=== PATIENT | male | born 1930 | race Caucasian/White ===

== ENCOUNTER 2018-07-05 18:21 | Inpatient (IN) ==
--- NOTE | 2018-07-05 18:52 | ED ---
HPI General Chief Complaint: Neuro Symptoms/Deficit Stated Complaint: Dizziness/Confusion/Weakness/Headache x 2 days Time Seen by Provider: 07/05/18 18:31 History of Present Illness HPI Narrative: By EMS after being called by a patient who found him confused at home, where he had been in such a state apparently for 5-6 hours, where last known normal state was between 1030 and 11:00 this morning, 7 hours prior to arrival, with history of having developed a generalized weakness while outside in the yard, clearing hedges, when he had sudden onset of weakness, with difficulty walking, and stumbling, the patient was ultimately able to make it into the house, where he rested for the remainder of the afternoon, without seeking medical help. found him when she came home in such a condition, felt that he was confused, stumbling over words, speaking sometimes nonsensically, and she was concerned about stroke because he had a similar episode of confusion and speech difficulty approximately 5 months ago, for which he refused to seek medical care, but which subsided on its own spontaneously. 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 He had been in good general health, had not felt ill easily, had been eating and drinking normally, with good hydration, and good nourishment prior to starting his activities. Related Data Home Medications Medication Instructions Recorded Confirmed aspirin 325 mg PO QID 07/05/18 07/05/18 Allergies Allergy/AdvReac Type Severity Reaction Status Date / Time No Known Allergies Allergy none Uncoded 07/05/18 19:19 Review of Systems ROS: all other systems reviewed are negative Constitutional Denies chills, Denies fever(s), Denies headache(s), Denies lethargy, Denies malaise and Reports weakness (generalized) Eyes Reports as per HPI, Reports system reviewed and no additional complaints, except as docu, Denies blurry vision, Denies change in vision, Denies loss of vision, Denies other visual disturbances, Reports requires corrective lenses and Reports other (chronic visual deterioration, corrective and macular degeneration) ENT Denies sore throat Cardiovascular Denies chest pain, Denies diaphoresis and Denies dyspnea Respiratory Denies chest congestion, Denies cough, Denies dyspnea and Denies wheezing Gastrointestinal Denies abdominal pain, Denies nausea and Denies vomiting Musculoskeletal Denies back pain, Denies myalgias, Denies arthralgias, Denies joint swelling, Denies muscle cramps, Reports muscle weakness (generalized), Denies numbness and Denies tingling Neurologic Reports as per HPI, Denies abnormal movements, Reports confusion, Denies vertigo , Denies syncope, Reports frequent falls (from onset of generalized weakness today), Denies headache(s), Denies focal weakness, Denies memory loss, Denies numbness, Denies convulsions and Denies sensory deficit [facility] Medical History Medical History Diabetes (Acute) HTN (hypertension) (Acute) Surgical History Surgical History Aortic valve replaced (Acute) History of open heart surgery (Acute) Social History Social History Substance History: No History of Abuse Smoking Status: Former smoker How Often Do You Have a Drink Containing Alcohol: 4 or more times a week Recent Travel in [facility] within the Last 8 Weeks: No Recent Out of Country Travel within the Last 8 Weeks: No Exam Narrative Exam Narrative: GENERAL: Elderly male, awake and oriented, cognition and judgment are good, vital signs are stable, mildly anxious, but no acute distress SKIN: Focused skin assessment warm/dry. HEAD: Atraumatic. Normocephalic. EYES: Pupils equal and round. No scleral icterus. No injection or drainage. ENT: No nasal bleeding or discharge. Mucous membranes pink and moist. NECK: Trachea midline. No JVD. CARDIOVASCULAR: Regular rate and rhythm. No murmur appreciated. RESPIRATORY: No accessory muscle use. Clear to auscultation. Breath sounds equal bilaterally. GASTROINTESTINAL: Abdomen soft, non-tender, nondistended. Hepatic and splenic margins not palpable. MUSCULOSKELETAL: No obvious deformities. No clubbing. No cyanosis. No edema. NEUROLOGICAL: Awake and alert. No obvious cranial nerve deficits. Motor grossly within normal limits. Normal speech. PSYCHIATRIC: Appropriate mood and affect; insight and judgment normal. Course Initial Documented Vital Signs Pulse Oximetry 96 07/05/18 18:43 Last Documented Vital Signs Temperature 98.3 F 07/05/18 19:00 Pulse Rate 76 07/05/18 19:36 Respiratory Rate 18 07/05/18 19:36 Blood Pressure 179/86 H 07/05/18 19:36 Pulse Oximetry 93 L 07/05/18 19:36 NIH Stroke Scale NIHSS Time Completed NIHSS Time Completed: 18:51 NIH Stroke Scale Level of Consciousness: 0-Alert Orientation Questions: 0-Answers both correct Responds to Commands: 0-Both tasks correct Gaze Eye Movement: 0-Horizontal movement WNL Visual Camara: 0-No visual field defect Facial Movement: 0-Normal Motor Functions Arm LEFT: 0-No drift Motor Functions Arm RIGHT: 0-No drift Motor Functions Leg LEFT: 0-No drift Motor Functions Leg RIGHT: 0-No drift Limb Ataxia: 0-No ataxia Sensory Loss: 0-No sensory loss Best Language: 0-Normal Articulation: 0-Normal Extinction or Inattention Sensory: 0-Absent Total: 0 Medical Decision Making MDM Narrative Medical Screen Exam Complete: Yes Emergency Medical Condition: Yes Differential Diagnosis Differential Diagnosis: exertional weakness, metabolic abnormality,CVA, TIA, dehydration, pneumonia, urinary tract infection, sepsis Lab Data Result diagrams: 07/05/18 19:05 07/05/18 19:05 Lab Results 07/05/18 07/05/18 07/05/18 Range/Units 18:35 19:05 19:05 CBC w Diff Auto diff final WBC 6.8 (4.0-11.0) th/mm3 RBC 4.49 L (4.50-5.90) mil/mm3 Hgb 14.9 (13.0-17.0) gm/dL Hct 43.3 (39.0-51.0) % MCV 96.5 (80.0-100.0) fL MCH 33.2 (27.0-34.0) pg MCHC 34.5 (32.0-36.0) % RDW 13.2 (11.6-17.2) % Plt Count 178 (150-450) th/mm3 MPV 8.0 (7.0-11.0) fL Neut % (Auto) 60.5 (16.0-70.0) % Lymph % (Auto) 24.6 (9.0-44.0) % Independence % (Auto) 11.2 H (0.0-8.0) % Eos % (Auto) 3.0 (0.0-4.0) % Baso % (Auto) 0.7 (0.0-2.0) % Neut # (Auto) 4.1 (1.8-7.7) th/mm3 Lymph # (Auto) 1.7 (1.0-4.8) th/mm3 Independence # (Auto) 0.8 (0.0-0.9) th/mm3 Eos # (Auto) 0.2 (0.0-0.4) th/mm3 Baso # (Auto) 0.0 (0.0-0.2) th/mm3 WBC Differential . Differential Comment . PT 10.3 (9.8-11.6) sec INR 1.0 Ratio APTT 33.9 H (23.4-31.7) sec Sodium (136-145) meq/L Potassium (3.5-5.1) meq/L Chloride (98-107) meq/L Carbon Dioxide (21.0-32.0) meq/L Anion Gap (5-15) meq/L BUN (7-18) mg/dL Creatinine (0.60-1.30) mg/dL Estimated GFR (>89) mL/min POC Glucose 134 H (68-110) mg/dl Random Glucose (74-106) mg/dL Lactic Acid (0.4-2.0) mmol/L Calcium (8.5-10.1) mg/dL Total Creatine Kinase (39-308) U/L CK-MB (CK-2) (0.5-3.6) ng/mL Troponin I (0.02-0.05) ng/mL 07/05/18 07/05/18 07/05/18 Range/Units 19:05 19:05 20:00 CBC w Diff WBC (4.0-11.0) th/mm3 RBC (4.50-5.90) mil/mm3 Hgb (13.0-17.0) gm/dL Hct (39.0-51.0) % MCV (80.0-100.0) fL MCH (27.0-34.0) pg MCHC (32.0-36.0) % RDW (11.6-17.2) % Plt Count (150-450) th/mm3 MPV (7.0-11.0) fL Neut % (Auto) (16.0-70.0) % Lymph % (Auto) (9.0-44.0) % Independence % (Auto) (0.0-8.0) % Eos % (Auto) (0.0-4.0) % Baso % (Auto) (0.0-2.0) % Neut # (Auto) (1.8-7.7) th/mm3 Lymph # (Auto) (1.0-4.8) th/mm3 Independence # (Auto) (0.0-0.9) th/mm3 Eos # (Auto) (0.0-0.4) th/mm3 Baso # (Auto) (0.0-0.2) th/mm3 WBC Differential Differential Comment PT (9.8-11.6) sec INR Ratio APTT (23.4-31.7) sec Sodium 141 (136-145) meq/L Potassium 3.7 (3.5-5.1) meq/L Chloride 106 (98-107) meq/L Carbon Dioxide 27.5 (21.0-32.0) meq/L Anion Gap 8 (5-15) meq/L BUN 24 H (7-18) mg/dL Creatinine 0.95 (0.60-1.30) mg/dL Estimated GFR 75 L (>89) mL/min POC Glucose (68-110) mg/dl Random Glucose 140 H (74-106) mg/dL Lactic Acid 0.8 (0.4-2.0) mmol/L Calcium 8.4 L (8.5-10.1) mg/dL Total Creatine Kinase 103 106 (39-308) U/L CK-MB (CK-2) 2.0 (0.5-3.6) ng/mL Troponin I Less than 0.02 L (0.02-0.05) ng/mL Imaging Data Radiologist's impression: Head CT 07/05/18 18:43 CONCLUSION: 1. No acute intracranial abnormality. 2. Mild chronic white matter changes. 3. Left maxillary sinusitis. . ECG Data Attestation: I personally reviewed and interpreted this ECG as follows: (EKG done at 0 7:00 shows a sinus bradycardia with a heart rate of 57 and a first- degree AV block with a MO interval at 312 ms there is nonspecific ST changes.) Discharge Plan Discharge Disposition Patient Disposition: ED Admit(ED Internal Use Only) Discharge Condition Condition: Fair Discharge Order Discharge Orders: ED Use Only Admit Order (Routine); Ordered 07/05/18 Ordered By: Krzysztof Jewell Discharge Details Discharge Comment: Patient's case was discussed and admitted to the hospitalist Dr. Bui Diagnosis: Transient cerebral ischemia, Accelerated hypertension Physicians Team ED Provider: Krzysztof Jewell Primary Care Provider: Do Gallito Henson Rxs /Orders / Referrals /Forms Prescriptions: No Action aspirin 325 mg Tablet 650 mg PO BID RF: 0 Discharge Interventions Interventions: Vital Signs Last Done: 07/05/18 19:36 Status ED Status: With Doctor
[2018-07-05 19:20] LABS: Baso % (Auto) 0.7 % (0.0-2.0); Eos # (Auto) 0.2 th/mm3 (0.0-0.4); Hematocrit 43.3 % (39.0-51.0); Hemoglobin 14.9 gm/dL (13.0-17.0); Lymph # (Auto) 1.7 th/mm3 (1.0-4.8); Lymph % (Auto) 24.6 % (9.0-44.0); Mean Corpuscular HGB Conc 34.5 % (32.0-36.0); Mean Corpuscular Hemoglobin 33.2 pg (27.0-34.0); Mean Corpuscular Volume 96.5 fL (80.0-100.0); Mono # (Auto) 0.8 th/mm3 (0.0-0.9); Mono % (Auto) 11.2 % (0.0-8.0); Neut # (Auto) 4.1 th/mm3 (1.8-7.7); Neut % (Auto) 60.5 % (16.0-70.0); Platelet Count 178 th/mm3 (150-450); Red Blood Count 4.49 mil/mm3 (4.50-5.90); Red Cell Distribution Width 13.2 % (11.6-17.2); White Blood Count 6.8 th/mm3 (4.0-11.0)
[2018-07-05 19:24] LABS: Chloride 106 meq/L (98-107); Potassium 3.7 meq/L (3.5-5.1); Sodium 141 meq/L (136-145)
[2018-07-05 19:27] LABS: Calcium 8.4 mg/dL (8.5-10.1)
[2018-07-05 19:28] LABS: Anion Gap 8 meq/L (5-15); Blood Urea Nitrogen 24 mg/dL (7-18); Carbon Dioxide 27.5 meq/L (21.0-32.0); Glucose,Random 140 mg/dL (74-106)
[2018-07-05 19:30] LABS: Activated Partial Thrombo Time 33.9 sec (23.4-31.7); Prothrombin Time 10.3 sec (9.8-11.6)
[2018-07-05 19:31] LABS: Glomerular Filtration Rate 75 mL/min (>89)
[2018-07-05 19:34] LABS: Creatine Kinase 103 U/L (39-308)
--- NOTE | 2018-07-05 19:59 | CT ---
EXAM DATE: 07/05/2018 7:55 PM EST AGE/SEX: 87 years / Male INDICATIONS: Bilateral lower extremity weakness, dizziness, and confusion today. CLINICAL DATA: This is the patient's initial encounter. Patient reports that signs and symptoms have been present for 1 day and indicates a pain score of 0/10. MEDICAL/SURGICAL HISTORY: Diabetes. Hypertension. Cardiovascular disease. . Open heart surgery. V alve replaced. RADIATION DOSE: 55.40 CTDI (mGy) COMPARISON: No prior exams available for comparison. TECHNIQUE: CT of the head without contrast. Using automated exposure control and adjustment of the mA and/or kV according to patient size, radiation dose was kept as low as reasonably achievable to ob tain optimal diagnostic quality images. DICOM format image data is available electronically for revi ew and comparison. FINDINGS: Cerebrum: The ventricles are normal for age. No evidence of midline shift, mass lesion, hemorrhage or acute infarction. No extraaxial fluid collections are seen. Mild, chronic low-attenuation seen in the periventricular white matter. Posterior Fossa: The cerebellum and brainstem are intact. The 4th ventricle is midline. The cerebe llopontine angle is unremarkable. Extracranial: Mild mucoperiosteal thickening and debris seen in the visualized left maxillary sinus. Skull: The calvaria is intact. No evidence of skull fracture. CONCLUSION: 1. No acute intracranial abnormality. 2. Mild chronic white matter changes. 3. Left maxillary sinusitis. . Electronically signed by: Nikita Finn MD 07/05/2018 7:57 PM EST
[2018-07-05] MEDS ORDERED: Bisacodyl 10 MG Supp RECTAL PRN (20:53)
[2018-07-05] MEDS ORDERED: Acetaminophen 325 MG Tablet PO PRN (20:53)
[2018-07-05] MEDS: Sod Chloride 0.9% Inj 1,000 ML IV.CONT SCH (20:56)
--- NOTE | 2018-07-05 21:39 | ECG ---
Date Performed: 07/05/2018 Time Performed: 20:57:05 PTAGE: 87 years EKG: SINUS BRADYCARDIA WITH FIRST DEGREE AV BLOCK ABNORMAL ECG PREVIOUS TRACING : 12/18/2010 08.40 Compared to previous tracing, rate slower DOCTOR: Ryland Cheema Interpretating Date/Time 07/05/2018 21:38:35
[2018-07-05] MEDS: Senna/Docusate Sodium 8.6/50 MG Tablet PO SCH (22:03)
[2018-07-05] MEDS: Heparin - SQ 10,000 UNITS/ML Vial SQ SCH (22:04)
[2018-07-05 23:39] LABS: Bilirubin,Urine Negative (Negative); Clarity,Urine Clear (Clear); Color,Urine Yellow (Yellw/Straw); Glucose,Urine (UA) Negative (Negative); Leukocyte Esterase,Urine Negative (Negative); Nitrite,Urine Negative (Negative); Specific Gravity,Urine 1.025 (1.002-1.035); Urobilinogen,Urine 0.2 mg/dL (Less than 2)
[2018-07-05 23:44] LABS: RBC,Urine 0-3 /hpf (0-3); Squamous Epithelial Cell,Urine 0-5 /hpf (0-5); WBC,Urine 0-5 /hpf (0-5)
[2018-07-06 06:56] LABS: Baso % (Auto) 0.6 % (0.0-2.0); Eos # (Auto) 0.3 th/mm3 (0.0-0.4); Eos % (Auto) 4.9 % (0.0-4.0); Hematocrit 41.3 % (39.0-51.0); Hemoglobin 14.1 gm/dL (13.0-17.0); Lymph # (Auto) 1.8 th/mm3 (1.0-4.8); Lymph % (Auto) 30.8 % (9.0-44.0); Mean Corpuscular HGB Conc 34.3 % (32.0-36.0); Mean Corpuscular Hemoglobin 33.5 pg (27.0-34.0); Mean Corpuscular Volume 97.8 fL (80.0-100.0); Mean Platelet Volume 8.3 fL (7.0-11.0); Mono # (Auto) 0.7 th/mm3 (0.0-0.9); Mono % (Auto) 11.2 % (0.0-8.0); Neut # (Auto) 3.1 th/mm3 (1.8-7.7); Neut % (Auto) 52.5 % (16.0-70.0); Platelet Count 173 th/mm3 (150-450); Red Blood Count 4.22 mil/mm3 (4.50-5.90); Red Cell Distribution Width 13.3 % (11.6-17.2); White Blood Count 5.9 th/mm3 (4.0-11.0)
[2018-07-06 07:02] LABS: Potassium 3.7 meq/L (3.5-5.1)
[2018-07-06 07:05] LABS: Calcium 8.3 mg/dL (8.5-10.1)
[2018-07-06 07:06] LABS: Carbon Dioxide 27.4 meq/L (21.0-32.0)
--- NOTE | 2018-07-06 08:58 | US ---
EXAM DATE: 07/06/2018 8:51 AM EST AGE/SEX: 87 years / Male INDICATIONS: Altered mental status changes with weakness. CLINICAL DATA: This is the patient's initial encounter. Patient reports that signs and symptoms have been present for 1 day and indicates a pain score of 0/10. MEDICAL/SURGICAL HISTORY: Hypertension. Myocardial infarction. Transient ischemic attack. Di abetes. Coronary artery stent. Aortic valve replacement. Open heart surgery. COMPARISON: No prior exams available for comparison. VELOCITY PARAMETERS: ICA/CCA Ratio: Right 1.9 , Left 5.5 ICA: Right 130 cm/sec, Left 344 cm/sec CCA: Right 69 cm/sec, Left 62 cm/sec ECA: Right 57 cm/sec, Left 89 cm/sec Vertebral: Right 11 cm/sec antegrade, Left 59 cm/sec antegrade FINDINGS: Right Carotid: There is a small calcified nodule in the mid common carotid artery and the area is mi ld calcified and noncalcified plaque in the carotid bulb and distal common carotid artery.The wavefor ms are within normal limits. Left Carotid: There are small focal areas of calcified and noncalcified plaque in the proximal, mid, and distal common carotid artery and there is a shadowing calcified plaque in the carotid bulb and p roximal internal carotid artery. There is spectral broadening. Other: None. CONCLUSION: 1. 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 2. Left Internal Carotid Artery: Findings indicate >70% stenosis, but less than near occlusion. 3. Consider confirmation of these findings with carotid CTA prior to any planned intervention. Electronically signed by: Nikita Duarte MD 07/06/2018 8:57 AM EST
[2018-07-06] MEDS: Aspirin 325 MG Tablet PO SCH (09:34)
[2018-07-06] MEDS: Senna/Docusate Sodium 8.6/50 MG Tablet PO SCH ×2 (09:36→22:19)
[2018-07-06] MEDS: Heparin - SQ 10,000 UNITS/ML Vial SQ SCH ×2 (09:36→22:18)
[2018-07-06 10:08] LABS: Chol/HDL Ratio 2.17 Ratio; HDL Cholesterol 65.8 mg/dL (40.0-60.0)
[2018-07-06] MEDS: Sod Chloride 0.9% Inj 1,000 ML IV.CONT SCH (10:49)
[2018-07-06 12:23] LABS: Thyroid Stimulating Hormone 0.927 uIU/mL (0.358-3.740)
--- NOTE | 2018-07-06 13:45 | P.HP ---
History of Present Illness Primary Care Physician: Do Gallito Henson Chief Complaint: weakness, confusion, difficult ambulating History of Present Illness: 87-year-old male with known history of hypertension, hyperlipidemia, diabetes, coronary artery disease, aortic valve replacement who presented the hospital because of acute neurological symptoms. Patient states that his normal state of health until approximately 10 AM yesterday morning when he was out trimming the hedges. Patient states that he got about a third of the way down he started developing weakness in his lower extremities. Patient states that he had a difficult time of stepping up over a 1 foot fence. He tried multiple times and then he fell. He denies any head trauma or any loss of consciousness. The patient got up and finished trimming a hedge, he put everything away and then went into the house. After that he started having problems with coordination, ambulating. He states that he went into the kitchen to get utensils but could not differentiate between a knife and a fork. When the patient's came home she was concerned because he appeared to be very confused and he had the TV volume up very high. He does wear hearing aids and they usually listen to the TV at a 1920, however when she came in it was on 38 in order for him to hear. They came to the emergency department for evaluation. Original workup did not indicate any acute abnormality. It was recommended by the ER physician of the patient be observed in the hospital for further evaluation and management. The patient and indicate that this has happened approximately 6 months ago and he did not seek medical attention at that time. - Diagnosis (1) Coronary artery disease (2) History of cardiac catheterization (3) History of heart artery stent (4) Transient cerebral ischemia Review of Systems All other systems reviewed negative except as stated in HPI Ears, Nose, Mouth, and Throat: Reports hearing loss Neurologic: Reports abnormal hearing, Reports abnormal speech, Reports abnormal walking, Reports behavioral changes, Reports confusion, Reports lack of coordination, Reports unsteadiness PMF - History History Provided By: Patient - Medical History Medical History: Medical History (Last Updated 07/06/18 @ 13:44 by KELSEA Melton) Coronary artery disease Diabetes HTN (hypertension) Hyperlipidemia - Surgical History Surgical History: Surgical History (Last Updated 07/06/18 @ 13:44 by KELSEA Melton) Aortic valve replaced History of cardiac catheterization History of cataract extraction with lens replacement History of heart artery stent History of open heart surgery - Family History Family History: Family History (Last Updated 07/06/18 @ 13:44 by KELSEA Melton) Mother History of heart disease Father History of prostate cancer - Tobacco History Second Hand Smoke Exposure: No Tobacco Use In Past 30 Days: No Smoking Status: Former smoker - Alcohol History How Often Do You Have a Drink Containing Alcohol: 4 or more times a week - Substance Use History Substance History: No History of Abuse - Travel History Recent Travel in the [place] Within the Last 8 Weeks: No Recent Travel Out of the Country Within the Last 8 Weeks: No - Immunization History Tetanus Immunization: <5 Years Medications and Allergies Active Medications: Active Medications Acetaminophen (Tylenol) 650 mg PO Q4H PRN PRN Reason: headache/fever/pain1-5 Al Hydroxide/Mg Hydroxide (Milk Of Magnesia Liq) 30 ml PO Q12H PRN PRN Reason: Mild Constipation Aspirin (Aspirin) 325 mg PO DAILY [facility] Last Admin: 07/06/18 09:34 Dose: 325 mg Bisacodyl (Dulcolax Supp) 10 mg RECTAL DAILY PRN PRN Reason: SEVERE CONSITIPATION Heparin Sodium (Porcine) (Heparin Inj) 5,000 units SQ Q12H [facility] Last Admin: 07/06/18 09:36 Dose: 5,000 units Sodium Chloride (Ns Inj) 1,000 mls @ 70 mls/hr IV.CONT .[id number] [facility] Last Admin: 07/06/18 10:49 Dose: 70 mls/hr Lactulose (Lactulose Liq) 30 ml PO DAILY PRN PRN Reason: SEVERE CONSITIPATION Ondansetron HCl (Zofran Inj) 4 mg IV.PUSH Q6H PRN PRN Reason: NAUSEA OR VOMITING Senna/Docusate Sodium (Karen-Colace) 1 tab PO BID [facility] Last Admin: 07/06/18 09:36 Dose: 1 tab Sennosides (Senokot) 17.2 mg PO Q12H PRN PRN Reason: Moderate Constipation Sodium Chloride (Ns Flush) 2 ml IV.FLUSH BID [facility] Last Admin: 07/06/18 09:37 Dose: 2 ml Sodium Chloride (Ns Flush) 2 ml IV.FLUSH PRN PRN PRN Reason: FLUSH AFTER USING IV ACCESS Allergies Allergy/AdvReac Type Severity Reaction Status Date / Time No Known Allergies Allergy none Uncoded 07/05/18 19:19 Home Medications Medication Instructions Recorded Confirmed Type aspirin 650 mg PO BID 07/05/18 07/05/18 History Exam Vital signs: Vital Signs 07/05/18 18:43 07/05/18 19:00 07/05/18 19:36 Temperature 98.3 F Pulse Rate 82 76 Respiratory Rate 18 18 Blood Pressure 223/90 H 179/86 H Pulse Oximetry 96 96 93 L 07/05/18 21:03 07/05/18 21:04 07/05/18 21:48 Temperature Pulse Rate 61 61 61 Respiratory Rate 16 Blood Pressure 188/79 H Pulse Oximetry 95 07/05/18 21:55 07/06/18 00:00 07/06/18 00:04 Temperature 96.0 F L 96.6 F L Pulse Rate 57 L 60 57 L Respiratory Rate 18 18 Blood Pressure 175/80 H 170/85 H Pulse Oximetry 96 94 L 07/06/18 04:00 07/06/18 04:02 07/06/18 08:00 Temperature 96.5 F L 96.2 F L Pulse Rate 65 78 64 Respiratory Rate 19 20 Blood Pressure 168/82 H 206/95 H Pulse Oximetry 95 95 07/06/18 08:10 07/06/18 12:00 Temperature 97 F L Pulse Rate 62 63 Respiratory Rate 20 Blood Pressure 197/90 H 177/95 H Pulse Oximetry Intake & Output 07/05/18 07/06/18 07/06/18 18:59 06:59 18:59 Intake Total 625 / 625 375 / 375 Output Total 75 / 75 Balance 550 / 550 375 / 375 Weight 77.8 kg Intake: IV 625 / 625 375 / 375 NS Inj 1,000 ML @ 70 mls/hr IV. 625 / 625 375 / 375 CONT .[id number] [facility] Rx#: [id number] Output: Urine 75 / 75 Other: Date of Last Bowel Movement 07/04/18 Weight On Admission 77.8 kg Narrative: GENERAL: Well-developed, well-nourished, in no acute distress. alert and orientated HEENT: Head is normocephalic without any lesions or masses noted. Facial features are symmetric. Eyes: Pupils equal round reactive to light. Extraocular muscles are intact. Conjunctivae were clear. Oropharyngeal: Pharynx without any erythema edema. Tongue is midline without deviation. Buccal mucosa is moist without any masses or lesions NECK: Supple without any masses. Trachea midline no deviation. No JVD, no bruits are appreciated CARDIAC: Regular rhythm, regular rate. S1/S2 are heard. 2/6 ejection murmur, no gallops or rubs. LUNGS: Clear to auscultation bilaterally. No wheeze, rhonchi or rales. No use of accessory muscles on inspiration or expiration. ABDOMEN: Soft, nontender. Nondistended. Bowel sounds heard in all 4 quadrants. No organomegaly or masses. Negative rebound, negative guarding EXTREMITIES: No edema, pulses are equal bilaterally. No cyanosis or clubbing NEUROLOGY: Mood and affect appear appropriate. Cranial nerves II through XII grossly intact. Muscle strength 5/5 in upper and lower extremities bilaterally. Deep tendon reflexes are 2+ in upper and lower extremities bilaterally. Results - Labs CBC & Chem 7: 07/06/18 05:30 07/06/18 05:30 Labs: Laboratory Results - last 24 hr 07/05/18 07/05/18 07/05/18 18:35 19:05 19:05 CBC w Diff Auto diff final WBC 6.8 RBC 4.49 L Hgb 14.9 Hct 43.3 MCV 96.5 MCH 33.2 MCHC 34.5 RDW 13.2 Plt Count 178 MPV 8.0 Neut % (Auto) 60.5 Lymph % (Auto) 24.6 [place] % (Auto) 11.2 H Eos % (Auto) 3.0 Baso % (Auto) 0.7 Neut # (Auto) 4.1 Lymph # (Auto) 1.7 [place] # (Auto) 0.8 Eos # (Auto) 0.2 Baso # (Auto) 0.0 WBC Differential . Differential Comment . ESR PT 10.3 INR 1.0 APTT 33.9 H Sodium Potassium Chloride Carbon Dioxide Anion Gap BUN Creatinine Estimated GFR POC Glucose 134 H Random Glucose Lactic Acid Calcium Ammonia Total Creatine Kinase CK-MB (CK-2) Troponin I Triglycerides Cholesterol LDL Cholesterol, Calc HDL Cholesterol Cholesterol/HDL Ratio TSH Urine Color Urine Clarity Urine pH Ur Specific [place] Urine Protein Urine Glucose (UA) Urine Ketones Urine Occult Blood Urine Nitrate Urine Bilirubin Urine Urobilinogen Ur Leukocyte Esterase Urine RBC Urine WBC Ur Squamous Epith Cells Micro UA Comment Ur Microscopic Review Urine Culture Comments 07/05/18 07/05/18 07/05/18 19:05 19:05 20:00 CBC w Diff WBC RBC Hgb Hct MCV MCH MCHC RDW Plt Count MPV Neut % (Auto) Lymph % (Auto) [place] % (Auto) Eos % (Auto) Baso % (Auto) Neut # (Auto) Lymph # (Auto) [place] # (Auto) Eos # (Auto) Baso # (Auto) WBC Differential Differential Comment ESR PT INR APTT Sodium 141 Potassium 3.7 Chloride 106 Carbon Dioxide 27.5 Anion Gap 8 BUN 24 H Creatinine 0.95 Estimated GFR 75 L POC Glucose Random Glucose 140 H Lactic Acid 0.8 Calcium 8.4 L Ammonia Total Creatine Kinase 103 106 CK-MB (CK-2) 2.0 Troponin I Less than 0.02 L Triglycerides Cholesterol LDL Cholesterol, Calc HDL Cholesterol Cholesterol/HDL Ratio TSH Urine Color Urine Clarity Urine pH Ur Specific [place] Urine Protein Urine Glucose (UA) Urine Ketones Urine Occult Blood Urine Nitrate Urine Bilirubin Urine Urobilinogen Ur Leukocyte Esterase Urine RBC Urine WBC Ur Squamous Epith Cells Micro UA Comment Ur Microscopic Review Urine Culture Comments 07/05/18 07/05/18 07/06/18 22:04 23:10 05:30 CBC w Diff WBC RBC Hgb Hct MCV MCH MCHC RDW Plt Count MPV Neut % (Auto) Lymph % (Auto) [place] % (Auto) Eos % (Auto) Baso % (Auto) Neut # (Auto) Lymph # (Auto) [place] # (Auto) Eos # (Auto) Baso # (Auto) WBC Differential Differential Comment ESR PT INR APTT Sodium 142 Potassium 3.7 Chloride 108 H Carbon Dioxide 27.4 Anion Gap 7 BUN 22 H Creatinine 0.83 Estimated GFR 88 L POC Glucose 133 H Random Glucose 95 Lactic Acid Calcium 8.3 L Ammonia Total Creatine Kinase CK-MB (CK-2) Troponin I Triglycerides 81 Cholesterol 143 LDL Cholesterol, Calc 61 HDL Cholesterol 65.8 H Cholesterol/HDL Ratio 2.17 TSH Urine Color Yellow Urine Clarity Clear Urine pH 6.0 Ur Specific [place] 1.025 Urine Protein Negative Urine Glucose (UA) Negative Urine Ketones Trace H Urine Occult Blood Negative Urine Nitrate Negative Urine Bilirubin Negative Urine Urobilinogen 0.2 Ur Leukocyte Esterase Negative Urine RBC 0-3 Urine WBC 0-5 Ur Squamous Epith Cells 0-5 Micro UA Comment Culture not ind Ur Microscopic Review Microscopic reviewed Urine Culture Comments Culture not ind 07/06/18 07/06/18 07/06/18 05:30 05:30 05:30 CBC w Diff Auto diff final WBC 5.9 RBC 4.22 L Hgb 14.1 Hct 41.3 MCV 97.8 MCH 33.5 MCHC 34.3 RDW 13.3 Plt Count 173 MPV 8.3 Neut % (Auto) 52.5 Lymph % (Auto) 30.8 [place] % (Auto) 11.2 H Eos % (Auto) 4.9 H Baso % (Auto) 0.6 Neut # (Auto) 3.1 Lymph # (Auto) 1.8 [place] # (Auto) 0.7 Eos # (Auto) 0.3 Baso # (Auto) 0.0 WBC Differential . Differential Comment . ESR 2 PT INR APTT Sodium Potassium Chloride Carbon Dioxide Anion Gap BUN Creatinine Estimated GFR POC Glucose Random Glucose Lactic Acid Calcium Ammonia Total Creatine Kinase CK-MB (CK-2) Troponin I Triglycerides Cholesterol LDL Cholesterol, Calc HDL Cholesterol Cholesterol/HDL Ratio TSH 0.927 Urine Color Urine Clarity Urine pH Ur Specific [place] Urine Protein Urine Glucose (UA) Urine Ketones Urine Occult Blood Urine Nitrate Urine Bilirubin Urine Urobilinogen Ur Leukocyte Esterase Urine RBC Urine WBC Ur Squamous Epith Cells Micro UA Comment Ur Microscopic Review Urine Culture Comments 07/06/18 10:20 CBC w Diff WBC RBC Hgb Hct MCV MCH MCHC RDW Plt Count MPV Neut % (Auto) Lymph % (Auto) [place] % (Auto) Eos % (Auto) Baso % (Auto) Neut # (Auto) Lymph # (Auto) [place] # (Auto) Eos # (Auto) Baso # (Auto) WBC Differential Differential Comment ESR PT INR APTT Sodium Potassium Chloride Carbon Dioxide Anion Gap BUN Creatinine Estimated GFR POC Glucose Random Glucose Lactic Acid Calcium Ammonia 44 H Total Creatine Kinase CK-MB (CK-2) Troponin I Triglycerides Cholesterol LDL Cholesterol, Calc HDL Cholesterol Cholesterol/HDL Ratio TSH Urine Color Urine Clarity Urine pH Ur Specific [place] Urine Protein Urine Glucose (UA) Urine Ketones Urine Occult Blood Urine Nitrate Urine Bilirubin Urine Urobilinogen Ur Leukocyte Esterase Urine RBC Urine WBC Ur Squamous Epith Cells Micro UA Comment Ur Microscopic Review Urine Culture Comments - Imaging Impressions Head CT 07/05/18 18:43 CONCLUSION: 1. No acute intracranial abnormality. 2. Mild chronic white matter changes. 3. Left maxillary sinusitis. . Carotid Doppler Study 07/06/18 00:00 CONCLUSION: 1. 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 2. Left Internal Carotid Artery: Findings indicate >70% stenosis, but less than near occlusion. 3. Consider confirmation of these findings with carotid CTA prior to any planned intervention. Caprini VTE Risk Assessment Caprini VTE Risk Assessment: Moderate/High Risk (score >= 2) Caprini Risk Assessment Model: Point Value = 1 Point Value = 2 Point Value = 3 Point Value = 5 Age 41-60 Minor surgery BMI > 25 kg/m2 Swollen legs Varicose veins or History of unexplained or recurrent spontaneous Oral contraceptives or hormone replacement Sepsis (< 1 month) Serious lung disease, including pneumonia (< 1 month) Abnormal pulmonary function Acute myocardial infarction Congestive heart failure (< 1 month) History of inflammatory bowel disease Medical patient at bed rest Age 61-74 Arthroscopic surgery Major open surgery (> 45 min) Laparoscopic surgery (> 45 min) Malignancy Confined to bed (> 72 hours) Immobilizing plaster cast Central venous access Age >= 75 History of VTE Family history of VTE Factor V Leiden Prothrombin [id number] Lupus anticoagulant Anticardiolipin antibodies Elevated serum homocysteine Heparin-induced thrombocytopenia Other congenital or acquired thrombophilia Stroke (< 1 month) Elective arthroplasty Hip, pelvis, or leg fracture Acute spinal cord injury (< 1 month) Prophylaxis Regimen: Total Risk Factor Score Risk Level Prophylaxis Regimen 0-1 Low Early ambulation 2 Moderate Order ONE of the following: *Sequential Compression Device (SCD) *Heparin 5000 units SQ BID 3-4 Higher Order ONE of the following medications: *Heparin 5000 units SQ TID *Enoxaparin/Lovenox 40 mg SQ daily (WT < 150 kg, CrCl > 30 mL/min) *Enoxaparin/Lovenox 30 mg SQ daily (WT < 150 kg, CrCl > 10-29 mL/min) *Enoxaparin/Lovenox 30 mg SQ BID (WT < 150 kg, CrCl > 30 mL/min) AND/OR *Sequential Compression Device (SCD) 5 or more Highest Order ONE of the following medications: *Heparin 5000 units SQ TID (Preferred with Epidurals) *Enoxaparin/Lovenox 40 mg SQ daily (WT < 150 kg, CrCl > 30 mL/min) *Enoxaparin/Lovenox 30 mg SQ daily (WT < 150 kg, CrCl > 10-29 mL/min) *Enoxaparin/Lovenox 30 mg SQ BID (WT < 150 kg, CrCl > 30 mL/min) AND *Sequential Compression Device (SCD) Assessment and Plan - Assessment (1) Coronary artery disease Code(s): I25.10 - Atherosclerotic heart disease of [place] coronary artery without angina pectoris Status: Acute (2) History of cardiac catheterization Code(s): Z98.890 - Other specified postprocedural states Status: Acute (3) History of heart artery stent Code(s): Z95.5 - Presence of coronary angioplasty implant and graft Status: Acute (4) Transient cerebral ischemia Code(s): G45.9 - Transient cerebral ischemic attack, unspecified Status: Acute - Plan Acute neurological changes, rule out CVA -Patient presented with lower extremity weakness, fall, confusion, difficulty speaking, acute hearing loss, disequilibrium -Initial CT did not indicate any acute abnormality -Carotid ultrasound was performed and does indicate greater than 70% stenosis of the left carotid. Recommending CTA -Awaiting MRI/MRA of the brain, -Awaiting MRA of the neck -Awaiting echocardiogram -Additional laboratory studies with lipid panel shows LDL 61, TSH, sed rate are normal -B12, folate, glycohemoglobin are pending -Patient does have elevated ammonia level will obtain liver enzymes -Physical therapy evaluated patient and recommended home with no PT recommendations -Speech therapy evaluated patient and recommended full diet -Awaiting occupational therapy -Start Plavix 75 mg daily, if MRA of the neck does not indicate need for surgical intervention -Continue aspirin Hypertensive urgency -Given the patient presenting with acute neurological changes and symptoms. Permissive hypertension was allowed -Can start controlling blood pressure at this time -Start lisinopril 10 mg daily -Clonidine as needed Diabetes -Continue monitor glucose, await hemoglobin A1c and start insulin with sliding scale if needed DVT prevention -Subcutaneous heparin
[2018-07-06 14:14] LABS: Folate 9.8 ng/mL (3.1-17.5)
--- NOTE | 2018-07-06 14:21 | MR ---
EXAM DATE: 07/06/2018 2:09 PM EST AGE/SEX: 87 years / Male INDICATIONS: TIA. Leg weakness and some confusion. CLINICAL DATA: This is the patient's subsequent encounter. Patient reports that signs and symptoms h ave been present for 2 days and indicates a pain score of 0/10. MEDICAL/SURGICAL HISTORY: Cardiovascular disease. Hypertension. Coronary artery stent. CABG. COMPARISON: [facility], CT HEAD W/O CONTRAST, 07/05/2018. . TECHNIQUE: Multiplanar, multisequence examination of the brain was performed without contrast. FINDINGS: Cerebrum: There is mild generalized atrophy with ventricular size within normal limits given the degr ee of atrophy. No midline shift, mass lesion, hemorrhage or acute infarction. No extraaxial fluid c ollections are seen. The pituitary gland and suprasellar cistern are normal in configuration. White Matter: There is moderate periventricular and subcortical white matter signal change bilateral ly. Posterior Fossa: The cerebellum and brainstem demonstrate no acute abnormality. The 4th ventricle is midline. The cerebellopontine angle is within normal limits. The cerebellar tonsils are normal in p osition. Diffusion Imaging: No areas of restricted diffusion are seen. Extracranial: There is severe mucoperiosteal thickening within the left maxillary sinus. CONCLUSION: 1. No acute intracranial abnormality is identified. There are no findings to indicate recent ischemi a. 2. Chronic changes include generalized atrophy and moderate severity periventricular white matter si gnal change characteristic of chronic microvascular ischemic change. 3. Severe left maxillary mucoperiosteal thickening. Electronically signed by: Nikita Duarte MD 07/06/2018 2:19 PM EST
[2018-07-06] MEDS ORDERED: Gadobutrol PF 10 MMOL/10 ML Vial (for RAD) IV.SIG ONE (14:30)
--- NOTE | 2018-07-06 14:32 | MR ---
EXAM DATE: 07/06/2018 2:26 PM EST AGE/SEX: 87 years / Male INDICATIONS: TIA. Leg weakness with some confusion. CLINICAL DATA: This is the patient's subsequent encounter. Patient reports that signs and symptoms h ave been present for 2 days and indicates a pain score of 0/10. MEDICAL/SURGICAL HISTORY: Hypertension. Cardiovascular disease. CABG. Coronary artery stent. COMPARISON: [facility], MR HEAD W/O CONTRAST, 07/06/2018. . TECHNIQUE: 3D [id number] MRA was performed. Source images, multiplanar STS MIP, and 3D volum e MIP reconstructions were reviewed. FINDINGS: Extensive atherosclerotic intracranial vascular disease with stenosis is identified in the mid A1 seg ment of the left anterior cerebral artery and the mid M1 segment of the left middle cerebral artery. Distal middle cerebral artery branches on the left are poorly visualized. Focal stenosis origin of the left posterior cerebral artery from the basilar. Basilar is patent Both carotids are patent. CONCLUSION: 1. Significant intracranial atherosclerotic vascular disease as described above. Electronically signed by: Andrea Villaseñor MD 07/06/2018 2:30 PM EST
--- NOTE | 2018-07-06 14:32 | ECHRPT ---
Indication: CVA/TIA CONCLUSIONS Normal left ventricular size. The left ventricular systolic function is normal with an estimated ejection fraction in the range of 55-60%. The left atrial size is mildly dilated. Calcification of the posterior mitral valve leaflet. Mild mitral valve regurgitation. Mitral annular calcification is present. The aortic valve prosthesis is normal to two-dimensional, color flow and Doppler interrogation. There is trace tricuspid valve regurgitation. The estimated pulmonary arterial pressure is 47 mmHg. BP: / HR: Rhythm: MEASUREMENTS (Male / Female) Normal Values Technical Quality:Good 2D ECHO LV Diastolic Diameter PLAX 5.1 cm 4.2 - 5.9 / 3.9 - 5.3 cm LV Systolic Diameter PLAX 3.8 cm IVS Diastolic Thickness 1.1 cm 0.6 - 1.0 / 0.6 - 0.9 cm LVPW Diastolic Thickness 1.1 cm 0.6 - 1.0 / 0.6 - 0.9 cm LV Relative Wall Thickness 0.4 RV Internal Dim ED PLAX 3.3 cm LVOT Diameter 1.8 cm Aortic Root Diameter 2.7 cm LA Systolic Diameter LX 4.4 cm 3.0 - 4.0 / 2.7 - 3.8 cm DOPPLER AV Peak Velocity 240.5 cm/s AV Peak Gradient 23.1 mmHg AV Mean Gradient 11.0 mmHg AV Velocity Time Integral 55.1 cm LVOT Peak Velocity 183.0 cm/s LVOT Peak Gradient 13.4 mmHg LVOT Velocity Time Integral 41.7 cm AV Area Cont Eq vti 1.9 cm AV Area Cont Eq pk 1.9 cm Mitral E Point Velocity 97.2 cm/s Mitral A Point Velocity 93.8 cm/s Mitral E to A Ratio 1.0 LV E' Lateral Velocity 10.4 cm/s Mitral E to LV E' Lateral Ratio 9.3 LV E' Septal Velocity 5.2 cm/s Mitral E to LV E' Septal Ratio 18.8 TR Peak Velocity 304.0 cm/s TR Peak Gradient 37.0 mmHg Right Atrial Pressure 10.0 mmHg Pulmonary Artery Systolic Pressu 47.0 mmHg Right Ventricular Systolic Press 47.0 mmHg PV Peak Velocity 103.0 cm/s PV Peak Gradient 4.2 mmHg FINDINGS LEFT VENTRICLE Normal left ventricular size. Wall thickness is measured at the upper limits of normal. The left ventricular systolic function is normal with an estimated ejection fraction in the range of 55-60%. RIGHT VENTRICLE Normal right ventricular size and systolic function. LEFT ATRIUM The left atrial size is mildly dilated. RIGHT ATRIUM The right atrial size is normal. ATRIAL SEPTUM Normal atrial septal thickness without atrial level shunting by limited color doppler interrogation. AORTA The aortic root and proximal ascending aorta are normal in size on limited imaging. MITRAL VALVE Calcification of the posterior mitral valve leaflet. Mild mitral valve regurgitation. Mitral annular calcification is present. AORTIC VALVE The aortic valve prosthesis is normal to two-dimensional, color flow and Doppler interrogation. TRICUSPID VALVE There is trace tricuspid valve regurgitation. The estimated pulmonary arterial pressure is 47 mmHg. PULMONARY VALVE No pulmonary valve regurgitation or stenosis. VESSELS The inferior vena cava is normal in size. PERICARDIUM No pericardial effusion. Ryland Cheema MD, FACC (Electronically Signed) Final Date:06 July 2018 14:31
[2018-07-06 14:52] LABS: Albumin 3.5 g/dL (3.4-5.0)
[2018-07-06 14:57] LABS: Total Protein 6.2 g/dL (6.4-8.2)
--- NOTE | 2018-07-06 15:02 | MR ---
EXAM DATE: 07/06/2018 2:46 PM EST AGE/SEX: 87 years / Male INDICATIONS: Stenosis. Abnormal US. CLINICAL DATA: This is the patient's subsequent encounter. Patient reports that signs and symptoms h ave been present for 2 days and indicates a pain score of 0/10. MEDICAL/SURGICAL HISTORY: Cardiovascular disease. Hypertension. Coronary artery stent. CABG. COMPARISON: [facility], US CAROTID DOPPLER BI, 07/06/2018. . TECHNIQUE: 10 ml Gadavist (gadobutrol) contrast infused MRA (single exam dose) of the extracranial circulation was performed using a neurovascular coil. Postprocessing was performed, including rotati ng sub-volume maximum intensity projections of each carotid artery, rotating full-volume maximum inte nsity projections of both carotid arteries, sagittal and coronal sliding thin-slab reformations of ea ch carotid artery, and left oblique sliding thin-slab reformation through the aortic arch to include the origin of the arch branch vessels. FINDINGS: Aortic Arch : There is a three-vessel origin of the great vessels from the aorta. There is no ostia l stenosis but there is a focal waist-like narrowing in the proximal left common carotid artery and p roximal left subclavian artery. The appearance is likely related to artifact since it is only definit ively seen on the mid reconstructions and not on the source data set.. Right Carotid : The right common carotid artery demonstrates no significant luminal irregularity or luminal stenosis. There is a short 5 mm segment of narrowing involving the proximal left internal car otid artery with approximately 50% stenosis. The more distal internal carotid artery demonstrates no luminal irregularity or stenosis. External carotid artery demonstrates no definite abnormality. Left Carotid : Common carotid artery demonstrates no luminal irregularity or significant stenosis. I n the carotid bulb and proximal internal carotid artery there is a short focal high-grade stenosis me asuring approximately 3 mm in length. There is estimated to be at least 80% stenosis if not greater. There is only minimal lumen visualized. The more distal internal carotid artery demonstrates no signi ficant stenosis. External carotid artery demonstrates no significant abnormality. Vertebrals : The origins of the vertebral arteries are not well visualized. Left vertebral artery is dominant. No high-grade stenosis is identified within the vertebral arteries. Other: There is a nonspecific high signal intensity bulbous structure in the left supraclavicular reg ion adjacent to the proximal common carotid artery. It does not clearly connect with any vessel but a ppears to represent some type of vascular structure. CONCLUSION: 1. There is a short segment focal high-grade stenosis in the proximal left internal carotid artery w ith at least 80% stenosis not greater. 2. There is a short segment of stenosis of the proximal right internal carotid artery with approxima tely 50% stenosis. 3. There is a nonspecific lobular presumed vascular structure in the left supraclavicular region sp suring at least 1.5 cm. It does not appear to represent any definite artery but should exclude that i t represents an aneurysm or arteriovenous fistula. Therefore, consider correlating with CTA examinati on with contrast injection in the right upper extremity during imaging. Percent stenosis is calculated using the diameter of the stenotic region over the diameter of the nor mal distal internal carotid artery Electronically signed by: Nikita Duarte MD 07/06/2018 3:01 PM EST
[2018-07-06] MEDS: Lisinopril 10 MG Tablet PO SCH (15:27)
[2018-07-06 15:44] LABS: Hemoglobin A1c 6.2 % (4.3-6.0)
--- NOTE | 2018-07-06 18:59 | CT ---
EXAM DATE: 07/06/2018 6:01 PM EST AGE/SEX: 87 years / Male INDICATIONS: Abnormal ultrasound of carotids. CLINICAL DATA: This is the patient's subsequent encounter. Patient reports that signs and symptoms h ave been present for 2 days and indicates a pain score of 0/10. MEDICAL/SURGICAL HISTORY: Diabetes. Cardiovascular disease. Coronary artery stent. CABG. RADIATION DOSE: 42.13 CTDI (mGy) COMPARISON: No prior exams available for comparison. TECHNIQUE: Volumetric scanning was performed using a multirow detector CT scanner during bolus infus ion of 100 ml Omnipaque 350 (iohexol) nonionic water-soluble contrast as a single exam dose. The d robbie was postprocessed with a variety of visualization algorithms including full-volume maximum intens ity projection, multiplanar sliding thin-slab reformation, curved-planar reformation, and surface-odette dering techniques. Using automated exposure control and adjustment of the mA and/or kV according to patient size, radiation dose was kept as low as reasonably achievable to obtain optimal diagnostic qu ality images. DICOM format image data is available electronically for review and comparison. Percent stenosis is calculated using the diameter of the stenotic region over the diameter of the nor mal distal internal carotid artery. FINDINGS: There is atherosclerosis of the arch and arch vessels without associated stenosis. Common carotid arteries are within normal limits. There is left greater than right bulky but short segment atherosclerotic plaque of the bilateral prox imal internal carotid arteries. There is an estimated 50-70% stenosis of the right proximal internal carotid artery and a greater than 70% stenosis of the proximal left internal carotid artery. Both ves sels reconstitute normally above the stenosis. Vertebral arteries are patent. The left vertebral artery is dominant. CONCLUSION: 1. Bilateral bifurcation atherosclerosis as described. 2. Short segment 50-70% stenosis of the proximal right internal carotid artery. 3. Short segment greater than 70% stenosis of the proximal left internal carotid artery. Electronically signed by: Nikita Finn MD 07/06/2018 6:58 PM EST
--- NOTE | 2018-07-06 19:57 | P.PNVS ---
Subjective Subjective/Hospital Course: Referral received Full consult TF in [facility] Objective Vital Signs / I&O: Vital Signs 07/05/18 21:03 07/05/18 21:04 07/05/18 21:48 Temperature Pulse Rate 61 61 61 Respiratory Rate 16 Blood Pressure 188/79 H Pulse Oximetry 95 07/05/18 21:55 07/06/18 00:00 07/06/18 00:04 Temperature 96.0 F L 96.6 F L Pulse Rate 57 L 60 57 L Respiratory Rate 18 18 Blood Pressure 175/80 H 170/85 H Pulse Oximetry 96 94 L 07/06/18 04:00 07/06/18 04:02 07/06/18 08:00 Temperature 96.5 F L 96.2 F L Pulse Rate 65 78 64 Respiratory Rate 19 20 Blood Pressure 168/82 H 206/95 H Pulse Oximetry 95 95 07/06/18 08:10 07/06/18 12:00 07/06/18 15:30 Temperature 97 F L Pulse Rate 62 63 58 L Respiratory Rate 20 Blood Pressure 197/90 H 177/95 H 189/91 H Pulse Oximetry 07/06/18 16:00 Temperature 96 F L Pulse Rate 58 L Respiratory Rate 20 Blood Pressure 180/82 H Pulse Oximetry 94 L Intake & Output 07/06/18 07/06/18 07/07/18 06:59 18:59 06:59 Intake Total 625 / 625 1615 / 1615 Output Total 75 / 75 450 / 450 Balance 550 / 550 1165 / 1165 Weight 77.8 kg Intake: IV 625 / 625 1375 / 1375 NS Inj 1,000 ML @ 70 mls/hr IV. 625 / 625 1375 / 1375 CONT .[id number] [facility] Rx#: [id number] Oral 240 / 240 Output: Urine 75 / 75 450 / 450 Other: # Voids 1 Date of Last Bowel Movement 07/04/18 07/04/18 07/06/18 Weight On Admission 77.8 kg Laboratory Results - last 24 hr 07/05/18 07/05/18 07/05/18 20:00 22:04 23:10 CBC w Diff WBC RBC Hgb Hct MCV MCH MCHC RDW Plt Count MPV Neut % (Auto) Lymph % (Auto) [place] % (Auto) Eos % (Auto) Baso % (Auto) Neut # (Auto) Lymph # (Auto) [place] # (Auto) Eos # (Auto) Baso # (Auto) WBC Differential Differential Comment ESR Sodium Potassium Chloride Carbon Dioxide Anion Gap BUN Creatinine Estimated GFR POC Glucose 133 H Random Glucose Hemoglobin A1c Calcium Total Bilirubin Direct Bilirubin Indirect Bilirubin AST ALT Alkaline Phosphatase Ammonia Total Creatine Kinase 106 Total Protein Albumin Triglycerides Cholesterol LDL Cholesterol, Calc HDL Cholesterol Cholesterol/HDL Ratio Vitamin B12 Folate TSH Urine Color Yellow Urine Clarity Clear Urine pH 6.0 Ur Specific [place] 1.025 Urine Protein Negative Urine Glucose (UA) Negative Urine Ketones Trace H Urine Occult Blood Negative Urine Nitrate Negative Urine Bilirubin Negative Urine Urobilinogen 0.2 Ur Leukocyte Esterase Negative Urine RBC 0-3 Urine WBC 0-5 Ur Squamous Epith Cells 0-5 Micro UA Comment Culture not ind Ur Microscopic Review Microscopic reviewed Urine Culture Comments Culture not ind 07/06/18 07/06/18 07/06/18 05:30 05:30 05:30 CBC w Diff Auto diff final WBC 5.9 RBC 4.22 L Hgb 14.1 Hct 41.3 MCV 97.8 MCH 33.5 MCHC 34.3 RDW 13.3 Plt Count 173 MPV 8.3 Neut % (Auto) 52.5 Lymph % (Auto) 30.8 [place] % (Auto) 11.2 H Eos % (Auto) 4.9 H Baso % (Auto) 0.6 Neut # (Auto) 3.1 Lymph # (Auto) 1.8 [place] # (Auto) 0.7 Eos # (Auto) 0.3 Baso # (Auto) 0.0 WBC Differential . Differential Comment . ESR Sodium 142 Potassium 3.7 Chloride 108 H Carbon Dioxide 27.4 Anion Gap 7 BUN 22 H Creatinine 0.83 Estimated GFR 88 L POC Glucose Random Glucose 95 Hemoglobin A1c 6.2 H Calcium 8.3 L Total Bilirubin Direct Bilirubin Indirect Bilirubin AST ALT Alkaline Phosphatase Ammonia Total Creatine Kinase Total Protein Albumin Triglycerides 81 Cholesterol 143 LDL Cholesterol, Calc 61 HDL Cholesterol 65.8 H Cholesterol/HDL Ratio 2.17 Vitamin B12 Folate TSH Urine Color Urine Clarity Urine pH Ur Specific [place] Urine Protein Urine Glucose (UA) Urine Ketones Urine Occult Blood Urine Nitrate Urine Bilirubin Urine Urobilinogen Ur Leukocyte Esterase Urine RBC Urine WBC Ur Squamous Epith Cells Micro UA Comment Ur Microscopic Review Urine Culture Comments 07/06/18 07/06/18 07/06/18 05:30 05:30 05:30 CBC w Diff WBC RBC Hgb Hct MCV MCH MCHC RDW Plt Count MPV Neut % (Auto) Lymph % (Auto) [place] % (Auto) Eos % (Auto) Baso % (Auto) Neut # (Auto) Lymph # (Auto) [place] # (Auto) Eos # (Auto) Baso # (Auto) WBC Differential Differential Comment ESR 2 Sodium Potassium Chloride Carbon Dioxide Anion Gap BUN Creatinine Estimated GFR POC Glucose Random Glucose Hemoglobin A1c Calcium Total Bilirubin 0.7 Direct Bilirubin 0.2 Indirect Bilirubin 0.5 AST 22 ALT 18 Alkaline Phosphatase 72 Ammonia Total Creatine Kinase Total Protein 6.2 L Albumin 3.5 Triglycerides Cholesterol LDL Cholesterol, Calc HDL Cholesterol Cholesterol/HDL Ratio Vitamin B12 1678 H Folate 9.8 TSH 0.927 Urine Color Urine Clarity Urine pH Ur Specific [place] Urine Protein Urine Glucose (UA) Urine Ketones Urine Occult Blood Urine Nitrate Urine Bilirubin Urine Urobilinogen Ur Leukocyte Esterase Urine RBC Urine WBC Ur Squamous Epith Cells Micro UA Comment Ur Microscopic Review Urine Culture Comments 07/06/18 10:20 CBC w Diff WBC RBC Hgb Hct MCV MCH MCHC RDW Plt Count MPV Neut % (Auto) Lymph % (Auto) [place] % (Auto) Eos % (Auto) Baso % (Auto) Neut # (Auto) Lymph # (Auto) [place] # (Auto) Eos # (Auto) Baso # (Auto) WBC Differential Differential Comment ESR Sodium Potassium Chloride Carbon Dioxide Anion Gap BUN Creatinine Estimated GFR POC Glucose Random Glucose Hemoglobin A1c Calcium Total Bilirubin Direct Bilirubin Indirect Bilirubin AST ALT Alkaline Phosphatase Ammonia 44 H Total Creatine Kinase Total Protein Albumin Triglycerides Cholesterol LDL Cholesterol, Calc HDL Cholesterol Cholesterol/HDL Ratio Vitamin B12 Folate TSH Urine Color Urine Clarity Urine pH Ur Specific [place] Urine Protein Urine Glucose (UA) Urine Ketones Urine Occult Blood Urine Nitrate Urine Bilirubin Urine Urobilinogen Ur Leukocyte Esterase Urine RBC Urine WBC Ur Squamous Epith Cells Micro UA Comment Ur Microscopic Review Urine Culture Comments Impressions Head CT 07/05/18 18:43 CONCLUSION: 1. No acute intracranial abnormality. 2. Mild chronic white matter changes. 3. Left maxillary sinusitis. . Carotid Doppler Study 07/06/18 00:00 CONCLUSION: 1. 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 2. Left Internal Carotid Artery: Findings indicate >70% stenosis, but less than near occlusion. 3. Consider confirmation of these findings with carotid CTA prior to any planned intervention. Neck CTA 07/06/18 00:00 CONCLUSION: 1. Bilateral bifurcation atherosclerosis as described. 2. Short segment 50-70% stenosis of the proximal right internal carotid artery. 3. Short segment greater than 70% stenosis of the proximal left internal carotid artery. Neck MRA 07/06/18 00:00 CONCLUSION: 1. There is a short segment focal high-grade stenosis in the proximal left internal carotid artery with at least 80% stenosis not greater. 2. There is a short segment of stenosis of the proximal right internal carotid artery with approximately 50% stenosis. 3. There is a nonspecific lobular presumed vascular structure in the left supraclavicular region measuring at least 1.5 cm. It does not appear to represent any definite artery but should exclude that it represents an aneurysm or arteriovenous fistula. Therefore, consider correlating with CTA examination with contrast injection in the right upper extremity during imaging. Percent stenosis is calculated using the diameter of the stenotic region over the diameter of the normal distal internal carotid artery Head MRA 07/06/18 07:01 CONCLUSION: 1. Significant intracranial atherosclerotic vascular disease as described above. Head MRI 07/06/18 07:07 CONCLUSION: 1. No acute intracranial abnormality is identified. There are no findings to indicate recent ischemia. 2. Chronic changes include generalized atrophy and moderate severity periventricular white matter signal change characteristic of chronic microvascular ischemic change. 3. Severe left maxillary mucoperiosteal thickening.
--- NOTE | 2018-07-06 21:13 | MB ---
cc: Jack Watts MD DATE: 07/06/2018 HISTORY OF PRESENT ILLNESS: This is an 87-year-old, right-handed man with a history of hypertension, borderline diabetes, CO, stent, aortic valve repair in 2012, atrial fibrillation before 2012, he tells me has not had any since, skin cancer on his head without mets, macular degeneration, right worse than left. He has been feeling, for several days, some weakness in both of his legs and then he went out to cut a hedge and felt very weak, came in and then he had difficulty talking and expressing himself. He had a similar episode about 5 months ago with difficulty talking. This has all since resolved. He does take 650 twice a day of aspirin at home. He is also on a statin. After he had a CTA of his neck tonight, he had cats all over his vision until he turned the lights off and turned them back on and it went away. He had something similar in the past with his macular degeneration. SOCIAL HISTORY: He is not a smoker. He has 2 glasses of wine a day. Lives with his . FAMILY HISTORY: Positive for cancer. Negative for seizure or stroke. REVIEW OF SYSTEMS: He denied any hypercholesterolemia, renal, hepatic disease, pulmonary disease, thyroid disease, lupus, ulcer, seizure or definite stroke. PHYSICAL EXAMINATION: VITAL SIGNS: On exam, sinus rhythm here, afebrile, pulse 58, blood pressure 180/82 to 197/90 highest blood pressure 223/90. There are no carotid bruits. HEART: Regular rate and rhythm. I did not detect a murmur. NEUROLOGIC: Pupils are equal. Visual champion are full overall, though his vision in the central slightly has some deficit on the right side. Extraocular movements intact without nystagmus. Face is symmetric. Tongue was midline. No drift. Normal strength in upper and lower extremities bilaterally. DTRs are trace throughout. Toes downgoing bilaterally. Pinprick is intact throughout. He is not intact on [id number]. Speech is fluent. He is not aphasic. LABORATORY DATA: Basic metabolic profile is normal. Calcium is normal. LFTs normal. Ammonia level was 44. Troponin was negative. CPK normal. LDL cholesterol normal. B12, thyroid normal. Coags normal sedimentation rate, CBC normal. MRI of the brain did not show any infarct. MRA: [place] was read as some intracranial disease, but I looked at the films, I do not see any definite intracranial disease there. His LDL was 61. His echocardiogram has been negative in the past. His MRA, carotid ultrasound and CTA all suggest a significant left internal carotid artery stenosis, at least 80%. He has been in sinus rhythm on tele. 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 Also, Dr. Crawford is his indigo mixer and we will have him clear in preop. Continue him on his aspirin for now. I want to get his endarterectomy done as soon as possible. MD TANMAY Olea/cyril/ll , 06:48 PM , 06:55 PM
[2018-07-07] MEDS: Sod Chloride 0.9% Inj 1,000 ML IV.CONT SCH ×2 (05:22→20:00)
--- NOTE | 2018-07-07 07:36 | P.PNNEU ---
Subjective Active Medications: Active Medications Acetaminophen (Tylenol) 650 mg PO Q4H PRN PRN Reason: headache/fever/pain1-5 Al Hydroxide/Mg Hydroxide (Milk Of Magnesia Liq) 30 ml PO Q12H PRN PRN Reason: Mild Constipation Aspirin (Aspirin) 325 mg PO DAILY [facility] Last Admin: 07/06/18 09:34 Dose: 325 mg Bisacodyl (Dulcolax Supp) 10 mg RECTAL DAILY PRN PRN Reason: SEVERE CONSITIPATION Clonidine HCl (Catapres) 0.1 mg PO Q6H PRN PRN Reason: SBP>160, DBP>90 Last Admin: 07/06/18 15:27 Dose: 0.1 mg Enalaprilat (Vasotec Inj) 1.25 mg IV.PUSH Q6H PRN PRN Reason: BLOOD PRESSURE MANAGEMENT Last Admin: 07/06/18 16:37 Dose: 1.25 mg Heparin Sodium (Porcine) (Heparin Inj) 5,000 units SQ Q12H [facility] Last Admin: 07/06/18 22:18 Dose: 5,000 units Sodium Chloride (Ns Inj) 1,000 mls @ 70 mls/hr IV.CONT .[id number] [facility] Last Admin: 07/07/18 05:22 Dose: 70 mls/hr Lactulose (Lactulose Liq) 30 ml PO DAILY PRN PRN Reason: SEVERE CONSITIPATION Lisinopril (Prinivil) 10 mg PO DAILY [facility] Last Admin: 07/06/18 15:27 Dose: 10 mg Ondansetron HCl (Zofran Inj) 4 mg IV.PUSH Q6H PRN PRN Reason: NAUSEA OR VOMITING Senna/Docusate Sodium (Karen-Colace) 1 tab PO BID [facility] Last Admin: 07/06/18 22:19 Dose: Not Given Sennosides (Senokot) 17.2 mg PO Q12H PRN PRN Reason: Moderate Constipation Sodium Chloride (Ns Flush) 2 ml IV.FLUSH BID [facility] Last Admin: 07/06/18 22:19 Dose: 2 ml Sodium Chloride (Ns Flush) 2 ml IV.FLUSH PRN PRN PRN Reason: FLUSH AFTER USING IV ACCESS Allergies/Adverse Reactions: Allergies Allergy/AdvReac Type Severity Reaction Status Date / Time No Known Allergies Allergy none Uncoded 07/05/18 19:19 Physical Exam Vital signs: Vital Signs 07/06/18 08:00 07/06/18 08:10 07/06/18 12:00 Temperature 96.2 F L 97 F L Pulse Rate 64 62 63 Respiratory Rate 20 20 Blood Pressure 206/95 H 197/90 H 177/95 H Pulse Oximetry 95 07/06/18 15:30 07/06/18 16:00 07/06/18 20:00 Temperature 96 F L 96.2 F L Pulse Rate 58 L 58 L 54 L Respiratory Rate 20 20 Blood Pressure 189/91 H 180/82 H 150/72 H Pulse Oximetry 94 L 95 07/06/18 21:27 07/07/18 00:00 07/07/18 04:00 Temperature 97.6 F 97.6 F Pulse Rate 53 L 58 L Respiratory Rate 18 18 Blood Pressure 175/77 H 146/65 H Pulse Oximetry 95 95 95 Intake & Output 07/06/18 07/07/18 07/07/18 18:59 06:59 18:59 Intake Total 1615 / 1615 Output Total 450 / 450 Balance 1165 / 1165 Weight 77 kg Intake: IV 1375 / 1375 NS Inj 1,000 ML @ 70 mls/hr IV. 1375 / 1375 CONT .[id number] [facility] Rx#: [id number] Oral 240 / 240 Output: Urine 450 / 450 Other: # Voids 1 1 Date of Last Bowel Movement 07/04/18 07/06/18 Narrative: awake alert vff face sym nl speech 5/5 Objective Laboratory Results - last 24 hr 07/06/18 07/06/18 07/06/18 05:30 05:30 05:30 ESR 2 POC Glucose Hemoglobin A1c 6.2 H Total Bilirubin Direct Bilirubin Indirect Bilirubin AST ALT Alkaline Phosphatase Ammonia Total Protein Albumin Triglycerides 81 Cholesterol 143 LDL Cholesterol, Calc 61 HDL Cholesterol 65.8 H Cholesterol/HDL Ratio 2.17 Vitamin B12 Folate TSH 07/06/18 07/06/18 07/06/18 05:30 05:30 10:20 ESR POC Glucose Hemoglobin A1c Total Bilirubin 0.7 Direct Bilirubin 0.2 Indirect Bilirubin 0.5 AST 22 ALT 18 Alkaline Phosphatase 72 Ammonia 44 H Total Protein 6.2 L Albumin 3.5 Triglycerides Cholesterol LDL Cholesterol, Calc HDL Cholesterol Cholesterol/HDL Ratio Vitamin B12 1678 H Folate 9.8 TSH 0.927 07/06/18 22:44 ESR POC Glucose 91 Hemoglobin A1c Total Bilirubin Direct Bilirubin Indirect Bilirubin AST ALT Alkaline Phosphatase Ammonia Total Protein Albumin Triglycerides Cholesterol LDL Cholesterol, Calc HDL Cholesterol Cholesterol/HDL Ratio Vitamin B12 Folate TSH Review/Management - Review/Management Plan: imp i thought the left carotid looked more than 70% sr here so far for cards and vascular for left cea asa statin
[2018-07-07] MEDS: Senna/Docusate Sodium 8.6/50 MG Tablet PO SCH ×2 (09:08→21:49)
[2018-07-07] MEDS: Aspirin 325 MG Tablet PO SCH (09:08)
[2018-07-07] MEDS: Heparin - SQ 10,000 UNITS/ML Vial SQ SCH ×2 (09:08→21:41)
[2018-07-07] MEDS: Lisinopril 10 MG Tablet PO SCH (09:08)
--- NOTE | 2018-07-07 10:54 | P.PNIM ---
Subjective Interval history: Late entry. Patient seen earlier around 10 AM. He reports he is feeling okay and close to baseline. Discussed with his at bedside. His speech and cognition has improved and is close to baseline. No new focal weakness although he admitted that his legs feel somewhat weak. Physical Exam Vital signs: Last Vital Signs Temp 97.8 F 07/07/18 07:50 Pulse 55 L 07/07/18 07:50 Resp 20 07/07/18 07:50 BP 187/84 H 07/07/18 07:50 Pulse Ox 96 07/07/18 08:27 Intake & Output 07/05/18 07/06/18 07/07/18 07/08/18 06:59 06:59 06:59 06:59 Intake Total 625 / 625 1615 / 1615 Output Total 75 / 75 450 / 450 Balance 550 / 550 1165 / 1165 Weight 77.8 kg 77 kg Narrative: GENERAL: This is a well-nourished, well-developed patient, in no apparent distress. CARDIOVASCULAR: Normal rate and regular rhythm without murmurs, gallops, or rubs. RESPIRATORY: Good respiratory efforts. Breath sounds equal and clear to auscultation bilaterally. GASTROINTESTINAL: Abdomen soft, non-tender, non-distended. Normal active bowel sounds MUSCULOSKELETAL: Extremities without cyanosis, or edema. NEURO: Alert & Oriented x4 to person, place, time, situation. Moves all ext x4. Speech is fluent. Bilateral lower extremities 4+ out of 5. PSYCH: Appropriate mood and affect. Results Labs CBC & Chem 7: 07/06/18 05:30 07/06/18 05:30 Imaging Imaging: Impressions Neck CTA 07/06/18 00:00 CONCLUSION: 1. Bilateral bifurcation atherosclerosis as described. 2. Short segment 50-70% stenosis of the proximal right internal carotid artery. 3. Short segment greater than 70% stenosis of the proximal left internal carotid artery. Neck MRA 07/06/18 00:00 CONCLUSION: 1. There is a short segment focal high-grade stenosis in the proximal left internal carotid artery with at least 80% stenosis not greater. 2. There is a short segment of stenosis of the proximal right internal carotid artery with approximately 50% stenosis. 3. There is a nonspecific lobular presumed vascular structure in the left supraclavicular region measuring at least 1.5 cm. It does not appear to represent any definite artery but should exclude that it represents an aneurysm or arteriovenous fistula. Therefore, consider correlating with CTA examination with contrast injection in the right upper extremity during imaging. Percent stenosis is calculated using the diameter of the stenotic region over the diameter of the normal distal internal carotid artery Head MRA 07/06/18 07:01 CONCLUSION: 1. Significant intracranial atherosclerotic vascular disease as described above. Head MRI 07/06/18 07:07 CONCLUSION: 1. No acute intracranial abnormality is identified. There are no findings to indicate recent ischemia. 2. Chronic changes include generalized atrophy and moderate severity periventricular white matter signal change characteristic of chronic microvascular ischemic change. 3. Severe left maxillary mucoperiosteal thickening. Assessment and Plan (1) Coronary artery disease: Code(s): I25.10 - Atherosclerotic heart disease of [place] coronary artery without angina pectoris Status: Acute (2) History of cardiac catheterization: Code(s): Z98.890 - Other specified postprocedural states Status: Acute (3) History of heart artery stent: Code(s): Z95.5 - Presence of coronary angioplasty implant and graft Status: Acute (4) Transient cerebral ischemia: Code(s): G45.9 - Transient cerebral ischemic attack, unspecified Status: Acute Plan 87-year-old male admitted with TIA. Patient found to have bilateral carotid stenosis left greater than right. Acute neurological changes, TIA -Patient presented with lower extremity weakness, fall, confusion, difficulty speaking, acute hearing loss, disequilibrium -Initial CT did not indicate any acute abnormality. MRI of the brain is negative -Carotid ultrasound was performed and does indicate greater than 70% stenosis of the left carotid. CTA confirmed bilateral carotid stenosis -Appreciate neurology following. Recommended endarterectomy. Vascular surgery and Cardiology consulted. -Patient to have left carotid endarterectomy today - Aspiring and Plavix. Hypertensive urgency - Permissive hypertension was allowed -lisinopril 10 mg daily -Clonidine as needed Diabetes -Continue monitor glucose, await hemoglobin A1c and start insulin with sliding scale if needed DVT prevention -Subcutaneous heparin Progress Note: Quality VTE Deep Vein Thrombosis/Pulmonary Embolism Present on Admission: No _ (1) Coronary artery disease Qualifiers: Associated angina: Coronary Disease-Associated Artery/Lesion type: [place] vs. transplanted heart: (2) Transient cerebral ischemia Qualifiers: Transient cerebral ischemia type:
--- NOTE | 2018-07-07 13:34 | P.CONCA ---
History of Present Illness Consult date: 07/07/18 Primary Care Provider: Do Gallito Henson History of Present Illness: Patient for CEA by Dr. Joel villagomez Full consult to be dictated Moderate cardiovascular risk for CEA surgery May proceed without further cardiovascular work up [facility] - History History Provided By: Patient - Medical History Medical History: Medical History (Last Updated 07/06/18 @ 13:44 by KELSEA Melton) Coronary artery disease Diabetes HTN (hypertension) Hyperlipidemia - Surgical History Surgical History: Surgical History (Last Updated 07/06/18 @ 13:44 by KELSEA Melton) Aortic valve replaced History of cardiac catheterization History of cataract extraction with lens replacement History of heart artery stent History of open heart surgery - Family History Family History: Family History (Last Updated 07/06/18 @ 13:44 by KELSEA Melton) Mother History of heart disease Father History of prostate cancer - Tobacco History Second Hand Smoke Exposure: No Tobacco Use In Past 30 Days: No Smoking Status: Former smoker - Alcohol History How Often Do You Have a Drink Containing Alcohol: 4 or more times a week - Substance Use History Substance History: No History of Abuse - Travel History Recent Travel in the [place] Within the Last 8 Weeks: No Recent Travel Out of the Country Within the Last 8 Weeks: No - Immunization History Tetanus Immunization: <5 Years Medications and Allergies Active Medications: Active Medications Acetaminophen (Tylenol) 650 mg PO Q4H PRN PRN Reason: headache/fever/pain1-5 Al Hydroxide/Mg Hydroxide (Milk Of [place] Liq) 30 ml PO Q12H PRN PRN Reason: Mild Constipation Aspirin (Aspirin) 325 mg PO DAILY [facility] Last Admin: 07/07/18 09:08 Dose: 325 mg Bisacodyl (Dulcolax Supp) 10 mg RECTAL DAILY PRN PRN Reason: SEVERE CONSITIPATION Clonidine HCl (Catapres) 0.1 mg PO Q6H PRN PRN Reason: SBP>160, DBP>90 Last Admin: 07/06/18 15:27 Dose: 0.1 mg Enalaprilat (Vasotec Inj) 1.25 mg IV.PUSH Q6H PRN PRN Reason: BLOOD PRESSURE MANAGEMENT Last Admin: 07/06/18 16:37 Dose: 1.25 mg Heparin Sodium (Porcine) (Heparin Inj) 5,000 units SQ Q12H [facility] Last Admin: 07/07/18 09:08 Dose: 5,000 units Sodium Chloride (Ns Inj) 1,000 mls @ 70 mls/hr IV.CONT .[id number] [facility] Last Admin: 07/07/18 05:22 Dose: 70 mls/hr Lactulose (Lactulose Liq) 30 ml PO DAILY PRN PRN Reason: SEVERE CONSITIPATION Lisinopril (Prinivil) 10 mg PO DAILY [facility] Last Admin: 07/07/18 09:08 Dose: 10 mg Ondansetron HCl (Zofran Inj) 4 mg IV.PUSH Q6H PRN PRN Reason: NAUSEA OR VOMITING Senna/Docusate Sodium (Karen-Colace) 1 tab PO BID [facility] Last Admin: 07/07/18 09:08 Dose: 1 tab Sennosides (Senokot) 17.2 mg PO Q12H PRN PRN Reason: Moderate Constipation Sodium Chloride (Ns Flush) 2 ml IV.FLUSH BID [facility] Last Admin: 07/07/18 10:07 Dose: 2 ml Sodium Chloride (Ns Flush) 2 ml IV.FLUSH PRN PRN PRN Reason: FLUSH AFTER USING IV ACCESS Allergies Allergy/AdvReac Type Severity Reaction Status Date / Time No Known Allergies Allergy none Uncoded 07/05/18 19:19 Home Medications Medication Instructions Recorded Confirmed Type aspirin 650 mg PO BID 07/05/18 07/05/18 History acyclovir [Zovirax] 400 mg PO TID 07/06/18 07/06/18 History atorvastatin 80 mg PO DAILY 07/06/18 07/06/18 History cyanocobalamin (vitamin B-12) 500 mcg PO DAILY 07/06/18 07/06/18 History [Vitamin B-12] enalapril maleate 10 mg PO BID 07/06/18 07/06/18 History isosorbide mononitrate 120 mg PO BID 07/06/18 07/06/18 History pantoprazole [Protonix] 40 mg PO DAILY 07/06/18 07/06/18 History Exam Vital signs: Vital Signs 07/06/18 15:30 07/06/18 16:00 07/06/18 20:00 Temperature 96 F L 96.2 F L Pulse Rate 58 L 58 L 54 L Respiratory Rate 20 20 Blood Pressure 189/91 H 180/82 H 150/72 H Pulse Oximetry 94 L 95 07/06/18 21:27 07/07/18 00:00 07/07/18 04:00 Temperature 97.6 F 97.6 F Pulse Rate 53 L 58 L Respiratory Rate 18 18 Blood Pressure 175/77 H 146/65 H Pulse Oximetry 95 95 95 07/07/18 07:50 07/07/18 08:27 07/07/18 10:55 Temperature 97.8 F 97.5 F L Pulse Rate 55 L 57 L Respiratory Rate 20 20 Blood Pressure 187/84 H 145/92 H Pulse Oximetry 93 L 96 94 L Intake & Output 07/06/18 07/07/18 07/07/18 18:59 06:59 18:59 Intake Total 1615 / 1615 Output Total 450 / 450 Balance 1165 / 1165 Weight 77 kg Intake: IV 1375 / 1375 NS Inj 1,000 ML @ 70 mls/hr IV. 1375 / 1375 CONT .[id number] [facility] Rx#: [id number] Oral 240 / 240 Output: Urine 450 / 450 Other: # Voids 1 1 Date of Last Bowel Movement 07/04/18 07/06/18 07/06/18 Results 07/06/18 05:30 07/06/18 05:30 Cardiac Enzymes 07/05/18 07/06/18 Range/Units 19:05 05:30 AST 22 (15-37) U/L CK-MB (CK-2) 2.0 (0.5-3.6) ng/mL Troponin I Less than 0.02 L (0.02-0.05) ng/mL Coagulation 07/05/18 Range/Units 19:05 PT 10.3 (9.8-11.6) sec APTT 33.9 H (23.4-31.7) sec Lipids 07/06/18 Range/Units 05:30 Triglycerides 81 (42-150) mg/dL Cholesterol 143 (120-200) mg/dL HDL Cholesterol 65.8 H (40.0-60.0) mg/dL Cholesterol/HDL Ratio 2.17 Ratio CBC 07/05/18 07/06/18 Range/Units 19:05 05:30 WBC 6.8 5.9 (4.0-11.0) th/mm3 RBC 4.49 L 4.22 L (4.50-5.90) mil/mm3 Hgb 14.9 14.1 (13.0-17.0) gm/dL Hct 43.3 41.3 (39.0-51.0) % Plt Count 178 173 (150-450) th/mm3 Neut # (Auto) 4.1 3.1 (1.8-7.7) th/mm3 Lymph # (Auto) 1.7 1.8 (1.0-4.8) th/mm3 [place] # (Auto) 0.8 0.7 (0.0-0.9) th/mm3 Eos # (Auto) 0.2 0.3 (0.0-0.4) th/mm3 Baso # (Auto) 0.0 0.0 (0.0-0.2) th/mm3 Comprehensive Metabolic Panel 07/05/18 07/06/18 07/06/18 Range/Units 19:05 05:30 05:30 Sodium 141 142 (136-145) meq/L Potassium 3.7 3.7 (3.5-5.1) meq/L Chloride 106 108 H (98-107) meq/L Carbon Dioxide 27.5 27.4 (21.0-32.0) meq/L BUN 24 H 22 H (7-18) mg/dL Creatinine 0.95 0.83 (0.60-1.30) mg/dL Calcium 8.4 L 8.3 L (8.5-10.1) mg/dL Direct Bilirubin 0.2 (0.0-0.2) mg/dL Indirect Bilirubin 0.5 (0.0-0.8) mg/dL AST 22 (15-37) U/L ALT 18 (12-78) U/L Alkaline Phosphatase 72 (45-117) U/L Total Protein 6.2 L (6.4-8.2) g/dL Albumin 3.5 (3.4-5.0) g/dL Intake and Output 07/06/18 07/07/18 07/07/18 22:59 06:59 14:59 Intake Total 1240 / 1240 Output Total 450 / 450 Balance 790 / 790 Intake: IV 1000 / 1000 NS Inj 1,000 ML @ 70 mls/hr IV. 1000 / 1000 CONT .[id number] [facility] Rx#: [id number] Oral 240 / 240 Output: Urine 450 / 450 Other: # Voids 1 1 Date of Last Bowel Movement 07/06/18 07/06/18 07/06/18 Weight 77 kg - Imaging and Cardiology Imaging: Impressions Head CT 07/05/18 18:43 CONCLUSION: 1. No acute intracranial abnormality. 2. Mild chronic white matter changes. 3. Left maxillary sinusitis. . Carotid Doppler Study 07/06/18 00:00 CONCLUSION: 1. 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 2. Left Internal Carotid Artery: Findings indicate >70% stenosis, but less than near occlusion. 3. Consider confirmation of these findings with carotid CTA prior to any planned intervention. Neck CTA 07/06/18 00:00 CONCLUSION: 1. Bilateral bifurcation atherosclerosis as described. 2. Short segment 50-70% stenosis of the proximal right internal carotid artery. 3. Short segment greater than 70% stenosis of the proximal left internal carotid artery. Neck MRA 07/06/18 00:00 CONCLUSION: 1. There is a short segment focal high-grade stenosis in the proximal left internal carotid artery with at least 80% stenosis not greater. 2. There is a short segment of stenosis of the proximal right internal carotid artery with approximately 50% stenosis. 3. There is a nonspecific lobular presumed vascular structure in the left supraclavicular region measuring at least 1.5 cm. It does not appear to represent any definite artery but should exclude that it represents an aneurysm or arteriovenous fistula. Therefore, consider correlating with CTA examination with contrast injection in the right upper extremity during imaging. Percent stenosis is calculated using the diameter of the stenotic region over the diameter of the normal distal internal carotid artery Head MRA 07/06/18 07:01 CONCLUSION: 1. Significant intracranial atherosclerotic vascular disease as described above. Head MRI 07/06/18 07:07 CONCLUSION: 1. No acute intracranial abnormality is identified. There are no findings to indicate recent ischemia. 2. Chronic changes include generalized atrophy and moderate severity periventricular white matter signal change characteristic of chronic microvascular ischemic change. 3. Severe left maxillary mucoperiosteal thickening.
--- NOTE | 2018-07-07 13:39 | MB ---
cc: Reinaldo Hudson MD DATE: 07/06/2018 CONSULTING PHYSICIAN: Reinaldo Hudson MD REASON FOR CONSULTATION: Bilateral carotid stenosis, left more than right. HISTORY OF PRESENT ILLNESS: This is a 87-year-old gentleman with a known vascular history presented to the hospital with neurologic symptoms that started at about 10 a.m. on 07/06/2018. The patient was apparently trimming his hedges and noticed that suddenly became weak in both legs and could not step up about 1 step. He then went to the house and tried to do it again and this just did not go well. He was transferred to our institution and worked up and noted to have bilateral tight carotid stenosis, left about 80% and the right about 70%, and a vascular consult is sought. PAST MEDICAL HISTORY: Hyperlipidemia, diabetes mellitus, coronary artery disease requiring coronary artery angioplasty and stenting as well as aortic valve replacement. In addition, medical history is that of vision problems and hearing problems. SOCIAL HISTORY: The patient is a former smoker, drinks socially. MEDICATIONS: Can be found in the record. The patient seems to be only on aspirin. PHYSICAL EXAMINATION: GENERAL: Reveals a pleasant 87-year-old gentleman, awake, alert, oriented, appearing younger than his actual age, clearly physically very active. HEENT: Normocephalic. No trauma to the head. The pupils are equal and reactive. Extraocular muscles are intact. NECK: Bilateral carotid pulses and bilateral bruits, but I am not sure if this extension from the aortic valve because the patient does also have a second intercostal space right ventricular systolic murmur extending into the neck. CHEST: Bilateral breath sounds. HEART: Regular rhythm. Heart rate was about 60 when I was in the room. ABDOMEN: Soft. Active bowel sounds. No rebound, no guarding, no masses. EXTREMITIES: The patient actually has felt palpable femoral, popliteal, dorsalis pedis and posterior tibial pulses. No signs of vascular deficit. His muscle mass is normal. BACK: Normal. NEUROLOGIC: The patient is fully grossly intact. He has bilateral equal strength. Deep tendon reflexes are normal. No pathologic reflexes. ASSESSMENT AND PLAN: I reviewed laboratory and diagnostic procedures. This gentleman has signs and symptoms which are hard to pinpoint as far as the lateralization is concerned, but clearly go along with a transient ischemic attack and a CTA of the neck reveals bilateral carotid stenosis, about 70% on the right and I would say probably about 80% on the left. The left looks ominous. In addition, the patient's echocardiogram reveals a prosthetic valve and about a 60% ejection fraction. At this point, I do not see any reason to wait and this patient should have a carotid endarterectomy, not on an emergent, but definitely urgent basis. I have discussed this with the patient and family and we will take him to the operating room today. MD KRISTOPHER Gil/yesenia , 12:23 PM , 12:31 PM
[2018-07-07] MEDS ORDERED: Heparin 10,000 UNITS/10 ML Vial (for IV use) ONE (13:40)
[2018-07-07] MEDS ORDERED: Lidocaine 1% Inj 50 ML Vial ONE (13:41)
[2018-07-07] MEDS ORDERED: Dexmedetomidine Inj 200 MCG/2 ML Vial ONE (13:53)
[2018-07-07] MEDS ORDERED: Protamine Sulfate Inj 50 MG/5 ML Vial ONE (13:55)
[2018-07-07] MEDS ORDERED: ceFAZolin Inj 500 MG Vial ONE (13:55)
[2018-07-07] MEDS ORDERED: Clevidipine Inj 25 MG/50 ML VIAL ONE (16:28)
[2018-07-07] MEDS: Clevidipine Inj 25 MG/50 ML VIAL IV.CONT PRN (17:37)
[2018-07-07] MEDS ORDERED: fentaNYL Citrate Inj 100 MCG/2 ML Ampul ONE (17:49)
[2018-07-07] MEDS ORDERED: *Enalaprilat Inj 1.25 MG/ML Vial IV.PUSH ONE (18:07)
[2018-07-07] MEDS ORDERED: *Meperidine Inj 25 MG/ML Vial PERIprocedural Use ONLY ONE (18:08)
[2018-07-07] MEDS ORDERED: *morphine SULFATE 4 MG/ML PERIprocedure ONLY ONE (19:33)
--- NOTE | 2018-07-07 20:02 | P.CONCC ---
History of Present Illness Primary Care Provider: Do Gallito Henson Chief Complaint: weakness, confusion, difficult ambulating History of Present Illness: 87-year-old male with a known history of vascular disease presented to the hospital with neurologic symptoms that started at about 10 a.m. on 07/06/2018. The patient was apparently trimming his hedges and noticed that suddenly became weak in both legs and could not step up about 1 step. He then went to the house and tried to do it again and this just did not go well. He was transferred to [facility] and worked up and noted to have bilateral carotid stenosis, left about 80% and the right about 70%, and a vascular. He was taken to the operating room by Dr. Hudson for endarterectomy and postprocedure he has been transferred to ICU for tight blood pressure control and monitoring. Review of Systems unobtainable due to mental status PMFSH - History History Provided By: Patient - Medical History Medical History: Medical History (Last Updated 07/06/18 @ 13:44 by KELSEA Melton) Coronary artery disease Diabetes HTN (hypertension) Hyperlipidemia - Surgical History Surgical History: Surgical History (Last Updated 07/06/18 @ 13:44 by KELSEA Melton) Aortic valve replaced History of cardiac catheterization History of cataract extraction with lens replacement History of heart artery stent History of open heart surgery - Family History Family History: Family History (Last Updated 07/06/18 @ 13:44 by KELSEA Melton) Mother History of heart disease Father History of prostate cancer - Tobacco History Second Hand Smoke Exposure: No Tobacco Use In Past 30 Days: No Smoking Status: Former smoker - Alcohol History How Often Do You Have a Drink Containing Alcohol: 4 or more times a week - Substance Use History Substance History: No History of Abuse - Travel History Recent Travel in the [place] Within the Last 8 Weeks: No Recent Travel Out of the Country Within the Last 8 Weeks: No - Immunization History Tetanus Immunization: <5 Years Medications and Allergies Active Medications: Active Medications Acetaminophen (Tylenol) 650 mg PO Q4H PRN PRN Reason: headache/fever/pain1-5 Al Hydroxide/Mg Hydroxide (Milk Of Magnesia Liq) 30 ml PO Q12H PRN PRN Reason: Mild Constipation Aspirin (Aspirin) 325 mg PO DAILY JOSE A Last Admin: 07/07/18 09:08 Dose: 325 mg Bisacodyl (Dulcolax Supp) 10 mg RECTAL DAILY PRN PRN Reason: SEVERE CONSITIPATION Clonidine HCl (Catapres) 0.1 mg PO Q6H PRN PRN Reason: SBP>160, DBP>90 Last Admin: 07/06/18 15:27 Dose: 0.1 mg Clopidogrel Bisulfate (Plavix) 75 mg PO DAILY [facility] Enalaprilat (Vasotec Inj) 1.25 mg IV.PUSH Q6H PRN PRN Reason: BLOOD PRESSURE MANAGEMENT Last Admin: 07/06/18 16:37 Dose: 1.25 mg Heparin Sodium (Porcine) (Heparin Inj) 5,000 units SQ Q12H [facility] Last Admin: 07/07/18 09:08 Dose: 5,000 units Sodium Chloride (Ns Inj) 1,000 mls @ 70 mls/hr IV.CONT .[id number] [facility] Last Admin: 07/07/18 05:22 Dose: 70 mls/hr Clevidipine (Cleviprex Inj) 25 mg in 50 mls @ 2 mls/hr IV.CONT TITRATE PRN; Protocol PRN Reason: Per protocol Last Admin: 07/07/18 17:37 Dose: 6 mg/hr, 12 mls/hr Lactulose (Lactulose Liq) 30 ml PO DAILY PRN PRN Reason: SEVERE CONSITIPATION Lisinopril (Prinivil) 10 mg PO DAILY [facility] Last Admin: 07/07/18 09:08 Dose: 10 mg Ondansetron HCl (Zofran Inj) 4 mg IV.PUSH Q6H PRN PRN Reason: NAUSEA OR VOMITING Senna/Docusate Sodium (Karen-Colace) 1 tab PO BID [facility] Last Admin: 07/07/18 09:08 Dose: 1 tab Sennosides (Senokot) 17.2 mg PO Q12H PRN PRN Reason: Moderate Constipation Sodium Chloride (Ns Flush) 2 ml IV.FLUSH BID [facility] Last Admin: 07/07/18 10:07 Dose: 2 ml Sodium Chloride (Ns Flush) 2 ml IV.FLUSH PRN PRN PRN Reason: FLUSH AFTER USING IV ACCESS Allergies Allergy/AdvReac Type Severity Reaction Status Date / Time No Known Allergies Allergy none Uncoded 07/05/18 19:19 Home Medications Medication Instructions Recorded Confirmed Type aspirin 650 mg PO BID 07/05/18 07/05/18 History acyclovir [Zovirax] 400 mg PO TID 07/06/18 07/06/18 History atorvastatin 80 mg PO DAILY 07/06/18 07/06/18 History cyanocobalamin (vitamin B-12) 500 mcg PO DAILY 07/06/18 07/06/18 History [Vitamin B-12] enalapril maleate 10 mg PO BID 07/06/18 07/06/18 History isosorbide mononitrate 120 mg PO BID 07/06/18 07/06/18 History pantoprazole [Protonix] 40 mg PO DAILY 07/06/18 07/06/18 History Physical Exam Vital signs: Vital Signs 07/06/18 21:27 07/07/18 00:00 07/07/18 04:00 Temperature 97.6 F 97.6 F Pulse Rate 53 L 58 L Respiratory Rate 18 18 Blood Pressure 175/77 H 146/65 H Pulse Oximetry 95 95 95 07/07/18 07:50 07/07/18 08:27 07/07/18 10:55 Temperature 97.8 F 97.5 F L Pulse Rate 55 L 57 L Respiratory Rate 20 20 Blood Pressure 187/84 H 145/92 H Pulse Oximetry 93 L 96 94 L 07/07/18 17:37 07/07/18 17:45 07/07/18 18:00 Temperature 97.6 F Pulse Rate 81 74 71 Respiratory Rate 13 20 13 Blood Pressure 174/73 H 163/51 H 201/88 H Pulse Oximetry 96 96 98 07/07/18 18:15 07/07/18 18:26 07/07/18 18:30 Temperature Pulse Rate 72 68 67 Respiratory Rate 15 13 Blood Pressure 156/55 H 158/52 H Pulse Oximetry 95 97 95 07/07/18 18:45 07/07/18 19:00 Temperature 97.9 F Pulse Rate 68 73 Respiratory Rate 14 13 Blood Pressure 156/53 H 162/59 H Pulse Oximetry 96 96 Intake & Output 07/07/18 07/07/18 07/08/18 06:59 18:59 06:59 Output Total 1005 / 1005 Balance -1005 / -1005 Weight 77 kg Output: Urine Amount (Catheter) 1000 / 1000 Straight 1000 / 1000 Wound Drainage 5 / 5 # 1 Left Neck 5 / 5 Other: # Voids 1 Date of Last Bowel Movement 07/06/18 07/06/18 - Constitutional no acute distress, average body habitus, obtunded - Routine HEENT Exam Head: Present: normocephalic, atraumatic Eye: Present: EOMI, PERRL, normal accommodation ENT: Present: mucous membranes moist - Routine Neck Exam Present: supple, full ROM. Absent: JVD Comments: Dressing on the left neck clean without bleeding - Routine Respiratory Exam Absent: accessory muscle use, rales, respiratory distress - Routine Cardiovascular Exam Present: RRR, S1, S2 - Routine Abdominal Exam Present: soft, normoactive bowel sounds. Absent: tenderness, distended - Routine Extremities Exam Absent: cyanosis, clubbing, edema - Routine Skin Exam Present: intact. Absent: cyanosis, erythema - Routine Neurological Exam Present: alert - Detailed Neurological Exam: Coma Scale Eye Opening: Spontaneous Verbal Response: Confused Motor Response: Obey commands Calvin Coma Scale Total: 14 - Urinary Catheter Management Straight Cath placed during this visit: yes, but has since been removed by the nurse Reason for continuing: Not indwelling catheter Insertion date: 07/07/18 Insertion time: 18:18 Removal date: 07/07/18 Removal time: 19:30 Septic Shock Reassessment Septic shock perfusion: reassessment completed Assessment and Plan - Problem List (1) Coronary artery disease Code(s): I25.10 - Atherosclerotic heart disease of minto coronary artery without angina pectoris Status: Acute (2) History of cardiac catheterization Code(s): Z98.890 - Other specified postprocedural states Status: Acute (3) History of heart artery stent Code(s): Z95.5 - Presence of coronary angioplasty implant and graft Status: Acute (4) Transient cerebral ischemia Code(s): G45.9 - Transient cerebral ischemic attack, unspecified Status: Acute - Assessment and Plan Plan: Carotid atherosclerosis -Status post left endarterectomy -Aspirin -Plavix -BP control -Further management per vascular surgeon Hypertension -Cleviprex to keep SBP less than 160/90 per vascular surgery -Vasotec as needed -Clonidine as needed -Lisinopril Coronary artery disease -Continue aspirin and Plavix Diabetes -Insulin sliding scale Hyperlipidemia -Atorvastatin DVT GI prophylaxis -Teds SCDs -Subcu heparin per vascular surgery -Pantoprazole 35 minutes of critical care
--- NOTE | 2018-07-07 21:09 | MP ---
cc: Reinaldo Hudson MD DATE OF OPERATION: 07/07/2018 PREOPERATIVE DIAGNOSES: Tight, about 80%, left internal carotid artery stenosis, repeated transient ischemic attacks. POSTOPERATIVE DIAGNOSIS: Bilateral carotid stenosis, right about 70%, left about 90% and above. OPERATIVE PROCEDURE: Left carotid endarterectomy with patch angioplasty. SURGEON: Reinaldo Hudson MD ANESTHESIA: General. ESTIMATED BLOOD LOSS: Maybe 150 mL. DESCRIPTION OF PROCEDURE: The patient was prepped and draped in usual fashion. A left presternocleidomastoid incision was made and deepened down through the platysma into the carotid neurovascular sheath. Common carotid, internal and external carotid arteries were isolated with careful blunt and sharp dissection and then umbilical tape with Rumel tourniquets were placed around each loosely. Hypoglossal nerve was carefully identified and preserved. Weitlaner and upper arm Iron Barley Steeper retractors were placed. The patient was given 7000 units of heparin IV and then clamps applied, a curved bulldog to the internal carotid and an angled DeBakey to the common carotid artery. The vessel was opened longitudinally with Jeffery scissors. An [place] shunt was immediately placed and blood flow reestablished. It was noted that the patient had a huge, firm, hard plaque with some crumbly calcified elements in the left internal carotid artery nearly completely occluding the bifurcation and the proximal internal carotid artery. This was 90% plus stenosis. Plaque was now dissected in the medial plane using a [place] dissector and removed in 1 piece. The proximal end was now checked and the intima was cut with Jeffery scissors clean. Then, the distal end was checked. The intima peeled off pretty good, but this was still washed up with some heparinized saline and Leksells to get all the debris removed. A 7-0 Prolene in a horizontal mattress was used to tack down the intima in the internal carotid artery. An 8 mm x 8 cm bovine patch was chosen and sewn in with running 5-0 Prolene. Prior to completion of the arterial repair, the [place] shunt was removed, arterial repair completed and blood flow reestablished in the usual order and fashion, preventing internal embolization. The area was irrigated with copious amounts of saline. Flow was checked with Doppler and it was brisk. A piece of Surgicel was placed over the vessel. The patient was given 20 units of protamine and then a 7 flat KAREN placed. The incision was closed with 0 Vicryl and 4-0 Monocryl subcuticular stitch. Benzoin and Steri-Strips were applied. Upon completion of the procedure, the patient was taken to the recovery room, and in the recovery room, he was neurologically fully intact. MD KRISTOPHER Gil/yesenia , 07:02 PM , 07:11 PM
[2018-07-08] MEDS: Clevidipine Inj 25 MG/50 ML VIAL IV.CONT PRN ×7 (00:50→23:42)
[2018-07-08 04:23] LABS: Hematocrit 45.7 % (39.0-51.0); Hemoglobin 15.6 gm/dL (13.0-17.0); Mean Corpuscular HGB Conc 34.1 % (32.0-36.0); Mean Corpuscular Hemoglobin 33.5 pg (27.0-34.0); Mean Corpuscular Volume 98.1 fL (80.0-100.0); Mean Platelet Volume 7.7 fL (7.0-11.0); Platelet Count 175 th/mm3 (150-450); Red Blood Count 4.65 mil/mm3 (4.50-5.90); Red Cell Distribution Width 13.7 % (11.6-17.2); White Blood Count 14.5 th/mm3 (4.0-11.0)
[2018-07-08 04:55] LABS: Anion Gap 11 meq/L (5-15); Blood Urea Nitrogen 11 mg/dL (7-18); Calcium 8.8 mg/dL (8.5-10.1); Carbon Dioxide 24.4 meq/L (21.0-32.0); Chloride 103 meq/L (98-107); Glomerular Filtration Rate Greater Than 89 mL/min (>89); Glucose,Random 140 mg/dL (74-106); Potassium 3.8 meq/L (3.5-5.1); Sodium 138 meq/L (136-145)
[2018-07-08] MEDS ORDERED: Dextrose 50% in Water 50 ML Vial IV.PUSH PRN (05:14)
[2018-07-08] MEDS ORDERED: Morphine Sulfate Inj 2 MG/ML Vial IV.PUSH PRN (05:48)
--- NOTE | 2018-07-08 05:53 | P.PNVS ---
Subjective Subjective/Hospital Course: Referral received Full consult TORRIE in asif Maldonado 07/08/2018 Patient is status post left carotid endarterectomy patch angioplasty Motorically neurologically he is intact however appears to be somewhat confused and agitated somewhat dysphasic and dysarthric. Speaks clearly intermittently and follows commands only intermittently consistent with some receptive aphasia Pupils are equal and reactive Neck incision is clean and dry KAREN drain is minimal We will DC KAREN drain this morning Patient remains hemodynamically stable however hypertensive was placed on Cleviprex drip in the recovery room and remains on the same Will add medication to get patient off Cleviprex Patient is complaining about lower abdominal pain and apparently the nurse called the medical shoe shanker four times for assistance I helped the nurse put patient back in bed and on exam he is noted to have massively distended urinary bladder Patient clearly had urinary retention in the recovery room in apparently pulled out his Smith somewhere in the late evening hours On my exam upper abdomen is soft bowel the lower abdomen is massively distended firm with guarding consistent with massively dilated bladder Order given to replace the Smith and immediately 800 cc of bloody urine obtained Patient immediately calmed down and blood pressure decreased to 180 systolic to 150 systolic I believe his neurologic symptoms to be related to hyperperfusion in face of hypertension Discussed with Dr. Watts Addendum In the afternoon patient is doing much better he is now fully awake alert and oriented Neurologically he is fully intact Incision is clean and dry CT of the brain does not reveal any acute changes At this point we will keep systolic blood pressure under 140 mmHg and once patient is off Cleviprex will be able to transfer to floor Objective Vital Signs / I&O: Vital Signs 07/07/18 07:50 07/07/18 08:27 07/07/18 10:55 Temperature 97.8 F 97.5 F L Pulse Rate 55 L 57 L Respiratory Rate 20 20 Blood Pressure 187/84 H 145/92 H Pulse Oximetry 93 L 96 94 L 07/07/18 17:37 07/07/18 17:45 07/07/18 18:00 Temperature 97.6 F Pulse Rate 81 74 71 Respiratory Rate 13 20 13 Blood Pressure 174/73 H 163/51 H 201/88 H Pulse Oximetry 96 96 98 07/07/18 18:15 07/07/18 18:26 07/07/18 18:30 Temperature Pulse Rate 72 68 67 Respiratory Rate 15 13 Blood Pressure 156/55 H 158/52 H Pulse Oximetry 95 97 95 07/07/18 18:45 07/07/18 19:00 07/07/18 19:15 Temperature 97.9 F 97.7 F Pulse Rate 68 73 98 H Respiratory Rate 14 13 14 Blood Pressure 156/53 H 162/59 H Pulse Oximetry 96 96 94 L 07/07/18 19:30 07/07/18 19:45 07/07/18 20:00 Temperature 97.7 F 97.7 F 97.7 F Pulse Rate 95 H 88 92 H Respiratory Rate 14 14 14 Blood Pressure 194/86 H 180/80 H Pulse Oximetry 92 L 91 L 94 L 07/07/18 20:15 07/07/18 20:30 07/07/18 20:45 Temperature 97.7 F 97.7 F 97.7 F Pulse Rate 89 82 79 Respiratory Rate 14 14 14 Blood Pressure 161/72 H Pulse Oximetry 93 L 93 L 95 07/07/18 21:00 07/08/18 00:30 07/08/18 00:45 Temperature 97.7 F 98.3 F Pulse Rate 74 72 67 Respiratory Rate 14 11 L 9 L Blood Pressure 152/70 H 148/66 H Pulse Oximetry 92 L 97 95 07/08/18 01:00 07/08/18 01:15 07/08/18 01:30 Temperature Pulse Rate 66 74 71 Respiratory Rate 13 9 L 14 Blood Pressure 145/65 H 152/69 H 166/76 H Pulse Oximetry 96 92 L 97 07/08/18 01:45 07/08/18 02:00 07/08/18 02:15 Temperature Pulse Rate 64 62 68 Respiratory Rate 9 L 10 L 13 Blood Pressure 161/72 H 165/74 H 184/80 H Pulse Oximetry 97 98 98 07/08/18 02:18 07/08/18 02:30 07/08/18 02:36 Temperature Pulse Rate 69 71 69 Respiratory Rate 12 13 12 Blood Pressure 179/80 H 192/83 H 183/80 H Pulse Oximetry 99 99 99 07/08/18 02:45 07/08/18 02:55 07/08/18 03:00 Temperature Pulse Rate 93 H 48 L 58 L Respiratory Rate 11 L 22 22 Blood Pressure 197/91 H 126/60 149/72 H Pulse Oximetry 99 96 95 07/08/18 03:15 07/08/18 03:21 07/08/18 03:30 Temperature Pulse Rate 82 72 75 Respiratory Rate 19 18 17 Blood Pressure 172/79 H 175/78 H 177/77 H Pulse Oximetry 93 L 96 93 L 07/08/18 03:45 07/08/18 03:52 07/08/18 04:00 Temperature 97.9 F Pulse Rate 79 92 H Respiratory Rate 16 25 H Blood Pressure 179/81 H Pulse Oximetry 95 95 95 07/08/18 04:01 07/08/18 04:14 07/08/18 04:15 Temperature Pulse Rate 88 77 75 Respiratory Rate 23 23 23 Blood Pressure 188/85 H 164/73 H 160/70 H Pulse Oximetry 97 93 L 94 L 07/08/18 04:30 07/08/18 04:45 07/08/18 05:00 Temperature Pulse Rate 88 95 H 95 H Respiratory Rate 29 H 22 34 H Blood Pressure 161/74 H 166/79 H 190/81 H Pulse Oximetry 95 96 96 07/08/18 05:15 Temperature Pulse Rate 89 Respiratory Rate 19 Blood Pressure 180/74 H Pulse Oximetry 95 Intake & Output 07/07/18 07/07/18 07/08/18 06:59 18:59 06:59 Intake Total 1050 / 1050 Output Total 2255 / 2255 Balance -1205 / -1205 Weight 77 kg Intake: IV 1050 / 1050 Cleviprex Inj 25 mg In 50 ml @ 50 / 50 1 MG/HR 2 mls/hr IV.CONT TITRATE PRN Rx#:[id number] NS Inj 1,000 ML @ 70 mls/hr IV. 1000 / 1000 CONT .[id number] [facility] Rx#: [id number] Output: Urine Amount (Catheter) 2250 / 2250 Straight 2250 / 2250 Wound Drainage 5 / 5 # 1 Left Neck 5 / 5 Other: # Voids 1 Date of Last Bowel Movement 07/06/18 07/06/18 07/06/18 Laboratory Results - last 24 hr 07/06/18 07/07/18 07/07/18 10:20 13:14 21:45 WBC RBC Hgb Hct MCV MCH MCHC RDW Plt Count MPV Sodium Potassium Chloride Carbon Dioxide Anion Gap BUN Creatinine Estimated GFR Random Glucose Calcium Nasal Screen MRSA (PCR) Not detected RPR Nonreactive Blood Type A Positive Antibody Screen Negative MTS Gel Crossmatch See Detail 07/08/18 07/08/18 04:13 04:13 WBC 14.5 H RBC 4.65 Hgb 15.6 Hct 45.7 MCV 98.1 MCH 33.5 MCHC 34.1 RDW 13.7 Plt Count 175 MPV 7.7 Sodium 138 Potassium 3.8 Chloride 103 Carbon Dioxide 24.4 Anion Gap 11 BUN 11 Creatinine 0.78 Estimated GFR Greater than 89 Random Glucose 140 H Calcium 8.8 Nasal Screen MRSA (PCR) RPR Blood Type Antibody Screen MTS Gel Crossmatch Impressions Carotid Doppler Study 07/06/18 00:00 CONCLUSION: 1. 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 2. Left Internal Carotid Artery: Findings indicate >70% stenosis, but less than near occlusion. 3. Consider confirmation of these findings with carotid CTA prior to any planned intervention. Neck CTA 07/06/18 00:00 CONCLUSION: 1. Bilateral bifurcation atherosclerosis as described. 2. Short segment 50-70% stenosis of the proximal right internal carotid artery. 3. Short segment greater than 70% stenosis of the proximal left internal carotid artery. Neck MRA 07/06/18 00:00 CONCLUSION: 1. There is a short segment focal high-grade stenosis in the proximal left internal carotid artery with at least 80% stenosis not greater. 2. There is a short segment of stenosis of the proximal right internal carotid artery with approximately 50% stenosis. 3. There is a nonspecific lobular presumed vascular structure in the left supraclavicular region measuring at least 1.5 cm. It does not appear to represent any definite artery but should exclude that it represents an aneurysm or arteriovenous fistula. Therefore, consider correlating with CTA examination with contrast injection in the right upper extremity during imaging. Percent stenosis is calculated using the diameter of the stenotic region over the diameter of the normal distal internal carotid artery Head MRA 07/06/18 07:01 CONCLUSION: 1. Significant intracranial atherosclerotic vascular disease as described above. Head MRI 07/06/18 07:07 CONCLUSION: 1. No acute intracranial abnormality is identified. There are no findings to indicate recent ischemia. 2. Chronic changes include generalized atrophy and moderate severity periventricular white matter signal change characteristic of chronic microvascular ischemic change. 3. Severe left maxillary mucoperiosteal thickening.
--- NOTE | 2018-07-08 06:00 | MB ---
cc: Alphonse Louie DO DATE: 07/07/2018 REASON FOR CONSULTATION: Preoperative cardiovascular risk assessment. HISTORY OF PRESENT ILLNESS: Luís Ochoa is a pleasant 87-year-old male who sees my partner, Dr. Crawford, in the office and presented to [facility] due to an acute neurological symptom. He was in his normal state of health until 10 a.m. the day before admission when he was out trimming hedges. He had about a third of the way done and he started developing weakness in his lower extremities. He had difficult time stepping over 1-foot fence. He tried multiple times and then fell. He also had some mild confusion. After finishing, he started having problems with coordination and ambulating. He had trouble differentiating between a knife and a fork. When the patient's came home, she was concerned that and so brought him into the emergency room for further evaluation. Apparently, he had a similar type episode around 6 months ago, but did not seek medical attention. On arrival, multiple scans were done and it appears that he had a left middle cerebral artery TIA. During his workup, he underwent a CTA of the neck, which showed a 50 to 70% proximal right internal carotid artery stenosis and a greater than 70% proximal left internal carotid artery stenosis. He was seen by vascular surgery and recommended a carotid endarterectomy on the left side. I was asked to see him to further risk assess him. In seeing him, he previously had bypass done a number of years ago. He does have a bioprosthetic aortic valve and he underwent an echocardiogram, which showed a normal function of the valve. He and his go to the gym multiple times per week and he does multiple stations as well as the treadmill at a moderate to heavy exercise without chest pain or shortness of breath. PAST MEDICAL HISTORY: 1. Coronary artery disease. 2. Diabetes. 3. Hypertension. 4. Hyperlipidemia. PAST SURGICAL HISTORY: 1. Cardiac catheterization (12/22/2010) with a totally occluded RCA with left to right collaterals. Left main, normal-sized vessel with no disease. Left circumflex and LAD, no significant disease. 2. Coronary artery bypass grafting to the PDA as well as an AVR (believed to be 2012). 3. PCI of right iliac. 4. AVNRT status post ablation. ALLERGIES: NO KNOWN DRUG ALLERGIES. MEDICATIONS: 1. Aspirin 650 mg b.i.d. 2. Zovirax 400 mg t.i.d. 3. Isosorbide mononitrate 120 mg b.i.d. 4. Lipitor 80 mg daily. 5. Enalapril 10 mg b.i.d. 6. Protonix 40 mg daily. FAMILY HISTORY: Denies premature coronary artery disease or sudden cardiac within the family. SOCIAL HISTORY: Former smoker. Denies alcohol or drug abuse. REVIEW OF SYSTEMS: Fourteen systems were reviewed including osteopathic. Pertinent positives and negatives above, otherwise negative. PHYSICAL EXAMINATION: VITAL SIGNS: Temperature 97.5, heart rate 57, blood pressure 145/92, respirations 20, pulse oximetry 94% on room air. GENERAL: The patient appears well, in no acute distress. Alert, awake and oriented x3. HEENT: Extraocular muscles intact. Mucous membranes moist. NECK: Supple. No JVD at 45 degrees. No carotid bruits heard bilaterally. Carotid upstroke has bilateral bruits. HEART: Regular rate and rhythm. First and second heart sounds with a 1/6 crescendo decrescendo. LUNGS: Clear to auscultation bilaterally. No wheezes, rales or rhonchi. ABDOMEN: Soft, nontender, nondistended. No organomegaly noted. EXTREMITIES: Show no clubbing, cyanosis or edema. Femoral and distal pulses intact bilaterally. NEUROLOGIC: No focal deficits. SKIN: Warm, dry and intact. OSTEOPATHIC: No kyphoscoliosis, lordosis or paraspinal tender points. LABORATORY DATA: Hemoglobin 14.1, hematocrit 41.3, platelets 173. Potassium 3.7, BUN 22, creatinine 0.83. Troponin less than 0.02. Electrocardiogram (07/05/2018 at 20:57): Sinus bradycardia, first-degree AV block. IMPRESSION: 1. Preoperative cardiovascular risk assessment. 2. Transient ischemic attack. 3. Bilateral carotid stenosis with left greater than right, significant lesion of the left with greater than 70% by CTA. 4. Peripheral artery disease with history of right iliac stenting. 5. Coronary artery disease with a history of a saphenous vein graft to posterior descending artery. 6. Bioprosthetic aortic valve replacement. RECOMMENDATIONS: 1. Mr. Ochoa presented with a TIA and was found to have significant carotid disease bilaterally. His left has greater than 70% and his right is 50-70%. 2. He has been evaluated by neurology and vascular surgery and they believe that he should undergo a left carotid endarterectomy by . 3. As far as a preoperative cardiovascular risk assessment, overall, I believe he is a moderate risk. He has no current acute coronary syndrome, decompensated heart failure and he is hemodynamically and electrically stable. 4. He works out at the gym multiple times per week, moderate to heavily without symptoms. Ultimately he is a moderate risk and may proceed without further intervention as he does greater than 4 METS of work without symptoms. 5. He has had an echocardiogram which shows normal function of his bioprosthetic valve with a normal ejection fraction. 6. Further recommendations will be made based on the hospital course. Thank you for allowing me to see Luís Ochoa. If there are any questions, please do not hesitate to call. Alphonse Louie, VGP/sv/kd , 11:27 PM , 11:44 PM
--- NOTE | 2018-07-08 09:08 | P.PNNEU ---
Subjective Active Medications: Active Medications Acetaminophen (Tylenol) 650 mg PO Q4H PRN PRN Reason: headache/fever/pain1-5 Al Hydroxide/Mg Hydroxide (Milk Of Magnesia Liq) 30 ml PO Q12H PRN PRN Reason: Mild Constipation Aspirin (Aspirin) 325 mg PO DAILY [facility] Last Admin: 07/07/18 09:08 Dose: 325 mg Atorvastatin Calcium (Lipitor) 80 mg PO DAILY [facility] Bisacodyl (Dulcolax Supp) 10 mg RECTAL DAILY PRN PRN Reason: SEVERE CONSITIPATION Clonidine HCl (Catapres) 0.1 mg PO Q6H PRN PRN Reason: SBP>160, DBP>90 Last Admin: 07/06/18 15:27 Dose: 0.1 mg Clopidogrel Bisulfate (Plavix) 75 mg PO DAILY [facility] Cyanocobalamin (Vitamin B12) 500 mcg PO DAILY [facility] Dextrose (D50w Vial) 50 ml IV.PUSH UNSCH PRN PRN Reason: PER HYPOGLYCEMIA PROTOCOL Enalaprilat (Vasotec Inj) 1.25 mg IV.PUSH Q6H PRN PRN Reason: BLOOD PRESSURE MANAGEMENT Last Admin: 07/06/18 16:37 Dose: 1.25 mg Glucagon (Glucagon Inj) 1 mg OTHER PRN PRN PRN Reason: for Hypoglycemia Protocol Heparin Sodium (Porcine) (Heparin Inj) 5,000 units SQ Q12H [facility] Last Admin: 07/07/18 21:41 Dose: Not Given Sodium Chloride (Ns Inj) 1,000 mls @ 70 mls/hr IV.CONT .[id number] [facility] Last Admin: 07/07/18 20:00 Dose: 70 mls/hr Clevidipine (Cleviprex Inj) 25 mg in 50 mls @ 2 mls/hr IV.CONT TITRATE PRN; Protocol PRN Reason: Per protocol Last Admin: 07/08/18 06:28 Dose: 8 mg/hr, 16 mls/hr Insulin Human Regular (Novolin R Correctional Sugar Inj) 0 units SQ ACHS [facility]; Protocol Isosorbide Mononitrate (Imdur) 120 mg PO BID [facility] Lactulose (Lactulose Liq) 30 ml PO DAILY PRN PRN Reason: SEVERE CONSITIPATION Lisinopril (Prinivil) 10 mg PO DAILY [facility] Last Admin: 07/07/18 09:08 Dose: 10 mg Miscellaneous Information ([facility] Nursing Information) 1 each OTHER UNSCH PRN PRN Reason: SEE LABEL COMMENTS Stop: 07/08/18 21:08 Morphine Sulfate (Morphine Inj) 2 mg IV.PUSH Q3H PRN PRN Reason: PAIN 1-10 AND/OR FEVER >101F Nitroglycerin (Nitro-Dur 0.4 Mg Patch.24 Hr) 1 patch T-DERMAL DAILY [facility] Ondansetron HCl (Zofran Inj) 4 mg IV.PUSH Q6H PRN PRN Reason: NAUSEA OR VOMITING Pantoprazole Sodium (Protonix) 40 mg PO DAILY [facility] Patch Removal (Remove Old Patch) 1 each T-DERMAL DAILY [facility] Senna/Docusate Sodium (Karen-Colace) 1 tab PO BID [facility] Last Admin: 07/07/18 21:49 Dose: Not Given Sennosides (Senokot) 17.2 mg PO Q12H PRN PRN Reason: Moderate Constipation Sodium Chloride (Ns Flush) 2 ml IV.FLUSH BID [facility] Last Admin: 07/07/18 21:50 Dose: 2 ml Sodium Chloride (Ns Flush) 2 ml IV.FLUSH PRN PRN PRN Reason: FLUSH AFTER USING IV ACCESS Allergies/Adverse Reactions: Allergies Allergy/AdvReac Type Severity Reaction Status Date / Time No Known Allergies Allergy none Uncoded 07/05/18 19:19 Physical Exam Vital signs: Vital Signs 07/07/18 10:55 07/07/18 17:37 07/07/18 17:45 Temperature 97.5 F L 97.6 F Pulse Rate 57 L 81 74 Respiratory Rate 20 13 20 Blood Pressure 145/92 H 174/73 H 163/51 H Pulse Oximetry 94 L 96 96 07/07/18 18:00 07/07/18 18:15 07/07/18 18:26 Temperature Pulse Rate 71 72 68 Respiratory Rate 13 15 Blood Pressure 201/88 H 156/55 H Pulse Oximetry 98 95 97 07/07/18 18:30 07/07/18 18:45 07/07/18 19:00 Temperature 97.9 F Pulse Rate 67 68 73 Respiratory Rate 13 14 13 Blood Pressure 158/52 H 156/53 H 162/59 H Pulse Oximetry 95 96 96 07/07/18 19:15 07/07/18 19:30 07/07/18 19:45 Temperature 97.7 F 97.7 F 97.7 F Pulse Rate 98 H 95 H 88 Respiratory Rate 14 14 14 Blood Pressure 194/86 H Pulse Oximetry 94 L 92 L 91 L 07/07/18 20:00 07/07/18 20:15 07/07/18 20:30 Temperature 97.7 F 97.7 F 97.7 F Pulse Rate 92 H 89 82 Respiratory Rate 14 14 14 Blood Pressure 180/80 H 161/72 H Pulse Oximetry 94 L 93 L 93 L 07/07/18 20:45 07/07/18 21:00 07/08/18 00:30 Temperature 97.7 F 97.7 F 98.3 F Pulse Rate 79 74 72 Respiratory Rate 14 14 11 L Blood Pressure 152/70 H Pulse Oximetry 95 92 L 97 07/08/18 00:45 07/08/18 01:00 07/08/18 01:15 Temperature Pulse Rate 67 66 74 Respiratory Rate 9 L 13 9 L Blood Pressure 148/66 H 145/65 H 152/69 H Pulse Oximetry 95 96 92 L 07/08/18 01:30 07/08/18 01:45 07/08/18 02:00 Temperature Pulse Rate 71 64 62 Respiratory Rate 14 9 L 10 L Blood Pressure 166/76 H 161/72 H 165/74 H Pulse Oximetry 97 97 98 07/08/18 02:15 07/08/18 02:18 07/08/18 02:30 Temperature Pulse Rate 68 69 71 Respiratory Rate 13 12 13 Blood Pressure 184/80 H 179/80 H 192/83 H Pulse Oximetry 98 99 99 07/08/18 02:36 07/08/18 02:45 07/08/18 02:55 Temperature Pulse Rate 69 93 H 48 L Respiratory Rate 12 11 L 22 Blood Pressure 183/80 H 197/91 H 126/60 Pulse Oximetry 99 99 96 07/08/18 03:00 07/08/18 03:15 07/08/18 03:21 Temperature Pulse Rate 58 L 82 72 Respiratory Rate 22 19 18 Blood Pressure 149/72 H 172/79 H 175/78 H Pulse Oximetry 95 93 L 96 07/08/18 03:30 07/08/18 03:45 07/08/18 03:52 Temperature Pulse Rate 75 79 Respiratory Rate 17 16 Blood Pressure 177/77 H 179/81 H Pulse Oximetry 93 L 95 95 07/08/18 04:00 07/08/18 04:01 07/08/18 04:14 Temperature 97.9 F Pulse Rate 92 H 88 77 Respiratory Rate 25 H 23 23 Blood Pressure 188/85 H 164/73 H Pulse Oximetry 95 97 93 L 07/08/18 04:15 07/08/18 04:30 07/08/18 04:45 Temperature Pulse Rate 75 88 95 H Respiratory Rate 23 29 H 22 Blood Pressure 160/70 H 161/74 H 166/79 H Pulse Oximetry 94 L 95 96 07/08/18 05:00 07/08/18 05:15 07/08/18 07:51 Temperature Pulse Rate 95 H 89 Respiratory Rate 34 H 19 Blood Pressure 190/81 H 180/74 H Pulse Oximetry 96 95 96 Intake & Output 07/07/18 07/08/18 07/08/18 18:59 06:59 18:59 Intake Total 1160 / 1160 Output Total 4395 / 4395 Balance -3235 / -3235 Intake: IV 1100 / 1100 Cleviprex Inj 25 mg In 50 ml @ 100 / 100 1 MG/HR 2 mls/hr IV.CONT TITRATE PRN Rx#:[id number] NS Inj 1,000 ML @ 70 mls/hr IV. 1000 / 1000 CONT .[id number] JOSE A Rx#: [id number] Oral 60 / 60 Output: Urine Amount (Catheter) 4350 / 4350 Indwelling Urethral Catheter 2100 / 2100 Straight 2250 / 2250 Wound Drainage 45 / 45 # 1 Left Neck 45 / 45 Other: Date of Last Bowel Movement 07/06/18 07/07/18 Narrative: some aphasia not naming well or following complex commands vff counts fingers 5/5 bue and ble - Urinary Catheter Management Straight Cath placed during this visit: yes, but has since been removed by the nurse Reason for continuing: Acute urinary retention Insertion date: 07/08/18 Insertion time: 06:00 Removal date: 07/07/18 Removal time: 19:30 Indwelling Urethral Catheter Cath placed during this visit: no Objective Laboratory Results - last 24 hr 07/06/18 07/07/18 07/07/18 10:20 13:14 21:45 WBC RBC Hgb Hct MCV MCH MCHC RDW Plt Count MPV Sodium Potassium Chloride Carbon Dioxide Anion Gap BUN Creatinine Estimated GFR Random Glucose Calcium Nasal Screen MRSA (PCR) Not detected RPR Nonreactive Blood Type A Positive Antibody Screen Negative MTS Gel Crossmatch See Detail 07/08/18 07/08/18 04:13 04:13 WBC 14.5 H RBC 4.65 Hgb 15.6 Hct 45.7 MCV 98.1 MCH 33.5 MCHC 34.1 RDW 13.7 Plt Count 175 MPV 7.7 Sodium 138 Potassium 3.8 Chloride 103 Carbon Dioxide 24.4 Anion Gap 11 BUN 11 Creatinine 0.78 Estimated GFR Greater than 89 Random Glucose 140 H Calcium 8.8 Nasal Screen MRSA (PCR) RPR Blood Type Antibody Screen MTS Gel Crossmatch Review/Management - Review/Management Plan: imp i thought the left carotid looked more than 70% sr here so far for cards and vascular for left cea asa statin 07/08/18 sp left cea looks like clinically some cva with aphasia and confusion check ct keep bp 140/ i dw vascular and med team hematuria from [facility]
--- NOTE | 2018-07-08 09:31 | P.PNCC ---
Subjective Subjective Remarks/Hospital Course: 87-year-old male with a known history of vascular disease presented to the hospital with neurologic symptoms that started at about 10 a.m. on 07/06/2018. The patient was apparently trimming his hedges and noticed that suddenly became weak in both legs and could not step up about 1 step. He then went to the house and tried to do it again and this just did not go well. He was transferred to [facility] and worked up and noted to have bilateral carotid stenosis, left about 80% and the right about 70%, and a vascular. He was taken to the operating room by Dr. Hudson for endarterectomy and postprocedure he has been transferred to ICU for tight blood pressure control and monitoring. SUBJECTIVE: 07/08: Patient seen and examined. Noted gross hematuria. Patient remains confused and somewhat finding difficulty. I cannot appreciate any motor deficits but did not ambulate either. Currently in restraints due to confusion. Objective Vital Signs / I&O: Vital Signs 07/07/18 10:55 07/07/18 17:37 07/07/18 17:45 Temperature 97.5 F L 97.6 F Pulse Rate 57 L 81 74 Respiratory Rate 20 13 20 Blood Pressure 145/92 H 174/73 H 163/51 H Pulse Oximetry 94 L 96 96 07/07/18 18:00 07/07/18 18:15 07/07/18 18:26 Temperature Pulse Rate 71 72 68 Respiratory Rate 13 15 Blood Pressure 201/88 H 156/55 H Pulse Oximetry 98 95 97 07/07/18 18:30 07/07/18 18:45 07/07/18 19:00 Temperature 97.9 F Pulse Rate 67 68 73 Respiratory Rate 13 14 13 Blood Pressure 158/52 H 156/53 H 162/59 H Pulse Oximetry 95 96 96 07/07/18 19:15 07/07/18 19:30 07/07/18 19:45 Temperature 97.7 F 97.7 F 97.7 F Pulse Rate 98 H 95 H 88 Respiratory Rate 14 14 14 Blood Pressure 194/86 H Pulse Oximetry 94 L 92 L 91 L 07/07/18 20:00 07/07/18 20:15 07/07/18 20:30 Temperature 97.7 F 97.7 F 97.7 F Pulse Rate 92 H 89 82 Respiratory Rate 14 14 14 Blood Pressure 180/80 H 161/72 H Pulse Oximetry 94 L 93 L 93 L 07/07/18 20:45 07/07/18 21:00 07/08/18 00:30 Temperature 97.7 F 97.7 F 98.3 F Pulse Rate 79 74 72 Respiratory Rate 14 14 11 L Blood Pressure 152/70 H Pulse Oximetry 95 92 L 97 07/08/18 00:45 07/08/18 01:00 07/08/18 01:15 Temperature Pulse Rate 67 66 74 Respiratory Rate 9 L 13 9 L Blood Pressure 148/66 H 145/65 H 152/69 H Pulse Oximetry 95 96 92 L 07/08/18 01:30 07/08/18 01:45 07/08/18 02:00 Temperature Pulse Rate 71 64 62 Respiratory Rate 14 9 L 10 L Blood Pressure 166/76 H 161/72 H 165/74 H Pulse Oximetry 97 97 98 07/08/18 02:15 07/08/18 02:18 07/08/18 02:30 Temperature Pulse Rate 68 69 71 Respiratory Rate 13 12 13 Blood Pressure 184/80 H 179/80 H 192/83 H Pulse Oximetry 98 99 99 07/08/18 02:36 07/08/18 02:45 07/08/18 02:55 Temperature Pulse Rate 69 93 H 48 L Respiratory Rate 12 11 L 22 Blood Pressure 183/80 H 197/91 H 126/60 Pulse Oximetry 99 99 96 07/08/18 03:00 07/08/18 03:15 07/08/18 03:21 Temperature Pulse Rate 58 L 82 72 Respiratory Rate 22 19 18 Blood Pressure 149/72 H 172/79 H 175/78 H Pulse Oximetry 95 93 L 96 07/08/18 03:30 07/08/18 03:45 07/08/18 03:52 Temperature Pulse Rate 75 79 Respiratory Rate 17 16 Blood Pressure 177/77 H 179/81 H Pulse Oximetry 93 L 95 95 07/08/18 04:00 07/08/18 04:01 07/08/18 04:14 Temperature 97.9 F Pulse Rate 92 H 88 77 Respiratory Rate 25 H 23 23 Blood Pressure 188/85 H 164/73 H Pulse Oximetry 95 97 93 L 07/08/18 04:15 07/08/18 04:30 07/08/18 04:45 Temperature Pulse Rate 75 88 95 H Respiratory Rate 23 29 H 22 Blood Pressure 160/70 H 161/74 H 166/79 H Pulse Oximetry 94 L 95 96 07/08/18 05:00 07/08/18 05:15 07/08/18 07:51 Temperature Pulse Rate 95 H 89 Respiratory Rate 34 H 19 Blood Pressure 190/81 H 180/74 H Pulse Oximetry 96 95 96 Intake & Output 07/07/18 07/08/18 07/08/18 18:59 06:59 18:59 Intake Total 1160 / 1160 Output Total 4395 / 4395 Balance -3235 / -3235 Intake: IV 1100 / 1100 Cleviprex Inj 25 mg In 50 ml @ 100 / 100 1 MG/HR 2 mls/hr IV.CONT TITRATE PRN Rx#:[id number] NS Inj 1,000 ML @ 70 mls/hr IV. 1000 / 1000 CONT .[id number] JOSE A Rx#: [id number] Oral 60 / 60 Output: Urine Amount (Catheter) 4350 / 4350 Indwelling Urethral Catheter 2100 / 2100 Straight 2250 / 2250 Wound Drainage 45 / 45 # 1 Left Neck 45 / 45 Other: Date of Last Bowel Movement 07/06/18 07/07/18 07/07/18 Result Diagrams: 07/08/18 04:13 07/08/18 04:13 Imaging: Head CT 07/05/18 18:43 CONCLUSION: 1. No acute intracranial abnormality. 2. Mild chronic white matter changes. 3. Left maxillary sinusitis. . Carotid Doppler Study 07/06/18 00:00 CONCLUSION: 1. 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 2. Left Internal Carotid Artery: Findings indicate >70% stenosis, but less than near occlusion. 3. Consider confirmation of these findings with carotid CTA prior to any planned intervention. Neck CTA 07/06/18 00:00 CONCLUSION: 1. Bilateral bifurcation atherosclerosis as described. 2. Short segment 50-70% stenosis of the proximal right internal carotid artery. 3. Short segment greater than 70% stenosis of the proximal left internal carotid artery. Neck MRA 07/06/18 00:00 CONCLUSION: 1. There is a short segment focal high-grade stenosis in the proximal left internal carotid artery with at least 80% stenosis not greater. 2. There is a short segment of stenosis of the proximal right internal carotid artery with approximately 50% stenosis. 3. There is a nonspecific lobular presumed vascular structure in the left supraclavicular region measuring at least 1.5 cm. It does not appear to represent any definite artery but should exclude that it represents an aneurysm or arteriovenous fistula. Therefore, consider correlating with CTA examination with contrast injection in the right upper extremity during imaging. Percent stenosis is calculated using the diameter of the stenotic region over the diameter of the normal distal internal carotid artery Head MRA 07/06/18 07:01 CONCLUSION: 1. Significant intracranial atherosclerotic vascular disease as described above. Head MRI 07/06/18 07:07 CONCLUSION: 1. No acute intracranial abnormality is identified. There are no findings to indicate recent ischemia. 2. Chronic changes include generalized atrophy and moderate severity periventricular white matter signal change characteristic of chronic microvascular ischemic change. 3. Severe left maxillary mucoperiosteal thickening. Objective Remarks: GENERAL: 87-year-old male currently resting in bed in soft restraints SKIN: Warm and dry. No rash. Well-healed site of left carotid endarterectomy HEAD: Atraumatic. Normocephalic. EYES: Pupils equal and round. No scleral icterus. No injection or drainage. ENT: No nasal bleeding or discharge. Mucous membranes pink and moist. NECK: Trachea midline. No JVD. CARDIOVASCULAR: Regular rate and rhythm. S1, S2. No S4. 2/6 systolic murmur RESPIRATORY: No accessory muscle use. Clear to auscultation. Breath sounds equal bilaterally. GASTROINTESTINAL: Abdomen soft, non-tender, nondistended. Hepatic and splenic margins not palpable. MUSCULOSKELETAL: Extremities without significant edema. No obvious deformities. NEUROLOGICAL: Awake and alert. No obvious cranial nerve deficits. Motor grossly within normal limits. Five out of 5 muscle strength in the arms and legs. Abnormal speech. Some dysphasia and word finding difficulties Assessment and Plan - Problem List (1) Coronary artery disease Code(s): I25.10 - Atherosclerotic heart disease of [place] coronary artery without angina pectoris Status: Acute (2) History of cardiac catheterization Code(s): Z98.890 - Other specified postprocedural states Status: Acute (3) History of heart artery stent Code(s): Z95.5 - Presence of coronary angioplasty implant and graft Status: Acute (4) Transient cerebral ischemia Code(s): G45.9 - Transient cerebral ischemic attack, unspecified Status: Acute - Assessment and Plan Plan: Neuro/Psych: Left MCA TIA Possible acute CVA -postoperative MRI brain 07/06 revealed no acute intracranial findings MRA brain revealed left anterior A1, left middle cerebral artery M1 with distal irregularities. Left ICA 80%. CT angiogram did not reveal any aneurysm. Confirmed left ICA around 70%. R ICA around 50 % Continue aspirin 325 mg daily and clopidogrel 75 mg daily Neurology/Dr. Watts following. Order for stat CT of the brain Neurochecks Acetaminophen 650 mg p.o. every 4 hours as needed fever/pain 1-5 Morphine sulfate 2 mg IV every 2 hours as needed pain 6 through 10 CV: Postop day #1 left carotid endarterectomy-Dr. Hudson Essential hypertension Hyperlipidemia Coronary artery disease -occluded RCA 2010 heart catheterization History of coronary artery stent History aortic valve replacement 2012 Resume home medications of isosorbide mononitrate 30 mg twice daily, lisinopril 10 mg daily for hypertension Nitroglycerin transdermal 0.4 mg/hour daily added Currently on clevidipine drip goal SBP 120-140 per neurology recs Continue atorvastatin 80 mg daily for hyperlipidemia For surgery by Dr. Louie/cardiology moderate risk Resp: Nasal cannula to maintain saturations greater than equal to 92% Incentive spirometry while awake As needed albuterol aerosols every 2 hours as needed GI: Elevated ammonia Cardiac/diabetic diet Pantoprazole for GI prophylaxis Docusate serum/senna 1 tablet twice daily for bowel regimen Continue lactulose 30 cc twice daily. Recheck level in a.m. ammonia 07/09 : Hematuria/traumatic [place] History of BPH Continuous bladder irrigations Maintain [facility] consultation Endo: Diabetes mellitus Sliding scale insulin Accu-Cheks to maintain euglycemia/every 6 hours aspart insulin low regimen Check TSH Renal: Creatinine currently within normal limits Monitor urine output Maintain accurate I's and O's Recheck creatinine in a.m. 8 Heme: Leukocytosis Monitor CBC daily. Follow trends. 2 PRBCs on hold ID: History of shingles Monitor for signs and symptomatology of infection FEN: Currently on normal saline at 70 cc an hour. Replace electrolytes as clinically indicated MSK: PT/OT evaluate and treat Access -Utilize peripheral IV. Central line if indicated Prophylaxis -GI -pantoprazole -DVT-SCD/pharmacological prophylaxis when okay with vascular surgery Level 3 follow-up (1) Coronary artery disease Qualifiers: Coronary Disease-Associated Artery/Lesion type: [place] artery [place] vs. transplanted heart: [place] heart Associated angina: without angina Qualified Code(s): I25.10 - Atherosclerotic heart disease of [place] coronary artery without angina pectoris (4) Transient cerebral ischemia Qualifiers: Transient cerebral ischemia type: unspecified Qualified Code(s): G45.9 - Transient cerebral ischemic attack, unspecified
[2018-07-08] MEDS: Insulin NovoLIN Regular Correctional Sugar Inj SQ SCH ×4 (09:44→21:39)
[2018-07-08] MEDS: Pantoprazole Sodium 20 MG DR Tablet PO SCH (09:44)
[2018-07-08] MEDS: Lisinopril 10 MG Tablet PO SCH (09:45)
[2018-07-08] MEDS: Senna/Docusate Sodium 8.6/50 MG Tablet PO SCH ×2 (09:46→21:09)
[2018-07-08] MEDS: Isosorbide Mononitrate 60 MG ER 24HR Tablet (Imdur) PO SCH ×2 (09:47→21:05)
--- NOTE | 2018-07-08 11:14 | CT ---
EXAM DATE: 07/08/2018 10:45 AM EST AGE/SEX: 87 years / Male INDICATIONS: Intracerebral hemorrhage. CLINICAL DATA: This is the patient's subsequent encounter. Patient reports that signs and symptoms h ave been present for 2 days and indicates a pain score of 0/10. MEDICAL/SURGICAL HISTORY: Diabetes. Coronary artery disease. Coronary artery stent. Aortic valve replacement. RADIATION DOSE: 56.35 CTDI (mGy) COMPARISON: [facility], CT HEAD W/O CONTRAST, 07/05/2018. . TECHNIQUE: CT of the head without contrast. Using automated exposure control and adjustment of the mA and/or kV according to patient size, radiation dose was kept as low as reasonably achievable to ob tain optimal diagnostic quality images. DICOM format image data is available electronically for revi ew and comparison. FINDINGS: Cerebrum: There is mild generalized atrophy and ventricles are normal given the degree of atrophy. M ild periventricular white matter change is present. No midline shift, mass lesion, hemorrhage or acu te infarction. No extraaxial fluid collections are seen. Posterior Fossa: The cerebellum and brainstem demonstrate no acute abnormality. The 4th ventricle is midline. The cerebellopontine angle is within normal limits. Extracranial: There is chronic opacification of the left maxillary antrum with associated thickening of the sinus vasquez. Remaining visualized sinuses are clear. Skull: The calvaria is intact. No skull fracture. CONCLUSION: 1. Stable noncontrast head CT. No acute intracranial abnormality is identified. 2. Chronic left maxillary sinus disease. . Electronically signed by: Nikita Duarte MD 07/08/2018 11:12 AM EST
[2018-07-08] MEDS: Sod Chloride 0.9% Inj 1,000 ML IV.CONT SCH ×3 (12:07→20:15)
--- NOTE | 2018-07-08 12:08 | P.CONURO ---
History of Present Illness Service: Consult date: 07/08/18 Requesting Physician: Gus Camacho Primary Care Provider: Do Gallito Henson Chief Complaint: weakness, confusion, difficult ambulating History of Present Illness: 87-year-old gentleman admitted to the ICU with altered mental status. During the night, the patient inadvertently pulled out his Smith catheter and subsequently developed gross hematuria. Smith catheter was replaced and a urology evaluation requested. Current medications include aspirin and Plavix. At the time of consultation the indwelling Smith catheter was draining medium red colored urine without clots. The patient was not in any acute distress. He appeared coherent but had trouble communicating due to being hard of hearing. Patient's was present at the bedside and reported that he did not have any prior urologic history although recently she noticed that he has been voiding more frequently than in the past. There is no history of gross hematuria. Review of Systems All other systems reviewed negative except as stated in HPI PMFSH - History History Provided By: Patient - Medical History Medical History: Medical History (Last Reviewed 07/08/18 @ 11:51 by Lilibeth Foster) Coronary artery disease Diabetes HTN (hypertension) Hyperlipidemia - Surgical History Surgical History: Surgical History (Last Updated 07/06/18 @ 13:44 by KELSEA Melton) Aortic valve replaced History of cardiac catheterization History of cataract extraction with lens replacement History of heart artery stent History of open heart surgery - Family History Family History: Family History (Last Updated 07/06/18 @ 13:44 by KELSEA Melton) Mother History of heart disease Father History of prostate cancer - Tobacco History Second Hand Smoke Exposure: No Tobacco Use In Past 30 Days: No Smoking Status: Former smoker - Alcohol History How Often Do You Have a Drink Containing Alcohol: 4 or more times a week - Substance Use History Substance History: No History of Abuse - Travel History Recent Travel in the [place] Within the Last 8 Weeks: No Recent Travel Out of the Country Within the Last 8 Weeks: No - Immunization History Tetanus Immunization: <5 Years Medications and Allergies Active Medications: Active Medications Acetaminophen (Tylenol) 650 mg PO Q4H PRN PRN Reason: headache/fever/pain1-5 Al Hydroxide/Mg Hydroxide (Milk Of Magnlaurel Liq) 30 ml PO Q12H PRN PRN Reason: Mild Constipation Aspirin (Aspirin) 325 mg PO DAILY JOSE A Last Admin: 07/07/18 09:08 Dose: 325 mg Atorvastatin Calcium (Lipitor) 80 mg PO DAILY [facility] Last Admin: 07/08/18 09:45 Dose: 80 mg Bisacodyl (Dulcolax Supp) 10 mg RECTAL DAILY PRN PRN Reason: SEVERE CONSITIPATION Clonidine HCl (Catapres) 0.1 mg PO Q6H PRN PRN Reason: SBP>160, DBP>90 Last Admin: 07/06/18 15:27 Dose: 0.1 mg Clopidogrel Bisulfate (Plavix) 75 mg PO DAILY [facility] Last Admin: 07/08/18 09:46 Dose: 75 mg Cyanocobalamin (Vitamin B12) 500 mcg PO DAILY [facility] Last Admin: 07/08/18 09:46 Dose: 500 mcg Dextrose (D50w Vial) 50 ml IV.PUSH UNSCH PRN PRN Reason: PER HYPOGLYCEMIA PROTOCOL Enalaprilat (Vasotec Inj) 1.25 mg IV.PUSH Q6H PRN PRN Reason: BLOOD PRESSURE MANAGEMENT Last Admin: 07/06/18 16:37 Dose: 1.25 mg Glucagon (Glucagon Inj) 1 mg OTHER PRN PRN PRN Reason: for Hypoglycemia Protocol Heparin Sodium (Porcine) (Heparin Inj) 5,000 units SQ Q12H [facility] Last Admin: 07/07/18 21:41 Dose: Not Given Sodium Chloride (Ns Inj) 1,000 mls @ 70 mls/hr IV.CONT .[id number] [facility] Last Admin: 07/08/18 12:07 Dose: Not Given Clevidipine (Cleviprex Inj) 25 mg in 50 mls @ 2 mls/hr IV.CONT TITRATE PRN; Protocol PRN Reason: Per protocol Last Admin: 07/08/18 06:28 Dose: 8 mg/hr, 16 mls/hr Insulin Human Regular (Novolin R Correctional Sugar Inj) 0 units SQ ACHS [facility]; Protocol Last Admin: 07/08/18 09:44 Dose: Not Given Isosorbide Mononitrate (Imdur) 120 mg PO BID [facility] Last Admin: 07/08/18 09:47 Dose: 120 mg Lactulose (Lactulose Liq) 30 ml PO BID [facility] Lisinopril (Prinivil) 10 mg PO DAILY [facility] Last Admin: 07/08/18 09:45 Dose: 10 mg Miscellaneous Information (Mis Nursing Information) 1 each OTHER UNSCH PRN PRN Reason: SEE LABEL COMMENTS Stop: 07/08/18 21:08 Morphine Sulfate (Morphine Inj) 2 mg IV.PUSH Q3H PRN PRN Reason: Pain 6-10 Nitroglycerin (Nitro-Dur 0.4 Mg Patch.24 Hr) 1 patch T-DERMAL DAILY [facility] Last Admin: 07/08/18 09:42 Dose: 1 patch Ondansetron HCl (Zofran Inj) 4 mg IV.PUSH Q6H PRN PRN Reason: NAUSEA OR VOMITING Pantoprazole Sodium (Protonix) 40 mg PO DAILY [facility] Last Admin: 07/08/18 09:44 Dose: 40 mg Patch Removal (Remove Old Patch) 1 each T-DERMAL DAILY [facility] Last Admin: 07/08/18 09:47 Dose: Not Given Senna/Docusate Sodium (Karen-Colace) 1 tab PO BID [facility] Last Admin: 07/08/18 09:46 Dose: 1 tab Sennosides (Senokot) 17.2 mg PO Q12H PRN PRN Reason: Moderate Constipation Sodium Chloride (Ns Flush) 2 ml IV.FLUSH BID [facility] Last Admin: 07/08/18 09:45 Dose: 2 ml Sodium Chloride (Ns Flush) 2 ml IV.FLUSH PRN PRN PRN Reason: FLUSH AFTER USING IV ACCESS Allergies Allergy/AdvReac Type Severity Reaction Status Date / Time No Known Allergies Allergy none Uncoded 07/05/18 19:19 Home Medications Medication Instructions Recorded Confirmed Type aspirin 650 mg PO BID 07/05/18 07/05/18 History acyclovir [Zovirax] 400 mg PO TID 07/06/18 07/06/18 History atorvastatin 80 mg PO DAILY 07/06/18 07/06/18 History cyanocobalamin (vitamin B-12) 500 mcg PO DAILY 07/06/18 07/06/18 History [Vitamin B-12] enalapril maleate 10 mg PO BID 07/06/18 07/06/18 History isosorbide mononitrate 120 mg PO BID 07/06/18 07/06/18 History pantoprazole [Protonix] 40 mg PO DAILY 07/06/18 07/06/18 History Physical Exam Vital Signs - 24 hr 07/07/18 17:37 07/07/18 17:45 07/07/18 18:00 Temperature 97.6 F Pulse Rate 81 74 71 Respiratory Rate 13 20 13 Blood Pressure 174/73 H 163/51 H 201/88 H Pulse Oximetry 96 96 98 07/07/18 18:15 07/07/18 18:26 07/07/18 18:30 Temperature Pulse Rate 72 68 67 Respiratory Rate 15 13 Blood Pressure 156/55 H 158/52 H Pulse Oximetry 95 97 95 07/07/18 18:45 07/07/18 19:00 07/07/18 19:15 Temperature 97.9 F 97.7 F Pulse Rate 68 73 98 H Respiratory Rate 14 13 14 Blood Pressure 156/53 H 162/59 H Pulse Oximetry 96 96 94 L 07/07/18 19:30 07/07/18 19:45 07/07/18 20:00 Temperature 97.7 F 97.7 F 97.7 F Pulse Rate 95 H 88 92 H Respiratory Rate 14 14 14 Blood Pressure 194/86 H 180/80 H Pulse Oximetry 92 L 91 L 94 L 07/07/18 20:15 07/07/18 20:30 07/07/18 20:45 Temperature 97.7 F 97.7 F 97.7 F Pulse Rate 89 82 79 Respiratory Rate 14 14 14 Blood Pressure 161/72 H Pulse Oximetry 93 L 93 L 95 07/07/18 21:00 07/08/18 00:30 07/08/18 00:45 Temperature 97.7 F 98.3 F Pulse Rate 74 72 67 Respiratory Rate 14 11 L 9 L Blood Pressure 152/70 H 148/66 H Pulse Oximetry 92 L 97 95 07/08/18 01:00 07/08/18 01:15 07/08/18 01:30 Temperature Pulse Rate 66 74 71 Respiratory Rate 13 9 L 14 Blood Pressure 145/65 H 152/69 H 166/76 H Pulse Oximetry 96 92 L 97 07/08/18 01:45 07/08/18 02:00 07/08/18 02:15 Temperature Pulse Rate 64 62 68 Respiratory Rate 9 L 10 L 13 Blood Pressure 161/72 H 165/74 H 184/80 H Pulse Oximetry 97 98 98 07/08/18 02:18 07/08/18 02:30 07/08/18 02:36 Temperature Pulse Rate 69 71 69 Respiratory Rate 12 13 12 Blood Pressure 179/80 H 192/83 H 183/80 H Pulse Oximetry 99 99 99 07/08/18 02:45 07/08/18 02:55 07/08/18 03:00 Temperature Pulse Rate 93 H 48 L 58 L Respiratory Rate 11 L 22 22 Blood Pressure 197/91 H 126/60 149/72 H Pulse Oximetry 99 96 95 07/08/18 03:15 07/08/18 03:21 07/08/18 03:30 Temperature Pulse Rate 82 72 75 Respiratory Rate 19 18 17 Blood Pressure 172/79 H 175/78 H 177/77 H Pulse Oximetry 93 L 96 93 L 07/08/18 03:45 07/08/18 03:52 07/08/18 04:00 Temperature 97.9 F Pulse Rate 79 92 H Respiratory Rate 16 25 H Blood Pressure 179/81 H Pulse Oximetry 95 95 95 07/08/18 04:01 07/08/18 04:14 07/08/18 04:15 Temperature Pulse Rate 88 77 75 Respiratory Rate 23 23 23 Blood Pressure 188/85 H 164/73 H 160/70 H Pulse Oximetry 97 93 L 94 L 07/08/18 04:30 07/08/18 04:45 07/08/18 05:00 Temperature Pulse Rate 88 95 H 95 H Respiratory Rate 29 H 22 34 H Blood Pressure 161/74 H 166/79 H 190/81 H Pulse Oximetry 95 96 96 07/08/18 05:15 07/08/18 05:30 07/08/18 05:45 Temperature Pulse Rate 89 92 H 69 Respiratory Rate 19 25 H 13 Blood Pressure 180/74 H 175/73 H 155/68 H Pulse Oximetry 95 96 97 07/08/18 06:00 07/08/18 06:15 07/08/18 06:30 Temperature Pulse Rate 71 62 62 Respiratory Rate 19 13 14 Blood Pressure 146/65 H 151/65 H 145/65 H Pulse Oximetry 98 90 L 96 07/08/18 06:45 07/08/18 07:00 07/08/18 07:15 Temperature Pulse Rate 62 63 66 Respiratory Rate 11 L 16 11 L Blood Pressure 141/63 H 143/62 H 161/66 H Pulse Oximetry 97 97 98 07/08/18 07:30 07/08/18 07:45 07/08/18 07:51 Temperature Pulse Rate 65 65 Respiratory Rate 10 L 12 Blood Pressure 156/70 H 168/71 H Pulse Oximetry 96 96 96 07/08/18 08:00 07/08/18 08:15 07/08/18 08:30 Temperature 98.5 F Pulse Rate 64 64 90 Respiratory Rate 12 12 36 H Blood Pressure 168/55 H 167/72 H 166/71 H Pulse Oximetry 96 96 94 L 07/08/18 08:45 07/08/18 09:00 07/08/18 09:15 Temperature Pulse Rate 70 74 68 Respiratory Rate 14 14 15 Blood Pressure 164/73 H 159/70 H 146/65 H Pulse Oximetry 99 100 99 07/08/18 09:30 07/08/18 09:45 07/08/18 10:00 Temperature Pulse Rate 61 62 64 Respiratory Rate 11 L 12 12 Blood Pressure 148/65 H 140/62 147/63 H Pulse Oximetry 97 100 99 07/08/18 10:15 07/08/18 10:30 07/08/18 10:45 Temperature Pulse Rate 61 69 68 Respiratory Rate 11 L 11 L 8 L Blood Pressure 142/64 H 147/66 H 140/64 Pulse Oximetry 98 93 L 95 07/08/18 11:00 07/08/18 11:15 07/08/18 11:30 Temperature Pulse Rate 84 67 84 Respiratory Rate 22 13 36 H Blood Pressure 158/69 H 147/65 H 141/65 H Pulse Oximetry 90 L 96 97 07/08/18 11:45 07/08/18 12:00 Temperature 98.3 F Pulse Rate 65 73 Respiratory Rate 21 25 H Blood Pressure 136/61 166/64 H Pulse Oximetry 96 96 Physical Exam: GENERAL: Appears stated age and in no apparent distress. SKIN: No rashes, ecchymoses or lesions. Cool and dry. HEAD: Atraumatic. Normocephalic. No temporal or scalp tenderness. EYES: Pupils equal round and reactive. Extraocular motions intact. No scleral icterus. No injection or drainage. ENT: Nose without bleeding, purulent drainage or septal hematoma. Throat without erythema, tonsillar hypertrophy or exudate. Uvula midline. Airway patent. NECK: Trachea midline. No JVD or lymphadenopathy. Supple, nontender, no meningeal signs GASTROINTESTINAL: Abdomen soft, non-tender, nondistended. No hepato-splenomegaly , or palpable masses. No guarding. GENITOURINARY: Distended, indwelling Smith catheter draining medium red colored urine without clots MUSCULOSKELETAL: Extremities without clubbing, cyanosis, or edema. No joint tenderness, effusion, or edema noted. No calf tenderness. Negative Homans sign bilaterally. NEUROLOGICAL: Awake and alert. Difficult to communicate with due to patient being hard of hearing. Laboratory Results - last 24 hr 07/07/18 07/07/18 07/08/18 13:14 21:45 04:13 WBC 14.5 H RBC 4.65 Hgb 15.6 Hct 45.7 MCV 98.1 MCH 33.5 MCHC 34.1 RDW 13.7 Plt Count 175 MPV 7.7 Sodium Potassium Chloride Carbon Dioxide Anion Gap BUN Creatinine Estimated GFR Random Glucose Calcium Nasal Screen MRSA (PCR) Not detected Blood Type A Positive Antibody Screen Negative MTS Gel Crossmatch See Detail 07/08/18 04:13 WBC RBC Hgb Hct MCV MCH MCHC RDW Plt Count MPV Sodium 138 Potassium 3.8 Chloride 103 Carbon Dioxide 24.4 Anion Gap 11 BUN 11 Creatinine 0.78 Estimated GFR Greater than 89 Random Glucose 140 H Calcium 8.8 Nasal Screen MRSA (PCR) Blood Type Antibody Screen MTS Gel Crossmatch Result Diagrams: 07/08/18 04:13 07/08/18 04:13 Imaging: ITS Impressions Carotid Doppler Study 07/06/18 00:00 CONCLUSION: 1. 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 2. Left Internal Carotid Artery: Findings indicate >70% stenosis, but less than near occlusion. 3. Consider confirmation of these findings with carotid CTA prior to any planned intervention. Neck CTA 07/06/18 00:00 CONCLUSION: 1. Bilateral bifurcation atherosclerosis as described. 2. Short segment 50-70% stenosis of the proximal right internal carotid artery. 3. Short segment greater than 70% stenosis of the proximal left internal carotid artery. Neck MRA 07/06/18 00:00 CONCLUSION: 1. There is a short segment focal high-grade stenosis in the proximal left internal carotid artery with at least 80% stenosis not greater. 2. There is a short segment of stenosis of the proximal right internal carotid artery with approximately 50% stenosis. 3. There is a nonspecific lobular presumed vascular structure in the left supraclavicular region measuring at least 1.5 cm. It does not appear to represent any definite artery but should exclude that it represents an aneurysm or arteriovenous fistula. Therefore, consider correlating with CTA examination with contrast injection in the right upper extremity during imaging. Percent stenosis is calculated using the diameter of the stenotic region over the diameter of the normal distal internal carotid artery Head MRA 07/06/18 07:01 CONCLUSION: 1. Significant intracranial atherosclerotic vascular disease as described above. Head MRI 07/06/18 07:07 CONCLUSION: 1. No acute intracranial abnormality is identified. There are no findings to indicate recent ischemia. 2. Chronic changes include generalized atrophy and moderate severity periventricular white matter signal change characteristic of chronic microvascular ischemic change. 3. Severe left maxillary mucoperiosteal thickening. Head CT 07/08/18 00:00 CONCLUSION: 1. Stable noncontrast head CT. No acute intracranial abnormality is identified. 2. Chronic left maxillary sinus disease. . Assessment and Plan - Assessment (1) Gross hematuria Code(s): R31.0 - Gross hematuria Status: Acute - Plan Urologic impression: New onset gross hematuria related to traumatic Smith catheter removal exacerbated with aspirin and Plavix usage. Recommendations: 1. Continue with Smith catheter to gravity drainage 2. Would not implement CBI at this time unless the degree of hematuria worsens with clot formation. 3. Concurrent use of aspirin and Plavix will delay resolution of the hematuria. 4. nothing further to add at this time.
[2018-07-08] MEDS: Aspirin 325 MG Tablet PO SCH (14:00)
--- NOTE | 2018-07-08 14:44 | ECG ---
Date Performed: 07/07/2018 Time Performed: 22:07:55 PTAGE: 87 years EKG: Sinus rhythm WITH FIRST DEGREE AV BLOCK ABNORMAL ECG PREVIOUS TRACING : 07/05/2018 20.57 Since previous tracing, no significant change noted DOCTOR: Jack Peck Interpretating Date/Time 07/08/2018 14:43:15
[2018-07-08] MEDS: Heparin - SQ 10,000 UNITS/ML Vial SQ SCH (15:57)
--- NOTE | 2018-07-08 17:48 | P.PNCA ---
Subjective Interval history: Left CEA done yesterday Afterwards with urinary retention This morning confused, per nursing when seeing less confused No focal weakness noted Medications and Allergies Active Medications: Active Medications Acetaminophen (Tylenol) 650 mg PO Q4H PRN PRN Reason: headache/fever/pain1-5 Al Hydroxide/Mg Hydroxide (Milk Of [place] Liq) 30 ml PO Q12H PRN PRN Reason: Mild Constipation Aspirin (Aspirin) 325 mg PO DAILY [facility] Last Admin: 07/08/18 14:00 Dose: 325 mg Atorvastatin Calcium (Lipitor) 80 mg PO DAILY [facility] Last Admin: 07/08/18 09:45 Dose: 80 mg Bisacodyl (Dulcolax Supp) 10 mg RECTAL DAILY PRN PRN Reason: SEVERE CONSITIPATION Clonidine HCl (Catapres) 0.1 mg PO Q6H PRN PRN Reason: SBP>160, DBP>90 Last Admin: 07/06/18 15:27 Dose: 0.1 mg Clopidogrel Bisulfate (Plavix) 75 mg PO DAILY [facility] Last Admin: 07/08/18 09:46 Dose: 75 mg Cyanocobalamin (Vitamin B12) 500 mcg PO DAILY [facility] Last Admin: 07/08/18 09:46 Dose: 500 mcg Dextrose (D50w Vial) 50 ml IV.PUSH UNSCH PRN PRN Reason: PER HYPOGLYCEMIA PROTOCOL Enalaprilat (Vasotec Inj) 1.25 mg IV.PUSH Q6H PRN PRN Reason: BLOOD PRESSURE MANAGEMENT Last Admin: 07/06/18 16:37 Dose: 1.25 mg Glucagon (Glucagon Inj) 1 mg OTHER PRN PRN PRN Reason: for Hypoglycemia Protocol Heparin Sodium (Porcine) (Heparin Inj) 5,000 units SQ Q12H [facility] Last Admin: 07/08/18 15:57 Dose: Not Given Sodium Chloride (Ns Inj) 1,000 mls @ 70 mls/hr IV.CONT .[id number] [facility] Last Admin: 07/08/18 12:07 Dose: Not Given Clevidipine (Cleviprex Inj) 25 mg in 50 mls @ 2 mls/hr IV.CONT TITRATE PRN; Protocol PRN Reason: Per protocol Last Admin: 07/08/18 16:24 Dose: 14 mg/hr, 28 mls/hr Insulin Human Regular (Novolin R Correctional Sugar Inj) 0 units SQ ACHS [facility]; Protocol Last Admin: 07/08/18 12:57 Dose: Not Given Isosorbide Mononitrate (Imdur) 120 mg PO BID [facility] Last Admin: 07/08/18 09:47 Dose: 120 mg Lactulose (Lactulose Liq) 30 ml PO BID [facility] Lisinopril (Prinivil) 10 mg PO DAILY [facility] Last Admin: 07/08/18 09:45 Dose: 10 mg Miscellaneous Information ([facility]) 1 each OTHER UNSCH PRN PRN Reason: SEE LABEL COMMENTS Stop: 07/08/18 21:08 Morphine Sulfate (Morphine Inj) 2 mg IV.PUSH Q3H PRN PRN Reason: Pain 6-10 Last Admin: 07/08/18 08:15 Dose: 2 mg Nitroglycerin (Nitro-Dur 0.4 Mg Patch.24 Hr) 1 patch T-DERMAL DAILY [facility] Last Admin: 07/08/18 09:42 Dose: 1 patch Ondansetron HCl (Zofran Inj) 4 mg IV.PUSH Q6H PRN PRN Reason: NAUSEA OR VOMITING Pantoprazole Sodium (Protonix) 40 mg PO DAILY [facility] Last Admin: 07/08/18 09:44 Dose: 40 mg Patch Removal (Remove Old Patch) 1 each T-DERMAL DAILY [facility] Last Admin: 07/08/18 09:47 Dose: Not Given Senna/Docusate Sodium (Karen-Colace) 1 tab PO BID [facility] Last Admin: 07/08/18 09:46 Dose: 1 tab Sennosides (Senokot) 17.2 mg PO Q12H PRN PRN Reason: Moderate Constipation Sodium Chloride (Ns Flush) 2 ml IV.FLUSH BID [facility] Last Admin: 07/08/18 09:45 Dose: 2 ml Sodium Chloride (Ns Flush) 2 ml IV.FLUSH PRN PRN PRN Reason: FLUSH AFTER USING IV ACCESS Allergies Allergy/AdvReac Type Severity Reaction Status Date / Time No Known Allergies Allergy none Uncoded 07/05/18 19:19 Home Medications Medication Instructions Recorded Confirmed Type aspirin 650 mg PO BID 07/05/18 07/05/18 History acyclovir [Zovirax] 400 mg PO TID 07/06/18 07/06/18 History atorvastatin 80 mg PO DAILY 07/06/18 07/06/18 History cyanocobalamin (vitamin B-12) 500 mcg PO DAILY 07/06/18 07/06/18 History [Vitamin B-12] enalapril maleate 10 mg PO BID 07/06/18 07/06/18 History isosorbide mononitrate 120 mg PO BID 07/06/18 07/06/18 History pantoprazole [Protonix] 40 mg PO DAILY 07/06/18 07/06/18 History Physical Exam Vital signs: Vital Signs 07/07/18 17:45 07/07/18 18:00 07/07/18 18:15 Temperature Pulse Rate 74 71 72 Respiratory Rate 20 13 15 Blood Pressure 163/51 H 201/88 H 156/55 H Pulse Oximetry 96 98 95 07/07/18 18:26 07/07/18 18:30 07/07/18 18:45 Temperature Pulse Rate 68 67 68 Respiratory Rate 13 14 Blood Pressure 158/52 H 156/53 H Pulse Oximetry 97 95 96 07/07/18 19:00 07/07/18 19:15 07/07/18 19:30 Temperature 97.9 F 97.7 F 97.7 F Pulse Rate 73 98 H 95 H Respiratory Rate 13 14 14 Blood Pressure 162/59 H 194/86 H Pulse Oximetry 96 94 L 92 L 07/07/18 19:45 07/07/18 20:00 07/07/18 20:15 Temperature 97.7 F 97.7 F 97.7 F Pulse Rate 88 92 H 89 Respiratory Rate 14 14 14 Blood Pressure 180/80 H Pulse Oximetry 91 L 94 L 93 L 07/07/18 20:30 07/07/18 20:45 07/07/18 21:00 Temperature 97.7 F 97.7 F 97.7 F Pulse Rate 82 79 74 Respiratory Rate 14 14 14 Blood Pressure 161/72 H 152/70 H Pulse Oximetry 93 L 95 92 L 07/08/18 00:30 07/08/18 00:45 07/08/18 01:00 Temperature 98.3 F Pulse Rate 72 67 66 Respiratory Rate 11 L 9 L 13 Blood Pressure 148/66 H 145/65 H Pulse Oximetry 97 95 96 07/08/18 01:15 07/08/18 01:30 07/08/18 01:45 Temperature Pulse Rate 74 71 64 Respiratory Rate 9 L 14 9 L Blood Pressure 152/69 H 166/76 H 161/72 H Pulse Oximetry 92 L 97 97 07/08/18 02:00 07/08/18 02:15 07/08/18 02:18 Temperature Pulse Rate 62 68 69 Respiratory Rate 10 L 13 12 Blood Pressure 165/74 H 184/80 H 179/80 H Pulse Oximetry 98 98 99 07/08/18 02:30 07/08/18 02:36 07/08/18 02:45 Temperature Pulse Rate 71 69 93 H Respiratory Rate 13 12 11 L Blood Pressure 192/83 H 183/80 H 197/91 H Pulse Oximetry 99 99 99 07/08/18 02:55 07/08/18 03:00 07/08/18 03:15 Temperature Pulse Rate 48 L 58 L 82 Respiratory Rate 22 22 19 Blood Pressure 126/60 149/72 H 172/79 H Pulse Oximetry 96 95 93 L 07/08/18 03:21 07/08/18 03:30 07/08/18 03:45 Temperature Pulse Rate 72 75 79 Respiratory Rate 18 17 16 Blood Pressure 175/78 H 177/77 H 179/81 H Pulse Oximetry 96 93 L 95 07/08/18 03:52 07/08/18 04:00 07/08/18 04:01 Temperature 97.9 F Pulse Rate 92 H 88 Respiratory Rate 25 H 23 Blood Pressure 188/85 H Pulse Oximetry 95 95 97 07/08/18 04:14 07/08/18 04:15 07/08/18 04:30 Temperature Pulse Rate 77 75 88 Respiratory Rate 23 23 29 H Blood Pressure 164/73 H 160/70 H 161/74 H Pulse Oximetry 93 L 94 L 95 07/08/18 04:45 07/08/18 05:00 07/08/18 05:15 Temperature Pulse Rate 95 H 95 H 89 Respiratory Rate 22 34 H 19 Blood Pressure 166/79 H 190/81 H 180/74 H Pulse Oximetry 96 96 95 07/08/18 05:30 07/08/18 05:45 07/08/18 06:00 Temperature Pulse Rate 92 H 69 71 Respiratory Rate 25 H 13 19 Blood Pressure 175/73 H 155/68 H 146/65 H Pulse Oximetry 96 97 98 07/08/18 06:15 07/08/18 06:30 07/08/18 06:45 Temperature Pulse Rate 62 62 62 Respiratory Rate 13 14 11 L Blood Pressure 151/65 H 145/65 H 141/63 H Pulse Oximetry 90 L 96 97 07/08/18 07:00 07/08/18 07:15 07/08/18 07:30 Temperature Pulse Rate 63 66 65 Respiratory Rate 16 11 L 10 L Blood Pressure 143/62 H 161/66 H 156/70 H Pulse Oximetry 97 98 96 07/08/18 07:45 07/08/18 07:51 07/08/18 08:00 Temperature Pulse Rate 65 64 Respiratory Rate 12 12 Blood Pressure 168/71 H 168/55 H Pulse Oximetry 96 96 96 07/08/18 08:15 07/08/18 08:30 07/08/18 08:45 Temperature 98.5 F Pulse Rate 64 90 70 Respiratory Rate 12 36 H 14 Blood Pressure 167/72 H 166/71 H 164/73 H Pulse Oximetry 96 94 L 99 07/08/18 09:00 07/08/18 09:15 07/08/18 09:30 Temperature Pulse Rate 74 68 61 Respiratory Rate 14 15 11 L Blood Pressure 159/70 H 146/65 H 148/65 H Pulse Oximetry 100 99 97 07/08/18 09:45 07/08/18 10:00 07/08/18 10:15 Temperature Pulse Rate 62 64 61 Respiratory Rate 12 12 11 L Blood Pressure 140/62 147/63 H 142/64 H Pulse Oximetry 100 99 98 07/08/18 10:30 07/08/18 10:45 07/08/18 11:00 Temperature Pulse Rate 69 68 84 Respiratory Rate 11 L 8 L 22 Blood Pressure 147/66 H 140/64 158/69 H Pulse Oximetry 93 L 95 90 L 07/08/18 11:15 07/08/18 11:30 07/08/18 11:45 Temperature Pulse Rate 67 84 65 Respiratory Rate 13 36 H 21 Blood Pressure 147/65 H 141/65 H 136/61 Pulse Oximetry 96 97 96 07/08/18 12:00 07/08/18 12:15 07/08/18 12:30 Temperature 98.3 F Pulse Rate 73 66 54 L Respiratory Rate 25 H 23 13 Blood Pressure 166/64 H 133/60 111/53 L Pulse Oximetry 96 96 95 07/08/18 12:45 07/08/18 13:00 07/08/18 13:21 Temperature Pulse Rate 58 L 84 87 Respiratory Rate 13 28 H 27 H Blood Pressure 115/53 L 137/61 134/61 Pulse Oximetry 90 L 94 L 92 L 07/08/18 13:29 07/08/18 13:30 07/08/18 14:00 Temperature Pulse Rate 97 H 97 H 84 Respiratory Rate 22 21 20 Blood Pressure 131/61 145/67 H 131/64 Pulse Oximetry 92 L 87 L 94 L 07/08/18 14:15 07/08/18 14:30 07/08/18 14:36 Temperature Pulse Rate 72 66 60 Respiratory Rate 15 16 15 Blood Pressure 120/56 L 86/51 L 132/60 Pulse Oximetry 93 L 91 L 88 L 07/08/18 14:45 07/08/18 15:00 07/08/18 15:15 Temperature Pulse Rate 54 L 57 L 59 L Respiratory Rate 16 17 15 Blood Pressure 145/66 H 147/67 H 153/64 H Pulse Oximetry 94 L 98 89 L 07/08/18 15:30 07/08/18 15:45 07/08/18 16:00 Temperature 98.3 F Pulse Rate 63 68 68 Respiratory Rate 17 18 18 Blood Pressure 150/65 H 179/72 H 172/77 H Pulse Oximetry 100 99 98 Intake & Output 07/07/18 07/08/18 07/08/18 18:59 06:59 18:59 Intake Total 1160 / 1160 150 / 150 Output Total 4395 / 4395 Balance -3235 / -3235 150 / 150 Intake: IV 1100 / 1100 150 / 150 Cleviprex Inj 25 mg In 50 ml @ 100 / 100 150 / 150 1 MG/HR 2 mls/hr IV.CONT TITRATE PRN Rx#:[id number] NS Inj 1,000 ML @ 70 mls/hr IV. 1000 / 1000 CONT .[id number] JOSE A Rx#: [id number] Oral 60 / 60 Output: Urine Amount (Catheter) 4350 / 4350 Indwelling Urethral Catheter 2099 / 2099 Straight 2250 / 2250 Wound Drainage 45 / 45 # 1 Left Neck 45 / 45 Other: Date of Last Bowel Movement 07/06/18 07/07/18 07/07/18 Narrative: GENERAL: NAD, AAOx3 SKIN: Warm and dry. HEAD: Atraumatic. Normocephalic. EYES: Pupils equal and round. No scleral icterus. No injection or drainage. ENT: No nasal bleeding or discharge. Mucous membranes pink and moist. NECK: Trachea midline. No JVD. Left CEA with dressing CARDIOVASCULAR: Regular rate and rhythm. RESPIRATORY: No accessory muscle use. Clear to auscultation. Breath sounds equal bilaterally. GASTROINTESTINAL: Abdomen soft, non-tender, nondistended. Hepatic and splenic margins not palpable. MUSCULOSKELETAL: Extremities without clubbing, cyanosis, or edema. No obvious deformities. NEUROLOGICAL: Awake and alert. No obvious cranial nerve deficits. Motor grossly within normal limits. Mildly confused but redirected and knows where he is and date - Urinary Catheter Management Straight Cath placed during this visit: yes, but has since been removed by the nurse Reason for continuing: Acute urinary retention Insertion date: 07/08/18 Insertion time: 06:00 Removal date: 07/07/18 Removal time: 19:30 Indwelling Urethral Catheter Cath placed during this visit: no Results 07/08/18 04:13 07/08/18 04:13 CBC 07/08/18 Range/Units 04:13 WBC 14.5 H (4.0-11.0) th/mm3 RBC 4.65 (4.50-5.90) mil/mm3 Hgb 15.6 (13.0-17.0) gm/dL Hct 45.7 (39.0-51.0) % Plt Count 175 (150-450) th/mm3 Comprehensive Metabolic Panel 07/08/18 Range/Units 04:13 Sodium 138 (136-145) meq/L Potassium 3.8 (3.5-5.1) meq/L Chloride 103 (98-107) meq/L Carbon Dioxide 24.4 (21.0-32.0) meq/L BUN 11 (7-18) mg/dL Creatinine 0.78 (0.60-1.30) mg/dL Calcium 8.8 (8.5-10.1) mg/dL Intake and Output 07/08/18 07/08/18 07/08/18 06:59 14:59 22:59 Intake Total 110 / 110 100 / 100 50 / 50 Output Total 2140 / 2140 Balance -2029 / -2029 100 / 100 50 / 50 Intake: IV 50 / 50 100 / 100 50 / 50 Cleviprex Inj 25 mg In 50 ml @ 50 / 50 100 / 100 50 / 50 1 MG/HR 2 mls/hr IV.CONT TITRATE PRN Rx#:[id number] Oral 60 / 60 Output: Urine Amount (Catheter) 2099 Indwelling Urethral Catheter 2099 Wound Drainage 40 / 40 # 1 Left Neck 40 / 40 Other: Date of Last Bowel Movement 07/07/18 07/07/18 07/07/18 - Imaging and Cardiology Imaging: Impressions Neck CTA 07/06/18 00:00 CONCLUSION: 1. Bilateral bifurcation atherosclerosis as described. 2. Short segment 50-70% stenosis of the proximal right internal carotid artery. 3. Short segment greater than 70% stenosis of the proximal left internal carotid artery. Head CT 07/08/18 00:00 CONCLUSION: 1. Stable noncontrast head CT. No acute intracranial abnormality is identified. 2. Chronic left maxillary sinus disease. . Assessment and Plan - Assessment (1) History of left-sided carotid endarterectomy Code(s): Z98.890 - Other specified postprocedural states Status: Acute (2) Transient cerebral ischemia Code(s): G45.9 - Transient cerebral ischemic attack, unspecified Status: Acute (3) Accelerated hypertension Code(s): I10 - Essential (primary) hypertension Status: Acute (4) CAD (coronary artery disease) Code(s): I25.10 - Atherosclerotic heart disease of [place] coronary artery without angina pectoris Status: Acute (5) Hx of CABG Code(s): Z95.1 - Presence of aortocoronary bypass graft Status: Acute (6) Hx of aortic valve replacement Code(s): Z95.2 - Presence of prosthetic heart valve Status: Acute - Plan 1) TIA 2) Carotid artery stenosis s/p left CEA 3) Confusion this morning, but does not appear to be focal Neurology following 4) CAD with history of CABG Stable 5) Hx of AVR, bioprosthetic (2) Transient cerebral ischemia Qualifiers: Transient cerebral ischemia type: unspecified Qualified Code(s): G45.9 - Transient cerebral ischemic attack, unspecified
[2018-07-09] MEDS: Clevidipine Inj 25 MG/50 ML VIAL IV.CONT PRN ×4 (01:43→23:02)
[2018-07-09 04:19] LABS: Hematocrit 39.7 % (39.0-51.0); Hemoglobin 13.9 gm/dL (13.0-17.0); Mean Corpuscular HGB Conc 35.1 % (32.0-36.0); Mean Corpuscular Hemoglobin 34.1 pg (27.0-34.0); Mean Corpuscular Volume 97.1 fL (80.0-100.0); Mean Platelet Volume 7.6 fL (7.0-11.0); Platelet Count 150 th/mm3 (150-450); Red Blood Count 4.09 mil/mm3 (4.50-5.90); Red Cell Distribution Width 13.9 % (11.6-17.2); White Blood Count 9.3 th/mm3 (4.0-11.0)
[2018-07-09 04:48] LABS: Alkaline Phosphatase 70 U/L (45-117); Creatine Kinase 108 U/L (39-308); Total Protein 6.2 g/dL (6.4-8.2)
[2018-07-09 04:49] LABS: Alanine Aminotransferase 19 U/L (12-78); Albumin 3.2 g/dL (3.4-5.0); Anion Gap 4 meq/L (5-15); Aspartate Aminotransferase 19 U/L (15-37); Blood Urea Nitrogen 14 mg/dL (7-18); Calcium 8.7 mg/dL (8.5-10.1); Carbon Dioxide 29.4 meq/L (21.0-32.0); Chloride 107 meq/L (98-107); Glomerular Filtration Rate Greater Than 89 mL/min (>89); Glucose,Random 114 mg/dL (74-106); Magnesium 2.2 mg/dL (1.5-2.5); Phosphorus 2.5 mg/dL (2.5-4.9); Potassium 3.8 meq/L (3.5-5.1); Sodium 140 meq/L (136-145)
--- NOTE | 2018-07-09 09:09 | P.PNCC ---
Subjective Subjective Remarks/Hospital Course: 87-year-old male with a known history of vascular disease presented to the hospital with neurologic symptoms that started at about 10 a.m. on 07/06/2018. The patient was apparently trimming his hedges and noticed that suddenly became weak in both legs and could not step up about 1 step. He then went to the house and tried to do it again and this just did not go well. He was transferred to [facility] and worked up and noted to have bilateral carotid stenosis, left about 80% and the right about 70%, and a vascular. He was taken to the operating room by Dr. Hudson for endarterectomy and postprocedure he has been transferred to ICU for tight blood pressure control and monitoring. SUBJECTIVE: 07/08: Patient seen and examined. Noted gross hematuria. Patient remains confused and somewhat finding difficulty. I cannot appreciate any motor deficits but did not ambulate either. Currently in restraints due to confusion. 07/09: Awake and alert. Moving all 4 extremities. Cleviprex being titrated down. Objective Vital Signs / I&O: Vital Signs 07/08/18 09:15 07/08/18 09:30 07/08/18 09:45 Temperature Pulse Rate 68 61 62 Respiratory Rate 15 11 L 12 Blood Pressure 146/65 H 148/65 H 140/62 Pulse Oximetry 99 97 100 07/08/18 10:00 07/08/18 10:15 07/08/18 10:30 Temperature Pulse Rate 64 61 69 Respiratory Rate 12 11 L 11 L Blood Pressure 147/63 H 142/64 H 147/66 H Pulse Oximetry 99 98 93 L 07/08/18 10:45 07/08/18 11:00 07/08/18 11:15 Temperature Pulse Rate 68 84 67 Respiratory Rate 8 L 22 13 Blood Pressure 140/64 158/69 H 147/65 H Pulse Oximetry 95 90 L 96 07/08/18 11:30 07/08/18 11:45 07/08/18 12:00 Temperature 98.3 F Pulse Rate 84 65 73 Respiratory Rate 36 H 21 25 H Blood Pressure 141/65 H 136/61 166/64 H Pulse Oximetry 97 96 96 07/08/18 12:15 07/08/18 12:30 07/08/18 12:45 Temperature Pulse Rate 66 54 L 58 L Respiratory Rate 23 13 13 Blood Pressure 133/60 111/53 L 115/53 L Pulse Oximetry 96 95 90 L 07/08/18 13:00 07/08/18 13:21 07/08/18 13:29 Temperature Pulse Rate 84 87 97 H Respiratory Rate 28 H 27 H 22 Blood Pressure 137/61 134/61 131/61 Pulse Oximetry 94 L 92 L 92 L 07/08/18 13:30 07/08/18 14:00 07/08/18 14:15 Temperature Pulse Rate 97 H 84 72 Respiratory Rate 21 20 15 Blood Pressure 145/67 H 131/64 120/56 L Pulse Oximetry 87 L 94 L 93 L 07/08/18 14:30 07/08/18 14:36 07/08/18 14:45 Temperature Pulse Rate 66 60 54 L Respiratory Rate 16 15 16 Blood Pressure 86/51 L 132/60 145/66 H Pulse Oximetry 91 L 88 L 94 L 07/08/18 15:00 07/08/18 15:15 07/08/18 15:30 Temperature Pulse Rate 57 L 59 L 63 Respiratory Rate 17 15 17 Blood Pressure 147/67 H 153/64 H 150/65 H Pulse Oximetry 98 89 L 100 07/08/18 15:45 07/08/18 16:00 07/08/18 20:00 Temperature 98.3 F 98.8 F Pulse Rate 68 68 66 Respiratory Rate 18 18 15 Blood Pressure 179/72 H 172/77 H 140/63 Pulse Oximetry 99 98 96 07/08/18 20:15 07/08/18 20:30 07/08/18 20:40 Temperature Pulse Rate 75 69 Respiratory Rate 17 17 Blood Pressure 154/67 H 136/61 Pulse Oximetry 92 L 97 97 07/08/18 20:45 07/08/18 21:00 07/08/18 21:15 Temperature Pulse Rate 86 68 Respiratory Rate 24 16 Blood Pressure 161/71 H 148/64 H 142/65 H Pulse Oximetry 93 L 94 L 94 L 07/08/18 21:30 07/08/18 21:45 07/08/18 22:00 Temperature Pulse Rate 68 67 Respiratory Rate 15 16 Blood Pressure 139/66 131/59 L 138/63 Pulse Oximetry 96 93 L 87 L 07/08/18 22:15 07/08/18 22:30 07/08/18 22:45 Temperature Pulse Rate 67 66 66 Respiratory Rate 24 14 16 Blood Pressure 143/65 H 133/61 152/65 H Pulse Oximetry 81 L 93 L 96 07/08/18 23:00 07/08/18 23:15 07/08/18 23:30 Temperature Pulse Rate 66 73 68 Respiratory Rate 15 40 H 15 Blood Pressure 141/67 H 132/63 131/60 Pulse Oximetry 93 L 94 L 94 L 07/08/18 23:45 07/09/18 00:00 07/09/18 00:15 Temperature 98.4 F Pulse Rate 63 67 66 Respiratory Rate 16 15 17 Blood Pressure 125/59 L 132/60 147/64 H Pulse Oximetry 96 95 96 07/09/18 00:30 07/09/18 00:49 07/09/18 01:00 Temperature Pulse Rate 65 88 81 Respiratory Rate 20 45 H 32 H Blood Pressure 138/65 146/68 H 140/63 Pulse Oximetry 95 93 L 86 L 07/09/18 01:15 07/09/18 01:30 07/09/18 01:45 Temperature Pulse Rate 67 73 73 Respiratory Rate 15 15 14 Blood Pressure 136/65 158/68 H 131/50 L Pulse Oximetry 97 97 96 07/09/18 02:00 07/09/18 02:15 07/09/18 02:30 Temperature Pulse Rate 71 67 71 Respiratory Rate 15 17 14 Blood Pressure 138/64 145/64 H 129/62 Pulse Oximetry 95 97 97 07/09/18 02:45 07/09/18 03:00 07/09/18 03:15 Temperature Pulse Rate 80 72 70 Respiratory Rate 34 H 18 15 Blood Pressure 133/63 132/63 132/62 Pulse Oximetry 97 95 98 07/09/18 03:30 07/09/18 03:45 07/09/18 04:00 Temperature Pulse Rate 69 77 69 Respiratory Rate 15 42 H 14 Blood Pressure 136/70 151/77 H 133/90 Pulse Oximetry 97 96 96 07/09/18 04:15 07/09/18 04:30 07/09/18 04:45 Temperature Pulse Rate 78 65 64 Respiratory Rate 39 H 14 15 Blood Pressure 129/59 L 144/66 H 135/63 Pulse Oximetry 94 L 95 96 07/09/18 05:00 07/09/18 05:15 07/09/18 06:02 Temperature Pulse Rate 68 67 74 Respiratory Rate 20 29 H Blood Pressure 147/63 H 137/63 Pulse Oximetry 80 L 91 L 07/09/18 06:10 07/09/18 07:00 Temperature Pulse Rate 75 64 Respiratory Rate 17 13 Blood Pressure 141/65 H Pulse Oximetry 100 92 L Intake & Output 07/08/18 07/09/18 07/09/18 18:59 06:59 18:59 Intake Total 1750 / 1750 580 / 580 Output Total 600 / 600 1200 / 1200 Balance 1150 / 1150 -620 / -620 Weight 75.1 kg Intake: IV 1150 / 1150 200 / 200 Cleviprex Inj 25 mg In 50 ml @ 150 / 150 200 / 200 1 MG/HR 2 mls/hr IV.CONT TITRATE PRN Rx#:[id number] NS Inj 1,000 ML @ 70 mls/hr IV. 1000 / 1000 CONT .[id number] JOSE A Rx#: [id number] Oral 600 / 600 380 / 380 Output: Urine Amount (Catheter) 600 / 600 1200 / 1200 Indwelling Urethral Catheter 600 / 600 1200 / 1200 Other: Date of Last Bowel Movement 07/07/18 07/07/18 # Bowel Movements 0 Result Diagrams: 07/09/18 04:08 07/09/18 04:08 Objective Remarks: GENERAL: 87-year-old male currently resting in bed in soft restraints SKIN: Warm and dry. No rash. Well-healed site of left carotid endarterectomy HEAD: Atraumatic. Normocephalic. EYES: Pupils equal and round. No scleral icterus. No injection or drainage. ENT: No nasal bleeding or discharge. Mucous membranes pink and moist. NECK: Trachea midline. No JVD. CARDIOVASCULAR: Regular rate and rhythm. S1, S2. No S4. 2/6 systolic murmur RESPIRATORY: No accessory muscle use. Clear to auscultation. Breath sounds equal bilaterally. GASTROINTESTINAL: Abdomen soft, non-tender, nondistended. Hepatic and splenic margins not palpable. MUSCULOSKELETAL: Extremities without significant edema. No obvious deformities. NEUROLOGICAL: Awake and alert. No obvious cranial nerve deficits. Motor grossly within normal limits. Five out of 5 muscle strength in the arms and legs. Abnormal speech. Some dysphasia and word finding difficulties Assessment and Plan - Problem List (1) Coronary artery disease Code(s): I25.10 - Atherosclerotic heart disease of [place] coronary artery without angina pectoris Status: Acute (2) History of cardiac catheterization Code(s): Z98.890 - Other specified postprocedural states Status: Acute (3) History of heart artery stent Code(s): Z95.5 - Presence of coronary angioplasty implant and graft Status: Acute (4) Transient cerebral ischemia Code(s): G45.9 - Transient cerebral ischemic attack, unspecified Status: Acute - Assessment and Plan Plan: Neuro/Psych: Left MCA TIA Possible acute CVA -postoperative MRI brain 07/06 revealed no acute intracranial findings MRA brain revealed left anterior A1, left middle cerebral artery M1 with distal irregularities. Left ICA 80%. CT angiogram did not reveal any aneurysm. Confirmed left ICA around 70%. R ICA around 50 % Continue aspirin 325 mg daily and clopidogrel 75 mg daily Neurology/Dr. Watts following. Order for stat CT of the brain Neurochecks Acetaminophen 650 mg p.o. every 4 hours as needed fever/pain 1-5 Morphine sulfate 2 mg IV every 2 hours as needed pain 6 through 10 CV: Postop day #2 left carotid endarterectomy-Dr. Hudson Essential hypertension Hyperlipidemia Coronary artery disease -occluded RCA 2010 heart catheterization History of coronary artery stent History aortic valve replacement 2012 Resume home medications of isosorbide mononitrate 30 mg twice daily, lisinopril 10 mg daily for hypertension Nitroglycerin transdermal 0.4 mg/hour daily added Currently on clevidipine drip goal SBP 120-140 per neurology recs Continue atorvastatin 80 mg daily for hyperlipidemia For surgery by Dr. Louie/cardiology moderate risk Resp: Nasal cannula to maintain saturations greater than equal to 92% Incentive spirometry while awake As needed albuterol aerosols every 2 hours as needed GI: Elevated ammonia Cardiac/diabetic diet Pantoprazole for GI prophylaxis Docusate serum/senna 1 tablet twice daily for bowel regimen Continue lactulose 30 cc twice daily. Recheck level in a.m. ammonia 8 : Hematuria/traumatic [place] History of BPH Continuous bladder irrigations Maintain [place] Urology consultation Endo: Diabetes mellitus Sliding scale insulin Accu-Cheks to maintain euglycemia/every 6 hours aspart insulin low regimen Check TSH Renal: Creatinine currently within normal limits Monitor urine output Maintain accurate I's and O's Recheck creatinine in a.m. 07/09 Heme: Leukocytosis Monitor CBC daily. Follow trends. 2 PRBCs on hold ID: History of shingles Monitor for signs and symptomatology of infection FEN: Currently on normal saline at 70 cc an hour. Replace electrolytes as clinically indicated MSK: PT/OT evaluate and treat Access -Utilize peripheral IV. Central line if indicated Prophylaxis -GI -pantoprazole -DVT-SCD/pharmacological prophylaxis when okay with vascular surgery Consult and transfer to hospitalist service for further medical management. Critical care signing off, please reconsult if needed. (1) Coronary artery disease Qualifiers: Coronary Disease-Associated Artery/Lesion type: [place] artery [place] vs. transplanted heart: [place] heart Associated angina: without angina Qualified Code(s): I25.10 - Atherosclerotic heart disease of [place] coronary artery without angina pectoris (4) Transient cerebral ischemia Qualifiers: Transient cerebral ischemia type: unspecified Qualified Code(s): G45.9 - Transient cerebral ischemic attack, unspecified
[2018-07-09] MEDS: Aspirin 325 MG Tablet PO SCH (10:26)
[2018-07-09] MEDS: Lisinopril 10 MG Tablet PO SCH (10:27)
[2018-07-09] MEDS: Senna/Docusate Sodium 8.6/50 MG Tablet PO SCH ×2 (10:27→21:08)
[2018-07-09] MEDS: Isosorbide Mononitrate 60 MG ER 24HR Tablet (Imdur) PO SCH ×2 (10:27→21:08)
[2018-07-09] MEDS: Pantoprazole Sodium 20 MG DR Tablet PO SCH (10:28)
--- NOTE | 2018-07-09 11:32 | CT ---
EXAM DATE: 07/09/2018 11:26 AM EST AGE/SEX: 87 years / Male INDICATIONS: Altered mental status. CLINICAL DATA: This is the patient's initial encounter. Patient reports that signs and symptoms have been present for 1 day and indicates a pain score of Nonresponsive. MEDICAL/SURGICAL HISTORY: Diabetes. Hypertension. Coronary artery stent. cardiac surgery, aortic v alve replacement RADIATION DOSE: 56.35 CTDI (mGy) COMPARISON: [facility] – [place], CT HEAD W/O CONTRAST, 07/08/2018. . TECHNIQUE: CT of the head without contrast. Using automated exposure control and adjustment of the mA and/or kV according to patient size, radiation dose was kept as low as reasonably achievable to ob tain optimal diagnostic quality images. DICOM format image data is available electronically for revi ew and comparison. FINDINGS: Cerebrum: The ventricles are normal for age. No evidence of midline shift, mass lesion, hemorrhage or acute infarction. No extraaxial fluid collections are seen. Mild white matter hypodensity is note d. Posterior Fossa: The cerebellum and brainstem are intact. The 4th ventricle is midline. The cerebe llopontine angle is unremarkable. Extracranial: The visualized portion of the orbits is intact. Chronic left maxillary sinus disease i s again noted. Skull: The calvaria is intact. No evidence of skull fracture. CONCLUSION: 1. Stable evaluation without evidence of acute infarct, hemorrhage, mass or edema. 2. Mild chronic ischemic white matter changes. 3. Chronic sinusitis left maxillary sinus. . Electronically signed by: Andrew Gutierrez MD 07/09/2018 11:31 AM EST
--- NOTE | 2018-07-09 11:59 | P.PNURO ---
Subjective Patient symptoms today: Resting quietly and in no acute distress Objective Vital Signs: Vital Signs 07/08/18 12:00 07/08/18 12:15 07/08/18 12:30 Temperature 98.3 F Pulse Rate 73 66 54 L Respiratory Rate 25 H 23 13 Blood Pressure 166/64 H 133/60 111/53 L Pulse Oximetry 96 96 95 07/08/18 12:45 07/08/18 13:00 07/08/18 13:21 Temperature Pulse Rate 58 L 84 87 Respiratory Rate 13 28 H 27 H Blood Pressure 115/53 L 137/61 134/61 Pulse Oximetry 90 L 94 L 92 L 07/08/18 13:29 07/08/18 13:30 07/08/18 14:00 Temperature Pulse Rate 97 H 97 H 84 Respiratory Rate 22 21 20 Blood Pressure 131/61 145/67 H 131/64 Pulse Oximetry 92 L 87 L 94 L 07/08/18 14:15 07/08/18 14:30 07/08/18 14:36 Temperature Pulse Rate 72 66 60 Respiratory Rate 15 16 15 Blood Pressure 120/56 L 86/51 L 132/60 Pulse Oximetry 93 L 91 L 88 L 07/08/18 14:45 07/08/18 15:00 07/08/18 15:15 Temperature Pulse Rate 54 L 57 L 59 L Respiratory Rate 16 17 15 Blood Pressure 145/66 H 147/67 H 153/64 H Pulse Oximetry 94 L 98 89 L 07/08/18 15:30 07/08/18 15:45 07/08/18 16:00 Temperature 98.3 F Pulse Rate 63 68 68 Respiratory Rate 17 18 18 Blood Pressure 150/65 H 179/72 H 172/77 H Pulse Oximetry 100 99 98 07/08/18 20:00 07/08/18 20:15 07/08/18 20:30 Temperature 98.8 F Pulse Rate 66 75 69 Respiratory Rate 15 17 17 Blood Pressure 140/63 154/67 H 136/61 Pulse Oximetry 96 92 L 97 07/08/18 20:40 07/08/18 20:45 07/08/18 21:00 Temperature Pulse Rate 86 68 Respiratory Rate 24 16 Blood Pressure 161/71 H 148/64 H Pulse Oximetry 97 93 L 94 L 07/08/18 21:15 07/08/18 21:30 07/08/18 21:45 Temperature Pulse Rate 68 Respiratory Rate 15 Blood Pressure 142/65 H 139/66 131/59 L Pulse Oximetry 94 L 96 93 L 07/08/18 22:00 07/08/18 22:15 07/08/18 22:30 Temperature Pulse Rate 67 67 66 Respiratory Rate 16 24 14 Blood Pressure 138/63 143/65 H 133/61 Pulse Oximetry 87 L 81 L 93 L 07/08/18 22:45 07/08/18 23:00 07/08/18 23:15 Temperature Pulse Rate 66 66 73 Respiratory Rate 16 15 40 H Blood Pressure 152/65 H 141/67 H 132/63 Pulse Oximetry 96 93 L 94 L 07/08/18 23:30 07/08/18 23:45 07/09/18 00:00 Temperature Pulse Rate 68 63 67 Respiratory Rate 15 16 15 Blood Pressure 131/60 125/59 L 132/60 Pulse Oximetry 94 L 96 95 07/09/18 00:15 07/09/18 00:30 07/09/18 00:49 Temperature 98.4 F Pulse Rate 66 65 88 Respiratory Rate 17 20 45 H Blood Pressure 147/64 H 138/65 146/68 H Pulse Oximetry 96 95 93 L 07/09/18 01:00 07/09/18 01:15 07/09/18 01:30 Temperature Pulse Rate 81 67 73 Respiratory Rate 32 H 15 15 Blood Pressure 140/63 136/65 158/68 H Pulse Oximetry 86 L 97 97 07/09/18 01:45 07/09/18 02:00 07/09/18 02:15 Temperature Pulse Rate 73 71 67 Respiratory Rate 14 15 17 Blood Pressure 131/50 L 138/64 145/64 H Pulse Oximetry 96 95 97 07/09/18 02:30 07/09/18 02:45 07/09/18 03:00 Temperature Pulse Rate 71 80 72 Respiratory Rate 14 34 H 18 Blood Pressure 129/62 133/63 132/63 Pulse Oximetry 97 97 95 07/09/18 03:15 07/09/18 03:30 07/09/18 03:45 Temperature Pulse Rate 70 69 77 Respiratory Rate 15 15 42 H Blood Pressure 132/62 136/70 151/77 H Pulse Oximetry 98 97 96 07/09/18 04:00 07/09/18 04:15 07/09/18 04:30 Temperature Pulse Rate 69 78 65 Respiratory Rate 14 39 H 14 Blood Pressure 133/90 129/59 L 144/66 H Pulse Oximetry 96 94 L 95 07/09/18 04:45 07/09/18 05:00 07/09/18 05:15 Temperature Pulse Rate 64 68 67 Respiratory Rate 15 20 29 H Blood Pressure 135/63 147/63 H 137/63 Pulse Oximetry 96 80 L 91 L 07/09/18 06:02 07/09/18 06:10 07/09/18 07:00 Temperature Pulse Rate 74 75 64 Respiratory Rate 17 13 Blood Pressure 141/65 H Pulse Oximetry 100 92 L Intake & Output 07/08/18 07/09/18 07/09/18 18:59 06:59 18:59 Intake Total 1750 / 1750 580 / 580 Output Total 600 / 600 1200 / 1200 Balance 1150 / 1150 -620 / -620 Weight 75.1 kg Intake: IV 1150 / 1150 200 / 200 Cleviprex Inj 25 mg In 50 ml @ 150 / 150 200 / 200 1 MG/HR 2 mls/hr IV.CONT TITRATE PRN Rx#:[id number] NS Inj 1,000 ML @ 70 mls/hr IV. 1000 / 1000 CONT .[id number] JOSE A Rx#: [id number] Oral 600 / 600 380 / 380 Output: Urine Amount (Catheter) 600 / 600 1200 / 1200 Indwelling Urethral Catheter 600 / 600 1200 / 1200 Other: Date of Last Bowel Movement 07/07/18 07/07/18 # Bowel Movements 0 Result Diagrams: 07/09/18 04:08 07/09/18 04:08 Other Results: Hematuria almost completely resolved Imaging: Impressions Head CT 07/09/18 10:09 CONCLUSION: 1. Stable evaluation without evidence of acute infarct, hemorrhage, mass or edema. 2. Mild chronic ischemic white matter changes. 3. Chronic sinusitis left maxillary sinus. . Medications and IVs: Active Medications Generic Name Dose Route Start Last Admin Trade Name Freq PRN Reason Stop Dose Admin Acetaminophen 650 mg 07/05/18 20:53 Tylenol PO Q4H PRN headache/fever/pain1-5 Al Hydroxide/Mg Hydroxide 30 ml 07/05/18 20:53 Milk Of Magnesia Liq PO Q12H PRN Mild Constipation Aspirin 325 mg 07/06/18 09:00 07/09/18 10:26 Aspirin PO 325 mg DAILY JOSE A Administration Atorvastatin Calcium 80 mg 07/08/18 09:00 07/09/18 10:27 Lipitor PO 80 mg DAILY JOSE A Administration Bisacodyl 10 mg 07/05/18 20:53 Dulcolax Supp RECTAL DAILY PRN [employer] Clonidine HCl 0.1 mg 07/06/18 13:59 07/06/18 15:27 Catapres PO 0.1 mg Q6H PRN Administration SBP>160, DBP>90 Clopidogrel Bisulfate 75 mg 07/08/18 09:00 07/09/18 10:27 Plavix PO 75 mg DAILY JOSE A Administration Cyanocobalamin 500 mcg 07/08/18 09:00 07/09/18 10:28 Vitamin B12 PO 500 mcg DAILY [facility] Administration Dextrose 50 ml 07/08/18 05:14 D50w Vial IV.PUSH UNSCH PRN PER HYPOGLYCEMIA PROTOCOL Enalaprilat 1.25 mg 07/06/18 17:42 07/06/18 16:37 Vasotec Inj IV.PUSH 1.25 mg Q6H PRN Administration BLOOD PRESSURE MANAGEMENT Glucagon 1 mg 07/08/18 05:14 Glucagon Inj OTHER PRN PRN for Hypoglycemia Protocol Heparin Sodium (Porcine) 5,000 units 07/05/18 21:00 07/08/18 15:57 Heparin Inj SQ Not Given Q12H [facility] Sodium Chloride 1,000 mls @ 70 mls/hr 07/05/18 20:45 07/08/18 20:15 Ns Inj IV.CONT Not Given .[id number] [facility] Clevidipine 25 mg in 50 mls @ 2 mls/hr 07/07/18 18:02 07/09/18 04:10 Cleviprex Inj IV.CONT 10 mg/hr TITRATE PRN 20 mls/hr Per protocol Administration Protocol 1 MG/HR Insulin Human Regular 0 units 07/08/18 08:00 07/08/18 21:39 Novolin R Correctional Sugar Inj SQ Not Given ACHS [facility] Protocol Isosorbide Mononitrate 120 mg 07/08/18 09:00 07/09/18 10:27 Imdur PO 120 mg BID JOSE A Administration Lactulose 30 ml 07/08/18 21:00 07/09/18 10:27 Lactulose Liq PO 30 ml BID [facility] Administration Lisinopril 10 mg 07/06/18 14:00 07/09/18 10:27 Prinivil PO 10 mg DAILY JOSE A Administration Morphine Sulfate 2 mg 07/08/18 05:48 07/08/18 08:15 Morphine Inj IV.PUSH 2 mg Q3H PRN Administration Pain 6-10 Nitroglycerin 1 patch 07/08/18 09:00 07/09/18 10:27 Nitro-Dur 0.4 Mg Patch.24 Hr T-DERMAL 1 patch DAILY JOSE A Administration Ondansetron HCl 4 mg 07/05/18 20:53 Zofran Inj IV.PUSH Q6H PRN NAUSEA OR VOMITING Pantoprazole Sodium 40 mg 07/08/18 09:00 07/09/18 10:28 Protonix PO 40 mg DAILY JOSE A Administration Patch Removal 1 each 07/08/18 09:00 07/09/18 10:28 Remove Old Patch T-DERMAL 1 each DAILY JOSE A Administration Senna/Docusate Sodium 1 tab 07/05/18 21:00 07/09/18 10:27 Karen-Colace PO 1 tab BID JOSE A Administration Sennosides 17.2 mg 07/05/18 20:53 Senokot PO Q12H PRN Moderate Constipation Sodium Chloride 2 ml 07/05/18 21:00 07/09/18 10:27 Ns Flush IV.FLUSH 2 ml BID JOSE A Administration Sodium Chloride 2 ml 07/05/18 20:40 Ns Flush IV.FLUSH PRN PRN FLUSH AFTER USING IV ACCESS Assessment and Plan - Assessment (1) Gross hematuria Code(s): R31.0 - Gross hematuria Status: Acute - Plan Urologic impression: New onset gross hematuria related to traumatic Smith catheter removal exacerbated with aspirin and Plavix usage which is now almost completely resolved. Recommendations: 1. Continue with Smith catheter to gravity drainage 2. Would not remove Smith until patient is ambulating well and hematuria completely resolved for a minimum of 48 hours 3. we will be available as needed.
[2018-07-09] MEDS: Haloperidol Inj 5 MG/ML Ampul IV.PUSH PRN ×2 (12:30→18:53)
--- NOTE | 2018-07-09 13:40 | P.PNNEU ---
Subjective Subjective Comments: pt developed aggitation and confusion. Now improved Active Medications: Active Medications Acetaminophen (Tylenol) 650 mg PO Q4H PRN PRN Reason: headache/fever/pain1-5 Al Hydroxide/Mg Hydroxide (Milk Of Helene Francis) 30 ml PO Q12H PRN PRN Reason: Mild Constipation Aspirin (Aspirin) 325 mg PO DAILY [facility] Last Admin: 07/09/18 10:26 Dose: 325 mg Atorvastatin Calcium (Lipitor) 80 mg PO DAILY [facility] Last Admin: 07/09/18 10:27 Dose: 80 mg Bisacodyl (Dulcolax Supp) 10 mg RECTAL DAILY PRN PRN Reason: SEVERE CONSITIPATION Clonidine HCl (Catapres) 0.1 mg PO Q6H PRN PRN Reason: SBP>160, DBP>90 Last Admin: 07/06/18 15:27 Dose: 0.1 mg Clopidogrel Bisulfate (Plavix) 75 mg PO DAILY [facility] Last Admin: 07/09/18 10:27 Dose: 75 mg Cyanocobalamin (Vitamin B12) 500 mcg PO DAILY [facility] Last Admin: 07/09/18 10:28 Dose: 500 mcg Dextrose (D50w Vial) 50 ml IV.PUSH UNSCH PRN PRN Reason: PER HYPOGLYCEMIA PROTOCOL Enalaprilat (Vasotec Inj) 1.25 mg IV.PUSH Q6H PRN PRN Reason: BLOOD PRESSURE MANAGEMENT Last Admin: 07/06/18 16:37 Dose: 1.25 mg Glucagon (Glucagon Inj) 1 mg OTHER PRN PRN PRN Reason: for Hypoglycemia Protocol Haloperidol Lactate (Haldol Inj) 4 mg IV.PUSH Q6H PRN PRN Reason: AGITATION AND/OR HALLUCINATION Last Admin: 07/09/18 12:30 Dose: 4 mg Heparin Sodium (Porcine) (Heparin Inj) 5,000 units SQ Q12H [facility] Last Admin: 07/08/18 15:57 Dose: Not Given Sodium Chloride (Ns Inj) 1,000 mls @ 70 mls/hr IV.CONT .[id number] [facility] Last Admin: 07/08/18 20:15 Dose: Not Given Clevidipine (Cleviprex Inj) 25 mg in 50 mls @ 2 mls/hr IV.CONT TITRATE PRN; Protocol PRN Reason: Per protocol Last Admin: 07/09/18 04:10 Dose: 10 mg/hr, 20 mls/hr Insulin Human Regular (Novolin R Correctional Sugar Inj) 0 units SQ ACHS [facility]; Protocol Last Admin: 07/08/18 21:39 Dose: Not Given Isosorbide Mononitrate (Imdur) 120 mg PO BID [facility] Last Admin: 07/09/18 10:27 Dose: 120 mg Lactulose (Lactulose Liq) 30 ml PO BID [facility] Last Admin: 07/09/18 10:27 Dose: 30 ml Lisinopril (Prinivil) 10 mg PO DAILY [facility] Last Admin: 07/09/18 10:27 Dose: 10 mg Morphine Sulfate (Morphine Inj) 2 mg IV.PUSH Q3H PRN PRN Reason: Pain 6-10 Last Admin: 07/08/18 08:15 Dose: 2 mg Nitroglycerin (Nitro-Dur 0.4 Mg Patch.24 Hr) 1 patch T-DERMAL DAILY [facility] Last Admin: 07/09/18 10:27 Dose: 1 patch Ondansetron HCl (Zofran Inj) 4 mg IV.PUSH Q6H PRN PRN Reason: NAUSEA OR VOMITING Pantoprazole Sodium (Protonix) 40 mg PO DAILY [facility] Last Admin: 07/09/18 10:28 Dose: 40 mg Patch Removal (Remove Old Patch) 1 each T-DERMAL DAILY [facility] Last Admin: 07/09/18 10:28 Dose: 1 each Senna/Docusate Sodium (Karen-Colace) 1 tab PO BID [facility] Last Admin: 07/09/18 10:27 Dose: 1 tab Sennosides (Senokot) 17.2 mg PO Q12H PRN PRN Reason: Moderate Constipation Sodium Chloride (Ns Flush) 2 ml IV.FLUSH BID [facility] Last Admin: 07/09/18 10:27 Dose: 2 ml Sodium Chloride (Ns Flush) 2 ml IV.FLUSH PRN PRN PRN Reason: FLUSH AFTER USING IV ACCESS Allergies/Adverse Reactions: Allergies Allergy/AdvReac Type Severity Reaction Status Date / Time No Known Allergies Allergy none Uncoded 07/05/18 19:19 Physical Exam Vital signs: Vital Signs 07/08/18 14:00 07/08/18 14:15 07/08/18 14:30 Temperature Pulse Rate 84 72 66 Respiratory Rate 20 15 16 Blood Pressure 131/64 120/56 L 86/51 L Pulse Oximetry 94 L 93 L 91 L 07/08/18 14:36 07/08/18 14:45 07/08/18 15:00 Temperature Pulse Rate 60 54 L 57 L Respiratory Rate 15 16 17 Blood Pressure 132/60 145/66 H 147/67 H Pulse Oximetry 88 L 94 L 98 07/08/18 15:15 07/08/18 15:30 07/08/18 15:45 Temperature Pulse Rate 59 L 63 68 Respiratory Rate 15 17 18 Blood Pressure 153/64 H 150/65 H 179/72 H Pulse Oximetry 89 L 100 99 07/08/18 16:00 07/08/18 20:00 07/08/18 20:15 Temperature 98.3 F 98.8 F Pulse Rate 68 66 75 Respiratory Rate 18 15 17 Blood Pressure 172/77 H 140/63 154/67 H Pulse Oximetry 98 96 92 L 07/08/18 20:30 07/08/18 20:40 07/08/18 20:45 Temperature Pulse Rate 69 86 Respiratory Rate 17 24 Blood Pressure 136/61 161/71 H Pulse Oximetry 97 97 93 L 07/08/18 21:00 07/08/18 21:15 07/08/18 21:30 Temperature Pulse Rate 68 Respiratory Rate 16 Blood Pressure 148/64 H 142/65 H 139/66 Pulse Oximetry 94 L 94 L 96 07/08/18 21:45 07/08/18 22:00 07/08/18 22:15 Temperature Pulse Rate 68 67 67 Respiratory Rate 15 16 24 Blood Pressure 131/59 L 138/63 143/65 H Pulse Oximetry 93 L 87 L 81 L 07/08/18 22:30 07/08/18 22:45 07/08/18 23:00 Temperature Pulse Rate 66 66 66 Respiratory Rate 14 16 15 Blood Pressure 133/61 152/65 H 141/67 H Pulse Oximetry 93 L 96 93 L 07/08/18 23:15 07/08/18 23:30 07/08/18 23:45 Temperature Pulse Rate 73 68 63 Respiratory Rate 40 H 15 16 Blood Pressure 132/63 131/60 125/59 L Pulse Oximetry 94 L 94 L 96 07/09/18 00:00 07/09/18 00:15 07/09/18 00:30 Temperature 98.4 F Pulse Rate 67 66 65 Respiratory Rate 15 17 20 Blood Pressure 132/60 147/64 H 138/65 Pulse Oximetry 95 96 95 07/09/18 00:49 07/09/18 01:00 07/09/18 01:15 Temperature Pulse Rate 88 81 67 Respiratory Rate 45 H 32 H 15 Blood Pressure 146/68 H 140/63 136/65 Pulse Oximetry 93 L 86 L 97 07/09/18 01:30 07/09/18 01:45 07/09/18 02:00 Temperature Pulse Rate 73 73 71 Respiratory Rate 15 14 15 Blood Pressure 158/68 H 131/50 L 138/64 Pulse Oximetry 97 96 95 07/09/18 02:15 07/09/18 02:30 07/09/18 02:45 Temperature Pulse Rate 67 71 80 Respiratory Rate 17 14 34 H Blood Pressure 145/64 H 129/62 133/63 Pulse Oximetry 97 97 97 07/09/18 03:00 07/09/18 03:15 07/09/18 03:30 Temperature Pulse Rate 72 70 69 Respiratory Rate 18 15 15 Blood Pressure 132/63 132/62 136/70 Pulse Oximetry 95 98 97 07/09/18 03:45 07/09/18 04:00 07/09/18 04:15 Temperature Pulse Rate 77 69 78 Respiratory Rate 42 H 14 39 H Blood Pressure 151/77 H 133/90 129/59 L Pulse Oximetry 96 96 94 L 07/09/18 04:30 07/09/18 04:45 07/09/18 05:00 Temperature Pulse Rate 65 64 68 Respiratory Rate 14 15 20 Blood Pressure 144/66 H 135/63 147/63 H Pulse Oximetry 95 96 80 L 07/09/18 05:15 07/09/18 06:02 07/09/18 06:10 Temperature Pulse Rate 67 74 75 Respiratory Rate 29 H 17 Blood Pressure 137/63 141/65 H Pulse Oximetry 91 L 100 07/09/18 07:00 07/09/18 08:00 07/09/18 08:12 Temperature 98 F Pulse Rate 64 74 77 Respiratory Rate 13 11 L 13 Blood Pressure 136/72 Pulse Oximetry 92 L 98 97 07/09/18 08:32 07/09/18 09:00 07/09/18 10:00 Temperature Pulse Rate 73 85 99 H Respiratory Rate 13 28 H 27 H Blood Pressure 149/68 H 173/78 H Pulse Oximetry 97 75 L 07/09/18 10:01 07/09/18 10:24 07/09/18 10:27 Temperature Pulse Rate 96 H 104 H 103 H Respiratory Rate 13 25 H 21 Blood Pressure 168/77 H 187/82 H 169/78 H Pulse Oximetry 07/09/18 10:30 07/09/18 10:32 07/09/18 10:41 Temperature Pulse Rate 99 H 104 H 109 H Respiratory Rate 23 20 26 H Blood Pressure 170/71 H 215/93 H 146/73 H Pulse Oximetry 07/09/18 11:00 07/09/18 11:02 07/09/18 11:32 Temperature Pulse Rate 104 H 104 H 110 H Respiratory Rate 16 19 16 Blood Pressure 162/76 H 166/68 H Pulse Oximetry 07/09/18 11:37 07/09/18 12:00 07/09/18 12:02 Temperature Pulse Rate 111 H 119 H 114 H Respiratory Rate 15 15 16 Blood Pressure 167/77 H 182/77 H Pulse Oximetry 07/09/18 12:32 Temperature Pulse Rate 120 H Respiratory Rate 26 H Blood Pressure 175/78 H Pulse Oximetry Intake & Output 07/08/18 07/09/18 07/09/18 18:59 06:59 18:59 Intake Total 1750 / 1750 580 / 580 Output Total 600 / 600 1200 / 1200 Balance 1150 / 1150 -620 / -620 Weight 75.1 kg Intake: IV 1150 / 1150 200 / 200 Cleviprex Inj 25 mg In 50 ml @ 150 / 150 200 / 200 1 MG/HR 2 mls/hr IV.CONT TITRATE PRN Rx#:[id number] NS Inj 1,000 ML @ 70 mls/hr IV. 1000 / 1000 CONT .[id number] [facility] Rx#: [id number] Oral 600 / 600 380 / 380 Output: Urine Amount (Catheter) 600 / 600 1200 / 1200 Indwelling Urethral Catheter 600 / 600 1200 / 1200 Other: Date of Last Bowel Movement 07/07/18 07/07/18 07/07/18 # Bowel Movements 0 - Routine Neurological Exam alert, Mild aphasia --appears baseline compared wt Dr Castro assessment CN intact MOTOR 5/5 BUE - Urinary Catheter Management Straight Cath placed during this visit: yes, but has since been removed by the nurse Reason for continuing: Acute urinary retention Insertion date: 07/08/18 Insertion time: 06:00 Removal date: 07/07/18 Removal time: 19:30 Indwelling Urethral Catheter Cath placed during this visit: yes Reason for continuing: Acute urinary retention Insertion date: 07/08/18 Objective Radiology Results: CT brain--stable with no change Laboratory Results - last 24 hr 07/08/18 07/09/18 07/09/18 21:37 04:08 04:08 WBC 9.3 RBC 4.09 L Hgb 13.9 Hct 39.7 MCV 97.1 MCH 34.1 H MCHC 35.1 RDW 13.9 Plt Count 150 MPV 7.6 Sodium 140 Potassium 3.8 Chloride 107 Carbon Dioxide 29.4 Anion Gap 4 L BUN 14 Creatinine 0.80 Estimated GFR Greater than 89 POC Glucose 113 H Random Glucose 114 H Calcium 8.7 Phosphorus 2.5 Magnesium 2.2 Total Bilirubin 0.6 AST 19 ALT 19 Alkaline Phosphatase 70 Ammonia Total Creatine Kinase 108 Total Protein 6.2 L Albumin 3.2 L 07/09/18 04:08 WBC RBC Hgb Hct MCV MCH MCHC RDW Plt Count MPV Sodium Potassium Chloride Carbon Dioxide Anion Gap BUN Creatinine Estimated GFR POC Glucose Random Glucose Calcium Phosphorus Magnesium Total Bilirubin AST ALT Alkaline Phosphatase Ammonia 20 Total Creatine Kinase Total Protein Albumin Review/Management - Review/Management Plan: imp Stable neurologically . no evidence for tia or cva.
[2018-07-09] MEDS: Sod Chloride 0.9% Inj 1,000 ML IV.CONT SCH (19:09)
--- NOTE | 2018-07-09 21:06 | ECG ---
Date Performed: 07/08/2018 Time Performed: 14:52:22 PTAGE: 87 years EKG: Sinus rhythm with wenkebach AV block PVC Lateral T wave flattening Compared to previous tracing, second degree AV block replaces first degree AV block and T waves are flatter Abnormal ECG PREVIOUS TRACING : 07/07/2018 22.07 DOCTOR: Javier De Leon Interpretating Date/Time 07/09/2018 21:04:11
[2018-07-10] MEDS: Haloperidol Inj 5 MG/ML Ampul IV.PUSH PRN ×2 (03:33→13:41)
[2018-07-10] MEDS: Sod Chloride 0.9% Inj 1,000 ML IV.CONT SCH ×3 (03:49→16:43)
[2018-07-10] MEDS: Clevidipine Inj 25 MG/50 ML VIAL IV.CONT PRN ×4 (03:50→16:44)
[2018-07-10] MEDS: Isosorbide Mononitrate 60 MG ER 24HR Tablet (Imdur) PO SCH ×2 (08:07→20:40)
[2018-07-10] MEDS: Pantoprazole Sodium 20 MG DR Tablet PO SCH (08:08)
[2018-07-10] MEDS: Senna/Docusate Sodium 8.6/50 MG Tablet PO SCH ×2 (08:08→20:40)
[2018-07-10] MEDS: Aspirin 325 MG Tablet PO SCH (08:08)
[2018-07-10] MEDS: Lisinopril 10 MG Tablet PO SCH (08:08)
--- NOTE | 2018-07-10 10:44 | P.PN ---
Subjective Interval history: Follow up for carotid stenosis, hematuria and possible delirium. Patient's care was transferred from critical care to hospitalist service on 07/10/2018. Patient appears to be resting in bed comfortably. Per nursing staff, he is intermittently confused. At the time of this interview, patient is pleasant and cooperative. He is following commands appropriately. Remains afebrile. Physical Exam Vital signs: Vital Signs 07/09/18 10:27 07/09/18 10:30 07/09/18 10:32 Temperature Pulse Rate 103 H 99 H 104 H Respiratory Rate 21 23 20 Blood Pressure 169/78 H 170/71 H 215/93 H Pulse Oximetry 07/09/18 10:41 07/09/18 11:00 07/09/18 11:02 Temperature Pulse Rate 109 H 104 H 104 H Respiratory Rate 26 H 16 19 Blood Pressure 146/73 H 162/76 H Pulse Oximetry 07/09/18 11:32 07/09/18 11:37 07/09/18 12:00 Temperature Pulse Rate 110 H 111 H 119 H Respiratory Rate 16 15 15 Blood Pressure 166/68 H 167/77 H Pulse Oximetry 07/09/18 12:02 07/09/18 12:32 07/09/18 13:00 Temperature Pulse Rate 114 H 120 H 103 H Respiratory Rate 16 26 H 15 Blood Pressure 182/77 H 175/78 H Pulse Oximetry 07/09/18 13:02 07/09/18 13:36 07/09/18 14:00 Temperature Pulse Rate 90 119 H 98 H Respiratory Rate 14 33 H 15 Blood Pressure 154/69 H 138/69 Pulse Oximetry 07/09/18 14:02 07/09/18 14:32 07/09/18 15:00 Temperature Pulse Rate 97 H 95 H 95 H Respiratory Rate 19 15 20 Blood Pressure 153/84 H 153/76 H Pulse Oximetry 07/09/18 15:02 07/09/18 15:32 07/09/18 16:00 Temperature 98 F Pulse Rate 94 H 100 H 94 H Respiratory Rate 18 34 H 17 Blood Pressure 157/77 H 174/81 H Pulse Oximetry 07/09/18 16:02 07/09/18 16:23 07/09/18 16:32 Temperature Pulse Rate 93 H 94 H 90 Respiratory Rate 16 16 17 Blood Pressure 184/78 H 162/94 H 160/72 H Pulse Oximetry 07/09/18 17:00 07/09/18 17:02 07/09/18 17:32 Temperature Pulse Rate 107 H 98 H 101 H Respiratory Rate 39 H 15 24 Blood Pressure 180/81 H 182/81 H Pulse Oximetry 07/09/18 18:00 07/09/18 18:02 07/09/18 18:32 Temperature Pulse Rate 106 H 100 H 93 H Respiratory Rate 37 H 34 H 24 Blood Pressure 153/68 H 137/63 Pulse Oximetry 07/09/18 19:00 07/09/18 19:02 07/09/18 19:32 Temperature Pulse Rate 90 98 H 96 H Respiratory Rate 20 37 H 17 Blood Pressure 143/70 H 146/65 H Pulse Oximetry 07/09/18 19:53 07/09/18 20:00 07/09/18 21:00 Temperature Pulse Rate 102 H 92 H Respiratory Rate 23 16 Blood Pressure Pulse Oximetry 94 L 95 07/09/18 21:06 07/09/18 21:30 07/09/18 21:54 Temperature Pulse Rate 90 94 H 102 H Respiratory Rate 16 14 36 H Blood Pressure 132/73 147/71 H 153/86 H Pulse Oximetry 07/09/18 22:00 07/09/18 22:24 07/09/18 22:54 Temperature Pulse Rate 85 86 84 Respiratory Rate 14 12 11 L Blood Pressure 155/71 H 146/61 H Pulse Oximetry 07/09/18 23:00 07/09/18 23:24 07/09/18 23:54 Temperature Pulse Rate 89 78 78 Respiratory Rate 17 14 15 Blood Pressure 155/71 H 152/67 H Pulse Oximetry 07/10/18 00:00 07/10/18 00:24 07/10/18 01:00 Temperature 98.3 F Pulse Rate 78 88 103 H Respiratory Rate 15 15 Blood Pressure 141/65 H Pulse Oximetry 07/10/18 01:03 07/10/18 01:45 07/10/18 01:54 Temperature Pulse Rate 96 H 96 H 92 H Respiratory Rate 17 23 15 Blood Pressure 188/85 H 176/79 H 167/78 H Pulse Oximetry 07/10/18 02:00 07/10/18 02:24 07/10/18 02:54 Temperature Pulse Rate 88 81 72 Respiratory Rate 16 14 13 Blood Pressure 151/67 H 145/67 H Pulse Oximetry 07/10/18 03:00 07/10/18 03:24 07/10/18 03:54 Temperature Pulse Rate 68 79 92 H Respiratory Rate 14 14 14 Blood Pressure 162/72 H 169/74 H Pulse Oximetry 07/10/18 04:00 07/10/18 04:24 07/10/18 04:54 Temperature 98.5 F Pulse Rate 80 89 85 Respiratory Rate 14 16 16 Blood Pressure 166/74 H 161/72 H Pulse Oximetry 07/10/18 05:00 07/10/18 05:24 07/10/18 05:32 Temperature Pulse Rate 74 78 88 Respiratory Rate 20 9 L 25 H Blood Pressure 184/72 H 170/75 H Pulse Oximetry 07/10/18 05:54 07/10/18 06:00 07/10/18 06:24 Temperature Pulse Rate 80 72 66 Respiratory Rate 12 13 14 Blood Pressure 147/67 H 157/91 H Pulse Oximetry 07/10/18 06:54 07/10/18 06:56 07/10/18 07:00 Temperature Pulse Rate 81 75 72 Respiratory Rate 12 13 13 Blood Pressure 175/76 H 163/73 H Pulse Oximetry 07/10/18 07:24 07/10/18 07:54 07/10/18 08:00 Temperature Pulse Rate 78 87 83 Respiratory Rate 14 26 H 16 Blood Pressure 172/77 H 180/80 H Pulse Oximetry 96 07/10/18 08:24 07/10/18 08:54 07/10/18 09:00 Temperature Pulse Rate 82 87 79 Respiratory Rate 20 13 12 Blood Pressure 179/78 H 184/70 H Pulse Oximetry 96 97 07/10/18 09:24 07/10/18 09:54 07/10/18 09:58 Temperature Pulse Rate 85 88 87 Respiratory Rate 16 16 16 Blood Pressure 188/81 H 190/84 H 182/81 H Pulse Oximetry 94 L 95 96 07/10/18 10:00 Temperature Pulse Rate 89 Respiratory Rate 14 Blood Pressure Pulse Oximetry 96 Intake & Output 07/09/18 07/10/18 07/10/18 18:59 06:59 18:59 Intake Total 1300 / 1300 1870 / 1870 0 / 0 Output Total 1999 1690 / 1690 Balance -700 / -700 180 / 180 0 / 0 Weight 73.3 kg Intake: IV 1000 / 1000 1150 / 1150 0 / 0 Cleviprex Inj 25 mg In 50 ml @ 150 / 150 0 / 0 1 MG/HR 2 mls/hr IV.CONT TITRATE PRN Rx#:[id number] NS Inj 1,000 ML @ 70 mls/hr IV. 1000 / 1000 1000 / 1000 CONT .[id number] JOSE A Rx#: [id number] Oral 300 / 300 720 / 720 Output: Urine Amount (Catheter) 1999 1650 / 1650 Indwelling Urethral Catheter 1999 1650 / 1650 Wound Drainage 40 / 40 # 1 Left Neck 40 / 40 Other: Date of Last Bowel Movement 07/07/18 07/09/18 07/09/18 # Bowel Movements 0 Narrative: GENERAL: Alert, NAD, follows commands. SKIN: Warm and dry. HEAD: Normocephalic. EYES: No scleral icterus. No injection or drainage. NECK: Supple, trachea midline. No JVD or lymphadenopathy. CARDIOVASCULAR: Regular rate and rhythm without murmurs, gallops, or rubs. RESPIRATORY: Breath sounds equal bilaterally. No accessory muscle use. GASTROINTESTINAL: Abdomen soft, non-tender, nondistended. MUSCULOSKELETAL: No cyanosis, or edema. BACK: Nontender without obvious deformity. No CVA tenderness. - Urinary Catheter Management Straight Cath placed during this visit: yes, but has since been removed by the nurse Reason for continuing: Acute urinary retention Insertion date: 07/08/18 Insertion time: 06:00 Removal date: 07/07/18 Removal time: 19:30 Indwelling Urethral Catheter Cath placed during this visit: yes Reason for continuing: Gross Hematuria Insertion date: 07/08/18 Results - Labs CBC & Chem 7: 07/09/18 04:08 07/09/18 04:08 Laboratory Results - last 24 hr 07/07/18 13:14 MTS Gel Crossmatch See Detail - Imaging Impressions Head CT 07/09/18 10:09 CONCLUSION: 1. Stable evaluation without evidence of acute infarct, hemorrhage, mass or edema. 2. Mild chronic ischemic white matter changes. 3. Chronic sinusitis left maxillary sinus. . - Procedures 07/07/2018 Left carotid endarterectomy with patch angioplasty. Assessment and Plan - Assessment (1) Coronary artery disease Code(s): I25.10 - Atherosclerotic heart disease of [place] coronary artery without angina pectoris Status: Acute (2) History of cardiac catheterization Code(s): Z98.890 - Other specified postprocedural states Status: Acute (3) History of heart artery stent Code(s): Z95.5 - Presence of coronary angioplasty implant and graft Status: Acute (4) Transient cerebral ischemia Code(s): G45.9 - Transient cerebral ischemic attack, unspecified Status: Acute - Plan Mr. Ochoa is a pleasant 88-year-old male with a history of hypertension, hyperlipidemia, diabetes mellitus, AVR, coronary artery disease who presented to the emergency department on 07/06/2018 due to weakness in his lower extremities. He was working outside when he felt this weakness. He fell as well not hit his head or did not have any loss of consciousness. When he came inside he could not differentiate between a knife and a fork. Due to weakness and some level of confusion, patient was brought to the emergency department. Carotid ultrasound indicated greater than 70% stenosis of the left carotid artery. Patient was subsequently transferred to the main hospital and underwent left endarterectomy. Neurologic was consulted. Probable TIA with aphasia and confusion Appreciate neurology input. MRI studies indicate no evidence of a stroke. Acute delirium Likely multifactorial due to ICU stay as well as underlying possible dementia Lateral carotid artery stenosis Patient is status post left endarterectomy by vascular surgery. Continue aspirin 325 mg daily, Plavix 75 mg p.o. daily. Hematuria Continue Smith catheter per urology. Probably another 24 hours. Patient continues to have hematuria Hypertension Patient is currently on clevidipine drip. We will start patient on nifedipine 60 mg daily and switch lisinopril to Losartan 50mg Qday. We will try to wean off clevidipine drip. Once clevidipine drip is discontinued, patient can likely be transferred to the [facility] floor Coronary artery disease History of CABG Continue aspirin, atorvastatin, isosorbide mononitrate Full code. Heparin SQ on hold. We can re-start if okay with Vascular surgery. (1) Coronary artery disease Qualifiers: Coronary Disease-Associated Artery/Lesion type: [place] artery [place] vs. transplanted heart: [place] heart Associated angina: without angina Qualified Code(s): I25.10 - Atherosclerotic heart disease of [place] coronary artery without angina pectoris (4) Transient cerebral ischemia Qualifiers: Transient cerebral ischemia type: unspecified Qualified Code(s): G45.9 - Transient cerebral ischemic attack, unspecified
--- NOTE | 2018-07-10 12:59 | P.PNNEU ---
Subjective Subjective Comments: no new neuro sx. He thinks speech is better Active Medications: Active Medications Acetaminophen (Tylenol) 650 mg PO Q4H PRN PRN Reason: headache/fever/pain1-5 Al Hydroxide/Mg Hydroxide (Milk Of [place] Liq) 30 ml PO Q12H PRN PRN Reason: Mild Constipation Aspirin (Aspirin) 325 mg PO DAILY [facility] Last Admin: 07/10/18 08:08 Dose: 325 mg Atorvastatin Calcium (Lipitor) 80 mg PO DAILY [facility] Last Admin: 07/10/18 08:07 Dose: 80 mg Bisacodyl (Dulcolax Supp) 10 mg RECTAL DAILY PRN PRN Reason: SEVERE CONSITIPATION Clonidine HCl (Catapres) 0.1 mg PO Q6H PRN PRN Reason: SBP>160, DBP>90 Last Admin: 07/06/18 15:27 Dose: 0.1 mg Clopidogrel Bisulfate (Plavix) 75 mg PO DAILY [facility] Last Admin: 07/10/18 08:08 Dose: 75 mg Cyanocobalamin (Vitamin B12) 500 mcg PO DAILY [facility] Last Admin: 07/10/18 08:07 Dose: 500 mcg Enalaprilat (Vasotec Inj) 1.25 mg IV.PUSH Q6H PRN PRN Reason: BLOOD PRESSURE MANAGEMENT Last Admin: 07/06/18 16:37 Dose: 1.25 mg Haloperidol Lactate (Haldol Inj) 4 mg IV.PUSH Q6H PRN PRN Reason: AGITATION AND/OR HALLUCINATION Last Admin: 07/10/18 03:33 Dose: 4 mg Heparin Sodium (Porcine) (Heparin Inj) 5,000 units SQ Q12H [facility] Last Admin: 07/08/18 15:57 Dose: Not Given Sodium Chloride (Ns Inj) 1,000 mls @ 70 mls/hr IV.CONT .[id number] [facility] Last Admin: 07/10/18 03:49 Dose: 70 mls/hr Clevidipine (Cleviprex Inj) 25 mg in 50 mls @ 2 mls/hr IV.CONT TITRATE PRN; Protocol PRN Reason: Per protocol Last Admin: 07/10/18 12:06 Dose: 7 mg/hr, 14 mls/hr Isosorbide Mononitrate (Imdur) 120 mg PO BID [facility] Last Admin: 07/10/18 08:07 Dose: 120 mg Lactulose (Lactulose Liq) 30 ml PO BID [facility] Last Admin: 07/10/18 08:07 Dose: 30 ml Losartan Potassium (Cozaar) 50 mg PO DAILY [facility] Morphine Sulfate (Morphine Inj) 2 mg IV.PUSH Q3H PRN PRN Reason: Pain 6-10 Last Admin: 07/08/18 08:15 Dose: 2 mg Nifedipine (Procardia Xl) 60 mg PO DAILY [facility] Last Admin: 07/10/18 11:41 Dose: 60 mg Nitroglycerin (Nitro-Dur 0.4 Mg Patch.24 Hr) 1 patch T-DERMAL DAILY [facility] Last Admin: 07/10/18 08:08 Dose: 1 patch Ondansetron HCl (Zofran Inj) 4 mg IV.PUSH Q6H PRN PRN Reason: NAUSEA OR VOMITING Pantoprazole Sodium (Protonix) 40 mg PO DAILY [facility] Last Admin: 07/10/18 08:08 Dose: 40 mg Patch Removal (Remove Old Patch) 1 each T-DERMAL DAILY [facility] Last Admin: 07/10/18 10:10 Dose: 1 each Senna/Docusate Sodium (Karen-Colace) 1 tab PO BID [facility] Last Admin: 07/10/18 08:08 Dose: 1 tab Sennosides (Senokot) 17.2 mg PO Q12H PRN PRN Reason: Moderate Constipation Sodium Chloride (Ns Flush) 2 ml IV.FLUSH BID [facility] Last Admin: 07/10/18 08:09 Dose: 2 ml Sodium Chloride (Ns Flush) 2 ml IV.FLUSH PRN PRN PRN Reason: FLUSH AFTER USING IV ACCESS Allergies/Adverse Reactions: Allergies Allergy/AdvReac Type Severity Reaction Status Date / Time No Known Allergies Allergy none Uncoded 07/05/18 19:19 Physical Exam Vital signs: Vital Signs 07/09/18 13:00 07/09/18 13:02 07/09/18 13:36 Temperature Pulse Rate 103 H 90 119 H Respiratory Rate 15 14 33 H Blood Pressure 154/69 H 138/69 Pulse Oximetry 07/09/18 14:00 07/09/18 14:02 07/09/18 14:32 Temperature Pulse Rate 98 H 97 H 95 H Respiratory Rate 15 19 15 Blood Pressure 153/84 H 153/76 H Pulse Oximetry 07/09/18 15:00 07/09/18 15:02 07/09/18 15:32 Temperature Pulse Rate 95 H 94 H 100 H Respiratory Rate 20 18 34 H Blood Pressure 157/77 H 174/81 H Pulse Oximetry 07/09/18 16:00 07/09/18 16:02 07/09/18 16:23 Temperature 98 F Pulse Rate 94 H 93 H 94 H Respiratory Rate 17 16 16 Blood Pressure 184/78 H 162/94 H Pulse Oximetry 07/09/18 16:32 07/09/18 17:00 07/09/18 17:02 Temperature Pulse Rate 90 107 H 98 H Respiratory Rate 17 39 H 15 Blood Pressure 160/72 H 180/81 H Pulse Oximetry 07/09/18 17:32 07/09/18 18:00 07/09/18 18:02 Temperature Pulse Rate 101 H 106 H 100 H Respiratory Rate 24 37 H 34 H Blood Pressure 182/81 H 153/68 H Pulse Oximetry 07/09/18 18:32 07/09/18 19:00 07/09/18 19:02 Temperature Pulse Rate 93 H 90 98 H Respiratory Rate 24 20 37 H Blood Pressure 137/63 143/70 H Pulse Oximetry 07/09/18 19:32 07/09/18 19:53 07/09/18 20:00 Temperature Pulse Rate 96 H 102 H Respiratory Rate 17 23 Blood Pressure 146/65 H Pulse Oximetry 94 L 95 07/09/18 21:00 07/09/18 21:06 07/09/18 21:30 Temperature Pulse Rate 92 H 90 94 H Respiratory Rate 16 16 14 Blood Pressure 132/73 147/71 H Pulse Oximetry 07/09/18 21:54 07/09/18 22:00 07/09/18 22:24 Temperature Pulse Rate 102 H 85 86 Respiratory Rate 36 H 14 12 Blood Pressure 153/86 H 155/71 H Pulse Oximetry 07/09/18 22:54 07/09/18 23:00 07/09/18 23:24 Temperature Pulse Rate 84 89 78 Respiratory Rate 11 L 17 14 Blood Pressure 146/61 H 155/71 H Pulse Oximetry 07/09/18 23:54 07/10/18 00:00 07/10/18 00:24 Temperature 98.3 F Pulse Rate 78 78 88 Respiratory Rate 15 15 15 Blood Pressure 152/67 H 141/65 H Pulse Oximetry 07/10/18 01:00 07/10/18 01:03 07/10/18 01:45 Temperature Pulse Rate 103 H 96 H 96 H Respiratory Rate 17 23 Blood Pressure 188/85 H 176/79 H Pulse Oximetry 07/10/18 01:54 07/10/18 02:00 07/10/18 02:24 Temperature Pulse Rate 92 H 88 81 Respiratory Rate 15 16 14 Blood Pressure 167/78 H 151/67 H Pulse Oximetry 07/10/18 02:54 07/10/18 03:00 07/10/18 03:24 Temperature Pulse Rate 72 68 79 Respiratory Rate 13 14 14 Blood Pressure 145/67 H 162/72 H Pulse Oximetry 07/10/18 03:54 07/10/18 04:00 07/10/18 04:24 Temperature 98.5 F Pulse Rate 92 H 80 89 Respiratory Rate 14 14 16 Blood Pressure 169/74 H 166/74 H Pulse Oximetry 07/10/18 04:54 07/10/18 05:00 07/10/18 05:24 Temperature Pulse Rate 85 74 78 Respiratory Rate 16 20 9 L Blood Pressure 161/72 H 184/72 H Pulse Oximetry 07/10/18 05:32 07/10/18 05:54 07/10/18 06:00 Temperature Pulse Rate 88 80 72 Respiratory Rate 25 H 12 13 Blood Pressure 170/75 H 147/67 H Pulse Oximetry 07/10/18 06:24 07/10/18 06:54 07/10/18 06:56 Temperature Pulse Rate 66 81 75 Respiratory Rate 14 12 13 Blood Pressure 157/91 H 175/76 H 163/73 H Pulse Oximetry 07/10/18 07:00 07/10/18 07:24 07/10/18 07:54 Temperature Pulse Rate 72 78 87 Respiratory Rate 13 14 26 H Blood Pressure 172/77 H 180/80 H Pulse Oximetry 07/10/18 08:00 07/10/18 08:24 07/10/18 08:54 Temperature Pulse Rate 83 82 87 Respiratory Rate 16 20 13 Blood Pressure 179/78 H 184/70 H Pulse Oximetry 96 96 07/10/18 09:00 07/10/18 09:24 07/10/18 09:54 Temperature Pulse Rate 79 85 88 Respiratory Rate 12 16 16 Blood Pressure 188/81 H 190/84 H Pulse Oximetry 97 94 L 95 07/10/18 09:58 07/10/18 10:00 07/10/18 10:24 Temperature Pulse Rate 87 89 90 Respiratory Rate 16 14 16 Blood Pressure 182/81 H 164/86 H Pulse Oximetry 96 96 97 07/10/18 10:54 07/10/18 11:00 07/10/18 11:24 Temperature 97.8 F Pulse Rate 99 H 100 H 103 H Respiratory Rate 16 20 21 Blood Pressure 163/82 H 167/76 H Pulse Oximetry 93 L 93 L 96 07/10/18 11:54 07/10/18 12:00 07/10/18 12:24 Temperature Pulse Rate 84 101 H 103 H Respiratory Rate 14 24 24 Blood Pressure 150/71 H 163/87 H Pulse Oximetry 95 98 97 Intake & Output 07/09/18 07/10/18 07/10/18 18:59 06:59 18:59 Intake Total 1300 / 1300 1870 / 1870 50 / 50 Output Total 1999 1690 / 1690 Balance -700 / -700 180 / 180 50 / 50 Weight 73.3 kg Intake: IV 1000 / 1000 1150 / 1150 50 / 50 Cleviprex Inj 25 mg In 50 ml @ 150 / 150 50 / 50 1 MG/HR 2 mls/hr IV.CONT TITRATE PRN Rx#:[id number] NS Inj 1,000 ML @ 70 mls/hr IV. 1000 / 1000 1000 / 1000 CONT .[id number] JOSE A Rx#: [id number] Oral 300 / 300 720 / 720 Output: Urine Amount (Catheter) 1999 1650 / 1650 Indwelling Urethral Catheter 1999 1650 / 1650 Wound Drainage 40 / 40 # 1 Left Neck 40 / 40 Other: Date of Last Bowel Movement 07/07/18 07/09/18 07/09/18 # Bowel Movements 0 - Routine Neurological Exam alert. speech more fluent. Follows commands CN intact MOTOR 5/5 BUE - Urinary Catheter Management Straight Cath placed during this visit: yes, but has since been removed by the nurse Reason for continuing: Acute urinary retention Insertion date: 07/08/18 Insertion time: 06:00 Removal date: 07/07/18 Removal time: 19:30 Indwelling Urethral Catheter Cath placed during this visit: yes Reason for continuing: Gross Hematuria Insertion date: 07/08/18 Objective Laboratory Results - last 24 hr 07/07/18 13:14 MTS Gel Crossmatch See Detail Review/Management - Review/Management Plan: imp Stable neurologically . Dr Watts to resume care tomorrow
[2018-07-11] MEDS: Clevidipine Inj 25 MG/50 ML VIAL IV.CONT PRN ×7 (02:43→22:00)
[2018-07-11] MEDS: Haloperidol Inj 5 MG/ML Ampul IV.PUSH PRN (03:00)
[2018-07-11] MEDS: Senna/Docusate Sodium 8.6/50 MG Tablet PO SCH ×2 (08:31→20:19)
[2018-07-11] MEDS: Sod Chloride 0.9% Inj 1,000 ML IV.CONT SCH ×2 (08:31→22:00)
[2018-07-11] MEDS: Isosorbide Mononitrate 60 MG ER 24HR Tablet (Imdur) PO SCH ×2 (08:40→20:19)
[2018-07-11] MEDS: Pantoprazole Sodium 20 MG DR Tablet PO SCH (08:40)
[2018-07-11] MEDS: Aspirin 325 MG Tablet PO SCH (08:40)
--- NOTE | 2018-07-11 08:40 | P.PNNEU ---
Subjective Active Medications: Active Medications Acetaminophen (Tylenol) 650 mg PO Q4H PRN PRN Reason: headache/fever/pain1-5 Al Hydroxide/Mg Hydroxide (Milk Of Magnesia Liq) 30 ml PO Q12H PRN PRN Reason: Mild Constipation Aspirin (Aspirin) 325 mg PO DAILY [facility] Last Admin: 07/10/18 08:08 Dose: 325 mg Atorvastatin Calcium (Lipitor) 80 mg PO DAILY [facility] Last Admin: 07/10/18 08:07 Dose: 80 mg Bisacodyl (Dulcolax Supp) 10 mg RECTAL DAILY PRN PRN Reason: SEVERE CONSITIPATION Clonidine HCl (Catapres) 0.1 mg PO Q6H PRN PRN Reason: SBP>160, DBP>90 Last Admin: 07/10/18 14:50 Dose: 0.1 mg Clopidogrel Bisulfate (Plavix) 75 mg PO DAILY [facility] Last Admin: 07/10/18 08:08 Dose: 75 mg Cyanocobalamin (Vitamin B12) 500 mcg PO DAILY [facility] Last Admin: 07/10/18 08:07 Dose: 500 mcg Enalaprilat (Vasotec Inj) 1.25 mg IV.PUSH Q6H PRN PRN Reason: BLOOD PRESSURE MANAGEMENT Last Admin: 07/06/18 16:37 Dose: 1.25 mg Haloperidol Lactate (Haldol Inj) 4 mg IV.PUSH Q6H PRN PRN Reason: AGITATION AND/OR HALLUCINATION Last Admin: 07/11/18 03:00 Dose: 4 mg Heparin Sodium (Porcine) (Heparin Inj) 5,000 units SQ Q12H [facility] Last Admin: 07/08/18 15:57 Dose: Not Given Sodium Chloride (Ns Inj) 1,000 mls @ 70 mls/hr IV.CONT .[id number] [facility] Last Admin: 07/11/18 08:31 Dose: 70 mls/hr Clevidipine (Cleviprex Inj) 25 mg in 50 mls @ 2 mls/hr IV.CONT TITRATE PRN; Protocol PRN Reason: Per protocol Last Admin: 07/11/18 08:32 Dose: 4 mg/hr, 8 mls/hr Isosorbide Mononitrate (Imdur) 120 mg PO BID [facility] Last Admin: 07/10/18 20:40 Dose: 120 mg Lactulose (Lactulose Liq) 30 ml PO BID [facility] Last Admin: 07/11/18 08:31 Dose: Not Given Losartan Potassium (Cozaar) 50 mg PO DAILY [facility] Morphine Sulfate (Morphine Inj) 2 mg IV.PUSH Q3H PRN PRN Reason: Pain 6-10 Last Admin: 07/08/18 08:15 Dose: 2 mg Nifedipine (Procardia Xl) 60 mg PO DAILY [facility] Last Admin: 07/10/18 11:41 Dose: 60 mg Nitroglycerin (Nitro-Dur 0.4 Mg Patch.24 Hr) 1 patch T-DERMAL DAILY [facility] Last Admin: 07/10/18 08:08 Dose: 1 patch Ondansetron HCl (Zofran Inj) 4 mg IV.PUSH Q6H PRN PRN Reason: NAUSEA OR VOMITING Pantoprazole Sodium (Protonix) 40 mg PO DAILY [facility] Last Admin: 07/10/18 08:08 Dose: 40 mg Patch Removal (Remove Old Patch) 1 each T-DERMAL DAILY [facility] Last Admin: 07/10/18 10:10 Dose: 1 each Senna/Docusate Sodium (Karen-Colace) 1 tab PO BID [facility] Last Admin: 07/11/18 08:31 Dose: Not Given Sennosides (Senokot) 17.2 mg PO Q12H PRN PRN Reason: Moderate Constipation Sodium Chloride (Ns Flush) 2 ml IV.FLUSH BID [facility] Last Admin: 07/10/18 20:40 Dose: 2 ml Sodium Chloride (Ns Flush) 2 ml IV.FLUSH PRN PRN PRN Reason: FLUSH AFTER USING IV ACCESS Allergies/Adverse Reactions: Allergies Allergy/AdvReac Type Severity Reaction Status Date / Time No Known Allergies Allergy none Uncoded 07/05/18 19:19 Physical Exam Vital signs: Vital Signs 07/10/18 08:54 07/10/18 09:00 07/10/18 09:24 Temperature Pulse Rate 87 79 85 Respiratory Rate 13 12 16 Blood Pressure 184/70 H 188/81 H Pulse Oximetry 96 97 94 L 07/10/18 09:54 07/10/18 09:58 07/10/18 10:00 Temperature Pulse Rate 88 87 89 Respiratory Rate 16 16 14 Blood Pressure 190/84 H 182/81 H Pulse Oximetry 95 96 96 07/10/18 10:24 07/10/18 10:54 12/09/18 11:00 Temperature 97.8 F Pulse Rate 90 99 H 100 H Respiratory Rate 16 16 20 Blood Pressure 164/86 H 163/82 H Pulse Oximetry 97 93 L 93 L 07/10/18 11:24 07/10/18 11:54 07/10/18 12:00 Temperature Pulse Rate 103 H 84 101 H Respiratory Rate 21 14 24 Blood Pressure 167/76 H 150/71 H Pulse Oximetry 96 95 98 07/10/18 12:24 07/10/18 12:54 07/10/18 13:00 Temperature Pulse Rate 103 H 97 H 99 H Respiratory Rate 24 19 17 Blood Pressure 163/87 H 124/63 Pulse Oximetry 97 100 97 07/10/18 13:24 07/10/18 13:54 07/10/18 14:00 Temperature 97.8 F Pulse Rate 103 H 118 H 105 H Respiratory Rate 26 H 27 H 27 H Blood Pressure 142/64 H 148/95 H Pulse Oximetry 99 97 96 07/10/18 14:24 07/10/18 15:00 07/10/18 15:24 Temperature Pulse Rate 95 H 97 H 93 H Respiratory Rate 17 27 H 18 Blood Pressure 162/68 H 132/67 Pulse Oximetry 96 97 97 07/10/18 15:54 07/10/18 16:00 07/10/18 16:24 Temperature Pulse Rate 91 H 91 H 89 Respiratory Rate 16 18 22 Blood Pressure 181/70 H 142/64 H Pulse Oximetry 96 96 94 L 07/10/18 18:45 07/10/18 18:55 07/10/18 19:00 Temperature Pulse Rate 99 H 94 H Respiratory Rate 33 H 20 Blood Pressure 165/78 H 186/80 H 165/76 H Pulse Oximetry 92 L 91 L 07/10/18 19:15 07/10/18 19:30 07/10/18 19:45 Temperature Pulse Rate 89 86 83 Respiratory Rate 18 17 11 L Blood Pressure 153/62 H 142/67 H 156/73 H Pulse Oximetry 93 L 92 L 92 L 07/10/18 20:00 07/10/18 20:15 07/10/18 20:26 Temperature Pulse Rate 89 88 Respiratory Rate 15 18 Blood Pressure 159/69 H 176/84 H Pulse Oximetry 91 L 94 L 98 07/10/18 20:30 07/10/18 20:37 07/10/18 20:45 Temperature Pulse Rate 100 H 95 H 89 Respiratory Rate 38 H 21 18 Blood Pressure 223/95 H 166/74 H 169/77 H Pulse Oximetry 97 92 L 07/10/18 21:00 07/10/18 21:15 07/10/18 21:30 Temperature Pulse Rate 92 H 79 91 H Respiratory Rate 24 14 22 Blood Pressure 170/81 H 161/80 H 170/76 H Pulse Oximetry 93 L 88 L 96 07/10/18 21:45 07/10/18 22:00 07/10/18 22:15 Temperature Pulse Rate 88 93 H 83 Respiratory Rate 17 32 H 18 Blood Pressure 162/69 H 149/70 H 153/67 H Pulse Oximetry 96 97 90 L 07/10/18 22:30 07/10/18 22:45 07/10/18 23:00 Temperature Pulse Rate 82 76 68 Respiratory Rate 27 H 16 15 Blood Pressure 151/72 H 157/75 H 148/72 H Pulse Oximetry 94 L 91 L 93 L 07/10/18 23:15 07/10/18 23:30 07/10/18 23:45 Temperature Pulse Rate 86 77 81 Respiratory Rate 13 14 15 Blood Pressure 164/75 H 169/83 H 152/69 H Pulse Oximetry 94 L 93 L 93 L 07/11/18 00:00 07/11/18 00:10 07/11/18 00:15 Temperature Pulse Rate 104 H 93 H 94 H Respiratory Rate 22 17 17 Blood Pressure 159/79 H 171/82 H Pulse Oximetry 96 96 93 L 07/11/18 00:30 07/11/18 00:45 07/11/18 01:00 Temperature Pulse Rate 90 86 75 Respiratory Rate 16 16 15 Blood Pressure 167/76 H 162/77 H 175/83 H Pulse Oximetry 90 L 90 L 82 L 07/11/18 01:15 07/11/18 01:30 07/11/18 01:37 Temperature Pulse Rate 88 85 83 Respiratory Rate 16 15 12 Blood Pressure 179/81 H 178/83 H 147/57 H Pulse Oximetry 90 L 91 L 93 L 07/11/18 01:45 07/11/18 01:51 07/11/18 02:00 Temperature Pulse Rate 85 87 93 H Respiratory Rate 15 22 14 Blood Pressure 191/82 H 173/73 H 195/79 H Pulse Oximetry 94 L 83 L 92 L 07/11/18 02:04 07/11/18 02:15 07/11/18 02:30 Temperature Pulse Rate 90 97 H 91 H Respiratory Rate 25 H 17 16 Blood Pressure 174/81 H 174/82 H 163/74 H Pulse Oximetry 94 L 89 L 88 L 07/11/18 03:00 07/11/18 03:19 07/11/18 03:30 Temperature Pulse Rate 99 H 96 H 95 H Respiratory Rate 18 19 17 Blood Pressure 146/75 H 151/67 H Pulse Oximetry 95 95 91 L 07/11/18 04:00 07/11/18 04:30 07/11/18 05:00 Temperature Pulse Rate 94 H 99 H 101 H Respiratory Rate 14 12 16 Blood Pressure 139/67 135/82 155/80 H Pulse Oximetry 95 96 93 L 07/11/18 05:30 07/11/18 06:00 07/11/18 08:00 Temperature 98.4 F Pulse Rate 73 70 Respiratory Rate 14 14 Blood Pressure 166/72 H 180/79 H Pulse Oximetry 90 L 90 L 95 Intake & Output 07/10/18 07/11/18 07/11/18 18:59 06:59 18:59 Intake Total 1100 / 1100 770 / 770 1050 / 1050 Output Total 1850 / 1850 Balance 1100 / 1100 -1080 / -1080 1050 / 1050 Weight 72.2 kg Intake: IV 1100 / 1100 50 / 50 1050 / 1050 Cleviprex Inj 25 mg In 50 ml @ 100 / 100 50 / 50 50 / 50 1 MG/HR 2 mls/hr IV.CONT TITRATE PRN Rx#:[id number] NS Inj 1,000 ML @ 70 mls/hr IV. 1000 / 1000 1000 / 1000 CONT .[id number] [facility] Rx#: [id number] Oral 720 / 720 Output: Urine Amount (Catheter) 185 / 1850 Indwelling Urethral Catheter 1849 / 1849 Other: Date of Last Bowel Movement 07/09/18 07/09/18 # Bowel Movements 0 Narrative: restrained 0x3 vff face sym speech appears nl now 5/5 t/o - Urinary Catheter Management Straight Cath placed during this visit: yes, but has since been removed by the nurse Reason for continuing: Acute urinary retention Insertion date: 07/08/18 Insertion time: 06:00 Removal date: 07/07/18 Removal time: 19:30 Indwelling Urethral Catheter Cath placed during this visit: yes Reason for continuing: Gross Hematuria Insertion date: 07/08/18 Review/Management - Review/Management Plan: imp Stable neurologically . Dr Watts to resume care tomorrow - 07/11/18 much better no apHasia apparent now not sleeping well oob NEEDS BP MUCH LOWER TO 120/ OOB MUCH BETTER
--- NOTE | 2018-07-11 13:11 | P.PNCA ---
Subjective Interval history: No events overnight Oriented Medications and Allergies Active Medications: Active Medications Acetaminophen (Tylenol) 650 mg PO Q4H PRN PRN Reason: headache/fever/pain1-5 Al Hydroxide/Mg Hydroxide (Milk Of Helene Lijose c) 30 ml PO Q12H PRN PRN Reason: Mild Constipation Aspirin (Aspirin) 325 mg PO DAILY [facility] Last Admin: 07/11/18 08:40 Dose: 325 mg Atorvastatin Calcium (Lipitor) 80 mg PO DAILY [facility] Last Admin: 07/11/18 08:40 Dose: 80 mg Bisacodyl (Dulcolax Supp) 10 mg RECTAL DAILY PRN PRN Reason: SEVERE CONSITIPATION Clonidine HCl (Catapres) 0.1 mg PO Q6H PRN PRN Reason: SBP>160, DBP>90 Last Admin: 07/10/18 14:50 Dose: 0.1 mg Clopidogrel Bisulfate (Plavix) 75 mg PO DAILY [facility] Last Admin: 07/11/18 08:41 Dose: 75 mg Cyanocobalamin (Vitamin B12) 500 mcg PO DAILY [facility] Last Admin: 07/11/18 08:41 Dose: 500 mcg Enalaprilat (Vasotec Inj) 1.25 mg IV.PUSH Q6H PRN PRN Reason: BLOOD PRESSURE MANAGEMENT Last Admin: 07/06/18 16:37 Dose: 1.25 mg Haloperidol Lactate (Haldol Inj) 4 mg IV.PUSH Q6H PRN PRN Reason: AGITATION AND/OR HALLUCINATION Last Admin: 07/11/18 03:00 Dose: 4 mg Heparin Sodium (Porcine) (Heparin Inj) 5,000 units SQ Q12H [facility] Last Admin: 07/08/18 15:57 Dose: Not Given Sodium Chloride (Ns Inj) 1,000 mls @ 70 mls/hr IV.CONT .[id number] [facility] Last Admin: 07/11/18 08:31 Dose: 70 mls/hr Clevidipine (Cleviprex Inj) 25 mg in 50 mls @ 2 mls/hr IV.CONT TITRATE PRN; Protocol PRN Reason: Per protocol Last Titration: 07/11/18 10:31 Dose: 6 mg/hr, 12 mls/hr Isosorbide Mononitrate (Imdur) 120 mg PO BID [facility] Last Admin: 07/11/18 08:40 Dose: 120 mg Lactulose (Lactulose Liq) 30 ml PO BID [facility] Last Admin: 07/11/18 08:31 Dose: Not Given Losartan Potassium (Cozaar) 50 mg PO DAILY [facility] Last Admin: 07/11/18 08:40 Dose: 50 mg Morphine Sulfate (Morphine Inj) 2 mg IV.PUSH Q3H PRN PRN Reason: Pain 6-10 Last Admin: 07/08/18 08:15 Dose: 2 mg Nifedipine (Procardia Xl) 60 mg PO DAILY [facility] Last Admin: 07/11/18 08:40 Dose: 60 mg Nitroglycerin (Nitro-Dur 0.4 Mg Patch.24 Hr) 1 patch T-DERMAL DAILY [facility] Last Admin: 07/11/18 08:41 Dose: 1 patch Ondansetron HCl (Zofran Inj) 4 mg IV.PUSH Q6H PRN PRN Reason: NAUSEA OR VOMITING Pantoprazole Sodium (Protonix) 40 mg PO DAILY [facility] Last Admin: 07/11/18 08:40 Dose: 40 mg Patch Removal (Remove Old Patch) 1 each T-DERMAL DAILY [facility] Last Admin: 07/11/18 08:41 Dose: 1 each Senna/Docusate Sodium (Karen-Colace) 1 tab PO BID [facility] Last Admin: 07/11/18 08:31 Dose: Not Given Sennosides (Senokot) 17.2 mg PO Q12H PRN PRN Reason: Moderate Constipation Sodium Chloride (Ns Flush) 2 ml IV.FLUSH BID [facility] Last Admin: 07/11/18 08:41 Dose: 2 ml Sodium Chloride (Ns Flush) 2 ml IV.FLUSH PRN PRN PRN Reason: FLUSH AFTER USING IV ACCESS Allergies Allergy/AdvReac Type Severity Reaction Status Date / Time No Known Allergies Allergy none Uncoded 07/05/18 19:19 Home Medications Medication Instructions Recorded Confirmed Type aspirin 650 mg PO BID 07/05/18 07/05/18 History acyclovir [Zovirax] 400 mg PO TID 07/06/18 07/06/18 History atorvastatin 80 mg PO DAILY 07/06/18 07/06/18 History cyanocobalamin (vitamin B-12) 500 mcg PO DAILY 07/06/18 07/06/18 History [Vitamin B-12] enalapril maleate 10 mg PO BID 07/06/18 07/06/18 History isosorbide mononitrate 120 mg PO BID 07/06/18 07/06/18 History pantoprazole [Protonix] 40 mg PO DAILY 07/06/18 07/06/18 History Physical Exam Vital signs: Vital Signs 07/10/18 13:24 07/10/18 13:54 07/10/18 14:00 Temperature 97.8 F Pulse Rate 103 H 118 H 105 H Respiratory Rate 26 H 27 H 27 H Blood Pressure 142/64 H 148/95 H Pulse Oximetry 99 97 96 07/10/18 14:24 07/10/18 15:00 07/10/18 15:24 Temperature Pulse Rate 95 H 97 H 93 H Respiratory Rate 17 27 H 18 Blood Pressure 162/68 H 132/67 Pulse Oximetry 96 97 97 07/10/18 15:54 07/10/18 16:00 07/10/18 16:24 Temperature Pulse Rate 91 H 91 H 89 Respiratory Rate 16 18 22 Blood Pressure 181/70 H 142/64 H Pulse Oximetry 96 96 94 L 07/10/18 18:45 07/10/18 18:55 07/10/18 19:00 Temperature Pulse Rate 99 H 94 H Respiratory Rate 33 H 20 Blood Pressure 165/78 H 186/80 H 165/76 H Pulse Oximetry 92 L 91 L 07/10/18 19:15 07/10/18 19:30 07/10/18 19:45 Temperature Pulse Rate 89 86 83 Respiratory Rate 18 17 11 L Blood Pressure 153/62 H 142/67 H 156/73 H Pulse Oximetry 93 L 92 L 92 L 07/10/18 20:00 07/10/18 20:15 07/10/18 20:26 Temperature Pulse Rate 89 88 Respiratory Rate 15 18 Blood Pressure 159/69 H 176/84 H Pulse Oximetry 91 L 94 L 98 07/10/18 20:30 07/10/18 20:37 07/10/18 20:45 Temperature Pulse Rate 100 H 95 H 89 Respiratory Rate 38 H 21 18 Blood Pressure 223/95 H 166/74 H 169/77 H Pulse Oximetry 97 92 L 07/10/18 21:00 07/10/18 21:15 07/10/18 21:30 Temperature Pulse Rate 92 H 79 91 H Respiratory Rate 24 14 22 Blood Pressure 170/81 H 161/80 H 170/76 H Pulse Oximetry 93 L 88 L 96 12/09/18 21:45 07/10/18 22:00 07/10/18 22:15 Temperature Pulse Rate 88 93 H 83 Respiratory Rate 17 32 H 18 Blood Pressure 162/69 H 149/70 H 153/67 H Pulse Oximetry 96 97 90 L 07/10/18 22:30 07/10/18 22:45 07/10/18 23:00 Temperature Pulse Rate 82 76 68 Respiratory Rate 27 H 16 15 Blood Pressure 151/72 H 157/75 H 148/72 H Pulse Oximetry 94 L 91 L 93 L 07/10/18 23:15 07/10/18 23:30 07/10/18 23:45 Temperature Pulse Rate 86 77 81 Respiratory Rate 13 14 15 Blood Pressure 164/75 H 169/83 H 152/69 H Pulse Oximetry 94 L 93 L 93 L 07/11/18 00:00 07/11/18 00:10 07/11/18 00:15 Temperature Pulse Rate 104 H 93 H 94 H Respiratory Rate 22 17 17 Blood Pressure 159/79 H 171/82 H Pulse Oximetry 96 96 93 L 07/11/18 00:30 07/11/18 00:45 07/11/18 01:00 Temperature Pulse Rate 90 86 75 Respiratory Rate 16 16 15 Blood Pressure 167/76 H 162/77 H 175/83 H Pulse Oximetry 90 L 90 L 82 L 07/11/18 01:15 07/11/18 01:30 07/11/18 01:37 Temperature Pulse Rate 88 85 83 Respiratory Rate 16 15 12 Blood Pressure 179/81 H 178/83 H 147/57 H Pulse Oximetry 90 L 91 L 93 L 07/11/18 01:45 07/11/18 01:51 07/11/18 02:00 Temperature Pulse Rate 85 87 93 H Respiratory Rate 15 22 14 Blood Pressure 191/82 H 173/73 H 195/79 H Pulse Oximetry 94 L 83 L 92 L 07/11/18 02:04 07/11/18 02:15 07/11/18 02:30 Temperature Pulse Rate 90 97 H 91 H Respiratory Rate 25 H 17 16 Blood Pressure 174/81 H 174/82 H 163/74 H Pulse Oximetry 94 L 89 L 88 L 07/11/18 03:00 07/11/18 03:19 07/11/18 03:30 Temperature Pulse Rate 99 H 96 H 95 H Respiratory Rate 18 19 17 Blood Pressure 146/75 H 151/67 H Pulse Oximetry 95 95 91 L 07/11/18 04:00 07/11/18 04:30 07/11/18 05:00 Temperature Pulse Rate 94 H 99 H 101 H Respiratory Rate 14 12 16 Blood Pressure 139/67 135/82 155/80 H Pulse Oximetry 95 96 93 L 07/11/18 05:30 07/11/18 06:00 07/11/18 06:15 Temperature 98.4 F Pulse Rate 73 70 90 Respiratory Rate 14 14 17 Blood Pressure 166/72 H 180/79 H Pulse Oximetry 90 L 90 L 93 L 07/11/18 06:16 07/11/18 06:30 07/11/18 06:45 Temperature Pulse Rate 80 84 87 Respiratory Rate 16 14 16 Blood Pressure 155/72 H Pulse Oximetry 89 L 94 L 91 L 07/11/18 07:00 07/11/18 07:15 07/11/18 07:16 Temperature Pulse Rate 85 85 87 Respiratory Rate 16 16 14 Blood Pressure 189/88 H Pulse Oximetry 92 L 92 L 92 L 07/11/18 07:30 07/11/18 07:45 07/11/18 08:00 Temperature 98.2 F Pulse Rate 81 85 83 Respiratory Rate 16 17 17 Blood Pressure 187/81 H 194/88 H Pulse Oximetry 92 L 94 L 91 L 07/11/18 08:05 07/11/18 08:15 07/11/18 08:30 Temperature Pulse Rate 82 95 H 93 H Respiratory Rate 18 21 24 Blood Pressure 185/87 H 188/84 H Pulse Oximetry 94 L 96 96 07/11/18 08:42 07/11/18 08:45 07/11/18 08:46 Temperature Pulse Rate 83 87 87 Respiratory Rate 18 24 28 H Blood Pressure 160/74 H 146/68 H Pulse Oximetry 96 96 94 L 07/11/18 08:49 07/11/18 08:50 07/11/18 08:57 Temperature Pulse Rate 90 97 H 89 Respiratory Rate 27 H 21 21 Blood Pressure 163/75 H 157/72 H 191/86 H Pulse Oximetry 94 L 94 L 94 L 07/11/18 08:58 07/11/18 09:00 07/11/18 09:15 Temperature Pulse Rate 88 87 77 Respiratory Rate 35 H 21 16 Blood Pressure 178/73 H 148/76 H Pulse Oximetry 93 L 93 L 91 L 07/11/18 09:30 07/11/18 09:32 07/11/18 09:45 Temperature Pulse Rate 88 84 69 Respiratory Rate 20 15 16 Blood Pressure 155/72 H Pulse Oximetry 95 95 94 L 07/11/18 10:00 07/11/18 10:01 07/11/18 10:15 Temperature Pulse Rate 87 85 85 Respiratory Rate 17 18 15 Blood Pressure 144/65 H 140/67 Pulse Oximetry 95 95 94 L Intake & Output 07/10/18 07/11/18 07/11/18 18:59 06:59 18:59 Intake Total 1100 / 1100 770 / 770 1050 / 1050 Output Total 185 / 185 Balance 1100 / 1100 -1080 / -1080 1050 / 1050 Weight 72.2 kg Intake: IV 1100 / 1100 50 / 50 1050 / 1050 Cleviprex Inj 25 mg In 50 ml @ 100 / 100 50 / 50 50 / 50 1 MG/HR 2 mls/hr IV.CONT TITRATE PRN Rx#:[id number] NS Inj 1,000 ML @ 70 mls/hr IV. 1000 / 1000 1000 / 1000 CONT .[id number] [facility] Rx#: [id number] Oral 720 / 720 Output: Urine Amount (Catheter) 1849 Indwelling Urethral Catheter 1849 Other: Date of Last Bowel Movement 07/09/18 07/09/18 07/09/18 # Bowel Movements 0 Narrative: GENERAL: NAD, AAOx3 SKIN: Warm and dry. HEAD: Atraumatic. Normocephalic. EYES: Pupils equal and round. No scleral icterus. No injection or drainage. ENT: No nasal bleeding or discharge. Mucous membranes pink and moist. NECK: Trachea midline. No JVD. CARDIOVASCULAR: Regular rate and rhythm. RESPIRATORY: No accessory muscle use. Clear to auscultation. Breath sounds equal bilaterally. GASTROINTESTINAL: Abdomen soft, non-tender, nondistended. Hepatic and splenic margins not palpable. MUSCULOSKELETAL: Extremities without clubbing, cyanosis, or edema. No obvious deformities. NEUROLOGICAL: Awake and alert. No obvious cranial nerve deficits. Motor grossly within normal limits. Five out of 5 muscle strength in the arms and legs. Normal speech. PSYCHIATRIC: Appropriate mood and affect; insight and judgment normal. - Urinary Catheter Management Straight Cath placed during this visit: yes, but has since been removed by the nurse Reason for continuing: Acute urinary retention Insertion date: 07/08/18 Insertion time: 06:00 Removal date: 07/07/18 Removal time: 19:30 Indwelling Urethral Catheter Cath placed during this visit: yes Reason for continuing: Gross Hematuria Insertion date: 07/08/18 Results 07/09/18 04:08 07/09/18 04:08 Intake and Output 07/10/18 07/11/18 07/11/18 22:59 06:59 14:59 Intake Total 1050 / 1050 770 / 770 1050 / 1050 Output Total 1850 / 1850 Balance 1050 / 1050 -1080 / -1080 1050 / 1050 Intake: IV 1050 / 1050 50 / 50 1050 / 1050 Cleviprex Inj 25 mg In 50 ml @ 50 / 50 50 / 50 50 / 50 1 MG/HR 2 mls/hr IV.CONT TITRATE PRN Rx#:[id number] NS Inj 1,000 ML @ 70 mls/hr IV. 1000 / 1000 1000 / 1000 CONT .[id number] [facility] Rx#: [id number] Oral 720 / 720 Output: Urine Amount (Catheter) 185 / 1850 Indwelling Urethral Catheter 1849 Other: Date of Last Bowel Movement 07/09/18 07/09/18 07/09/18 # Bowel Movements 0 Weight 72.2 kg Assessment and Plan - Assessment (1) History of left-sided carotid endarterectomy Code(s): Z98.890 - Other specified postprocedural states Status: Acute (2) Transient cerebral ischemia Code(s): G45.9 - Transient cerebral ischemic attack, unspecified Status: Acute (3) Accelerated hypertension Code(s): I10 - Essential (primary) hypertension Status: Acute (4) CAD (coronary artery disease) Code(s): I25.10 - Atherosclerotic heart disease of [place] coronary artery without angina pectoris Status: Acute (5) Hx of CABG Code(s): Z95.1 - Presence of aortocoronary bypass graft Status: Acute (6) Hx of aortic valve replacement Code(s): Z95.2 - Presence of prosthetic heart valve Status: Acute - Plan 1) TIA 2) Carotid artery stenosis s/p left CEA 3) Confusion this morning, but does not appear to be focal Neurology following ? possible ICU psychosis vs sundowning. 4) CAD with history of CABG Stable 5) Hx of AVR, bioprosthetic 6) HTN Plan to attempt to wean off Cleviprex Plan to increase Procardia (2) Transient cerebral ischemia Qualifiers: Transient cerebral ischemia type: unspecified Qualified Code(s): G45.9 - Transient cerebral ischemic attack, unspecified
--- NOTE | 2018-07-11 15:22 | P.PNVS ---
Subjective Subjective/Hospital Course: Referral received Full consult TORRIE Maldonado 07/08/2018 Patient is status post left carotid endarterectomy patch angioplasty Motorically neurologically he is intact however appears to be somewhat confused and agitated somewhat dysphasic and dysarthric. Speaks clearly intermittently and follows commands only intermittently consistent with some receptive aphasia Pupils are equal and reactive Neck incision is clean and dry KAREN drain is minimal We will DC KAREN drain this morning Patient remains hemodynamically stable however hypertensive was placed on Cleviprex drip in the recovery room and remains on the same Will add medication to get patient off Cleviprex Patient is complaining about lower abdominal pain and apparently the nurse called the medical database reporting consultant four times for assistance I helped the nurse put patient back in bed and on exam he is noted to have massively distended urinary bladder Patient clearly had urinary retention in the recovery room in apparently pulled out his Smith somewhere in the late evening hours On my exam upper abdomen is soft bowel the lower abdomen is massively distended firm with guarding consistent with massively dilated bladder Order given to replace the Smith and immediately 800 cc of bloody urine obtained Patient immediately calmed down and blood pressure decreased to 180 systolic to 150 systolic I believe his neurologic symptoms to be related to hyperperfusion in face of hypertension Discussed with Dr. Watts Addendum In the afternoon patient is doing much better he is now fully awake alert and oriented Neurologically he is fully intact Incision is clean and dry CT of the brain does not reveal any acute changes At this point we will keep systolic blood pressure under 140 mmHg and once patient is off Cleviprex will be able to transfer to floor 07/11/2018 Patient is doing much better today Dysarthria and dysphasia have disappeared When talking to patient he appears to have some receptive dysphasia but this is actually due to the fact that he cannot hear well He is oriented in time and space although appeared to be occasionally confused but this is starting to show some signs of ICU delirium Motorically fully intact Answers questions appropriately and has taken his diet The only thing that keeps patient in ICU at this point is hard to control blood pressure for which she requires Cleviprex Grateful to internal medicine and cardiology for managing this issue and whenever the blood pressure is down he can leave the ICU and then transferred to rehab He will need at least a month or so of recovery before we address the right carotid which obviously will need to be done as well Objective Vital Signs / I&O: Vital Signs 07/10/18 15:24 07/10/18 15:54 07/10/18 16:00 Temperature Pulse Rate 93 H 91 H 91 H Respiratory Rate 18 16 18 Blood Pressure 132/67 181/70 H Pulse Oximetry 97 96 96 07/10/18 16:24 07/10/18 18:45 07/10/18 18:55 Temperature Pulse Rate 89 99 H Respiratory Rate 22 33 H Blood Pressure 142/64 H 165/78 H 186/80 H Pulse Oximetry 94 L 92 L 07/10/18 19:00 07/10/18 19:15 07/10/18 19:30 Temperature Pulse Rate 94 H 89 86 Respiratory Rate 20 18 17 Blood Pressure 165/76 H 153/62 H 142/67 H Pulse Oximetry 91 L 93 L 92 L 07/10/18 19:45 07/10/18 20:00 07/10/18 20:15 Temperature Pulse Rate 83 89 88 Respiratory Rate 11 L 15 18 Blood Pressure 156/73 H 159/69 H 176/84 H Pulse Oximetry 92 L 91 L 94 L 07/10/18 20:26 07/10/18 20:30 07/10/18 20:37 Temperature Pulse Rate 100 H 95 H Respiratory Rate 38 H 21 Blood Pressure 223/95 H 166/74 H Pulse Oximetry 98 97 07/10/18 20:45 07/10/18 21:00 07/10/18 21:15 Temperature Pulse Rate 89 92 H 79 Respiratory Rate 18 24 14 Blood Pressure 169/77 H 170/81 H 161/80 H Pulse Oximetry 92 L 93 L 88 L 07/10/18 21:30 07/10/18 21:45 07/10/18 22:00 Temperature Pulse Rate 91 H 88 93 H Respiratory Rate 22 17 32 H Blood Pressure 170/76 H 162/69 H 149/70 H Pulse Oximetry 96 96 97 07/10/18 22:15 07/10/18 22:30 07/10/18 22:45 Temperature Pulse Rate 83 82 76 Respiratory Rate 18 27 H 16 Blood Pressure 153/67 H 151/72 H 157/75 H Pulse Oximetry 90 L 94 L 91 L 07/10/18 23:00 07/10/18 23:15 07/10/18 23:30 Temperature Pulse Rate 68 86 77 Respiratory Rate 15 13 14 Blood Pressure 148/72 H 164/75 H 169/83 H Pulse Oximetry 93 L 94 L 93 L 07/10/18 23:45 07/11/18 00:00 07/11/18 00:10 Temperature Pulse Rate 81 104 H 93 H Respiratory Rate 15 22 17 Blood Pressure 152/69 H 159/79 H Pulse Oximetry 93 L 96 96 07/11/18 00:15 07/11/18 00:30 07/11/18 00:45 Temperature Pulse Rate 94 H 90 86 Respiratory Rate 17 16 16 Blood Pressure 171/82 H 167/76 H 162/77 H Pulse Oximetry 93 L 90 L 90 L 07/11/18 01:00 07/11/18 01:15 07/11/18 01:30 Temperature Pulse Rate 75 88 85 Respiratory Rate 15 16 15 Blood Pressure 175/83 H 179/81 H 178/83 H Pulse Oximetry 82 L 90 L 91 L 07/11/18 01:37 07/11/18 01:45 07/11/18 01:51 Temperature Pulse Rate 83 85 87 Respiratory Rate 12 15 22 Blood Pressure 147/57 H 191/82 H 173/73 H Pulse Oximetry 93 L 94 L 83 L 07/11/18 02:00 07/11/18 02:04 07/11/18 02:15 Temperature Pulse Rate 93 H 90 97 H Respiratory Rate 14 25 H 17 Blood Pressure 195/79 H 174/81 H 174/82 H Pulse Oximetry 92 L 94 L 89 L 07/11/18 02:30 07/11/18 03:00 07/11/18 03:19 Temperature Pulse Rate 91 H 99 H 96 H Respiratory Rate 16 18 19 Blood Pressure 163/74 H 146/75 H Pulse Oximetry 88 L 95 95 07/11/18 03:30 07/11/18 04:00 07/11/18 04:30 Temperature Pulse Rate 95 H 94 H 99 H Respiratory Rate 17 14 12 Blood Pressure 151/67 H 139/67 135/82 Pulse Oximetry 91 L 95 96 07/11/18 05:00 07/11/18 05:30 07/11/18 06:00 Temperature 98.4 F Pulse Rate 101 H 73 70 Respiratory Rate 16 14 14 Blood Pressure 155/80 H 166/72 H 180/79 H Pulse Oximetry 93 L 90 L 90 L 07/11/18 06:15 07/11/18 06:16 07/11/18 06:30 Temperature Pulse Rate 90 80 84 Respiratory Rate 17 16 14 Blood Pressure 155/72 H Pulse Oximetry 93 L 89 L 94 L 07/11/18 06:45 07/11/18 07:00 07/11/18 07:15 Temperature Pulse Rate 87 85 85 Respiratory Rate 16 16 16 Blood Pressure Pulse Oximetry 91 L 92 L 92 L 07/11/18 07:16 07/11/18 07:30 07/11/18 07:45 Temperature Pulse Rate 87 81 85 Respiratory Rate 14 16 17 Blood Pressure 189/88 H 187/81 H Pulse Oximetry 92 L 92 L 94 L 07/11/18 08:00 07/11/18 08:05 07/11/18 08:15 Temperature 98.2 F Pulse Rate 83 82 95 H Respiratory Rate 17 18 21 Blood Pressure 194/88 H 185/87 H Pulse Oximetry 91 L 94 L 96 07/11/18 08:30 07/11/18 08:42 07/11/18 08:45 Temperature Pulse Rate 93 H 83 87 Respiratory Rate 24 18 24 Blood Pressure 188/84 H 160/74 H Pulse Oximetry 96 96 96 07/11/18 08:46 07/11/18 08:49 07/11/18 08:50 Temperature Pulse Rate 87 90 97 H Respiratory Rate 28 H 27 H 21 Blood Pressure 146/68 H 163/75 H 157/72 H Pulse Oximetry 94 L 94 L 94 L 07/11/18 08:57 07/11/18 08:58 07/11/18 09:00 Temperature Pulse Rate 89 88 87 Respiratory Rate 21 35 H 21 Blood Pressure 191/86 H 178/73 H 148/76 H Pulse Oximetry 94 L 93 L 93 L 07/11/18 09:15 07/11/18 09:30 07/11/18 09:32 Temperature Pulse Rate 77 88 84 Respiratory Rate 16 20 15 Blood Pressure 155/72 H Pulse Oximetry 91 L 95 95 07/11/18 09:45 07/11/18 10:00 07/11/18 10:01 Temperature Pulse Rate 69 87 85 Respiratory Rate 16 17 18 Blood Pressure 144/65 H 140/67 Pulse Oximetry 94 L 95 95 07/11/18 10:15 07/11/18 10:19 07/11/18 10:32 Temperature Pulse Rate 85 Respiratory Rate 15 Blood Pressure 148/63 H Pulse Oximetry 94 L 93 L 07/11/18 10:33 07/11/18 10:45 07/11/18 11:00 Temperature Pulse Rate 84 82 Respiratory Rate 17 26 H Blood Pressure Pulse Oximetry 94 L 92 L 93 L 07/11/18 11:01 07/11/18 11:15 07/11/18 11:30 Temperature Pulse Rate 83 79 79 Respiratory Rate 18 25 H 19 Blood Pressure 137/62 Pulse Oximetry 94 L 94 L 93 L 07/11/18 11:31 07/11/18 11:46 07/11/18 12:00 Temperature Pulse Rate 77 77 76 Respiratory Rate 18 19 24 Blood Pressure 138/61 Pulse Oximetry 94 L 95 93 L 07/11/18 12:01 07/11/18 12:15 07/11/18 12:30 Temperature 98.4 F Pulse Rate 82 77 80 Respiratory Rate 17 18 16 Blood Pressure 155/83 H Pulse Oximetry 95 95 92 L 07/11/18 12:31 07/11/18 12:45 07/11/18 13:00 Temperature Pulse Rate 78 78 82 Respiratory Rate 29 H 19 24 Blood Pressure 141/65 H Pulse Oximetry 92 L 97 95 07/11/18 13:01 07/11/18 13:15 07/11/18 13:30 Temperature Pulse Rate 81 79 82 Respiratory Rate 29 H 20 23 Blood Pressure 145/81 H Pulse Oximetry 96 96 96 07/11/18 13:31 07/11/18 13:45 Temperature Pulse Rate 82 83 Respiratory Rate 19 30 H Blood Pressure 155/68 H Pulse Oximetry 97 Intake & Output 07/10/18 07/11/18 07/11/18 18:59 06:59 18:59 Intake Total 1100 / 1100 770 / 770 1100 / 1100 Output Total 1850 / 1850 Balance 1100 / 1100 -1080 / -1080 1100 / 1100 Weight 72.2 kg Intake: IV 1100 / 1100 50 / 50 1100 / 1100 Cleviprex Inj 25 mg In 50 ml @ 100 / 100 50 / 50 100 / 100 1 MG/HR 2 mls/hr IV.CONT TITRATE PRN Rx#:[id number] NS Inj 1,000 ML @ 70 mls/hr IV. 1000 / 1000 1000 / 1000 CONT .[id number] [facility] Rx#: [id number] Oral 720 / 720 Output: Urine Amount (Catheter) 1850 / 1850 Indwelling Urethral Catheter 1849 Other: Date of Last Bowel Movement 07/09/18 07/09/18 07/09/18 # Bowel Movements 0
--- NOTE | 2018-07-11 16:47 | P.PNIM ---
Subjective Interval history: Follow up for carotid stenosis, hematuria and possible delirium. Patient is much more alert today. is at bedside. Denies any chest pain, shortness of breath, fever or chills. At times he appears to be somewhat confused. However, at the time of this interview, patient appears to be very appropriate and pleasant. Physical Exam Vital signs: Last Vital Signs Temp 98.4 F 07/11/18 12:01 Pulse 79 07/11/18 15:15 Resp 18 07/11/18 15:15 BP 160/69 H 07/11/18 15:01 Pulse Ox 90 L 07/11/18 15:15 Intake & Output 07/09/18 07/10/18 07/11/18 07/12/18 06:59 06:59 06:59 06:59 Intake Total 2330 / 2330 3170 / 3170 1870 / 1870 1100 / 1100 Output Total 1800 / 1800 3690 / 3690 1850 / 1850 Balance 530 / 530 -520 / -520 20 / 20 1100 / 1100 Weight 75.1 kg 73.3 kg 72.2 kg GENERAL: Alert, NAD. SKIN: Warm and dry. HEAD: Normocephalic. EYES: No scleral icterus. No injection or drainage. NECK: Supple, trachea midline. No JVD or lymphadenopathy. CARDIOVASCULAR: Regular rate and rhythm without murmurs, gallops, or rubs. RESPIRATORY: Breath sounds equal bilaterally. No accessory muscle use. GASTROINTESTINAL: Abdomen soft, non-tender, nondistended. MUSCULOSKELETAL: No cyanosis, or edema. BACK: Nontender without obvious deformity. No CVA tenderness. Urinary Catheter Management Straight: Cath placed during this visit: yes, but has since been removed by the nurse Insertion date: 07/08/18 Insertion time: 06:00 Removal date: 07/07/18 Removal time: 19:30 Indwelling Urethral Catheter: Cath placed during this visit: yes Urethral indwelling: No Insertion date: 07/08/18 Results Labs CBC & Chem 7: 07/09/18 04:08 07/09/18 04:08 Procedures Procedures: 07/07/2018 Left carotid endarterectomy with patch angioplasty. Assessment and Plan (1) History of left-sided carotid endarterectomy: Code(s): Z98.890 - Other specified postprocedural states Status: Acute (2) Transient cerebral ischemia: Code(s): G45.9 - Transient cerebral ischemic attack, unspecified Status: Acute (3) Accelerated hypertension: Code(s): I10 - Essential (primary) hypertension Status: Acute (4) CAD (coronary artery disease): Code(s): I25.10 - Atherosclerotic heart disease of [place] coronary artery without angina pectoris Status: Acute (5) Hx of CABG: Code(s): Z95.1 - Presence of aortocoronary bypass graft Status: Acute (6) Hx of aortic valve replacement: Code(s): Z95.2 - Presence of prosthetic heart valve Status: Acute Plan Mr. Ochoa is a pleasant 88-year-old male with a history of hypertension, hyperlipidemia, diabetes mellitus, AVR, coronary artery disease who presented to the emergency department on 07/06/2018 due to weakness in his lower extremities. He was working outside when he felt this weakness. He fell as well not hit his head or did not have any loss of consciousness. When he came inside he could not differentiate between a knife and a fork. Due to weakness and some level of confusion, patient was brought to the emergency department. Carotid ultrasound indicated greater than 70% stenosis of the left carotid artery. Patient was subsequently transferred to the main hospital and underwent left endarterectomy. Neurologic was consulted. Probable TIA with aphasia and confusion Appreciate neurology input. MRI studies indicate no evidence of a stroke. Probable ICU delirium Likely multifactorial due to ICU stay as well as underlying possible dementia Lateral carotid artery stenosis Patient is status post left endarterectomy by vascular surgery. Continue aspirin 325 mg daily, Plavix 75 mg p.o. daily. Hematuria Continue Smith catheter per urology. Probably another 24 hours. Patient continues to have hematuria Hypertension Patient is currently on clevidipine drip. Continue nifedipine 90 mg daily and switch lisinopril to Losartan 50mg Qday. wean off clevidipine drip. Once clevidipine drip is discontinued, [facility] Coronary artery disease History of CABG Continue aspirin, atorvastatin, isosorbide mononitrate Full code. Heparin SQ on hold. We can re-start if okay with Vascular surgery. Progress Note: Quality VTE Deep Vein Thrombosis/Pulmonary Embolism Present on Admission: No _ (1) Transient cerebral ischemia Qualifiers: Transient cerebral ischemia type: unspecified Qualified Code(s): G45.9 - Transient cerebral ischemic attack, unspecified (2) CAD (coronary artery disease) Qualifiers: Coronary Disease-Associated Artery/Lesion type: [place] vs. transplanted heart: Associated angina:
[2018-07-11] MEDS ORDERED: Captopril 12.5 MG Tablet PO ONE (19:45)
[2018-07-12] MEDS: Haloperidol Inj 5 MG/ML Ampul IV.PUSH PRN (00:34)
[2018-07-12] MEDS: Clevidipine Inj 25 MG/50 ML VIAL IV.CONT PRN ×6 (01:08→15:26)
[2018-07-12] MEDS: Pantoprazole Sodium 20 MG DR Tablet PO SCH (08:18)
[2018-07-12] MEDS: Aspirin 325 MG Tablet PO SCH (08:18)
[2018-07-12] MEDS: Isosorbide Mononitrate 60 MG ER 24HR Tablet (Imdur) PO SCH ×2 (08:19→22:05)
[2018-07-12] MEDS: Senna/Docusate Sodium 8.6/50 MG Tablet PO SCH ×2 (08:20→22:04)
[2018-07-12] MEDS ORDERED: Captopril 12.5 MG Tablet PO SCH (09:00)
--- NOTE | 2018-07-12 09:55 | P.PNVS ---
Subjective Subjective/Hospital Course: Referral received Full consult TORRIE Maldonado 07/08/2018 Patient is status post left carotid endarterectomy patch angioplasty Motorically neurologically he is intact however appears to be somewhat confused and agitated somewhat dysphasic and dysarthric. Speaks clearly intermittently and follows commands only intermittently consistent with some receptive aphasia Pupils are equal and reactive Neck incision is clean and dry KAREN drain is minimal We will DC KAREN drain this morning Patient remains hemodynamically stable however hypertensive was placed on Cleviprex drip in the recovery room and remains on the same Will add medication to get patient off Cleviprex Patient is complaining about lower abdominal pain and apparently the nurse called the medical adoption agent four times for assistance I helped the nurse put patient back in bed and on exam he is noted to have massively distended urinary bladder Patient clearly had urinary retention in the recovery room in apparently pulled out his Smith somewhere in the late evening hours On my exam upper abdomen is soft bowel the lower abdomen is massively distended firm with guarding consistent with massively dilated bladder Order given to replace the Smith and immediately 800 cc of bloody urine obtained Patient immediately calmed down and blood pressure decreased to 180 systolic to 150 systolic I believe his neurologic symptoms to be related to hyperperfusion in face of hypertension Discussed with Dr. Watts Addendum In the afternoon patient is doing much better he is now fully awake alert and oriented Neurologically he is fully intact Incision is clean and dry CT of the brain does not reveal any acute changes At this point we will keep systolic blood pressure under 140 mmHg and once patient is off Cleviprex will be able to transfer to floor 07/11/2018 Patient is doing much better today Dysarthria and dysphasia have disappeared When talking to patient he appears to have some receptive dysphasia but this is actually due to the fact that he cannot hear well He is oriented in time and space although appeared to be occasionally confused but this is starting to show some signs of ICU delirium Motorically fully intact Answers questions appropriately and has taken his diet The only thing that keeps patient in ICU at this point is hard to control blood pressure for which she requires Cleviprex Grateful to internal medicine and cardiology for managing this issue and whenever the blood pressure is down he can leave the ICU and then transferred to rehab He will need at least a month or so of recovery before we address the right carotid which obviously will need to be done as well 07/12/2018 Today neurologically motorically patient is intact and answers questions appropriately Cervical incision is clean and dry Hypertension management remains a problem and I will leave this up to medicine and cardiology to address with expertise 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 for every night he will become disoriented starts pulling on his catheters and lines and becomes extremely restless Patient pulled his Smith catheter out again last night despite being restrained Nothing to add from vascular point this time Objective Vital Signs / I&O: Vital Signs 07/11/18 10:00 07/11/18 10:01 07/11/18 10:15 Temperature Pulse Rate 87 85 85 Respiratory Rate 17 18 15 Blood Pressure 144/65 H 140/67 Pulse Oximetry 95 95 94 L 07/11/18 10:19 07/11/18 10:32 07/11/18 10:33 Temperature Pulse Rate Respiratory Rate Blood Pressure 148/63 H Pulse Oximetry 93 L 94 L 07/11/18 10:45 07/11/18 11:00 07/11/18 11:01 Temperature Pulse Rate 84 82 83 Respiratory Rate 17 26 H 18 Blood Pressure 137/62 Pulse Oximetry 92 L 93 L 94 L 07/11/18 11:15 07/11/18 11:30 07/11/18 11:31 Temperature Pulse Rate 79 79 77 Respiratory Rate 25 H 19 18 Blood Pressure 138/61 Pulse Oximetry 94 L 93 L 94 L 07/11/18 11:46 07/11/18 12:00 07/11/18 12:01 Temperature 98.4 F Pulse Rate 77 76 82 Respiratory Rate 19 24 17 Blood Pressure 155/83 H Pulse Oximetry 95 93 L 95 07/11/18 12:15 07/11/18 12:30 07/11/18 12:31 Temperature Pulse Rate 77 80 78 Respiratory Rate 18 16 29 H Blood Pressure 141/65 H Pulse Oximetry 95 92 L 92 L 07/11/18 12:45 07/11/18 13:00 07/11/18 13:01 Temperature Pulse Rate 78 82 81 Respiratory Rate 19 24 29 H Blood Pressure 145/81 H Pulse Oximetry 97 95 96 07/11/18 13:15 07/11/18 13:30 07/11/18 13:31 Temperature Pulse Rate 79 82 82 Respiratory Rate 20 23 19 Blood Pressure 155/68 H Pulse Oximetry 96 96 97 07/11/18 13:45 07/11/18 14:00 07/11/18 14:01 Temperature Pulse Rate 83 82 80 Respiratory Rate 30 H 19 22 Blood Pressure 134/60 Pulse Oximetry 94 L 93 L 07/11/18 14:15 07/11/18 14:30 07/11/18 14:31 Temperature Pulse Rate 77 80 83 Respiratory Rate 17 32 H 26 H Blood Pressure 149/65 H Pulse Oximetry 94 L 95 94 L 07/11/18 14:45 07/11/18 15:00 07/11/18 15:01 Temperature Pulse Rate 82 79 80 Respiratory Rate 23 21 20 Blood Pressure 160/69 H Pulse Oximetry 91 L 91 L 92 L 07/11/18 15:15 07/11/18 15:30 07/11/18 15:31 Temperature Pulse Rate 79 75 77 Respiratory Rate 18 18 18 Blood Pressure 172/99 H Pulse Oximetry 90 L 92 L 90 L 07/11/18 15:42 07/11/18 15:45 07/11/18 16:00 Temperature 98.2 F Pulse Rate 80 81 83 Respiratory Rate 19 18 34 H Blood Pressure 150/67 H 155/67 H 138/63 Pulse Oximetry 94 L 94 L 94 L 07/11/18 16:15 07/11/18 16:30 07/11/18 16:45 Temperature Pulse Rate 81 81 85 Respiratory Rate 21 21 36 H Blood Pressure 151/64 H 148/67 H 153/69 H Pulse Oximetry 96 96 94 L 07/11/18 17:00 07/11/18 17:15 07/11/18 17:30 Temperature Pulse Rate 82 83 80 Respiratory Rate 21 20 18 Blood Pressure 153/67 H 148/67 H 138/64 Pulse Oximetry 94 L 93 L 94 L 07/11/18 17:45 07/11/18 17:55 07/11/18 18:00 Temperature Pulse Rate 101 H 98 H 95 H Respiratory Rate 28 H 35 H 22 Blood Pressure 166/100 H 150/78 H 160/80 H Pulse Oximetry 96 07/11/18 18:15 07/11/18 18:30 07/11/18 18:33 Temperature Pulse Rate 90 88 91 H Respiratory Rate 19 20 26 H Blood Pressure 139/63 174/111 H Pulse Oximetry 96 95 95 07/11/18 18:45 07/11/18 19:00 07/11/18 19:15 Temperature 98.6 F Pulse Rate 90 94 H 85 Respiratory Rate 23 15 22 Blood Pressure 143/63 H 118/57 L 147/65 H Pulse Oximetry 93 L 96 97 07/11/18 19:30 07/11/18 19:45 07/11/18 20:00 Temperature Pulse Rate 83 84 78 Respiratory Rate 20 16 19 Blood Pressure 134/62 131/63 140/60 Pulse Oximetry 96 99 95 07/11/18 20:03 07/11/18 20:15 07/11/18 20:30 Temperature Pulse Rate 81 81 Respiratory Rate 21 21 Blood Pressure 184/73 H 129/62 Pulse Oximetry 94 L 96 96 07/11/18 20:45 07/11/18 21:00 07/11/18 21:15 Temperature Pulse Rate 93 H 90 82 Respiratory Rate 25 H 28 H 20 Blood Pressure 127/74 153/71 H 168/73 H Pulse Oximetry 95 93 L 84 L 07/11/18 21:30 07/11/18 21:45 07/11/18 22:00 Temperature Pulse Rate 85 92 H 94 H Respiratory Rate 17 39 H 24 Blood Pressure 178/89 H 131/62 152/68 H Pulse Oximetry 94 L 94 L 99 07/11/18 22:15 07/11/18 22:30 07/11/18 22:45 Temperature Pulse Rate 77 80 84 Respiratory Rate 20 18 25 H Blood Pressure 132/63 142/64 H 143/63 H Pulse Oximetry 96 98 97 07/11/18 23:00 07/11/18 23:15 07/11/18 23:30 Temperature Pulse Rate 87 102 H 85 Respiratory Rate 18 25 H 19 Blood Pressure 142/64 H 176/74 H 126/60 Pulse Oximetry 97 97 97 07/11/18 23:45 07/12/18 00:00 07/12/18 00:15 Temperature 98.3 F Pulse Rate 88 89 85 Respiratory Rate 19 19 19 Blood Pressure 112/57 L 142/64 H 135/65 Pulse Oximetry 99 97 98 07/12/18 00:30 07/12/18 00:45 07/12/18 01:00 Temperature Pulse Rate 95 H 88 94 H Respiratory Rate 34 H 19 37 H Blood Pressure 138/64 143/65 H 152/67 H Pulse Oximetry 99 96 96 07/12/18 01:15 07/12/18 01:30 07/12/18 01:46 Temperature Pulse Rate 99 H 112 H 100 H Respiratory Rate 19 30 H 30 H Blood Pressure 172/72 H 159/74 H 126/65 Pulse Oximetry 99 07/12/18 02:00 07/12/18 02:15 07/12/18 02:30 Temperature Pulse Rate 79 84 73 Respiratory Rate 12 20 20 Blood Pressure 120/56 L 95/52 L 115/54 L Pulse Oximetry 94 L 97 96 07/12/18 02:45 07/12/18 03:00 07/12/18 03:15 Temperature Pulse Rate 88 78 98 H Respiratory Rate 19 19 42 H Blood Pressure 158/72 H 129/52 L 180/81 H Pulse Oximetry 97 98 81 L 07/12/18 03:30 07/12/18 03:45 07/12/18 04:00 Temperature 98.3 F Pulse Rate 95 H 85 89 Respiratory Rate 33 H 21 18 Blood Pressure 178/79 H 153/68 H 151/68 H Pulse Oximetry 97 95 98 07/12/18 04:15 07/12/18 04:30 07/12/18 04:42 Temperature Pulse Rate 92 H 98 H 91 H Respiratory Rate 21 19 27 H Blood Pressure 162/75 H 181/82 H Pulse Oximetry 98 99 98 07/12/18 04:45 07/12/18 05:00 07/12/18 05:15 Temperature Pulse Rate 101 H 92 H 82 Respiratory Rate 22 27 H 17 Blood Pressure 138/63 Pulse Oximetry 97 98 97 07/12/18 05:30 07/12/18 05:45 07/12/18 06:00 Temperature Pulse Rate 85 93 H 85 Respiratory Rate 15 22 24 Blood Pressure 144/67 H 140/67 133/60 Pulse Oximetry 98 98 99 07/12/18 06:15 07/12/18 06:30 07/12/18 06:45 Temperature Pulse Rate 74 86 92 H Respiratory Rate 16 18 34 H Blood Pressure 134/66 134/73 134/60 Pulse Oximetry 97 99 99 07/12/18 07:00 07/12/18 07:30 07/12/18 07:45 Temperature Pulse Rate 64 83 64 Respiratory Rate 15 17 16 Blood Pressure 156/93 H 156/72 H 161/75 H Pulse Oximetry 99 100 99 07/12/18 08:00 07/12/18 08:15 07/12/18 08:30 Temperature 98.0 F Pulse Rate 66 100 H 89 Respiratory Rate 15 25 H 26 H Blood Pressure 150/75 H 159/90 H 175/81 H Pulse Oximetry 100 99 98 07/12/18 08:33 07/12/18 08:45 07/12/18 08:49 Temperature Pulse Rate 94 H 98 H 69 Respiratory Rate 18 7 L 16 Blood Pressure 157/81 H 171/90 H 155/73 H Pulse Oximetry 99 100 99 07/12/18 09:00 07/12/18 09:12 07/12/18 09:15 Temperature Pulse Rate 63 71 89 Respiratory Rate 16 12 15 Blood Pressure 146/79 H Pulse Oximetry 100 100 99 07/12/18 09:30 07/12/18 09:38 Temperature Pulse Rate 86 78 Respiratory Rate 15 13 Blood Pressure 135/62 Pulse Oximetry 100 97 Intake & Output 07/11/18 07/12/18 07/12/18 18:59 06:59 18:59 Intake Total 1150 / 1150 1660 / 1660 50 / 50 Output Total 1200 / 1200 900 / 900 Balance -50 / -50 760 / 760 50 / 50 Weight 71.2 kg Intake: IV 1150 / 1150 1300 / 1300 50 / 50 Cleviprex Inj 25 mg In 50 ml @ 150 / 150 300 / 300 50 / 50 1 MG/HR 2 mls/hr IV.CONT TITRATE PRN Rx#:[id number] NS Inj 1,000 ML @ 70 mls/hr IV. 1000 / 1000 1000 / 1000 CONT .[id number] [facility] Rx#: [id number] Oral 360 / 360 Output: Urine 900 / 900 Urine Amount (Catheter) 1200 / 1200 Indwelling Urethral Catheter 1200 / 1200 Other: Date of Last Bowel Movement 07/09/18 07/09/18 07/09/18 # Bowel Movements 0 0
[2018-07-12] MEDS: Sod Chloride 0.9% Inj 1,000 ML IV.CONT SCH (10:11)
--- NOTE | 2018-07-12 15:28 | P.PNIM ---
Subjective Interval history: Follow up for carotid stenosis, hematuria and possible delirium. Patient is currently doing well. However, reports that at night he gets very delirious. Per nursing staff, he pulled his Smith catheter and now he has hematuria again. He continues to require clevidipine drip for blood pressure control. Physical Exam Vital signs: Last Vital Signs Temp 98.3 F 07/12/18 11:53 Pulse 77 07/12/18 11:53 Resp 16 07/12/18 11:53 BP 144/64 H 07/12/18 11:53 Pulse Ox 95 07/12/18 11:53 Intake & Output 07/10/18 07/11/18 07/12/18 07/13/18 06:59 06:59 06:59 06:59 Intake Total 3170 / 3170 1870 / 1870 2810 / 2810 1100 / 1100 Output Total 3690 / 3690 1850 / 1850 2100 / 2100 Balance -520 / -520 20 / 20 710 / 710 1100 / 1100 Weight 73.3 kg 72.2 kg 71.2 kg Narrative: GENERAL: Alert, NAD. SKIN: Warm and dry. HEAD: Normocephalic. EYES: No scleral icterus. No injection or drainage. NECK: Supple, trachea midline. No JVD or lymphadenopathy. CARDIOVASCULAR: Regular rate and rhythm without murmurs, gallops, or rubs. RESPIRATORY: Breath sounds equal bilaterally. No accessory muscle use. GASTROINTESTINAL: Abdomen soft, non-tender, nondistended. MUSCULOSKELETAL: No cyanosis, or edema. BACK: Nontender without obvious deformity. No CVA tenderness. Urinary Catheter Management Straight: Cath placed during this visit: yes, but has since been removed by the nurse Insertion date: 07/08/18 Insertion time: 06:00 Removal date: 07/07/18 Removal time: 19:30 Indwelling Urethral Catheter: Cath placed during this visit: yes Urethral indwelling: No Insertion date: 07/08/18 Results Labs CBC & Chem 7: 07/09/18 04:08 07/09/18 04:08 Procedures Procedures: 07/07/2018 Left carotid endarterectomy with patch angioplasty. Assessment and Plan (1) History of left-sided carotid endarterectomy: Code(s): Z98.890 - Other specified postprocedural states Status: Acute (2) Transient cerebral ischemia: Code(s): G45.9 - Transient cerebral ischemic attack, unspecified Status: Acute (3) Accelerated hypertension: Code(s): I10 - Essential (primary) hypertension Status: Acute (4) CAD (coronary artery disease): Code(s): I25.10 - Atherosclerotic heart disease of [place] coronary artery without angina pectoris Status: Acute (5) Hx of CABG: Code(s): Z95.1 - Presence of aortocoronary bypass graft Status: Acute (6) Hx of aortic valve replacement: Code(s): Z95.2 - Presence of prosthetic heart valve Status: Acute Plan Mr. Ochoa is a pleasant 88-year-old male with a history of hypertension, hyperlipidemia, diabetes mellitus, AVR, coronary artery disease who presented to the emergency department on 07/06/2018 due to weakness in his lower extremities. He was working outside when he felt this weakness. He fell as well not hit his head or did not have any loss of consciousness. When he came inside he could not differentiate between a knife and a fork. Due to weakness and some level of confusion, patient was brought to the emergency department. Carotid ultrasound indicated greater than 70% stenosis of the left carotid artery. Patient was subsequently transferred to the [facility] and underwent left endarterectomy. Neurologic was consulted. Probable TIA with aphasia and confusion Appreciate neurology input. MRI studies indicate no evidence of a stroke. Probable ICU delirium/agitation Likely multifactorial due to ICU stay as well as underlying possible dementia We will start patient on Seroquel 25 mg nightly today. Lateral carotid artery stenosis Patient is status post left endarterectomy by vascular surgery. Continue aspirin 81 mg daily, Plavix 75 mg p.o. daily. Patient is also to be continued on heparin SQ for DVT prophylaxis. We will continue Protonix. Hematuria Continue Smith catheter per urology. Probably another 24 hours. Patient continues to have hematuria Hypertension Patient is currently on clevidipine drip. Continue nifedipine 90 mg daily, increase losartan to 100 mg daily. Start torsemide 10 mg daily. wean off clevidipine drip. Once clevidipine drip is discontinued, patient can likely be transferred to the [facility] floor Coronary artery disease History of CABG Continue aspirin, atorvastatin, isosorbide mononitrate Full code. Discussed with vascular surgery on 07/11/2018. We will continue heparin SQ for DVT prophylaxis. Progress Note: Quality VTE Deep Vein Thrombosis/Pulmonary Embolism Present on Admission: No _ (1) Transient cerebral ischemia Qualifiers: Transient cerebral ischemia type: unspecified Qualified Code(s): G45.9 - Transient cerebral ischemic attack, unspecified (2) CAD (coronary artery disease) Qualifiers: Coronary Disease-Associated Artery/Lesion type: [place] vs. transplanted heart: Associated angina:
[2018-07-12] MEDS ORDERED: QUEtiapine 25 MG Tablet PO SCH (21:00)
[2018-07-12] MEDS: Heparin - SQ 10,000 UNITS/ML Vial SQ SCH (22:07)
--- NOTE | 2018-07-13 00:54 | P.PNCA ---
Subjective Interval history: Continues to have delirium at night During the day no complaints Blood pressure still elevated on Cleviprex Medications and Allergies Active Medications: Active Medications Acetaminophen (Tylenol) 650 mg PO Q4H PRN PRN Reason: headache/fever/pain1-5 Al Hydroxide/Mg Hydroxide (Milk Of [place] Liq) 30 ml PO Q12H PRN PRN Reason: Mild Constipation Last Admin: 07/12/18 08:19 Dose: 30 ml Aspirin (Ecotrin) 81 mg PO DAILY [facility] Atorvastatin Calcium (Lipitor) 80 mg PO DAILY [facility] Last Admin: 07/12/18 08:18 Dose: 80 mg Bisacodyl (Dulcolax Supp) 10 mg RECTAL DAILY PRN PRN Reason: SEVERE CONSITIPATION Clonidine HCl (Catapres) 0.1 mg PO Q6H PRN PRN Reason: SBP>160, DBP>90 Last Admin: 07/12/18 16:21 Dose: 0.1 mg Clopidogrel Bisulfate (Plavix) 75 mg PO DAILY [facility] Last Admin: 07/12/18 08:18 Dose: 75 mg Cyanocobalamin (Vitamin B12) 500 mcg PO DAILY [facility] Last Admin: 07/12/18 08:18 Dose: 500 mcg Enalaprilat (Vasotec Inj) 1.25 mg IV.PUSH Q6H PRN PRN Reason: BLOOD PRESSURE MANAGEMENT Last Admin: 07/12/18 05:42 Dose: 1.25 mg Haloperidol Lactate (Haldol Inj) 4 mg IV.PUSH Q6H PRN PRN Reason: AGITATION AND/OR HALLUCINATION Last Admin: 07/12/18 00:34 Dose: 4 mg Heparin Sodium (Porcine) (Heparin Inj) 5,000 units SQ Q12H [facility] Last Admin: 07/12/18 22:07 Dose: 5,000 units Sodium Chloride (Ns Inj) 1,000 mls @ 70 mls/hr IV.CONT .[id number] [facility] Last Admin: 07/12/18 10:11 Dose: 70 mls/hr Clevidipine (Cleviprex Inj) 25 mg in 50 mls @ 2 mls/hr IV.CONT TITRATE PRN; Protocol PRN Reason: Per protocol Last Titration: 07/12/18 22:36 Dose: 3 mg/hr, 6 mls/hr Isosorbide Mononitrate (Imdur) 120 mg PO BID [facility] Last Admin: 07/12/18 22:05 Dose: 120 mg Lactulose (Lactulose Liq) 30 ml PO BID [facility] Last Admin: 07/12/18 22:04 Dose: 30 ml Losartan Potassium (Cozaar) 100 mg PO DAILY [facility] Morphine Sulfate (Morphine Inj) 2 mg IV.PUSH Q3H PRN PRN Reason: Pain 6-10 Last Admin: 07/08/18 08:15 Dose: 2 mg Nifedipine (Procardia Xl) 90 mg PO DAILY [facility] Last Admin: 07/12/18 08:18 Dose: 90 mg Nitroglycerin (Nitro-Dur 0.4 Mg Patch.24 Hr) 1 patch T-DERMAL DAILY [facility] Last Admin: 07/12/18 08:19 Dose: 1 patch Ondansetron HCl (Zofran Inj) 4 mg IV.PUSH Q6H PRN PRN Reason: NAUSEA OR VOMITING Pantoprazole Sodium (Protonix) 40 mg PO DAILY [facility] Last Admin: 07/12/18 08:18 Dose: 40 mg Patch Removal (Remove Old Patch) 1 each T-DERMAL DAILY [facility] Last Admin: 07/12/18 08:20 Dose: 1 each Quetiapine Fumarate (Seroquel) 25 mg PO HS [facility] Last Admin: 07/12/18 22:04 Dose: 25 mg Senna/Docusate Sodium (Karen-Colace) 1 tab PO BID [facility] Last Admin: 07/12/18 22:04 Dose: 1 tab Sennosides (Senokot) 17.2 mg PO Q12H PRN PRN Reason: Moderate Constipation Sodium Chloride (Ns Flush) 2 ml IV.FLUSH BID [facility] Last Admin: 07/12/18 22:05 Dose: 2 ml Sodium Chloride (Ns Flush) 2 ml IV.FLUSH PRN PRN PRN Reason: FLUSH AFTER USING IV ACCESS Torsemide (Demadex) 10 mg PO DAILY [facility] Last Admin: 07/12/18 16:20 Dose: 10 mg Allergies Allergy/AdvReac Type Severity Reaction Status Date / Time No Known Allergies Allergy none Uncoded 07/05/18 19:19 Home Medications Medication Instructions Recorded Confirmed Type aspirin 325 mg PO DAILY 07/05/18 07/11/18 History acyclovir [Zovirax] 400 mg PO TID 07/06/18 07/06/18 History atorvastatin 80 mg PO DAILY 07/06/18 07/06/18 History cyanocobalamin (vitamin B-12) 500 mcg PO DAILY 07/06/18 07/06/18 History [Vitamin B-12] enalapril maleate 10 mg PO BID 07/06/18 07/06/18 History isosorbide mononitrate 120 mg PO BID 07/06/18 07/06/18 History pantoprazole [Protonix] 40 mg PO DAILY 07/06/18 07/06/18 History Physical Exam Vital signs: Vital Signs 07/12/18 01:00 07/12/18 01:15 07/12/18 01:30 Temperature Pulse Rate 94 H 99 H 112 H Respiratory Rate 37 H 19 30 H Blood Pressure 152/67 H 172/72 H 159/74 H Pulse Oximetry 96 99 07/12/18 01:46 07/12/18 02:00 07/12/18 02:15 Temperature Pulse Rate 100 H 79 84 Respiratory Rate 30 H 12 20 Blood Pressure 126/65 120/56 L 95/52 L Pulse Oximetry 94 L 97 07/12/18 02:30 07/12/18 02:45 07/12/18 03:00 Temperature Pulse Rate 73 88 78 Respiratory Rate 20 19 19 Blood Pressure 115/54 L 158/72 H 129/52 L Pulse Oximetry 96 97 98 07/12/18 03:15 07/12/18 03:30 07/12/18 03:45 Temperature Pulse Rate 98 H 95 H 85 Respiratory Rate 42 H 33 H 21 Blood Pressure 180/81 H 178/79 H 153/68 H Pulse Oximetry 81 L 97 95 07/12/18 04:00 07/12/18 04:15 07/12/18 04:30 Temperature 98.3 F Pulse Rate 89 92 H 98 H Respiratory Rate 18 21 19 Blood Pressure 151/68 H 162/75 H 181/82 H Pulse Oximetry 98 98 99 07/12/18 04:42 07/12/18 04:45 07/12/18 05:00 Temperature Pulse Rate 91 H 101 H 92 H Respiratory Rate 27 H 22 27 H Blood Pressure Pulse Oximetry 98 97 98 07/12/18 05:15 07/12/18 05:30 07/12/18 05:45 Temperature Pulse Rate 82 85 93 H Respiratory Rate 17 15 22 Blood Pressure 138/63 144/67 H 140/67 Pulse Oximetry 97 98 98 12/11/18 06:00 07/12/18 06:15 07/12/18 06:30 Temperature Pulse Rate 85 74 86 Respiratory Rate 24 16 18 Blood Pressure 133/60 134/66 134/73 Pulse Oximetry 99 97 99 07/12/18 06:45 07/12/18 07:00 07/12/18 07:30 Temperature Pulse Rate 92 H 64 83 Respiratory Rate 34 H 15 17 Blood Pressure 134/60 156/93 H 156/72 H Pulse Oximetry 99 99 100 07/12/18 07:45 07/12/18 08:00 07/12/18 08:15 Temperature 98.0 F Pulse Rate 64 66 100 H Respiratory Rate 16 15 25 H Blood Pressure 161/75 H 150/75 H 159/90 H Pulse Oximetry 99 100 99 07/12/18 08:30 07/12/18 08:33 07/12/18 08:45 Temperature Pulse Rate 89 94 H 98 H Respiratory Rate 26 H 18 7 L Blood Pressure 175/81 H 157/81 H 171/90 H Pulse Oximetry 98 99 100 07/12/18 08:49 07/12/18 09:00 07/12/18 09:12 Temperature Pulse Rate 69 63 71 Respiratory Rate 16 16 12 Blood Pressure 155/73 H 146/79 H Pulse Oximetry 99 100 100 07/12/18 09:15 07/12/18 09:30 07/12/18 09:38 Temperature Pulse Rate 89 86 78 Respiratory Rate 15 15 13 Blood Pressure 135/62 Pulse Oximetry 99 100 97 07/12/18 09:45 07/12/18 09:53 07/12/18 10:00 Temperature Pulse Rate 79 82 81 Respiratory Rate 10 L 16 16 Blood Pressure 132/62 Pulse Oximetry 98 97 99 07/12/18 10:08 07/12/18 10:15 07/12/18 10:17 Temperature Pulse Rate 83 82 86 Respiratory Rate 16 15 19 Blood Pressure 130/62 134/63 Pulse Oximetry 99 98 98 07/12/18 10:23 07/12/18 10:30 07/12/18 10:38 Temperature Pulse Rate 80 84 79 Respiratory Rate 15 22 17 Blood Pressure 129/68 134/60 Pulse Oximetry 99 96 97 07/12/18 10:45 07/12/18 10:53 07/12/18 11:00 Temperature Pulse Rate 75 85 80 Respiratory Rate 12 22 17 Blood Pressure 150/71 H Pulse Oximetry 98 98 99 07/12/18 11:08 07/12/18 11:15 07/12/18 11:23 Temperature Pulse Rate 79 80 78 Respiratory Rate 21 18 15 Blood Pressure 138/64 128/58 L Pulse Oximetry 97 97 98 07/12/18 11:30 07/12/18 11:38 07/12/18 11:45 Temperature Pulse Rate 83 83 78 Respiratory Rate 19 22 20 Blood Pressure 135/60 Pulse Oximetry 98 97 95 07/12/18 11:53 07/12/18 12:00 07/12/18 12:08 Temperature 98.3 F Pulse Rate 77 65 68 Respiratory Rate 16 9 L 12 Blood Pressure 144/64 H 130/59 L Pulse Oximetry 95 94 L 99 07/12/18 12:15 07/12/18 12:23 07/12/18 12:30 Temperature Pulse Rate 68 78 80 Respiratory Rate 12 23 27 H Blood Pressure 130/64 Pulse Oximetry 98 97 97 07/12/18 12:38 07/12/18 12:45 07/12/18 12:53 Temperature Pulse Rate 80 79 74 Respiratory Rate 19 18 16 Blood Pressure 132/62 129/69 Pulse Oximetry 98 97 95 07/12/18 13:00 07/12/18 13:08 07/12/18 13:15 Temperature Pulse Rate 83 82 88 Respiratory Rate 16 14 25 H Blood Pressure 127/67 Pulse Oximetry 98 96 96 07/12/18 13:23 07/12/18 13:30 07/12/18 13:38 Temperature Pulse Rate 89 84 87 Respiratory Rate 30 H 15 13 Blood Pressure 146/63 H 152/70 H Pulse Oximetry 98 97 96 07/12/18 13:45 07/12/18 13:53 07/12/18 14:00 Temperature Pulse Rate 84 89 82 Respiratory Rate 16 24 21 Blood Pressure 166/72 H Pulse Oximetry 95 96 96 07/12/18 14:08 07/12/18 14:15 07/12/18 14:23 Temperature Pulse Rate 86 85 82 Respiratory Rate 24 17 21 Blood Pressure 151/65 H 139/65 Pulse Oximetry 96 97 96 07/12/18 14:30 07/12/18 14:38 07/12/18 14:45 Temperature Pulse Rate 81 86 82 Respiratory Rate 19 24 22 Blood Pressure 142/79 H Pulse Oximetry 97 95 96 07/12/18 14:53 07/12/18 15:00 07/12/18 15:08 Temperature Pulse Rate 68 73 80 Respiratory Rate 17 19 15 Blood Pressure 145/63 H 140/65 Pulse Oximetry 94 L 96 96 07/12/18 15:15 07/12/18 15:23 07/12/18 15:30 Temperature Pulse Rate 70 68 84 Respiratory Rate 13 12 28 H Blood Pressure 138/63 Pulse Oximetry 97 97 98 07/12/18 15:38 07/12/18 15:45 07/12/18 15:53 Temperature Pulse Rate 71 75 75 Respiratory Rate 17 16 16 Blood Pressure 125/59 L 144/65 H Pulse Oximetry 97 97 98 07/12/18 16:00 07/12/18 16:08 07/12/18 16:15 Temperature 98.4 F Pulse Rate 76 89 88 Respiratory Rate 17 22 20 Blood Pressure 149/74 H Pulse Oximetry 96 97 96 07/12/18 16:23 07/12/18 16:30 07/12/18 16:45 Temperature Pulse Rate 89 90 90 Respiratory Rate 20 22 30 H Blood Pressure 161/77 H Pulse Oximetry 96 96 07/12/18 16:53 07/12/18 17:00 07/12/18 17:08 Temperature Pulse Rate 84 74 84 Respiratory Rate 21 18 14 Blood Pressure 130/78 139/64 Pulse Oximetry 97 96 96 07/12/18 17:15 07/12/18 17:23 07/12/18 17:30 Temperature Pulse Rate 67 65 66 Respiratory Rate 16 14 15 Blood Pressure 138/71 Pulse Oximetry 94 L 98 97 07/12/18 17:38 07/12/18 17:45 07/12/18 17:53 Temperature Pulse Rate 62 69 77 Respiratory Rate 15 16 16 Blood Pressure 141/71 H 144/68 H Pulse Oximetry 99 97 96 07/12/18 18:00 07/12/18 18:08 07/12/18 18:15 Temperature Pulse Rate 65 68 92 H Respiratory Rate 17 18 18 Blood Pressure 145/70 H Pulse Oximetry 98 98 99 07/12/18 19:08 07/12/18 19:15 07/12/18 19:23 Temperature Pulse Rate 83 102 H 90 Respiratory Rate 22 25 H 17 Blood Pressure 132/68 131/72 Pulse Oximetry 97 97 97 07/12/18 19:30 07/12/18 19:38 07/12/18 19:45 Temperature Pulse Rate 93 H 82 92 H Respiratory Rate 21 17 22 Blood Pressure 125/69 Pulse Oximetry 95 96 96 07/12/18 19:53 07/12/18 20:00 07/12/18 20:08 Temperature Pulse Rate 89 94 H 91 H Respiratory Rate 19 23 21 Blood Pressure 144/66 H 127/69 Pulse Oximetry 97 94 L 96 07/12/18 20:15 07/12/18 20:23 07/12/18 20:30 Temperature Pulse Rate 93 H 92 H 89 Respiratory Rate 21 19 19 Blood Pressure 128/70 Pulse Oximetry 97 97 97 07/12/18 20:38 07/12/18 20:45 07/12/18 20:53 Temperature Pulse Rate 92 H 103 H 118 H Respiratory Rate 20 21 21 Blood Pressure 134/63 134/67 Pulse Oximetry 97 96 99 07/12/18 21:00 07/12/18 21:08 07/12/18 21:15 Temperature Pulse Rate 105 H 113 H 103 H Respiratory Rate 22 21 22 Blood Pressure 144/84 H Pulse Oximetry 98 96 99 07/12/18 21:23 07/12/18 21:30 07/12/18 21:38 Temperature Pulse Rate 113 H 113 H 116 H Respiratory Rate 24 23 24 Blood Pressure 156/79 H 165/88 H Pulse Oximetry 96 96 96 07/12/18 21:45 07/12/18 21:53 07/12/18 22:00 Temperature 99 F Pulse Rate 107 H 103 H 114 H Respiratory Rate 21 22 19 Blood Pressure 142/72 H Pulse Oximetry 95 95 96 07/12/18 22:08 07/12/18 22:15 07/12/18 22:23 Temperature Pulse Rate 112 H 101 H 106 H Respiratory Rate 21 20 14 Blood Pressure 142/75 H 139/79 Pulse Oximetry 95 95 95 07/12/18 22:30 07/12/18 22:38 07/12/18 22:45 Temperature Pulse Rate 116 H 93 H 115 H Respiratory Rate 22 20 30 H Blood Pressure 146/72 H Pulse Oximetry 96 96 97 07/12/18 22:53 07/12/18 23:00 07/12/18 23:08 Temperature Pulse Rate 120 H 91 H 119 H Respiratory Rate 25 H 20 23 Blood Pressure 147/74 H 168/67 H Pulse Oximetry 96 95 93 L 07/12/18 23:15 07/12/18 23:23 07/12/18 23:30 Temperature Pulse Rate 109 H 96 H 107 H Respiratory Rate 21 22 21 Blood Pressure 144/65 H Pulse Oximetry 95 94 L 92 L 07/12/18 23:38 07/12/18 23:45 07/12/18 23:53 Temperature Pulse Rate 89 111 H 113 H Respiratory Rate 15 24 32 H Blood Pressure 129/66 180/91 H Pulse Oximetry 95 95 94 L 07/13/18 00:00 07/13/18 00:08 07/13/18 00:15 Temperature Pulse Rate 118 H 80 97 H Respiratory Rate 24 19 21 Blood Pressure 142/76 H Pulse Oximetry 95 97 96 07/13/18 00:23 07/13/18 00:30 07/13/18 00:38 Temperature Pulse Rate 112 H 118 H 103 H Respiratory Rate 29 H 30 H 24 Blood Pressure 157/80 H 102/61 Pulse Oximetry 96 97 94 L Intake & Output 07/12/18 07/12/18 07/13/18 06:59 18:59 06:59 Intake Total 1660 / 1660 1900 / 1900 Output Total 900 / 900 1200 / 1200 Balance 760 / 760 700 / 700 Weight 71.2 kg Intake: IV 1300 / 1300 1150 / 1150 Cleviprex Inj 25 mg In 50 ml @ 300 / 300 150 / 150 1 MG/HR 2 mls/hr IV.CONT TITRATE PRN Rx#:[id number] NS Inj 1,000 ML @ 70 mls/hr IV. 1000 / 1000 1000 / 1000 CONT .[id number] [facility] Rx#: [id number] Oral 360 / 360 750 / 750 Output: Urine 900 / 900 Urine Amount (Catheter) 1200 / 1200 Indwelling Urethral Catheter 1200 / 1200 Other: Date of Last Bowel Movement 07/09/18 07/09/18 07/09/18 # Bowel Movements 0 0 Narrative: GENERAL: Alert, NAD. SKIN: Warm and dry. HEAD: Normocephalic. EYES: No scleral icterus. No injection or drainage. NECK: Supple, trachea midline. No JVD or lymphadenopathy. CARDIOVASCULAR: Regular rate and rhythm without murmurs, gallops, or rubs. RESPIRATORY: Breath sounds equal bilaterally. No accessory muscle use. GASTROINTESTINAL: Abdomen soft, non-tender, nondistended. MUSCULOSKELETAL: No cyanosis, or edema. BACK: Nontender without obvious deformity. No CVA tenderness. - Urinary Catheter Management Straight Cath placed during this visit: yes, but has since been removed by the nurse Reason for continuing: Acute urinary retention Insertion date: 07/08/18 Insertion time: 06:00 Removal date: 07/07/18 Removal time: 19:30 Indwelling Urethral Catheter Cath placed during this visit: yes Urethral indwelling: No Reason for continuing: Gross Hematuria Insertion date: 07/08/18 Results 07/09/18 04:08 07/09/18 04:08 Intake and Output 07/12/18 07/12/18 07/13/18 14:59 22:59 06:59 Intake Total 1150 / 1150 750 / 750 Output Total 1200 / 1200 Balance 1150 / 1150 -450 / -450 Intake: IV 1150 / 1150 Cleviprex Inj 25 mg In 50 ml @ 150 / 150 1 MG/HR 2 mls/hr IV.CONT TITRATE PRN Rx#:[id number] NS Inj 1,000 ML @ 70 mls/hr IV. 1000 / 1000 CONT .[id number] JOSE A Rx#: [id number] Oral 750 / 750 Output: Urine Amount (Catheter) 1200 / 1200 Indwelling Urethral Catheter 1200 / 1200 Other: Date of Last Bowel Movement 07/09/18 07/09/18 07/09/18 # Bowel Movements 0 Assessment and Plan - Assessment (1) History of left-sided carotid endarterectomy Code(s): Z98.890 - Other specified postprocedural states Status: Acute (2) Transient cerebral ischemia Code(s): G45.9 - Transient cerebral ischemic attack, unspecified Status: Acute (3) Accelerated hypertension Code(s): I10 - Essential (primary) hypertension Status: Acute (4) CAD (coronary artery disease) Code(s): I25.10 - Atherosclerotic heart disease of [place] coronary artery without angina pectoris Status: Acute (5) Hx of CABG Code(s): Z95.1 - Presence of aortocoronary bypass graft Status: Acute (6) Hx of aortic valve replacement Code(s): Z95.2 - Presence of prosthetic heart valve Status: Acute - Plan 1) TIA 2) Carotid artery stenosis s/p left CEA 3) Confusion mostly at night possible ICU psychosis vs sundowning. 4) CAD with history of CABG Stable 5) Hx of AVR, bioprosthetic 6) HTN Plan to attempt to wean off Cleviprex Con't Procardia XL Agree with increasing Losartan HTN can be exacerbated by agitation overnight, agree with attempting to mitigate agitation as a possible cause (2) Transient cerebral ischemia Qualifiers: Transient cerebral ischemia type: unspecified Qualified Code(s): G45.9 - Transient cerebral ischemic attack, unspecified
[2018-07-13] MEDS: Sod Chloride 0.9% Inj 1,000 ML IV.CONT SCH ×2 (00:59→15:56)
[2018-07-13] MEDS: Isosorbide Mononitrate 60 MG ER 24HR Tablet (Imdur) PO SCH ×2 (08:52→20:01)
[2018-07-13] MEDS: Heparin - SQ 10,000 UNITS/ML Vial SQ SCH ×2 (08:53→20:01)
[2018-07-13] MEDS: Pantoprazole Sodium 20 MG DR Tablet PO SCH (08:53)
[2018-07-13] MEDS: Senna/Docusate Sodium 8.6/50 MG Tablet PO SCH ×2 (08:54→20:01)
--- NOTE | 2018-07-13 10:04 | P.PNIM ---
Subjective Interval history: Follow up for carotid stenosis, hematuria and possible delirium. Patient is doing much better today. Denies any chest pain, shortness of breath, fever or chills. He slept well. Physical Exam Vital signs: Last Vital Signs Temp 97.6 F 07/13/18 08:00 Pulse 98 H 07/13/18 09:45 Resp 26 H 07/13/18 09:45 BP 144/77 H 07/13/18 09:45 Pulse Ox 100 07/13/18 09:45 Intake & Output 07/11/18 07/12/18 07/13/18 07/14/18 06:59 06:59 06:59 06:59 Intake Total 1870 / 1870 2810 / 2810 3090 / 3090 Output Total 1850 / 1850 2100 / 2100 2700 / 2700 Balance 20 20 710 / 710 390 / 390 Weight 72.2 kg 71.2 kg 70.4 kg Narrative: GENERAL: Alert, NAD. SKIN: Warm and dry. HEAD: Normocephalic. EYES: No scleral icterus. No injection or drainage. NECK: Supple, trachea midline. No JVD or lymphadenopathy. CARDIOVASCULAR: Regular rate and rhythm without murmurs, gallops, or rubs. RESPIRATORY: Breath sounds equal bilaterally. No accessory muscle use. GASTROINTESTINAL: Abdomen soft, non-tender, nondistended. MUSCULOSKELETAL: No cyanosis, or edema. BACK: Nontender without obvious deformity. No CVA tenderness. Urinary Catheter Management Straight: Cath placed during this visit: yes, but has since been removed by the nurse Insertion date: 07/08/18 Insertion time: 06:00 Removal date: 07/07/18 Removal time: 19:30 Indwelling Urethral Catheter: Cath placed during this visit: yes Urethral indwelling: No Insertion date: 07/08/18 Results Labs CBC & Chem 7: 07/09/18 04:08 07/09/18 04:08 Procedures Procedures: 07/07/2018 Left carotid endarterectomy with patch angioplasty. Assessment and Plan (1) History of left-sided carotid endarterectomy: Code(s): Z98.890 - Other specified postprocedural states Status: Acute (2) Transient cerebral ischemia: Code(s): G45.9 - Transient cerebral ischemic attack, unspecified Status: Acute (3) Accelerated hypertension: Code(s): I10 - Essential (primary) hypertension Status: Acute (4) CAD (coronary artery disease): Code(s): I25.10 - Atherosclerotic heart disease of [place] coronary artery without angina pectoris Status: Acute (5) Hx of CABG: Code(s): Z95.1 - Presence of aortocoronary bypass graft Status: Acute (6) Hx of aortic valve replacement: Code(s): Z95.2 - Presence of prosthetic heart valve Status: Acute Plan Mr. Ochoa is a pleasant 88-year-old male with a history of hypertension, hyperlipidemia, diabetes mellitus, AVR, coronary artery disease who presented to the emergency department on 07/06/2018 due to weakness in his lower extremities. He was working outside when he felt this weakness. He fell as well not hit his head or did not have any loss of consciousness. When he came inside he could not differentiate between a knife and a fork. Due to weakness and some level of confusion, patient was brought to the emergency department. Carotid ultrasound indicated greater than 70% stenosis of the left carotid artery. Patient was subsequently transferred to the main hospital and underwent left endarterectomy. Neurologic was consulted. Probable TIA with aphasia and confusion Appreciate neurology input. MRI studies indicate no evidence of a stroke. Probable ICU delirium/agitation Likely multifactorial due to ICU stay as well as underlying possible dementia Continue Seroquel 25 mg nightly. ICU delirium is much improved today. Patient is very coherent. Lateral carotid artery stenosis Patient is status post left endarterectomy by vascular surgery. Continue aspirin 81 mg daily, Plavix 75 mg p.o. daily. Patient is also to be continued on heparin SQ for DVT prophylaxis. We will continue Protonix. Hematuria Continue Smith catheter per urology. Hypertension Patient is currently off clevidipine drip. Continue nifedipine 90 mg daily, increased losartan to 100 mg daily. Continue torsemide 10 mg daily. If blood pressure remains well controlled, patient can likely go to [facility] floor today. Coronary artery disease History of CABG Continue aspirin, atorvastatin, isosorbide mononitrate Full code. Heparin SQ for DVT prophylaxis. Progress Note: Quality VTE Deep Vein Thrombosis/Pulmonary Embolism Present on Admission: No _ (1) Transient cerebral ischemia Qualifiers: Transient cerebral ischemia type: unspecified Qualified Code(s): G45.9 - Transient cerebral ischemic attack, unspecified (2) CAD (coronary artery disease) Qualifiers: Coronary Disease-Associated Artery/Lesion type: [facility] vs. transplanted heart: Associated angina:
--- NOTE | 2018-07-13 10:46 | P.PNNEU ---
Subjective Active Medications: Active Medications Acetaminophen (Tylenol) 650 mg PO Q4H PRN PRN Reason: headache/fever/pain1-5 Al Hydroxide/Mg Hydroxide (Milk Of Magnesia Liq) 30 ml PO Q12H PRN PRN Reason: Mild Constipation Last Admin: 07/12/18 08:19 Dose: 30 ml Aspirin (Ecotrin) 81 mg PO DAILY [facility] Last Admin: 07/13/18 08:53 Dose: 81 mg Atorvastatin Calcium (Lipitor) 80 mg PO DAILY [facility] Last Admin: 07/13/18 08:54 Dose: 80 mg Bisacodyl (Dulcolax Supp) 10 mg RECTAL DAILY PRN PRN Reason: SEVERE CONSITIPATION Clonidine HCl (Catapres) 0.1 mg PO Q6H PRN PRN Reason: SBP>160, DBP>90 Last Admin: 07/12/18 16:21 Dose: 0.1 mg Clopidogrel Bisulfate (Plavix) 75 mg PO DAILY [facility] Last Admin: 07/13/18 08:54 Dose: 75 mg Cyanocobalamin (Vitamin B12) 500 mcg PO DAILY [facility] Last Admin: 07/13/18 08:54 Dose: 500 mcg Enalaprilat (Vasotec Inj) 1.25 mg IV.PUSH Q6H PRN PRN Reason: BLOOD PRESSURE MANAGEMENT Last Admin: 07/12/18 05:42 Dose: 1.25 mg Heparin Sodium (Porcine) (Heparin Inj) 5,000 units SQ Q12H [facility] Last Admin: 07/13/18 08:53 Dose: 5,000 units Sodium Chloride (Ns Inj) 1,000 mls @ 70 mls/hr IV.CONT .[id number] [facility] Last Admin: 07/13/18 00:59 Dose: 70 mls/hr Clevidipine (Cleviprex Inj) 25 mg in 50 mls @ 2 mls/hr IV.CONT TITRATE PRN; Protocol PRN Reason: Per protocol Last Titration: 07/13/18 03:32 Dose: Infused Isosorbide Mononitrate (Imdur) 120 mg PO BID [facility] Last Admin: 07/13/18 08:52 Dose: 120 mg Lactulose (Lactulose Liq) 30 ml PO BID [facility] Last Admin: 07/13/18 08:54 Dose: Not Given Losartan Potassium (Cozaar) 100 mg PO DAILY [facility] Last Admin: 07/13/18 09:17 Dose: 100 mg Nifedipine (Procardia Xl) 90 mg PO DAILY [facility] Last Admin: 07/13/18 09:17 Dose: 90 mg Nitroglycerin (Nitro-Dur 0.4 Mg Patch.24 Hr) 1 patch T-DERMAL DAILY [facility] Last Admin: 07/13/18 08:52 Dose: 1 patch Ondansetron HCl (Zofran Inj) 4 mg IV.PUSH Q6H PRN PRN Reason: NAUSEA OR VOMITING Pantoprazole Sodium (Protonix) 40 mg PO DAILY [facility] Last Admin: 07/13/18 08:53 Dose: 40 mg Patch Removal (Remove Old Patch) 1 each T-DERMAL DAILY [facility] Last Admin: 07/13/18 08:54 Dose: 1 each Risperidone (Risperdal) 0.25 mg PO DAILY [facility] Senna/Docusate Sodium (Karen-Colace) 1 tab PO BID [facility] Last Admin: 07/13/18 08:54 Dose: Not Given Sennosides (Senokot) 17.2 mg PO Q12H PRN PRN Reason: Moderate Constipation Sodium Chloride (Ns Flush) 2 ml IV.FLUSH BID [facility] Last Admin: 07/13/18 08:54 Dose: Not Given Sodium Chloride (Ns Flush) 2 ml IV.FLUSH PRN PRN PRN Reason: FLUSH AFTER USING IV ACCESS Temazepam (Restoril) 15 mg PO HS [facility] Torsemide (Demadex) 10 mg PO DAILY [facility] Last Admin: 07/13/18 09:17 Dose: 10 mg Allergies/Adverse Reactions: Allergies Allergy/AdvReac Type Severity Reaction Status Date / Time No Known Allergies Allergy none Uncoded 07/05/18 19:19 Physical Exam Vital signs: Vital Signs 07/12/18 10:53 07/12/18 11:00 07/12/18 11:08 Temperature Pulse Rate 85 80 79 Respiratory Rate 22 17 21 Blood Pressure 150/71 H 138/64 Pulse Oximetry 98 99 97 07/12/18 11:15 07/12/18 11:23 07/12/18 11:30 Temperature Pulse Rate 80 78 83 Respiratory Rate 18 15 19 Blood Pressure 128/58 L Pulse Oximetry 97 98 98 07/12/18 11:38 07/12/18 11:45 07/12/18 11:53 Temperature 98.3 F Pulse Rate 83 78 77 Respiratory Rate 22 20 16 Blood Pressure 135/60 144/64 H Pulse Oximetry 97 95 95 07/12/18 12:00 07/12/18 12:08 07/12/18 12:15 Temperature Pulse Rate 65 68 68 Respiratory Rate 9 L 12 12 Blood Pressure 130/59 L Pulse Oximetry 94 L 99 98 07/12/18 12:23 07/12/18 12:30 07/12/18 12:38 Temperature Pulse Rate 78 80 80 Respiratory Rate 23 27 H 19 Blood Pressure 130/64 132/62 Pulse Oximetry 97 97 98 07/12/18 12:45 07/12/18 12:53 07/12/18 13:00 Temperature Pulse Rate 79 74 83 Respiratory Rate 18 16 16 Blood Pressure 129/69 Pulse Oximetry 97 95 98 07/12/18 13:08 07/12/18 13:15 07/12/18 13:23 Temperature Pulse Rate 82 88 89 Respiratory Rate 14 25 H 30 H Blood Pressure 127/67 146/63 H Pulse Oximetry 96 96 98 07/12/18 13:30 07/12/18 13:38 07/12/18 13:45 Temperature Pulse Rate 84 87 84 Respiratory Rate 15 13 16 Blood Pressure 152/70 H Pulse Oximetry 97 96 95 07/12/18 13:53 07/12/18 14:00 07/12/18 14:08 Temperature Pulse Rate 89 82 86 Respiratory Rate 24 21 24 Blood Pressure 166/72 H 151/65 H Pulse Oximetry 96 96 96 07/12/18 14:15 07/12/18 14:23 07/12/18 14:30 Temperature Pulse Rate 85 82 81 Respiratory Rate 17 21 19 Blood Pressure 139/65 Pulse Oximetry 97 96 97 07/12/18 14:38 07/12/18 14:45 07/12/18 14:53 Temperature Pulse Rate 86 82 68 Respiratory Rate 24 22 17 Blood Pressure 142/79 H 145/63 H Pulse Oximetry 95 96 94 L 07/12/18 15:00 07/12/18 15:08 07/12/18 15:15 Temperature Pulse Rate 73 80 70 Respiratory Rate 19 15 13 Blood Pressure 140/65 Pulse Oximetry 96 96 97 07/12/18 15:23 07/12/18 15:30 07/12/18 15:38 Temperature Pulse Rate 68 84 71 Respiratory Rate 12 28 H 17 Blood Pressure 138/63 125/59 L Pulse Oximetry 97 98 97 07/12/18 15:45 07/12/18 15:53 07/12/18 16:00 Temperature 98.4 F Pulse Rate 75 75 76 Respiratory Rate 16 16 17 Blood Pressure 144/65 H Pulse Oximetry 97 98 96 07/12/18 16:08 07/12/18 16:15 07/12/18 16:23 Temperature Pulse Rate 89 88 89 Respiratory Rate 22 20 20 Blood Pressure 149/74 H 161/77 H Pulse Oximetry 97 96 96 07/12/18 16:30 07/12/18 16:45 07/12/18 16:53 Temperature Pulse Rate 90 90 84 Respiratory Rate 22 30 H 21 Blood Pressure 130/78 Pulse Oximetry 96 97 07/12/18 17:00 07/12/18 17:08 07/12/18 17:15 Temperature Pulse Rate 74 84 67 Respiratory Rate 18 14 16 Blood Pressure 139/64 Pulse Oximetry 96 96 94 L 07/12/18 17:23 07/12/18 17:30 07/12/18 17:38 Temperature Pulse Rate 65 66 62 Respiratory Rate 14 15 15 Blood Pressure 138/71 141/71 H Pulse Oximetry 98 97 99 07/12/18 17:45 07/12/18 17:53 07/12/18 18:00 Temperature Pulse Rate 69 77 65 Respiratory Rate 16 16 17 Blood Pressure 144/68 H Pulse Oximetry 97 96 98 07/12/18 18:08 07/12/18 18:15 07/12/18 19:08 Temperature Pulse Rate 68 92 H 83 Respiratory Rate 18 18 22 Blood Pressure 145/70 H 132/68 Pulse Oximetry 98 99 97 07/12/18 19:15 07/12/18 19:23 07/12/18 19:30 Temperature Pulse Rate 102 H 90 93 H Respiratory Rate 25 H 17 21 Blood Pressure 131/72 Pulse Oximetry 97 97 95 07/12/18 19:38 07/12/18 19:45 07/12/18 19:53 Temperature Pulse Rate 82 92 H 89 Respiratory Rate 17 22 19 Blood Pressure 125/69 144/66 H Pulse Oximetry 96 96 97 07/12/18 20:00 07/12/18 20:08 07/12/18 20:15 Temperature Pulse Rate 94 H 91 H 93 H Respiratory Rate 23 21 21 Blood Pressure 127/69 Pulse Oximetry 94 L 96 97 07/12/18 20:23 07/12/18 20:30 07/12/18 20:38 Temperature Pulse Rate 92 H 89 92 H Respiratory Rate 19 19 20 Blood Pressure 128/70 134/63 Pulse Oximetry 97 97 97 07/12/18 20:45 07/12/18 20:53 07/12/18 21:00 Temperature Pulse Rate 103 H 118 H 105 H Respiratory Rate 21 21 22 Blood Pressure 134/67 Pulse Oximetry 96 99 98 07/12/18 21:08 07/12/18 21:15 07/12/18 21:23 Temperature Pulse Rate 113 H 103 H 113 H Respiratory Rate 21 22 24 Blood Pressure 144/84 H 156/79 H Pulse Oximetry 96 99 96 07/12/18 21:30 07/12/18 21:38 07/12/18 21:45 Temperature Pulse Rate 113 H 116 H 107 H Respiratory Rate 23 24 21 Blood Pressure 165/88 H Pulse Oximetry 96 96 95 07/12/18 21:53 07/12/18 22:00 07/12/18 22:08 Temperature 99 F Pulse Rate 103 H 114 H 112 H Respiratory Rate 22 19 21 Blood Pressure 142/72 H 142/75 H Pulse Oximetry 95 96 95 07/12/18 22:15 07/12/18 22:23 07/12/18 22:30 Temperature Pulse Rate 101 H 106 H 116 H Respiratory Rate 20 14 22 Blood Pressure 139/79 Pulse Oximetry 95 95 96 07/12/18 22:38 07/12/18 22:45 07/12/18 22:53 Temperature Pulse Rate 93 H 115 H 120 H Respiratory Rate 20 30 H 25 H Blood Pressure 146/72 H 147/74 H Pulse Oximetry 96 97 96 07/12/18 23:00 07/12/18 23:08 07/12/18 23:15 Temperature Pulse Rate 91 H 119 H 109 H Respiratory Rate 20 23 21 Blood Pressure 168/67 H Pulse Oximetry 95 93 L 95 07/12/18 23:23 07/12/18 23:30 07/12/18 23:38 Temperature Pulse Rate 96 H 107 H 89 Respiratory Rate 22 21 15 Blood Pressure 144/65 H 129/66 Pulse Oximetry 94 L 92 L 95 07/12/18 23:45 07/12/18 23:53 07/13/18 00:00 Temperature Pulse Rate 111 H 113 H 118 H Respiratory Rate 24 32 H 24 Blood Pressure 180/91 H Pulse Oximetry 95 94 L 95 07/13/18 00:08 07/13/18 00:15 07/13/18 00:23 Temperature Pulse Rate 80 97 H 112 H Respiratory Rate 19 21 29 H Blood Pressure 142/76 H 157/80 H Pulse Oximetry 97 96 96 07/13/18 00:30 07/13/18 00:38 07/13/18 00:45 Temperature Pulse Rate 118 H 103 H 82 Respiratory Rate 30 H 24 20 Blood Pressure 102/61 Pulse Oximetry 97 94 L 96 07/13/18 00:53 07/13/18 01:00 07/13/18 01:08 Temperature Pulse Rate 90 83 103 H Respiratory Rate 14 22 27 H Blood Pressure 151/77 H 136/66 Pulse Oximetry 98 95 94 L 07/13/18 01:15 07/13/18 01:23 07/13/18 01:30 Temperature Pulse Rate 77 84 85 Respiratory Rate 18 20 18 Blood Pressure 139/63 Pulse Oximetry 96 95 96 07/13/18 01:38 07/13/18 01:45 07/13/18 01:53 Temperature Pulse Rate 73 105 H 113 H Respiratory Rate 19 34 H 16 Blood Pressure 147/63 H 145/63 H Pulse Oximetry 96 98 99 07/13/18 02:00 07/13/18 02:08 07/13/18 02:15 Temperature Pulse Rate 119 H 108 H 98 H Respiratory Rate 19 22 32 H Blood Pressure 156/65 H Pulse Oximetry 98 100 96 07/13/18 02:30 07/13/18 02:45 07/13/18 02:56 Temperature Pulse Rate 109 H 120 H 100 H Respiratory Rate 30 H 27 H 22 Blood Pressure 137/65 Pulse Oximetry 97 100 100 07/13/18 03:00 07/13/18 03:10 07/13/18 03:15 Temperature Pulse Rate 77 82 88 Respiratory Rate 19 19 19 Blood Pressure 119/59 L 119/56 L Pulse Oximetry 94 L 100 95 07/13/18 03:29 07/13/18 03:30 07/13/18 03:45 Temperature 98.9 F 98.6 F Pulse Rate 64 62 76 Respiratory Rate 18 18 23 Blood Pressure 124/60 147/65 H Pulse Oximetry 99 98 98 07/13/18 04:00 07/13/18 04:15 07/13/18 04:30 Temperature Pulse Rate 65 64 59 L Respiratory Rate 19 20 19 Blood Pressure 125/76 143/89 H 120/58 L Pulse Oximetry 99 95 99 07/13/18 04:45 07/13/18 05:00 07/13/18 05:15 Temperature Pulse Rate 70 81 77 Respiratory Rate 18 33 H 18 Blood Pressure 149/67 H 147/79 H 134/61 Pulse Oximetry 94 L 93 L 96 07/13/18 05:30 07/13/18 05:45 07/13/18 06:00 Temperature Pulse Rate 96 H 61 64 Respiratory Rate 24 18 20 Blood Pressure 142/74 H 161/78 H 177/114 H Pulse Oximetry 97 96 96 07/13/18 06:02 07/13/18 06:15 07/13/18 06:30 Temperature Pulse Rate 102 H 69 101 H Respiratory Rate 26 H 30 H 29 H Blood Pressure 162/77 H 131/60 135/65 Pulse Oximetry 96 96 93 L 07/13/18 06:45 07/13/18 07:00 07/13/18 07:15 Temperature Pulse Rate 105 H 60 64 Respiratory Rate 41 H 15 17 Blood Pressure 162/84 H 117/56 L 149/81 H Pulse Oximetry 94 L 89 L 92 L 07/13/18 07:30 07/13/18 07:45 07/13/18 08:00 Temperature 97.6 F Pulse Rate 65 65 85 Respiratory Rate 18 19 22 Blood Pressure 137/69 151/68 H 151/74 H Pulse Oximetry 93 L 94 L 99 07/13/18 08:15 07/13/18 08:30 07/13/18 08:45 Temperature Pulse Rate 69 68 64 Respiratory Rate 18 17 17 Blood Pressure 150/67 H 139/89 181/112 H Pulse Oximetry 99 99 99 07/13/18 08:48 07/13/18 09:00 07/13/18 09:15 Temperature Pulse Rate 100 H 85 90 Respiratory Rate 20 20 22 Blood Pressure 163/78 H 162/74 H 165/70 H Pulse Oximetry 98 100 100 07/13/18 09:27 07/13/18 09:30 07/13/18 09:45 Temperature Pulse Rate 88 98 H Respiratory Rate 22 26 H Blood Pressure 147/79 H 144/77 H Pulse Oximetry 99 100 100 07/13/18 10:00 07/13/18 10:15 07/13/18 10:30 Temperature Pulse Rate 71 93 H 92 H Respiratory Rate 22 26 H 22 Blood Pressure 131/70 133/72 149/70 H Pulse Oximetry 100 100 100 Intake & Output 07/12/18 07/13/18 07/13/18 18:59 06:59 18:59 Intake Total 1900 / 1900 1190 / 1190 Output Total 1200 / 1200 1500 / 1500 Balance 700 / 700 -310 / -310 Weight 70.4 kg Intake: IV 1150 / 1150 950 / 950 Cleviprex Inj 25 mg In 50 ml @ 150 / 150 50 / 50 1 MG/HR 2 mls/hr IV.CONT TITRATE PRN Rx#:[id number] NS Inj 1,000 ML @ 70 mls/hr IV. 1000 / 1000 900 / 900 CONT .[id number] JOS EA Rx#: [id number] Oral 750 / 750 240 / 240 Output: Urine Amount (Catheter) 1200 / 1200 1500 / 1500 Indwelling Urethral Catheter 1200 / 1200 1500 / 1500 Other: Bladder Irrigation Fluid - Amount Instilled Indwelling Urethral Catheter 210 Date of Last Bowel Movement 07/09/18 07/09/18 07/09/18 # Bowel Movements 0 Narrative: ox3 vff face sym 5/5 calc ok speech nl - Urinary Catheter Management Straight Cath placed during this visit: yes, but has since been removed by the nurse Reason for continuing: Acute urinary retention Insertion date: 07/08/18 Insertion time: 06:00 Removal date: 07/07/18 Removal time: 19:30 Indwelling Urethral Catheter Cath placed during this visit: yes Urethral indwelling: No Reason for continuing: Gross Hematuria Insertion date: 07/08/18 Review/Management - Review/Management Plan: imp Stable neurologically . Dr Watts to resume care tomorrow - 07/11/18 much better no apHasia apparent now not sleeping well oob NEEDS BP MUCH LOWER TO 120/ OOB MUCH BETTER 07/13/18 doing well sleep deprived psychosis better sleep regiment on sleep chart bp down some improved
--- NOTE | 2018-07-13 13:50 | P.PNVS ---
Subjective Subjective/Hospital Course: Referral received Full consult TORRIE Maldonado 07/08/2018 Patient is status post left carotid endarterectomy patch angioplasty Motorically neurologically he is intact however appears to be somewhat confused and agitated somewhat dysphasic and dysarthric. Speaks clearly intermittently and follows commands only intermittently consistent with some receptive aphasia Pupils are equal and reactive Neck incision is clean and dry KAREN drain is minimal We will DC KAREN drain this morning Patient remains hemodynamically stable however hypertensive was placed on Cleviprex drip in the recovery room and remains on the same Will add medication to get patient off Cleviprex Patient is complaining about lower abdominal pain and apparently the nurse called the medical power plant operations manager four times for assistance I helped the nurse put patient back in bed and on exam he is noted to have massively distended urinary bladder Patient clearly had urinary retention in the recovery room in apparently pulled out his Smith somewhere in the late evening hours On my exam upper abdomen is soft bowel the lower abdomen is massively distended firm with guarding consistent with massively dilated bladder Order given to replace the Smith and immediately 800 cc of bloody urine obtained Patient immediately calmed down and blood pressure decreased to 180 systolic to 150 systolic I believe his neurologic symptoms to be related to hyperperfusion in face of hypertension Discussed with Dr. Watts Addendum In the afternoon patient is doing much better he is now fully awake alert and oriented Neurologically he is fully intact Incision is clean and dry CT of the brain does not reveal any acute changes At this point we will keep systolic blood pressure under 140 mmHg and once patient is off Cleviprex will be able to transfer to floor 07/11/2018 Patient is doing much better today Dysarthria and dysphasia have disappeared When talking to patient he appears to have some receptive dysphasia but this is actually due to the fact that he cannot hear well He is oriented in time and space although appeared to be occasionally confused but this is starting to show some signs of ICU delirium Motorically fully intact Answers questions appropriately and has taken his diet The only thing that keeps patient in ICU at this point is hard to control blood pressure for which she requires Cleviprex Grateful to internal medicine and cardiology for managing this issue and whenever the blood pressure is down he can leave the ICU and then transferred to rehab He will need at least a month or so of recovery before we address the right carotid which obviously will need to be done as well 07/12/2018 Today neurologically motorically patient is intact and answers questions appropriately Cervical incision is clean and dry Hypertension management remains a problem and I will leave this up to medicine and cardiology to address with expertise 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 for every night he will become disoriented starts pulling on his catheters and lines and becomes extremely restless Patient pulled his Smith catheter out again last night despite being restrained Nothing to add from vascular point this time 07/13/2018 Patient doing much better neurologically intact In the late evening patient developed sound downers syndrome becomes confused however during the day he is quite lucid oriented in space time and person Motorically fully intact Incision clean and dry Hypertension still remains a problem and patient is on Cleviprex drip and a number of other medications being managed by hospitalist and cardiology. I am running out of ideas how to bring the patient's pressure down other than placing him on nipride but then again he cannot go to the floor Hard to manage hypertension is the only reason patient is still in the ICU Objective Vital Signs / I&O: Vital Signs 07/12/18 13:53 07/12/18 14:00 07/12/18 14:08 Temperature Pulse Rate 89 82 86 Respiratory Rate 24 21 24 Blood Pressure 166/72 H 151/65 H Pulse Oximetry 96 96 96 07/12/18 14:15 07/12/18 14:23 07/12/18 14:30 Temperature Pulse Rate 85 82 81 Respiratory Rate 17 21 19 Blood Pressure 139/65 Pulse Oximetry 97 96 97 07/12/18 14:38 07/12/18 14:45 07/12/18 14:53 Temperature Pulse Rate 86 82 68 Respiratory Rate 24 22 17 Blood Pressure 142/79 H 145/63 H Pulse Oximetry 95 96 94 L 07/12/18 15:00 07/12/18 15:08 07/12/18 15:15 Temperature Pulse Rate 73 80 70 Respiratory Rate 19 15 13 Blood Pressure 140/65 Pulse Oximetry 96 96 97 07/12/18 15:23 07/12/18 15:30 07/12/18 15:38 Temperature Pulse Rate 68 84 71 Respiratory Rate 12 28 H 17 Blood Pressure 138/63 125/59 L Pulse Oximetry 97 98 97 07/12/18 15:45 07/12/18 15:53 07/12/18 16:00 Temperature 98.4 F Pulse Rate 75 75 76 Respiratory Rate 16 16 17 Blood Pressure 144/65 H Pulse Oximetry 97 98 96 07/12/18 16:08 07/12/18 16:15 07/12/18 16:23 Temperature Pulse Rate 89 88 89 Respiratory Rate 22 20 20 Blood Pressure 149/74 H 161/77 H Pulse Oximetry 97 96 96 07/12/18 16:30 07/12/18 16:45 07/12/18 16:53 Temperature Pulse Rate 90 90 84 Respiratory Rate 22 30 H 21 Blood Pressure 130/78 Pulse Oximetry 96 97 07/12/18 17:00 07/12/18 17:08 07/12/18 17:15 Temperature Pulse Rate 74 84 67 Respiratory Rate 18 14 16 Blood Pressure 139/64 Pulse Oximetry 96 96 94 L 07/12/18 17:23 07/12/18 17:30 07/12/18 17:38 Temperature Pulse Rate 65 66 62 Respiratory Rate 14 15 15 Blood Pressure 138/71 141/71 H Pulse Oximetry 98 97 99 07/12/18 17:45 07/12/18 17:53 07/12/18 18:00 Temperature Pulse Rate 69 77 65 Respiratory Rate 16 16 17 Blood Pressure 144/68 H Pulse Oximetry 97 96 98 07/12/18 18:08 07/12/18 18:15 07/12/18 19:08 Temperature Pulse Rate 68 92 H 83 Respiratory Rate 18 18 22 Blood Pressure 145/70 H 132/68 Pulse Oximetry 98 99 97 07/12/18 19:15 07/12/18 19:23 07/12/18 19:30 Temperature Pulse Rate 102 H 90 93 H Respiratory Rate 25 H 17 21 Blood Pressure 131/72 Pulse Oximetry 97 97 95 07/12/18 19:38 07/12/18 19:45 07/12/18 19:53 Temperature Pulse Rate 82 92 H 89 Respiratory Rate 17 22 19 Blood Pressure 125/69 144/66 H Pulse Oximetry 96 96 97 07/12/18 20:00 07/12/18 20:08 07/12/18 20:15 Temperature Pulse Rate 94 H 91 H 93 H Respiratory Rate 23 21 21 Blood Pressure 127/69 Pulse Oximetry 94 L 96 97 07/12/18 20:23 07/12/18 20:30 07/12/18 20:38 Temperature Pulse Rate 92 H 89 92 H Respiratory Rate 19 19 20 Blood Pressure 128/70 134/63 Pulse Oximetry 97 97 97 07/12/18 20:45 07/12/18 20:53 07/12/18 21:00 Temperature Pulse Rate 103 H 118 H 105 H Respiratory Rate 21 21 22 Blood Pressure 134/67 Pulse Oximetry 96 99 98 07/12/18 21:08 07/12/18 21:15 07/12/18 21:23 Temperature Pulse Rate 113 H 103 H 113 H Respiratory Rate 21 22 24 Blood Pressure 144/84 H 156/79 H Pulse Oximetry 96 99 96 07/12/18 21:30 07/12/18 21:38 07/12/18 21:45 Temperature Pulse Rate 113 H 116 H 107 H Respiratory Rate 23 24 21 Blood Pressure 165/88 H Pulse Oximetry 96 96 95 07/12/18 21:53 07/12/18 22:00 07/12/18 22:08 Temperature 99 F Pulse Rate 103 H 114 H 112 H Respiratory Rate 22 19 21 Blood Pressure 142/72 H 142/75 H Pulse Oximetry 95 96 95 07/12/18 22:15 07/12/18 22:23 07/12/18 22:30 Temperature Pulse Rate 101 H 106 H 116 H Respiratory Rate 20 14 22 Blood Pressure 139/79 Pulse Oximetry 95 95 96 07/12/18 22:38 07/12/18 22:45 07/12/18 22:53 Temperature Pulse Rate 93 H 115 H 120 H Respiratory Rate 20 30 H 25 H Blood Pressure 146/72 H 147/74 H Pulse Oximetry 96 97 96 07/12/18 23:00 07/12/18 23:08 07/12/18 23:15 Temperature Pulse Rate 91 H 119 H 109 H Respiratory Rate 20 23 21 Blood Pressure 168/67 H Pulse Oximetry 95 93 L 95 07/12/18 23:23 07/12/18 23:30 07/12/18 23:38 Temperature Pulse Rate 96 H 107 H 89 Respiratory Rate 22 21 15 Blood Pressure 144/65 H 129/66 Pulse Oximetry 94 L 92 L 95 07/12/18 23:45 07/12/18 23:53 07/13/18 00:00 Temperature Pulse Rate 111 H 113 H 118 H Respiratory Rate 24 32 H 24 Blood Pressure 180/91 H Pulse Oximetry 95 94 L 95 07/13/18 00:08 07/13/18 00:15 07/13/18 00:23 Temperature Pulse Rate 80 97 H 112 H Respiratory Rate 19 21 29 H Blood Pressure 142/76 H 157/80 H Pulse Oximetry 97 96 96 07/13/18 00:30 07/13/18 00:38 07/13/18 00:45 Temperature Pulse Rate 118 H 103 H 82 Respiratory Rate 30 H 24 20 Blood Pressure 102/61 Pulse Oximetry 97 94 L 96 07/13/18 00:53 07/13/18 01:00 07/13/18 01:08 Temperature Pulse Rate 90 83 103 H Respiratory Rate 14 22 27 H Blood Pressure 151/77 H 136/66 Pulse Oximetry 98 95 94 L 07/13/18 01:15 07/13/18 01:23 07/13/18 01:30 Temperature Pulse Rate 77 84 85 Respiratory Rate 18 20 18 Blood Pressure 139/63 Pulse Oximetry 96 95 96 07/13/18 01:38 07/13/18 01:45 07/13/18 01:53 Temperature Pulse Rate 73 105 H 113 H Respiratory Rate 19 34 H 16 Blood Pressure 147/63 H 145/63 H Pulse Oximetry 96 98 99 07/13/18 02:00 07/13/18 02:08 07/13/18 02:15 Temperature Pulse Rate 119 H 108 H 98 H Respiratory Rate 19 22 32 H Blood Pressure 156/65 H Pulse Oximetry 98 100 96 07/13/18 02:30 07/13/18 02:45 07/13/18 02:56 Temperature Pulse Rate 109 H 120 H 100 H Respiratory Rate 30 H 27 H 22 Blood Pressure 137/65 Pulse Oximetry 97 100 100 07/13/18 03:00 07/13/18 03:10 07/13/18 03:15 Temperature Pulse Rate 77 82 88 Respiratory Rate 19 19 19 Blood Pressure 119/59 L 119/56 L Pulse Oximetry 94 L 100 95 07/13/18 03:29 07/13/18 03:30 07/13/18 03:45 Temperature 98.9 F 98.6 F Pulse Rate 64 62 76 Respiratory Rate 18 18 23 Blood Pressure 124/60 147/65 H Pulse Oximetry 99 98 98 07/13/18 04:00 07/13/18 04:15 07/13/18 04:30 Temperature Pulse Rate 65 64 59 L Respiratory Rate 19 20 19 Blood Pressure 125/76 143/89 H 120/58 L Pulse Oximetry 99 95 99 07/13/18 04:45 07/13/18 05:00 07/13/18 05:15 Temperature Pulse Rate 70 81 77 Respiratory Rate 18 33 H 18 Blood Pressure 149/67 H 147/79 H 134/61 Pulse Oximetry 94 L 93 L 96 07/13/18 05:30 07/13/18 05:45 07/13/18 06:00 Temperature Pulse Rate 96 H 61 64 Respiratory Rate 24 18 20 Blood Pressure 142/74 H 161/78 H 177/114 H Pulse Oximetry 97 96 96 07/13/18 06:02 07/13/18 06:15 07/13/18 06:30 Temperature Pulse Rate 102 H 69 101 H Respiratory Rate 26 H 30 H 29 H Blood Pressure 162/77 H 131/60 135/65 Pulse Oximetry 96 96 93 L 07/13/18 06:45 07/13/18 07:00 07/13/18 07:15 Temperature Pulse Rate 105 H 60 64 Respiratory Rate 41 H 15 17 Blood Pressure 162/84 H 117/56 L 149/81 H Pulse Oximetry 94 L 89 L 92 L 07/13/18 07:30 07/13/18 07:45 07/13/18 08:00 Temperature 97.6 F Pulse Rate 65 65 85 Respiratory Rate 18 19 22 Blood Pressure 137/69 151/68 H 151/74 H Pulse Oximetry 93 L 94 L 99 07/13/18 08:15 07/13/18 08:30 07/13/18 08:45 Temperature Pulse Rate 69 68 64 Respiratory Rate 18 17 17 Blood Pressure 150/67 H 139/89 181/112 H Pulse Oximetry 99 99 99 07/13/18 08:48 07/13/18 09:00 07/13/18 09:15 Temperature Pulse Rate 100 H 85 90 Respiratory Rate 20 20 22 Blood Pressure 163/78 H 162/74 H 165/70 H Pulse Oximetry 98 100 100 07/13/18 09:27 07/13/18 09:30 07/13/18 09:45 Temperature Pulse Rate 88 98 H Respiratory Rate 22 26 H Blood Pressure 147/79 H 144/77 H Pulse Oximetry 99 100 100 07/13/18 10:00 07/13/18 10:15 07/13/18 10:30 Temperature Pulse Rate 71 93 H 92 H Respiratory Rate 22 26 H 22 Blood Pressure 131/70 133/72 149/70 H Pulse Oximetry 100 100 100 07/13/18 10:45 07/13/18 11:00 07/13/18 11:15 Temperature Pulse Rate 100 H 79 71 Respiratory Rate 26 H 17 17 Blood Pressure 125/60 134/62 116/59 L Pulse Oximetry 100 100 98 07/13/18 11:30 07/13/18 11:45 07/13/18 12:00 Temperature 97.9 F Pulse Rate 89 86 98 H Respiratory Rate 24 19 22 Blood Pressure 141/79 H 114/76 154/75 H Pulse Oximetry 98 100 100 07/13/18 12:15 07/13/18 12:30 07/13/18 12:45 Temperature Pulse Rate 90 99 H 102 H Respiratory Rate 23 21 22 Blood Pressure 142/69 H 140/77 136/82 Pulse Oximetry 100 100 100 07/13/18 12:47 07/13/18 13:03 07/13/18 13:05 Temperature Pulse Rate 101 H 107 H Respiratory Rate 23 15 Blood Pressure 147/77 H Pulse Oximetry 100 07/13/18 13:15 Temperature Pulse Rate 100 H Respiratory Rate 22 Blood Pressure 131/65 Pulse Oximetry 98 Intake & Output 07/12/18 07/13/18 07/13/18 18:59 06:59 18:59 Intake Total 1900 / 1900 1190 / 1190 Output Total 1200 / 1200 1500 / 1500 Balance 700 / 700 -310 / -310 Weight 70.4 kg Intake: IV 1150 / 1150 950 / 950 Cleviprex Inj 25 mg In 50 ml @ 150 / 150 50 / 50 1 MG/HR 2 mls/hr IV.CONT TITRATE PRN Rx#:[id number] NS Inj 1,000 ML @ 70 mls/hr IV. 1000 / 1000 900 / 900 CONT .[id number] [facility] Rx#: [id number] Oral 750 / 750 240 / 240 Output: Urine Amount (Catheter) 1200 / 1200 1500 / 1500 Indwelling Urethral Catheter 1200 / 1200 1500 / 1500 Other: Bladder Irrigation Fluid - Amount Instilled Indwelling Urethral Catheter 210 Date of Last Bowel Movement 07/09/18 07/09/18 07/09/18 # Bowel Movements 0
[2018-07-13] MEDS: Temazepam 15 MG Capsule PO SCH (20:02)
--- NOTE | 2018-07-13 23:23 | P.PNCA ---
Subjective Interval history: Doing well no complaints Off Cleviprex Medications and Allergies Active Medications: Active Medications Acetaminophen (Tylenol) 650 mg PO Q4H PRN PRN Reason: headache/fever/pain1-5 Al Hydroxide/Mg Hydroxide (Milk Of Magnesia Liq) 30 ml PO Q12H PRN PRN Reason: Mild Constipation Last Admin: 07/13/18 15:59 Dose: 30 ml Aspirin (Ecotrin) 81 mg PO DAILY [facility] Last Admin: 07/13/18 08:53 Dose: 81 mg Atorvastatin Calcium (Lipitor) 80 mg PO DAILY [facility] Last Admin: 07/13/18 08:54 Dose: 80 mg Bisacodyl (Dulcolax Supp) 10 mg RECTAL DAILY PRN PRN Reason: SEVERE CONSITIPATION Clonidine HCl (Catapres) 0.1 mg PO Q6H PRN PRN Reason: SBP>160, DBP>90 Last Admin: 07/12/18 16:21 Dose: 0.1 mg Clopidogrel Bisulfate (Plavix) 75 mg PO DAILY [facility] Last Admin: 07/13/18 08:54 Dose: 75 mg Cyanocobalamin (Vitamin B12) 500 mcg PO DAILY [facility] Last Admin: 07/13/18 08:54 Dose: 500 mcg Enalaprilat (Vasotec Inj) 1.25 mg IV.PUSH Q6H PRN PRN Reason: BLOOD PRESSURE MANAGEMENT Last Admin: 07/12/18 05:42 Dose: 1.25 mg Heparin Sodium (Porcine) (Heparin Inj) 5,000 units SQ Q12H [facility] Last Admin: 07/13/18 20:01 Dose: 5,000 units Sodium Chloride (Ns Inj) 1,000 mls @ 70 mls/hr IV.CONT .[id number] [facility] Last Admin: 07/13/18 15:56 Dose: 70 mls/hr Clevidipine (Cleviprex Inj) 25 mg in 50 mls @ 2 mls/hr IV.CONT TITRATE PRN; Protocol PRN Reason: Per protocol Last Titration: 07/13/18 03:32 Dose: Infused Isosorbide Mononitrate (Imdur) 120 mg PO BID [facility] Last Admin: 07/13/18 20:01 Dose: 120 mg Lactulose (Lactulose Liq) 30 ml PO BID [facility] Last Admin: 07/13/18 20:00 Dose: 30 ml Losartan Potassium (Cozaar) 100 mg PO DAILY [facility] Last Admin: 07/13/18 09:17 Dose: 100 mg Nifedipine (Procardia Xl) 90 mg PO DAILY [facility] Last Admin: 07/13/18 09:17 Dose: 90 mg Nitroglycerin (Nitro-Dur 0.4 Mg Patch.24 Hr) 1 patch T-DERMAL DAILY [facility] Last Admin: 07/13/18 08:52 Dose: 1 patch Ondansetron HCl (Zofran Inj) 4 mg IV.PUSH Q6H PRN PRN Reason: NAUSEA OR VOMITING Pantoprazole Sodium (Protonix) 40 mg PO DAILY [facility] Last Admin: 07/13/18 08:53 Dose: 40 mg Patch Removal (Remove Old Patch) 1 each T-DERMAL DAILY [facility] Last Admin: 07/13/18 08:54 Dose: 1 each Risperidone (Risperdal) 0.25 mg PO DAILY [facility] Senna/Docusate Sodium (Karen-Colace) 1 tab PO BID [facility] Last Admin: 07/13/18 20:01 Dose: 1 tab Sennosides (Senokot) 17.2 mg PO Q12H PRN PRN Reason: Moderate Constipation Sodium Chloride (Ns Flush) 2 ml IV.FLUSH BID [facility] Last Admin: 07/13/18 20:02 Dose: Not Given Sodium Chloride (Ns Flush) 2 ml IV.FLUSH PRN PRN PRN Reason: FLUSH AFTER USING IV ACCESS Temazepam (Restoril) 15 mg PO HS [facility] Last Admin: 07/13/18 20:02 Dose: 15 mg Torsemide (Demadex) 10 mg PO DAILY [facility] Last Admin: 07/13/18 09:17 Dose: 10 mg Allergies Allergy/AdvReac Type Severity Reaction Status Date / Time No Known Allergies Allergy none Uncoded 07/05/18 19:19 Home Medications Medication Instructions Recorded Confirmed Type aspirin 325 mg PO DAILY 07/05/18 07/11/18 History acyclovir [Zovirax] 400 mg PO TID 07/06/18 07/06/18 History atorvastatin 80 mg PO DAILY 07/06/18 07/06/18 History cyanocobalamin (vitamin B-12) 500 mcg PO DAILY 07/06/18 07/06/18 History [Vitamin B-12] enalapril maleate 10 mg PO BID 07/06/18 07/06/18 History isosorbide mononitrate 120 mg PO BID 07/06/18 07/06/18 History pantoprazole [Protonix] 40 mg PO DAILY 07/06/18 07/06/18 History Physical Exam Vital signs: Vital Signs 07/12/18 23:23 07/12/18 23:30 07/12/18 23:38 Temperature Pulse Rate 96 H 107 H 89 Respiratory Rate 22 21 15 Blood Pressure 144/65 H 129/66 Pulse Oximetry 94 L 92 L 95 07/12/18 23:45 07/12/18 23:53 07/13/18 00:00 Temperature Pulse Rate 111 H 113 H 118 H Respiratory Rate 24 32 H 24 Blood Pressure 180/91 H Pulse Oximetry 95 94 L 95 07/13/18 00:08 07/13/18 00:15 07/13/18 00:23 Temperature Pulse Rate 80 97 H 112 H Respiratory Rate 19 21 29 H Blood Pressure 142/76 H 157/80 H Pulse Oximetry 97 96 96 07/13/18 00:30 07/13/18 00:38 07/13/18 00:45 Temperature Pulse Rate 118 H 103 H 82 Respiratory Rate 30 H 24 20 Blood Pressure 102/61 Pulse Oximetry 97 94 L 96 07/13/18 00:53 07/13/18 01:00 07/13/18 01:08 Temperature Pulse Rate 90 83 103 H Respiratory Rate 14 22 27 H Blood Pressure 151/77 H 136/66 Pulse Oximetry 98 95 94 L 07/13/18 01:15 07/13/18 01:23 07/13/18 01:30 Temperature Pulse Rate 77 84 85 Respiratory Rate 18 20 18 Blood Pressure 139/63 Pulse Oximetry 96 95 96 07/13/18 01:38 07/13/18 01:45 07/13/18 01:53 Temperature Pulse Rate 73 105 H 113 H Respiratory Rate 19 34 H 16 Blood Pressure 147/63 H 145/63 H Pulse Oximetry 96 98 99 07/13/18 02:00 07/13/18 02:08 07/13/18 02:15 Temperature Pulse Rate 119 H 108 H 98 H Respiratory Rate 19 22 32 H Blood Pressure 156/65 H Pulse Oximetry 98 100 96 07/13/18 02:30 07/13/18 02:45 07/13/18 02:56 Temperature Pulse Rate 109 H 120 H 100 H Respiratory Rate 30 H 27 H 22 Blood Pressure 137/65 Pulse Oximetry 97 100 100 07/13/18 03:00 07/13/18 03:10 07/13/18 03:15 Temperature Pulse Rate 77 82 88 Respiratory Rate 19 19 19 Blood Pressure 119/59 L 119/56 L Pulse Oximetry 94 L 100 95 07/13/18 03:29 07/13/18 03:30 07/13/18 03:45 Temperature 98.9 F 98.6 F Pulse Rate 64 62 76 Respiratory Rate 18 18 23 Blood Pressure 124/60 147/65 H Pulse Oximetry 99 98 98 07/13/18 04:00 07/13/18 04:15 07/13/18 04:30 Temperature Pulse Rate 65 64 59 L Respiratory Rate 19 20 19 Blood Pressure 125/76 143/89 H 120/58 L Pulse Oximetry 99 95 99 07/13/18 04:45 07/13/18 05:00 07/13/18 05:15 Temperature Pulse Rate 70 81 77 Respiratory Rate 18 33 H 18 Blood Pressure 149/67 H 147/79 H 134/61 Pulse Oximetry 94 L 93 L 96 07/13/18 05:30 07/13/18 05:45 07/13/18 06:00 Temperature Pulse Rate 96 H 61 64 Respiratory Rate 24 18 20 Blood Pressure 142/74 H 161/78 H 177/114 H Pulse Oximetry 97 96 96 07/13/18 06:02 07/13/18 06:15 07/13/18 06:30 Temperature Pulse Rate 102 H 69 101 H Respiratory Rate 26 H 30 H 29 H Blood Pressure 162/77 H 131/60 135/65 Pulse Oximetry 96 96 93 L 07/13/18 06:45 07/13/18 07:00 07/13/18 07:15 Temperature Pulse Rate 105 H 60 64 Respiratory Rate 41 H 15 17 Blood Pressure 162/84 H 117/56 L 149/81 H Pulse Oximetry 94 L 89 L 92 L 07/13/18 07:30 07/13/18 07:45 07/13/18 08:00 Temperature 97.6 F Pulse Rate 65 65 85 Respiratory Rate 18 19 22 Blood Pressure 137/69 151/68 H 151/74 H Pulse Oximetry 93 L 94 L 99 07/13/18 08:15 07/13/18 08:30 07/13/18 08:45 Temperature Pulse Rate 69 68 64 Respiratory Rate 18 17 17 Blood Pressure 150/67 H 139/89 181/112 H Pulse Oximetry 99 99 99 07/13/18 08:48 07/13/18 09:00 07/13/18 09:15 Temperature Pulse Rate 100 H 85 90 Respiratory Rate 20 20 22 Blood Pressure 163/78 H 162/74 H 165/70 H Pulse Oximetry 98 100 100 07/13/18 09:27 07/13/18 09:30 07/13/18 09:45 Temperature Pulse Rate 88 98 H Respiratory Rate 22 26 H Blood Pressure 147/79 H 144/77 H Pulse Oximetry 99 100 100 07/13/18 10:00 07/13/18 10:15 07/13/18 10:30 Temperature Pulse Rate 71 93 H 92 H Respiratory Rate 22 26 H 22 Blood Pressure 131/70 133/72 149/70 H Pulse Oximetry 100 100 100 07/13/18 10:45 07/13/18 11:00 07/13/18 11:15 Temperature Pulse Rate 100 H 79 71 Respiratory Rate 26 H 17 17 Blood Pressure 125/60 134/62 116/59 L Pulse Oximetry 100 100 98 07/13/18 11:30 07/13/18 11:45 07/13/18 12:00 Temperature 97.9 F Pulse Rate 89 86 98 H Respiratory Rate 24 19 22 Blood Pressure 141/79 H 114/76 154/75 H Pulse Oximetry 98 100 100 07/13/18 12:15 07/13/18 12:30 07/13/18 12:45 Temperature Pulse Rate 90 99 H 102 H Respiratory Rate 23 21 22 Blood Pressure 142/69 H 140/77 136/82 Pulse Oximetry 100 100 100 07/13/18 12:47 07/13/18 13:03 07/13/18 13:05 Temperature Pulse Rate 101 H 107 H Respiratory Rate 23 15 Blood Pressure 147/77 H Pulse Oximetry 100 07/13/18 13:15 07/13/18 13:30 07/13/18 13:40 Temperature Pulse Rate 100 H 105 H 106 H Respiratory Rate 22 23 24 Blood Pressure 131/65 140/67 130/63 Pulse Oximetry 98 98 07/13/18 14:05 07/13/18 14:14 07/13/18 14:15 Temperature Pulse Rate 107 H 104 H 103 H Respiratory Rate 21 22 Blood Pressure 120/65 103/66 Pulse Oximetry 98 97 07/13/18 14:44 07/13/18 14:45 07/13/18 15:00 Temperature Pulse Rate 105 H 104 H 103 H Respiratory Rate 23 20 28 H Blood Pressure 137/70 124/58 L Pulse Oximetry 99 98 97 07/13/18 15:15 07/13/18 15:30 07/13/18 15:54 Temperature Pulse Rate 103 H 110 H 108 H Respiratory Rate 17 24 Blood Pressure 130/68 147/69 H Pulse Oximetry 97 98 07/13/18 16:00 07/13/18 16:15 07/13/18 16:30 Temperature 98.0 F Pulse Rate 103 H 107 H 77 Respiratory Rate 22 21 20 Blood Pressure 140/95 H 146/72 H 142/64 H Pulse Oximetry 97 96 92 L 07/13/18 16:45 07/13/18 17:00 07/13/18 17:35 Temperature Pulse Rate 83 70 79 Respiratory Rate 21 15 Blood Pressure 129/71 120/67 Pulse Oximetry 91 L 96 92 L 07/13/18 17:45 07/13/18 17:51 07/13/18 18:00 Temperature Pulse Rate 80 82 101 H Respiratory Rate 20 18 16 Blood Pressure 126/71 Pulse Oximetry 95 95 96 07/13/18 18:15 07/13/18 18:30 07/13/18 18:45 Temperature Pulse Rate 71 70 75 Respiratory Rate 13 24 20 Blood Pressure Pulse Oximetry 98 96 94 L 07/13/18 19:00 07/13/18 19:15 07/13/18 19:30 Temperature Pulse Rate 79 71 75 Respiratory Rate 18 21 19 Blood Pressure Pulse Oximetry 95 91 L 88 L 07/13/18 19:45 07/13/18 20:00 07/13/18 20:05 Temperature 97.6 F Pulse Rate 79 71 89 Respiratory Rate 20 17 17 Blood Pressure 149/75 H Pulse Oximetry 90 L 94 L 95 Intake & Output 07/13/18 07/13/18 07/14/18 06:59 18:59 06:59 Intake Total 1190 / 1190 2200 / 2200 Output Total 1500 / 1500 1175 / 1175 Balance -310 / -310 1025 / 1025 Weight 70.4 kg Intake: IV 950 / 950 1000 / 1000 Cleviprex Inj 25 mg In 50 ml @ 50 / 50 1 MG/HR 2 mls/hr IV.CONT TITRATE PRN Rx#:[id number] NS Inj 1,000 ML @ 70 mls/hr IV. 900 / 900 1000 / 1000 CONT .[id number] JOSE A Rx#: [id number] Oral 240 / 240 1200 / 1200 Output: Urine Amount (Catheter) 1500 / 1500 1175 / 1175 Indwelling Urethral Catheter 1500 / 1500 1175 / 1175 Other: Bladder Irrigation Fluid - Amount Instilled Indwelling Urethral Catheter 210 240 Date of Last Bowel Movement 07/09/18 07/13/18 07/13/18 # Bowel Movements 2 Narrative: GENERAL: NAD SKIN: Warm and dry. HEAD: Atraumatic. Normocephalic. EYES: Pupils equal and round. No scleral icterus. No injection or drainage. ENT: No nasal bleeding or discharge. Mucous membranes pink and moist. NECK: Trachea midline. No JVD. CARDIOVASCULAR: Regular rate and rhythm. RESPIRATORY: No accessory muscle use. Clear to auscultation. Breath sounds equal bilaterally. GASTROINTESTINAL: Abdomen soft, non-tender, nondistended. Hepatic and splenic margins not palpable. MUSCULOSKELETAL: Extremities without clubbing, cyanosis, or edema. No obvious deformities. NEUROLOGICAL: Awake and alert. No obvious cranial nerve deficits. Motor grossly within normal limits. Five out of 5 muscle strength in the arms and legs. Normal speech. PSYCHIATRIC: Appropriate mood and affect; insight and judgment normal. - Urinary Catheter Management Straight Cath placed during this visit: yes, but has since been removed by the nurse Reason for continuing: Acute urinary retention Insertion date: 07/08/18 Insertion time: 06:00 Removal date: 07/07/18 Removal time: 19:30 Indwelling Urethral Catheter Cath placed during this visit: yes Urethral indwelling: No Reason for continuing: Gross Hematuria Insertion date: 07/08/18 Results 07/09/18 04:08 07/09/18 04:08 Intake and Output 07/13/18 07/13/18 07/14/18 14:59 22:59 06:59 Intake Total 2200 / 2200 Output Total 1175 / 1175 Balance 1025 / 1025 Intake: IV 1000 / 1000 NS Inj 1,000 ML @ 70 mls/hr IV. 1000 / 1000 CONT .[id number] JOSE A Rx#: [id number] Oral 1200 / 1200 Output: Urine Amount (Catheter) 1175 / 1175 Indwelling Urethral Catheter 1175 / 1175 Other: Bladder Irrigation Fluid - Amount Instilled Indwelling Urethral Catheter 240 Date of Last Bowel Movement 07/09/18 07/13/18 # Bowel Movements 2 Assessment and Plan - Assessment (1) History of left-sided carotid endarterectomy Code(s): Z98.890 - Other specified postprocedural states Status: Acute (2) Transient cerebral ischemia Code(s): G45.9 - Transient cerebral ischemic attack, unspecified Status: Acute (3) Accelerated hypertension Code(s): I10 - Essential (primary) hypertension Status: Acute (4) CAD (coronary artery disease) Code(s): I25.10 - Atherosclerotic heart disease of [place] coronary artery without angina pectoris Status: Acute (5) Hx of CABG Code(s): Z95.1 - Presence of aortocoronary bypass graft Status: Acute (6) Hx of aortic valve replacement Code(s): Z95.2 - Presence of prosthetic heart valve Status: Acute - Plan 1) TIA 2) Carotid artery stenosis s/p left CEA 3) Confusion mostly at night possible ICU psychosis vs . 4) CAD with history of CABG Stable 5) Hx of AVR, bioprosthetic 6) HTN Cleviprex off Con't Procardia XL Losartan increased HTN can be exacerbated by agitation overnight, agree with attempting to mitigate agitation as a possible cause (2) Transient cerebral ischemia Qualifiers: Transient cerebral ischemia type: unspecified Qualified Code(s): G45.9 - Transient cerebral ischemic attack, unspecified
[2018-07-14] MEDS: Sod Chloride 0.9% Inj 1,000 ML IV.CONT SCH (06:08)
--- NOTE | 2018-07-14 07:55 | P.PNNEU ---
Subjective Active Medications: Active Medications Acetaminophen (Tylenol) 650 mg PO Q4H PRN PRN Reason: headache/fever/pain1-5 Al Hydroxide/Mg Hydroxide (Milk Of Magnesia Liq) 30 ml PO Q12H PRN PRN Reason: Mild Constipation Last Admin: 07/13/18 15:59 Dose: 30 ml Aspirin (Ecotrin) 81 mg PO DAILY [facility] Last Admin: 07/13/18 08:53 Dose: 81 mg Atorvastatin Calcium (Lipitor) 80 mg PO DAILY [facility] Last Admin: 07/13/18 08:54 Dose: 80 mg Bisacodyl (Dulcolax Supp) 10 mg RECTAL DAILY PRN PRN Reason: SEVERE CONSITIPATION Clonidine HCl (Catapres) 0.1 mg PO Q6H PRN PRN Reason: SBP>160, DBP>90 Last Admin: 07/12/18 16:21 Dose: 0.1 mg Clopidogrel Bisulfate (Plavix) 75 mg PO DAILY [facility] Last Admin: 07/13/18 08:54 Dose: 75 mg Cyanocobalamin (Vitamin B12) 500 mcg PO DAILY [facility] Last Admin: 07/13/18 08:54 Dose: 500 mcg Enalaprilat (Vasotec Inj) 1.25 mg IV.PUSH Q6H PRN PRN Reason: BLOOD PRESSURE MANAGEMENT Last Admin: 07/12/18 05:42 Dose: 1.25 mg Heparin Sodium (Porcine) (Heparin Inj) 5,000 units SQ Q12H [facility] Last Admin: 07/13/18 20:01 Dose: 5,000 units Sodium Chloride (Ns Inj) 1,000 mls @ 70 mls/hr IV.CONT .[id number] [facility] Last Admin: 07/14/18 06:08 Dose: 70 mls/hr Clevidipine (Cleviprex Inj) 25 mg in 50 mls @ 2 mls/hr IV.CONT TITRATE PRN; Protocol PRN Reason: Per protocol Last Titration: 07/13/18 03:32 Dose: Infused Isosorbide Mononitrate (Imdur) 120 mg PO BID [facility] Last Admin: 07/13/18 20:01 Dose: 120 mg Lactulose (Lactulose Liq) 30 ml PO BID [facility] Last Admin: 07/13/18 20:00 Dose: 30 ml Losartan Potassium (Cozaar) 100 mg PO DAILY [facility] Last Admin: 07/13/18 09:17 Dose: 100 mg Nifedipine (Procardia Xl) 90 mg PO DAILY [facility] Last Admin: 07/13/18 09:17 Dose: 90 mg Nitroglycerin (Nitro-Dur 0.4 Mg Patch.24 Hr) 1 patch T-DERMAL DAILY [facility] Last Admin: 07/13/18 08:52 Dose: 1 patch Ondansetron HCl (Zofran Inj) 4 mg IV.PUSH Q6H PRN PRN Reason: NAUSEA OR VOMITING Pantoprazole Sodium (Protonix) 40 mg PO DAILY [facility] Last Admin: 07/13/18 08:53 Dose: 40 mg Patch Removal (Remove Old Patch) 1 each T-DERMAL DAILY [facility] Last Admin: 07/13/18 08:54 Dose: 1 each Risperidone (Risperdal) 0.25 mg PO DAILY [facility] Last Admin: 07/14/18 02:00 Dose: Not Given Senna/Docusate Sodium (Karen-Colace) 1 tab PO BID [facility] Last Admin: 07/13/18 20:01 Dose: 1 tab Sennosides (Senokot) 17.2 mg PO Q12H PRN PRN Reason: Moderate Constipation Sodium Chloride (Ns Flush) 2 ml IV.FLUSH BID [facility] Last Admin: 07/13/18 20:02 Dose: Not Given Sodium Chloride (Ns Flush) 2 ml IV.FLUSH PRN PRN PRN Reason: FLUSH AFTER USING IV ACCESS Temazepam (Restoril) 15 mg PO HS [facility] Last Admin: 07/13/18 20:02 Dose: 15 mg Torsemide (Demadex) 10 mg PO DAILY [facility] Last Admin: 07/13/18 09:17 Dose: 10 mg Allergies/Adverse Reactions: Allergies Allergy/AdvReac Type Severity Reaction Status Date / Time No Known Allergies Allergy none Uncoded 07/05/18 19:19 Physical Exam Vital signs: Vital Signs 07/13/18 08:00 07/13/18 08:15 07/13/18 08:30 Temperature 97.6 F Pulse Rate 85 69 68 Respiratory Rate 22 18 17 Blood Pressure 151/74 H 150/67 H 139/89 Pulse Oximetry 99 99 99 07/13/18 08:45 07/13/18 08:48 07/13/18 09:00 Temperature Pulse Rate 64 100 H 85 Respiratory Rate 17 20 20 Blood Pressure 181/112 H 163/78 H 162/74 H Pulse Oximetry 99 98 100 07/13/18 09:15 07/13/18 09:27 07/13/18 09:30 Temperature Pulse Rate 90 88 Respiratory Rate 22 22 Blood Pressure 165/70 H 147/79 H Pulse Oximetry 100 99 100 07/13/18 09:45 07/13/18 10:00 07/13/18 10:15 Temperature Pulse Rate 98 H 71 93 H Respiratory Rate 26 H 22 26 H Blood Pressure 144/77 H 131/70 133/72 Pulse Oximetry 100 100 100 07/13/18 10:30 07/13/18 10:45 07/13/18 11:00 Temperature Pulse Rate 92 H 100 H 79 Respiratory Rate 22 26 H 17 Blood Pressure 149/70 H 125/60 134/62 Pulse Oximetry 100 100 100 07/13/18 11:15 07/13/18 11:30 07/13/18 11:45 Temperature Pulse Rate 71 89 86 Respiratory Rate 17 24 19 Blood Pressure 116/59 L 141/79 H 114/76 Pulse Oximetry 98 98 100 07/13/18 12:00 07/13/18 12:15 07/13/18 12:30 Temperature 97.9 F Pulse Rate 98 H 90 99 H Respiratory Rate 22 23 21 Blood Pressure 154/75 H 142/69 H 140/77 Pulse Oximetry 100 100 100 07/13/18 12:45 07/13/18 12:47 07/13/18 13:03 Temperature Pulse Rate 102 H 101 H Respiratory Rate 22 23 Blood Pressure 136/82 147/77 H Pulse Oximetry 100 100 07/13/18 13:05 07/13/18 13:15 07/13/18 13:30 Temperature Pulse Rate 107 H 100 H 105 H Respiratory Rate 15 22 23 Blood Pressure 131/65 140/67 Pulse Oximetry 98 07/13/18 13:40 07/13/18 14:05 07/13/18 14:14 Temperature Pulse Rate 106 H 107 H 104 H Respiratory Rate 24 21 Blood Pressure 130/63 120/65 Pulse Oximetry 98 98 07/13/18 14:15 07/13/18 14:44 07/13/18 14:45 Temperature Pulse Rate 103 H 105 H 104 H Respiratory Rate 22 23 20 Blood Pressure 103/66 137/70 Pulse Oximetry 97 99 98 07/13/18 15:00 07/13/18 15:15 07/13/18 15:30 Temperature Pulse Rate 103 H 103 H 110 H Respiratory Rate 28 H 17 24 Blood Pressure 124/58 L 130/68 147/69 H Pulse Oximetry 97 97 98 07/13/18 15:54 07/13/18 16:00 07/13/18 16:15 Temperature 98.0 F Pulse Rate 108 H 103 H 107 H Respiratory Rate 22 21 Blood Pressure 140/95 H 146/72 H Pulse Oximetry 97 96 07/13/18 16:30 07/13/18 16:45 07/13/18 17:00 Temperature Pulse Rate 77 83 70 Respiratory Rate 20 21 15 Blood Pressure 142/64 H 129/71 120/67 Pulse Oximetry 92 L 91 L 96 07/13/18 17:35 07/13/18 17:45 07/13/18 17:51 Temperature Pulse Rate 79 80 82 Respiratory Rate 20 18 Blood Pressure 126/71 Pulse Oximetry 92 L 95 95 07/13/18 18:00 07/13/18 18:15 07/13/18 18:30 Temperature Pulse Rate 101 H 71 70 Respiratory Rate 16 13 24 Blood Pressure Pulse Oximetry 96 98 96 07/13/18 18:45 07/13/18 19:00 07/13/18 19:15 Temperature Pulse Rate 75 79 71 Respiratory Rate 20 18 21 Blood Pressure Pulse Oximetry 94 L 95 91 L 07/13/18 19:30 07/13/18 19:45 07/13/18 20:00 Temperature 97.6 F Pulse Rate 75 79 71 Respiratory Rate 19 20 17 Blood Pressure Pulse Oximetry 88 L 90 L 94 L 07/13/18 20:05 07/13/18 20:15 07/13/18 20:30 Temperature Pulse Rate 89 82 97 H Respiratory Rate 17 19 23 Blood Pressure 149/75 H 139/63 Pulse Oximetry 95 94 L 91 L 07/13/18 20:45 07/13/18 21:00 07/13/18 21:15 Temperature Pulse Rate 100 H 77 73 Respiratory Rate 21 18 21 Blood Pressure 141/64 H Pulse Oximetry 93 L 95 96 07/13/18 21:30 07/13/18 21:51 07/13/18 22:00 Temperature Pulse Rate 110 H 77 94 H Respiratory Rate 28 H 21 Blood Pressure 134/90 123/68 Pulse Oximetry 90 L 07/13/18 22:15 07/13/18 22:30 07/13/18 22:45 Temperature Pulse Rate 86 74 67 Respiratory Rate 19 19 21 Blood Pressure 125/71 Pulse Oximetry 95 96 98 07/13/18 23:00 07/13/18 23:15 07/13/18 23:30 Temperature Pulse Rate 86 81 71 Respiratory Rate 20 20 24 Blood Pressure 142/64 H 121/56 L Pulse Oximetry 93 L 93 L 94 L 07/13/18 23:45 07/14/18 00:00 07/14/18 00:06 Temperature Pulse Rate 71 69 73 Respiratory Rate 17 17 19 Blood Pressure 238/125 H 152/63 H Pulse Oximetry 95 91 L 92 L 07/14/18 00:15 07/14/18 00:30 07/14/18 00:45 Temperature Pulse Rate 76 71 95 H Respiratory Rate 18 16 25 H Blood Pressure 177/72 H Pulse Oximetry 92 L 97 94 L 07/14/18 01:00 07/14/18 01:15 07/14/18 01:30 Temperature Pulse Rate 59 L 58 L 91 H Respiratory Rate 20 16 29 H Blood Pressure 127/63 169/87 H Pulse Oximetry 96 97 95 07/14/18 01:45 07/14/18 02:00 07/14/18 02:15 Temperature 98.3 F 98.3 F Pulse Rate 88 68 63 Respiratory Rate 17 17 16 Blood Pressure 127/60 Pulse Oximetry 96 96 07/14/18 02:30 07/14/18 02:45 07/14/18 03:00 Temperature Pulse Rate 93 H 68 54 L Respiratory Rate 25 H 18 16 Blood Pressure 147/67 H 126/57 L Pulse Oximetry 87 L 98 97 07/14/18 03:15 07/14/18 03:30 07/14/18 03:45 Temperature Pulse Rate 48 L 70 94 H Respiratory Rate 15 16 29 H Blood Pressure 175/68 H Pulse Oximetry 96 98 97 07/14/18 04:00 07/14/18 04:15 07/14/18 04:30 Temperature 98.2 F Pulse Rate 50 L 66 95 H Respiratory Rate 20 17 18 Blood Pressure 135/63 142/64 H Pulse Oximetry 96 94 L 98 07/14/18 04:45 07/14/18 05:00 07/14/18 05:15 Temperature Pulse Rate 57 L 59 L 57 L Respiratory Rate 17 16 16 Blood Pressure 126/61 Pulse Oximetry 99 93 L 96 07/14/18 05:30 07/14/18 05:45 07/14/18 06:00 Temperature Pulse Rate 60 62 76 Respiratory Rate 16 14 20 Blood Pressure 157/66 H 164/75 H Pulse Oximetry 96 97 95 07/14/18 06:15 07/14/18 06:30 07/14/18 06:45 Temperature Pulse Rate 73 74 77 Respiratory Rate 17 18 20 Blood Pressure 164/74 H Pulse Oximetry 92 L 96 91 L Intake & Output 07/13/18 07/14/18 07/14/18 18:59 06:59 18:59 Intake Total 2200 / 2200 1140 / 1140 Output Total 1175 / 1175 850 / 850 Balance 1025 / 1025 290 / 290 Weight 72.1 kg Intake: IV 1000 / 1000 900 / 900 NS Inj 1,000 ML @ 70 mls/hr IV. 1000 / 1000 900 / 900 CONT .[id number] JOSE A Rx#: [id number] Oral 1200 / 1200 240 / 240 Output: Urine Amount (Catheter) 1175 / 1175 850 / 850 Indwelling Urethral Catheter 1175 / 1175 850 / 850 Other: Bladder Irrigation Fluid - Amount Instilled Indwelling Urethral Catheter 240 120 Date of Last Bowel Movement 07/13/18 07/13/18 # Bowel Movements 2 Narrative: awake alert getting back to old self ox3 knows day vff face sym - Urinary Catheter Management Straight Cath placed during this visit: yes, but has since been removed by the nurse Reason for continuing: Acute urinary retention Insertion date: 07/08/18 Insertion time: 06:00 Removal date: 07/07/18 Removal time: 19:30 Indwelling Urethral Catheter Cath placed during this visit: yes Urethral indwelling: No Reason for continuing: Gross Hematuria Insertion date: 07/11/18 Review/Management - Review/Management Plan: imp Stable neurologically . Dr Watts to resume care tomorrow - 07/11/18 much better no apHasia apparent now not sleeping well oob NEEDS BP MUCH LOWER TO 120/ OOB MUCH BETTER 07/13/18 doing well sleep deprived psychosis better sleep regiment on sleep chart bp down some improved -- 07/14/18 much better can dc neurowie when bp stable should be 120-130/
[2018-07-14] MEDS: Senna/Docusate Sodium 8.6/50 MG Tablet PO SCH ×2 (08:37→21:00)
[2018-07-14] MEDS: Isosorbide Mononitrate 60 MG ER 24HR Tablet (Imdur) PO SCH ×2 (08:38→20:59)
[2018-07-14] MEDS: Pantoprazole Sodium 20 MG DR Tablet PO SCH (08:39)
[2018-07-14] MEDS: Heparin - SQ 10,000 UNITS/ML Vial SQ SCH ×2 (08:41→20:59)
--- NOTE | 2018-07-14 11:14 | P.PNVS ---
Subjective Subjective/Hospital Course: Referral received Full consult TORRIE Maldonado 07/08/2018 Patient is status post left carotid endarterectomy patch angioplasty Motorically neurologically he is intact however appears to be somewhat confused and agitated somewhat dysphasic and dysarthric. Speaks clearly intermittently and follows commands only intermittently consistent with some receptive aphasia Pupils are equal and reactive Neck incision is clean and dry KAREN drain is minimal We will DC KAREN drain this morning Patient remains hemodynamically stable however hypertensive was placed on Cleviprex drip in the recovery room and remains on the same Will add medication to get patient off Cleviprex Patient is complaining about lower abdominal pain and apparently the nurse called the medical hand miter operator four times for assistance I helped the nurse put patient back in bed and on exam he is noted to have massively distended urinary bladder Patient clearly had urinary retention in the recovery room in apparently pulled out his Smith somewhere in the late evening hours On my exam upper abdomen is soft bowel the lower abdomen is massively distended firm with guarding consistent with massively dilated bladder Order given to replace the Smith and immediately 800 cc of bloody urine obtained Patient immediately calmed down and blood pressure decreased to 180 systolic to 150 systolic I believe his neurologic symptoms to be related to hyperperfusion in face of hypertension Discussed with Dr. Watts Addendum In the afternoon patient is doing much better he is now fully awake alert and oriented Neurologically he is fully intact Incision is clean and dry CT of the brain does not reveal any acute changes At this point we will keep systolic blood pressure under 140 mmHg and once patient is off Cleviprex will be able to transfer to floor 07/11/2018 Patient is doing much better today Dysarthria and dysphasia have disappeared When talking to patient he appears to have some receptive dysphasia but this is actually due to the fact that he cannot hear well He is oriented in time and space although appeared to be occasionally confused but this is starting to show some signs of ICU delirium Motorically fully intact Answers questions appropriately and has taken his diet The only thing that keeps patient in ICU at this point is hard to control blood pressure for which she requires Cleviprex Grateful to internal medicine and cardiology for managing this issue and whenever the blood pressure is down he can leave the ICU and then transferred to rehab He will need at least a month or so of recovery before we address the right carotid which obviously will need to be done as well 07/12/2018 Today neurologically motorically patient is intact and answers questions appropriately Cervical incision is clean and dry Hypertension management remains a problem and I will leave this up to medicine and cardiology to address with expertise 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 for every night he will become disoriented starts pulling on his catheters and lines and becomes extremely restless Patient pulled his Smith catheter out again last night despite being restrained Nothing to add from vascular point this time 07/13/2018 Patient doing much better neurologically intact In the late evening patient developed sound downers syndrome becomes confused however during the day he is quite lucid oriented in space time and person Motorically fully intact Incision clean and dry Hypertension still remains a problem and patient is on Cleviprex drip and a number of other medications being managed by hospitalist and cardiology. I am running out of ideas how to bring the patient's pressure down other than placing him on nipride but then again he cannot go to the floor Hard to manage hypertension is the only reason patient is still in the ICU 07/14/2018 Patient doing very well he is awake alert and oriented Incision is clean and dry and hypertension is under control at this point Patient can be discharged from the hospital from vascular point Should follow-up with me in about a month in the office Objective Vital Signs / I&O: Vital Signs 07/13/18 11:15 07/13/18 11:30 07/13/18 11:45 Temperature Pulse Rate 71 89 86 Respiratory Rate 17 24 19 Blood Pressure 116/59 L 141/79 H 114/76 Pulse Oximetry 98 98 100 07/13/18 12:00 07/13/18 12:15 07/13/18 12:30 Temperature 97.9 F Pulse Rate 98 H 90 99 H Respiratory Rate 22 23 21 Blood Pressure 154/75 H 142/69 H 140/77 Pulse Oximetry 100 100 100 07/13/18 12:45 07/13/18 12:47 07/13/18 13:03 Temperature Pulse Rate 102 H 101 H Respiratory Rate 22 23 Blood Pressure 136/82 147/77 H Pulse Oximetry 100 100 07/13/18 13:05 07/13/18 13:15 07/13/18 13:30 Temperature Pulse Rate 107 H 100 H 105 H Respiratory Rate 15 22 23 Blood Pressure 131/65 140/67 Pulse Oximetry 98 07/13/18 13:40 07/13/18 14:05 07/13/18 14:14 Temperature Pulse Rate 106 H 107 H 104 H Respiratory Rate 24 21 Blood Pressure 130/63 120/65 Pulse Oximetry 98 98 07/13/18 14:15 07/13/18 14:44 07/13/18 14:45 Temperature Pulse Rate 103 H 105 H 104 H Respiratory Rate 22 23 20 Blood Pressure 103/66 137/70 Pulse Oximetry 97 99 98 07/13/18 15:00 07/13/18 15:15 07/13/18 15:30 Temperature Pulse Rate 103 H 103 H 110 H Respiratory Rate 28 H 17 24 Blood Pressure 124/58 L 130/68 147/69 H Pulse Oximetry 97 97 98 07/13/18 15:54 07/13/18 16:00 07/13/18 16:15 Temperature 98.0 F Pulse Rate 108 H 103 H 107 H Respiratory Rate 22 21 Blood Pressure 140/95 H 146/72 H Pulse Oximetry 97 96 07/13/18 16:30 07/13/18 16:45 07/13/18 17:00 Temperature Pulse Rate 77 83 70 Respiratory Rate 20 21 15 Blood Pressure 142/64 H 129/71 120/67 Pulse Oximetry 92 L 91 L 96 07/13/18 17:35 07/13/18 17:45 07/13/18 17:51 Temperature Pulse Rate 79 80 82 Respiratory Rate 20 18 Blood Pressure 126/71 Pulse Oximetry 92 L 95 95 07/13/18 18:00 07/13/18 18:15 07/13/18 18:30 Temperature Pulse Rate 101 H 71 70 Respiratory Rate 16 13 24 Blood Pressure Pulse Oximetry 96 98 96 07/13/18 18:45 07/13/18 19:00 07/13/18 19:15 Temperature Pulse Rate 75 79 71 Respiratory Rate 20 18 21 Blood Pressure Pulse Oximetry 94 L 95 91 L 07/13/18 19:30 07/13/18 19:45 07/13/18 20:00 Temperature 97.6 F Pulse Rate 75 79 71 Respiratory Rate 19 20 17 Blood Pressure Pulse Oximetry 88 L 90 L 94 L 07/13/18 20:05 07/13/18 20:15 07/13/18 20:30 Temperature Pulse Rate 89 82 97 H Respiratory Rate 17 19 23 Blood Pressure 149/75 H 139/63 Pulse Oximetry 95 94 L 91 L 07/13/18 20:45 07/13/18 21:00 07/13/18 21:15 Temperature Pulse Rate 100 H 77 73 Respiratory Rate 21 18 21 Blood Pressure 141/64 H Pulse Oximetry 93 L 95 96 07/13/18 21:30 07/13/18 21:51 07/13/18 22:00 Temperature Pulse Rate 110 H 77 94 H Respiratory Rate 28 H 21 Blood Pressure 134/90 123/68 Pulse Oximetry 90 L 07/13/18 22:15 07/13/18 22:30 07/13/18 22:45 Temperature Pulse Rate 86 74 67 Respiratory Rate 19 19 21 Blood Pressure 125/71 Pulse Oximetry 95 96 98 07/13/18 23:00 07/13/18 23:15 07/13/18 23:30 Temperature Pulse Rate 86 81 71 Respiratory Rate 20 20 24 Blood Pressure 142/64 H 121/56 L Pulse Oximetry 93 L 93 L 94 L 07/13/18 23:45 07/14/18 00:00 07/14/18 00:06 Temperature Pulse Rate 71 69 73 Respiratory Rate 17 17 19 Blood Pressure 238/125 H 152/63 H Pulse Oximetry 95 91 L 92 L 07/14/18 00:15 07/14/18 00:30 07/14/18 00:45 Temperature Pulse Rate 76 71 95 H Respiratory Rate 18 16 25 H Blood Pressure 177/72 H Pulse Oximetry 92 L 97 94 L 07/14/18 01:00 07/14/18 01:15 07/14/18 01:30 Temperature Pulse Rate 59 L 58 L 91 H Respiratory Rate 20 16 29 H Blood Pressure 127/63 169/87 H Pulse Oximetry 96 97 95 07/14/18 01:45 07/14/18 02:00 07/14/18 02:15 Temperature 98.3 F 98.3 F Pulse Rate 88 68 63 Respiratory Rate 17 17 16 Blood Pressure 127/60 Pulse Oximetry 96 96 07/14/18 02:30 07/14/18 02:45 07/14/18 03:00 Temperature Pulse Rate 93 H 68 54 L Respiratory Rate 25 H 18 16 Blood Pressure 147/67 H 126/57 L Pulse Oximetry 87 L 98 97 07/14/18 03:15 07/14/18 03:30 07/14/18 03:45 Temperature Pulse Rate 48 L 70 94 H Respiratory Rate 15 16 29 H Blood Pressure 175/68 H Pulse Oximetry 96 98 97 07/14/18 04:00 07/14/18 04:15 07/14/18 04:30 Temperature 98.2 F Pulse Rate 50 L 66 95 H Respiratory Rate 20 17 18 Blood Pressure 135/63 142/64 H Pulse Oximetry 96 94 L 98 07/14/18 04:45 07/14/18 05:00 07/14/18 05:15 Temperature Pulse Rate 57 L 59 L 57 L Respiratory Rate 17 16 16 Blood Pressure 126/61 Pulse Oximetry 99 93 L 96 07/14/18 05:30 07/14/18 05:45 07/14/18 06:00 Temperature Pulse Rate 60 62 76 Respiratory Rate 16 14 20 Blood Pressure 157/66 H 164/75 H Pulse Oximetry 96 97 95 07/14/18 06:15 07/14/18 06:30 07/14/18 06:45 Temperature Pulse Rate 73 74 77 Respiratory Rate 17 18 20 Blood Pressure 164/74 H Pulse Oximetry 92 L 96 91 L 07/14/18 07:00 07/14/18 07:30 07/14/18 08:00 Temperature 97.5 F L Pulse Rate 86 69 Respiratory Rate 17 14 Blood Pressure 155/78 H Pulse Oximetry 97 99 07/14/18 08:12 Temperature Pulse Rate 96 H Respiratory Rate 21 Blood Pressure 148/74 H Pulse Oximetry Intake & Output 07/13/18 07/14/18 07/14/18 18:59 06:59 18:59 Intake Total 2200 / 2200 1140 / 1140 Output Total 1175 / 1175 850 / 850 Balance 1025 / 1025 290 / 290 Weight 72.1 kg Intake: IV 1000 / 1000 900 / 900 NS Inj 1,000 ML @ 70 mls/hr IV. 1000 / 1000 900 / 900 CONT .[id number] [facility] Rx#: [id number] Oral 1200 / 1200 240 / 240 Output: Urine Amount (Catheter) 1175 / 1175 850 / 850 Indwelling Urethral Catheter 1175 / 1175 850 / 850 Other: Bladder Irrigation Fluid - Amount Instilled Indwelling Urethral Catheter 240 120 Date of Last Bowel Movement 07/13/18 07/13/18 # Bowel Movements 2
--- NOTE | 2018-07-14 14:47 | P.PNCA ---
Subjective Interval history: No events overnight Appears well Blood pressure better Medications and Allergies Active Medications: Active Medications Acetaminophen (Tylenol) 650 mg PO Q4H PRN PRN Reason: headache/fever/pain1-5 Al Hydroxide/Mg Hydroxide (Milk Of Magnesia Liq) 30 ml PO Q12H PRN PRN Reason: Mild Constipation Last Admin: 07/13/18 15:59 Dose: 30 ml Aspirin (Ecotrin) 81 mg PO DAILY [facility] Last Admin: 07/14/18 08:37 Dose: 81 mg Atorvastatin Calcium (Lipitor) 80 mg PO DAILY [facility] Last Admin: 07/14/18 08:38 Dose: 80 mg Bisacodyl (Dulcolax Supp) 10 mg RECTAL DAILY PRN PRN Reason: SEVERE CONSITIPATION Clonidine HCl (Catapres) 0.1 mg PO Q6H PRN PRN Reason: SBP>160, DBP>90 Last Admin: 07/12/18 16:21 Dose: 0.1 mg Clopidogrel Bisulfate (Plavix) 75 mg PO DAILY [facility] Last Admin: 07/14/18 08:36 Dose: 75 mg Cyanocobalamin (Vitamin B12) 500 mcg PO DAILY [facility] Last Admin: 07/14/18 08:38 Dose: 500 mcg Enalaprilat (Vasotec Inj) 1.25 mg IV.PUSH Q6H PRN PRN Reason: BLOOD PRESSURE MANAGEMENT Last Admin: 07/12/18 05:42 Dose: 1.25 mg Heparin Sodium (Porcine) (Heparin Inj) 5,000 units SQ Q12H [facility] Last Admin: 07/14/18 08:41 Dose: 5,000 units Sodium Chloride (Ns Inj) 1,000 mls @ 70 mls/hr IV.CONT .[id number] [facility] Last Admin: 07/14/18 06:08 Dose: 70 mls/hr Clevidipine (Cleviprex Inj) 25 mg in 50 mls @ 2 mls/hr IV.CONT TITRATE PRN; Protocol PRN Reason: Per protocol Last Titration: 07/13/18 03:32 Dose: Infused Isosorbide Mononitrate (Imdur) 120 mg PO BID [facility] Last Admin: 07/14/18 08:38 Dose: 120 mg Lactulose (Lactulose Liq) 30 ml PO BID [facility] Last Admin: 07/14/18 08:41 Dose: Not Given Losartan Potassium (Cozaar) 100 mg PO DAILY [facility] Last Admin: 07/14/18 08:36 Dose: 100 mg Nifedipine (Procardia Xl) 90 mg PO DAILY [facility] Last Admin: 07/14/18 08:37 Dose: 90 mg Nitroglycerin (Nitro-Dur 0.4 Mg Patch.24 Hr) 1 patch T-DERMAL DAILY [facility] Last Admin: 07/14/18 08:39 Dose: 1 patch Ondansetron HCl (Zofran Inj) 4 mg IV.PUSH Q6H PRN PRN Reason: NAUSEA OR VOMITING Pantoprazole Sodium (Protonix) 40 mg PO DAILY [facility] Last Admin: 07/14/18 08:39 Dose: 40 mg Patch Removal (Remove Old Patch) 1 each T-DERMAL DAILY [facility] Last Admin: 07/14/18 08:41 Dose: 1 each Senna/Docusate Sodium (Karen-Colace) 1 tab PO BID [facility] Last Admin: 07/14/18 08:37 Dose: 1 tab Sennosides (Senokot) 17.2 mg PO Q12H PRN PRN Reason: Moderate Constipation Sodium Chloride (Ns Flush) 2 ml IV.FLUSH BID [facility] Last Admin: 07/14/18 08:41 Dose: Not Given Sodium Chloride (Ns Flush) 2 ml IV.FLUSH PRN PRN PRN Reason: FLUSH AFTER USING IV ACCESS Temazepam (Restoril) 15 mg PO HS [facility] Last Admin: 07/13/18 20:02 Dose: 15 mg Torsemide (Demadex) 10 mg PO DAILY [facility] Last Admin: 07/14/18 08:37 Dose: 10 mg Allergies Allergy/AdvReac Type Severity Reaction Status Date / Time No Known Allergies Allergy none Uncoded 07/05/18 19:19 Home Medications Medication Instructions Recorded Confirmed Type aspirin 325 mg PO DAILY 07/05/18 07/11/18 History acyclovir [Zovirax] 400 mg PO TID 07/06/18 07/06/18 History atorvastatin 80 mg PO DAILY 07/06/18 07/06/18 History cyanocobalamin (vitamin B-12) 500 mcg PO DAILY 07/06/18 07/06/18 History [Vitamin B-12] enalapril maleate 10 mg PO BID 07/06/18 07/06/18 History isosorbide mononitrate 120 mg PO BID 07/06/18 07/06/18 History pantoprazole [Protonix] 40 mg PO DAILY 07/06/18 07/06/18 History Physical Exam Vital signs: Vital Signs 07/13/18 15:00 07/13/18 15:15 07/13/18 15:30 Temperature Pulse Rate 103 H 103 H 110 H Respiratory Rate 28 H 17 24 Blood Pressure 124/58 L 130/68 147/69 H Pulse Oximetry 97 97 98 07/13/18 15:54 07/13/18 16:00 07/13/18 16:15 Temperature 98.0 F Pulse Rate 108 H 103 H 107 H Respiratory Rate 22 21 Blood Pressure 140/95 H 146/72 H Pulse Oximetry 97 96 07/13/18 16:30 07/13/18 16:45 07/13/18 17:00 Temperature Pulse Rate 77 83 70 Respiratory Rate 20 21 15 Blood Pressure 142/64 H 129/71 120/67 Pulse Oximetry 92 L 91 L 96 07/13/18 17:35 07/13/18 17:45 07/13/18 17:51 Temperature Pulse Rate 79 80 82 Respiratory Rate 20 18 Blood Pressure 126/71 Pulse Oximetry 92 L 95 95 07/13/18 18:00 07/13/18 18:15 07/13/18 18:30 Temperature Pulse Rate 101 H 71 70 Respiratory Rate 16 13 24 Blood Pressure Pulse Oximetry 96 98 96 07/13/18 18:45 07/13/18 19:00 07/13/18 19:15 Temperature Pulse Rate 75 79 71 Respiratory Rate 20 18 21 Blood Pressure Pulse Oximetry 94 L 95 91 L 07/13/18 19:30 07/13/18 19:45 07/13/18 20:00 Temperature 97.6 F Pulse Rate 75 79 71 Respiratory Rate 19 20 17 Blood Pressure Pulse Oximetry 88 L 90 L 94 L 07/13/18 20:05 07/13/18 20:15 07/13/18 20:30 Temperature Pulse Rate 89 82 97 H Respiratory Rate 17 19 23 Blood Pressure 149/75 H 139/63 Pulse Oximetry 95 94 L 91 L 07/13/18 20:45 07/13/18 21:00 07/13/18 21:15 Temperature Pulse Rate 100 H 77 73 Respiratory Rate 21 18 21 Blood Pressure 141/64 H Pulse Oximetry 93 L 95 96 12/12/18 21:30 07/13/18 21:51 07/13/18 22:00 Temperature Pulse Rate 110 H 77 94 H Respiratory Rate 28 H 21 Blood Pressure 134/90 123/68 Pulse Oximetry 90 L 07/13/18 22:15 07/13/18 22:30 07/13/18 22:45 Temperature Pulse Rate 86 74 67 Respiratory Rate 19 19 21 Blood Pressure 125/71 Pulse Oximetry 95 96 98 07/13/18 23:00 07/13/18 23:15 07/13/18 23:30 Temperature Pulse Rate 86 81 71 Respiratory Rate 20 20 24 Blood Pressure 142/64 H 121/56 L Pulse Oximetry 93 L 93 L 94 L 07/13/18 23:45 07/14/18 00:00 07/14/18 00:06 Temperature Pulse Rate 71 69 73 Respiratory Rate 17 17 19 Blood Pressure 238/125 H 152/63 H Pulse Oximetry 95 91 L 92 L 07/14/18 00:15 07/14/18 00:30 07/14/18 00:45 Temperature Pulse Rate 76 71 95 H Respiratory Rate 18 16 25 H Blood Pressure 177/72 H Pulse Oximetry 92 L 97 94 L 07/14/18 01:00 07/14/18 01:15 07/14/18 01:30 Temperature Pulse Rate 59 L 58 L 91 H Respiratory Rate 20 16 29 H Blood Pressure 127/63 169/87 H Pulse Oximetry 96 97 95 07/14/18 01:45 07/14/18 02:00 07/14/18 02:15 Temperature 98.3 F 98.3 F Pulse Rate 88 68 63 Respiratory Rate 17 17 16 Blood Pressure 127/60 Pulse Oximetry 96 96 07/14/18 02:30 07/14/18 02:45 07/14/18 03:00 Temperature Pulse Rate 93 H 68 54 L Respiratory Rate 25 H 18 16 Blood Pressure 147/67 H 126/57 L Pulse Oximetry 87 L 98 97 07/14/18 03:15 07/14/18 03:30 07/14/18 03:45 Temperature Pulse Rate 48 L 70 94 H Respiratory Rate 15 16 29 H Blood Pressure 175/68 H Pulse Oximetry 96 98 97 07/14/18 04:00 07/14/18 04:15 07/14/18 04:30 Temperature 98.2 F Pulse Rate 50 L 66 95 H Respiratory Rate 20 17 18 Blood Pressure 135/63 142/64 H Pulse Oximetry 96 94 L 98 07/14/18 04:45 07/14/18 05:00 07/14/18 05:15 Temperature Pulse Rate 57 L 59 L 57 L Respiratory Rate 17 16 16 Blood Pressure 126/61 Pulse Oximetry 99 93 L 96 07/14/18 05:30 07/14/18 05:45 07/14/18 06:00 Temperature Pulse Rate 60 62 76 Respiratory Rate 16 14 20 Blood Pressure 157/66 H 164/75 H Pulse Oximetry 96 97 95 07/14/18 06:15 07/14/18 06:30 07/14/18 06:45 Temperature Pulse Rate 73 74 77 Respiratory Rate 17 18 20 Blood Pressure 164/74 H Pulse Oximetry 92 L 96 91 L 07/14/18 07:00 07/14/18 07:30 07/14/18 08:00 Temperature 97.5 F L Pulse Rate 86 69 Respiratory Rate 17 14 Blood Pressure 155/78 H Pulse Oximetry 97 99 07/14/18 08:12 07/14/18 09:24 07/14/18 10:00 Temperature Pulse Rate 96 H 78 88 Respiratory Rate 21 21 Blood Pressure 148/74 H 152/73 H Pulse Oximetry 98 07/14/18 11:00 07/14/18 12:00 07/14/18 12:11 Temperature 98.1 F Pulse Rate 87 82 83 Respiratory Rate 25 H 20 25 H Blood Pressure 139/65 126/62 Pulse Oximetry 98 96 97 Intake & Output 07/13/18 07/14/18 07/14/18 18:59 06:59 18:59 Intake Total 2200 / 2200 1140 / 1140 Output Total 1175 / 1175 850 / 850 Balance 1025 / 1025 290 / 290 Weight 72.1 kg Intake: IV 1000 / 1000 900 / 900 NS Inj 1,000 ML @ 70 mls/hr IV. 1000 / 1000 900 / 900 CONT .[id number] [facility] Rx#: [id number] Oral 1200 / 1200 240 / 240 Output: Urine Amount (Catheter) 1175 / 1175 850 / 850 Indwelling Urethral Catheter 1175 / 1175 850 / 850 Other: Bladder Irrigation Fluid - Amount Instilled Indwelling Urethral Catheter 240 120 Date of Last Bowel Movement 07/13/18 07/13/18 07/14/18 # Bowel Movements 2 Narrative: GENERAL: NAD, AAOx3 SKIN: Warm and dry. HEAD: Atraumatic. Normocephalic. EYES: Pupils equal and round. No scleral icterus. No injection or drainage. ENT: No nasal bleeding or discharge. Mucous membranes pink and moist. NECK: Trachea midline. No JVD. Left CEA clean/dry/intact CARDIOVASCULAR: Regular rate and rhythm. RESPIRATORY: No accessory muscle use. Clear to auscultation. Breath sounds equal bilaterally. GASTROINTESTINAL: Abdomen soft, non-tender, nondistended. Hepatic and splenic margins not palpable. MUSCULOSKELETAL: Extremities without clubbing, cyanosis, or edema. No obvious deformities. NEUROLOGICAL: Awake and alert. No obvious cranial nerve deficits. Motor grossly within normal limits. Five out of 5 muscle strength in the arms and legs. Normal speech. PSYCHIATRIC: Appropriate mood and affect; insight and judgment normal. - Urinary Catheter Management Straight Cath placed during this visit: yes, but has since been removed by the nurse Reason for continuing: Acute urinary retention Insertion date: 07/08/18 Insertion time: 06:00 Removal date: 07/07/18 Removal time: 19:30 Indwelling Urethral Catheter Cath placed during this visit: yes Urethral indwelling: No Reason for continuing: Gross Hematuria Insertion date: 07/11/18 Results 07/09/18 04:08 07/09/18 04:08 Intake and Output 07/13/18 07/14/18 07/14/18 22:59 06:59 14:59 Intake Total 2200 / 2200 1140 / 1140 Output Total 1175 / 1175 850 / 850 Balance 1025 / 1025 290 / 290 Intake: IV 1000 / 1000 900 / 900 NS Inj 1,000 ML @ 70 mls/hr IV. 1000 / 1000 900 / 900 CONT .[id number] [facility] Rx#: [id number] Oral 1200 / 1200 240 / 240 Output: Urine Amount (Catheter) 1175 / 1175 850 / 850 Indwelling Urethral Catheter 1175 / 1175 850 / 850 Other: Bladder Irrigation Fluid - Amount Instilled Indwelling Urethral Catheter 240 120 Date of Last Bowel Movement 07/13/18 07/13/18 07/14/18 # Bowel Movements 2 Weight 72.1 kg Assessment and Plan - Assessment (1) History of left-sided carotid endarterectomy Code(s): Z98.890 - Other specified postprocedural states Status: Acute (2) Transient cerebral ischemia Code(s): G45.9 - Transient cerebral ischemic attack, unspecified Status: Acute (3) Accelerated hypertension Code(s): I10 - Essential (primary) hypertension Status: Acute (4) CAD (coronary artery disease) Code(s): I25.10 - Atherosclerotic heart disease of [place] coronary artery without angina pectoris Status: Acute (5) Hx of CABG Code(s): Z95.1 - Presence of aortocoronary bypass graft Status: Acute (6) Hx of aortic valve replacement Code(s): Z95.2 - Presence of prosthetic heart valve Status: Acute - Plan 1) TIA 2) Carotid artery stenosis s/p left CEA 3) Confusion mostly at night possible ICU psychosis vs . Doing better on current meds 4) CAD with history of CABG Stable 5) Hx of AVR, bioprosthetic 6) HTN Cleviprex off Con't Procardia XL Losartan increased HTN can be exacerbated by agitation overnight, agree with attempting to mitigate agitation as a possible cause Blood pressure stabilized, no further cardiovascular changes (2) Transient cerebral ischemia Qualifiers: Transient cerebral ischemia type: unspecified Qualified Code(s): G45.9 - Transient cerebral ischemic attack, unspecified
--- NOTE | 2018-07-14 16:24 | P.DCO ---
Diagnosis (1) History of left-sided carotid endarterectomy: Status: Acute (2) Transient cerebral ischemia: Status: Acute (3) Accelerated hypertension: Status: Acute (4) CAD (coronary artery disease): Status: Acute (5) Hx of CABG: Status: Acute (6) Hx of aortic valve replacement: Status: Acute Physical Therapy Order: Evaluate and treat, Improve ambulation and Strength and gait training Home Health Nursing Order: Medical education, Signs/symptoms of disease process, Medication education-adverse effect and Nursing assessment with vital signs Home Health Aide Order: To assist in: Bathing and personal care and marketing traffic manager and meal prep Case Management Consult Case Management Consult-Home Health: Yes I have seen patient Luís Ochoa on 07/14/18. My clinical findings support the need for the requested home health care services because: Limited mobility due to disease progression, Deconditioned with increased weakness, Medication compliance is questionable, Limited ability to care for self, Need for psychosocial assistance, Impaired cognition/judgement, High risk of falls and Infection with risk of complications I certify that my clinical findings support that this patient is homebound because: Post-op weakness, Impaired cognitive ability/safety, Unsteady gait/balance, Unsafe to leave home unassisted, Need for psychosocial assistance, Non- ambulatory: confined to bed or chair and Unable to use public transportation _ (1) Transient cerebral ischemia Qualifiers: Transient cerebral ischemia type: unspecified Qualified Code(s): G45.9 - Transient cerebral ischemic attack, unspecified (2) CAD (coronary artery disease) Qualifiers: Coronary Disease-Associated Artery/Lesion type: [place] vs. transplanted heart: Associated angina:
--- NOTE | 2018-07-14 20:34 | P.PNIM ---
Subjective Interval history: Follow up for carotid stenosis, hematuria and possible delirium. Patient is doing well. He slept excellent, denies any acute concerns. Wants to go home. Family members at bedside. Physical Exam Vital signs: Last Vital Signs Temp 97.8 F 07/14/18 16:00 Pulse 95 H 07/14/18 17:00 Resp 20 07/14/18 17:00 BP 151/77 H 07/14/18 17:00 Pulse Ox 96 07/14/18 17:00 Intake & Output 07/12/18 07/13/18 07/14/18 07/15/18 06:59 06:59 06:59 06:59 Intake Total 2810 / 2810 3090 / 3090 3340 / 3340 Output Total 2100 / 2100 2700 / 2700 2024 / 2024 1000 / 1000 Balance 710 / 710 390 / 390 1315 / 1315 -1000 / -1000 Weight 71.2 kg 70.4 kg 72.1 kg GENERAL: Alert, NAD. Urinary cath/bag in place. SKIN: Warm and dry. HEAD: Normocephalic. EYES: No scleral icterus. No injection or drainage. NECK: Supple, trachea midline. No JVD or lymphadenopathy. CARDIOVASCULAR: Regular rate and rhythm without murmurs, gallops, or rubs. RESPIRATORY: Breath sounds equal bilaterally. No accessory muscle use. GASTROINTESTINAL: Abdomen soft, non-tender, nondistended. MUSCULOSKELETAL: No cyanosis, or edema. BACK: Nontender without obvious deformity. No CVA tenderness. Urinary Catheter Management Straight: Cath placed during this visit: yes, but has since been removed by the nurse Insertion date: 07/08/18 Insertion time: 06:00 Removal date: 07/07/18 Removal time: 19:30 Indwelling Urethral Catheter: Cath placed during this visit: yes, but has since been removed by the nurse Urethral indwelling: No Insertion date: 07/11/18 Removal date: 07/14/18 Removal time: 17:00 Results Labs CBC & Chem 7: 07/09/18 04:08 07/09/18 04:08 Procedures Procedures: 07/07/2018 Left carotid endarterectomy with patch angioplasty. Assessment and Plan (1) History of left-sided carotid endarterectomy: Code(s): Z98.890 - Other specified postprocedural states Status: Acute (2) Transient cerebral ischemia: Code(s): G45.9 - Transient cerebral ischemic attack, unspecified Status: Acute (3) Accelerated hypertension: Code(s): I10 - Essential (primary) hypertension Status: Acute (4) CAD (coronary artery disease): Code(s): I25.10 - Atherosclerotic heart disease of [place] coronary artery without angina pectoris Status: Acute (5) Hx of CABG: Code(s): Z95.1 - Presence of aortocoronary bypass graft Status: Acute (6) Hx of aortic valve replacement: Code(s): Z95.2 - Presence of prosthetic heart valve Status: Acute Plan Mr. Ochoa is a pleasant 88-year-old male with a history of hypertension, hyperlipidemia, diabetes mellitus, AVR, coronary artery disease who presented to the emergency department on 07/06/2018 due to weakness in his lower extremities. He was working outside when he felt this weakness. He fell as well not hit his head or did not have any loss of consciousness. When he came inside he could not differentiate between a knife and a fork. Due to weakness and some level of confusion, patient was brought to the emergency department. Carotid ultrasound indicated greater than 70% stenosis of the left carotid artery. Patient was subsequently transferred to the [facility] hospital and underwent left endarterectomy. Neurologic was consulted. Probable TIA with aphasia and confusion Appreciate neurology input. MRI studies indicate no evidence of a stroke. Probable ICU delirium/agitation Likely multifactorial due to ICU stay as well as underlying possible dementia Continue Seroquel 25 mg nightly. ICU delirium is much improved. Patient is very coherent. Lateral carotid artery stenosis Patient is status post left endarterectomy by vascular surgery. Continue aspirin 81 mg daily, Plavix 75 mg p.o. daily. Patient is also to be continued on heparin SQ for DVT prophylaxis. We will continue Protonix. Hematuria Urine appears somewhat dark but within normal color range for urine. No gross hematuria. -Patient is ambulating well. Will d/c Smith catheter. Hypertension Patient is currently off clevidipine drip. Continue nifedipine 90 mg daily, increased losartan to 100 mg daily. -Will d/c Torsemide - hopefully he does not require Torsemide. Coronary artery disease History of CABG Continue aspirin, atorvastatin, isosorbide mononitrate Full code. Heparin SQ for DVT prophylaxis. Discharge plan: Probable discharge home with home health in the AM. Progress Note: Quality VTE Deep Vein Thrombosis/Pulmonary Embolism Present on Admission: No _ (1) Transient cerebral ischemia Qualifiers: Transient cerebral ischemia type: unspecified Qualified Code(s): G45.9 - Transient cerebral ischemic attack, unspecified (2) CAD (coronary artery disease) Qualifiers: Coronary Disease-Associated Artery/Lesion type: [place] vs. transplanted heart: Associated angina:
[2018-07-14] MEDS: Temazepam 15 MG Capsule PO SCH (20:59)
[2018-07-15] MEDS: Sod Chloride 0.9% Inj 1,000 ML IV.CONT SCH (00:02)
--- NOTE | 2018-07-15 12:38 | P.DS ---
DS: Providers Date of admission: 07/07/18 18:20 Primary care physician: Do Gallito Henson Consults: 07/06/18 15:28 Consult to Neurology Routine Consulting Provider: Jack Crowe Reason for Consultation: acute neuro symptoms, CVA/TIA, appreciate recommendation Notified:: Office Spoke with:: ELIZABETH Date Notified:: 07/06/18 Time Notified:: 15:40 Ordering Provider: TARUN 07/06/18 18:46 Consult to Cardiology Routine Consulting Provider: Rishi Crawford Does the patient have a Product Safety Coordinator who follows them?: Yes Preferred Flavoring Oil Filterer:: Rishi Crawford Reason for Consultation: preop cea Notified:: Service Spoke with:: JOSE E Date Notified:: 07/06/18 Time Notified:: 19:28 Ordering Provider: JORDYN Consult to Vascular Surgery Routine Consulting Provider: Reinaldo Hudson Reason for Consultation: left cea richard Notified:: Physician Spoke with:: DR HUDSON Date Notified:: 07/06/18 Time Notified:: 19:27 Ordering Provider: JORDYN 07/07/18 18:03 Consult to Slotter Operator Helper Routine Consulting Provider: Sanjay Mueller Reason for Consultation: post carotid, Medical mgt Notified:: Service Spoke with:: gaurav Date Notified:: 07/07/18 Time Notified:: 18:06 Ordering Provider: SHE 07/08/18 09:38 Consult to Urology Routine Consulting Provider: Gt Knutson Reason for Consultation: Routine consult. Patient with traumatic Smith with gross hematuria. Continuous bladder irrigations ordered. Currently on aspirin and clopidogrel with recent TIA and left carotid endarterectomy. Assistance with management. Notified:: Office Spoke with:: ENE Date Notified:: 07/08/18 Time Notified:: 10:21 Ordering Provider: DIPTI 07/09/18 09:07 Consult to Hospitalist Routine Consulting Provider: Maranda Nevarez Reason for Consultation: Consult and transfer to hospitalist service for medical management. Critical care will be signing off, please reconsult if needed Notified:: Service Spoke with:: Monique Date Notified:: 07/09/18 Time Notified:: 09:17 Comments:: waiting on assignment - Ordering Provider: MEREDITH 07/11/18 09:48 HUB Only Consult Order Routine Consulting Provider: Madhuri Dhaliwal 07/14/18 16:13 HUB Only Consult Order Routine Consulting Provider: Harriet Hernandez Reason for Consultation: [facility] referral Brief History from admission: 87-year-old male with known history of hypertension, hyperlipidemia, diabetes, coronary artery disease, aortic valve replacement who presented the hospital because of acute neurological symptoms. Patient states that his normal state of health until approximately 10 AM yesterday morning when he was out trimming the hedges. Patient states that he got about a third of the way down he started developing weakness in his lower extremities. Patient states that he had a difficult time of stepping up over a 1 foot fence. He tried multiple times and then he fell. He denies any head trauma or any loss of consciousness. The patient got up and finished trimming a hedge, he put everything away and then went into the house. After that he started having problems with coordination, ambulating. He states that he went into the kitchen to get utensils but could not differentiate between a knife and a fork. When the patient's came home she was concerned because he appeared to be very confused and he had the TV volume up very high. He does wear hearing aids and they usually listen to the TV at a 1920, however when she came in it was on 38 in order for him to hear. They came to the emergency department for evaluation. Original workup did not indicate any acute abnormality. It was recommended by the ER physician of the patient be observed in the hospital for further evaluation and management. The patient and indicate that this has happened approximately 6 months ago and he did not seek medical attention at that time. DS: Diagnosis Discharge Diagnosis (1) History of left-sided carotid endarterectomy: Status: Acute (2) Transient cerebral ischemia: Status: Acute (3) Accelerated hypertension: Status: Acute (4) CAD (coronary artery disease): Status: Acute (5) Hx of CABG: Status: Acute (6) Hx of aortic valve replacement: Status: Acute DS: Summary Mr. Ochoa is a pleasant 88-year-old male with a history of hypertension, hyperlipidemia, diabetes mellitus, AVR, coronary artery disease who presented to the emergency department on 07/06/2018 due to weakness in his lower extremities. He was working outside when he felt this weakness. He fell as well not hit his head or did not have any loss of consciousness. When he came inside he could not differentiate between a knife and a fork. Due to weakness and some level of confusion, patient was brought to the emergency department. Carotid ultrasound indicated greater than 70% stenosis of the left carotid artery. Patient was subsequently transferred to the main hospital and underwent left endarterectomy. Neurologic was consulted. Probable TIA with aphasia and confusion Appreciate neurology input. MRI studies indicate no evidence of a stroke. Probable ICU delirium/agitation Likely multifactorial due to ICU stay as well as underlying possible dementia Continue Seroquel 25 mg nightly. ICU delirium is much improved. Patient is very coherent. Lateral carotid artery stenosis Patient is status post left endarterectomy by vascular surgery. Continue aspirin 81 mg daily, Plavix 75 mg p.o. daily. Patient is also to be continued on heparin SQ for DVT prophylaxis. We will continue Protonix. Hematuria resolved. We discontinued Smith catheter and patient voided on his own. Hypertension Patient is currently off clevidipine drip. On oral meds, his BP was somewhat low. Continue nifedipine 30 mg daily, increased losartan to 25 mg daily. Coronary artery disease History of CABG Continue aspirin, atorvastatin, isosorbide mononitrate Full code. Heparin SQ for DVT prophylaxis in the hospital. Overall, patient continued to do well. I went over medications changes with patient's . Home health is also arranged. Patient will follow up with PCP. Time Spent with Patient Total time spent providing and/or coordinating discharge services: more than 30 minutes. Quality: VTE Deep Vein Thrombosis/Pulmonary Embolism Present on Admission: No Exam Narrative Exam Narrative: GENERAL: Alert, NAD. SKIN: Warm and dry. HEAD: Normocephalic. EYES: No scleral icterus. No injection or drainage. NECK: Supple, trachea midline. No JVD or lymphadenopathy. CARDIOVASCULAR: Regular rate and rhythm without murmurs, gallops, or rubs. RESPIRATORY: Breath sounds equal bilaterally. No accessory muscle use. GASTROINTESTINAL: Abdomen soft, non-tender, nondistended. MUSCULOSKELETAL: No cyanosis, or edema. BACK: Nontender without obvious deformity. No CVA tenderness. Results Procedures completed during hospitalization: 07/07/2018 Left carotid endarterectomy with patch angioplasty. Completed studies during hospitalization: Pending at discharge 07/07/18 07:26 Surgical [PTH] Routine Impressions ITS Impressions Carotid Doppler Study 07/06/18 00:00 CONCLUSION: 1. 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 2. Left Internal Carotid Artery: Findings indicate >70% stenosis, but less than near occlusion. 3. Consider confirmation of these findings with carotid CTA prior to any planned intervention. Neck CTA 07/06/18 00:00 CONCLUSION: 1. Bilateral bifurcation atherosclerosis as described. 2. Short segment 50-70% stenosis of the proximal right internal carotid artery. 3. Short segment greater than 70% stenosis of the proximal left internal carotid artery. Neck MRA 07/06/18 00:00 CONCLUSION: 1. There is a short segment focal high-grade stenosis in the proximal left internal carotid artery with at least 80% stenosis not greater. 2. There is a short segment of stenosis of the proximal right internal carotid artery with approximately 50% stenosis. 3. There is a nonspecific lobular presumed vascular structure in the left supraclavicular region measuring at least 1.5 cm. It does not appear to represent any definite artery but should exclude that it represents an aneurysm or arteriovenous fistula. Therefore, consider correlating with CTA examination with contrast injection in the right upper extremity during imaging. Percent stenosis is calculated using the diameter of the stenotic region over the diameter of the normal distal internal carotid artery Head MRA 07/06/18 07:01 CONCLUSION: 1. Significant intracranial atherosclerotic vascular disease as described above. Head MRI 07/06/18 07:07 CONCLUSION: 1. No acute intracranial abnormality is identified. There are no findings to indicate recent ischemia. 2. Chronic changes include generalized atrophy and moderate severity periventricular white matter signal change characteristic of chronic microvascular ischemic change. 3. Severe left maxillary mucoperiosteal thickening. Head CT 07/09/18 10:09 CONCLUSION: 1. Stable evaluation without evidence of acute infarct, hemorrhage, mass or edema. 2. Mild chronic ischemic white matter changes. 3. Chronic sinusitis left maxillary sinus. . Discharge Plan Discharge Disposition Patient Disposition: W/Home Health Service Discharge Condition Condition: Good Discharge Order Discharge Orders: Discharge Order (Routine); Ordered 07/15/18 Ordered By: Maranda Nevarez Discharge Details Anticipated Discharge Date: 07/14/18 Physicians Team ED Provider: Krzysztof Jewell Primary Care Provider: Do Gallito Henson Attending Provider: Maranda Nevarez Other Providers: Jack Crowe ; Rishi Crawford ; Reinaldo Hudson ; Sanjay Mueller ; Gt Knutson ; Madhuri Dhaliwal ; Nurse Andino,Harriet Rxs /Orders / Referrals /Forms Prescriptions: New clopidogrel [Plavix] 75 mg Tablet 75 mg PO DAILY Qty: 90 RF: 3 aspirin 81 mg Tablet,Delayed Release (Dr/Ec) 81 mg PO DAILY Qty: 90 RF: 3 temazepam 15 mg Capsule 15 mg PO HS Qty: 30 RF: 0 nifedipine 30 mg tablet extended release 30 mg PO DAILY Qty: 30 RF: 0 losartan 25 mg tablet 25 mg PO DAILY Qty: 30 RF: 11 Continue cyanocobalamin (vitamin B-12) [Vitamin B-12] 500 mcg Tablet 500 mcg PO DAILY RF: 0 isosorbide mononitrate 120 mg Tablet Extended Release 24 Hr 120 mg PO BID RF: 0 atorvastatin 80 mg Tablet 80 mg PO DAILY RF: 0 pantoprazole [Protonix] 20 mg Tablet,Delayed Release (Dr/Ec) 40 mg PO DAILY RF: 0 Discontinued aspirin 325 mg Tablet 325 mg PO DAILY RF: 0 acyclovir [Zovirax] 400 mg Tablet 400 mg PO TID RF: 0 enalapril maleate 10 mg Tablet 10 mg PO BID RF: 0 Referrals: Do Gallito Henson MD [Primary Care Provider] - See Instructions Nurse Andino,Harriet [Agency] - See Instructions Status ED Status: Left Department Discharge Information Discharge Date/Time: 07/15/18 09:20
== END 2018-07-15 09:20 | disposition home health service (06) ==
LOC: PHED 18:21 → PHEDA 18:21 → PH3 21:30 → N05 07-07 00:12 → N03 07-07 18:01
PROVIDERS: ADMIT Hospitalist; ATTEND Hospitalist
DX: Z86.19 Personal history of other infectious and parasitic diseases; F28 Other psychotic disorder not due to a substance or known physiological condition; E11.51 Type 2 diabetes mellitus with diabetic peripheral angiopathy without gangrene; H91.90 Unspecified hearing loss, unspecified ear; Z79.899 Other long term (current) drug therapy; Z78.1 Physical restraint status; Z79.82 Long term (current) use of aspirin; D72.829 Elevated white blood cell count, unspecified; E78.5 Hyperlipidemia, unspecified; Y92.239 Unspecified place in hospital as the place of occurrence of the external cause; H35.30 Unspecified macular degeneration; Z72.820 Sleep deprivation; S37.39XA Other injury of urethra, initial encounter; F05 Delirium due to known physiological condition; R33.8 Other retention of urine; I25.2 Old myocardial infarction; I67.2 Cerebral atherosclerosis; R31.0 Gross hematuria; Z95.5 Presence of coronary angioplasty implant and graft; Z95.3 Presence of xenogenic heart valve; I65.23 Occlusion and stenosis of bilateral carotid arteries; X58.XXXA Exposure to other specified factors, initial encounter; N40.1 Benign prostatic hyperplasia with lower urinary tract symptoms; Z87.891 Personal history of nicotine dependence; I25.10 Atherosclerotic heart disease of native coronary artery without angina pectoris; I10 Essential (primary) hypertension; R00.1 Bradycardia, unspecified; Z95.1 Presence of aortocoronary bypass graft; I16.0 Hypertensive urgency; I66.02 Occlusion and stenosis of left middle cerebral artery; I44.0 Atrioventricular block, first degree